=== PATIENT | male | born 1950 | race Caucasian/White ===

== ENCOUNTER 2016-05-12 18:29 | Inpatient (IN) | payer MEDICARE ==
[2016-05-12] MEDS ORDERED: IPRATROPIUM-ALBUTEROL 3 ML NEB INHALATION STA ×2 (18:48→18:52)
[2016-05-12] MEDS ORDERED: HYDROmorphone 1 MG/ML 1 ML SYRINGE IVP STA ×3 (18:48→21:12)
[2016-05-12] MEDS ORDERED: RX INFO: IV CONTRAST WAS GIVEN 1 EACH MISC MISCELLANE PRN (18:49)
--- NOTE | 2016-05-12 18:52 | ED ---
General Adult HPI - General Chief complaint: Shortness of Breath Stated complaint: preethi Time Seen by Provider: 05/12/16 18:42 Source: patient, family, RN notes reviewed Mode of arrival: wheelchair Limitations: no limitations - History of Present Illness Initial comments: Patient is a pleasant 66-year-old male presenting to the emergency Department with difficulty in breathing. Patient has had right-sided back pain for the past month or so. Patient has known lung cancer and is on chemotherapy. Patient has become more short of breath the past hour or so. Patient states discomfort is severe at this time. Patient is on oral morphine at home without improvement of symptoms. No leg pain or leg swelling. No cough or fever. - Related Data Home Medications Medication Instructions Recorded Confirmed Albuterol Inhaler [Ventolin Hfa 2 puff INHALATION RT-Q6H PRN 12/17/15 05/12/16 Inhaler] Escitalopram [Lexapro] 20 mg PO DAILY 12/17/15 05/12/16 Losartan [Cozaar] 25 mg PO DAILY 12/17/15 05/12/16 Cholecalciferol [Vitamin D3] 5,000 unit PO DAILY 03/13/16 05/12/16 Ascorbic Acid [Vitamin C] 500 mg PO DAILY 05/12/16 05/12/16 Cyclobenzaprine [Flexeril] 10 mg PO TID 05/12/16 05/12/16 Diazepam [Valium] 5 mg PO DAILY PRN 05/12/16 05/12/16 Flax Larios Lignans 1 tab PO DAILY 05/12/16 05/12/16 Morphine Sulfate [Ms Contin] 30 mg PO Q12H 05/12/16 05/12/16 Multivitamins, Thera [Multivitamin] 1 tab PO DAILY 05/12/16 05/12/16 [place] 3,6,9 1 cap PO DAILY 05/12/16 05/12/16 Opdivo(Unknown) 1 dose IV Q14D 05/12/16 05/12/16 Vitamin B Complex 1 cap PO DAILY 05/12/16 05/12/16 methylPREDNISolone [Medrol Dose 4 mg PO DIRECTED 05/12/16 05/12/16 Pack] Previous Rx's Medication Instructions Recorded Folic Acid 1 mg PO DAILY #90 tablet 01/01/16 HYDROcodone/APAP 10-325MG [[place] 1 - 2 tab PO Q4H PRN #84 tab 01/16/16 10325] Allergies Allergy/AdvReac Type Severity Reaction Status Date / Time adhesive Allergy Rash/Hives Verified 05/12/16 19:13 clonazepam [From Klonopin] Allergy Unknown Verified 05/12/16 19:13 latex Allergy Rash/Hives Verified 05/12/16 19:13 naproxen [From Naprosyn] Allergy Rash/Hives Verified 05/12/16 19:13 ondansetron Allergy Unknown Verified 05/12/16 19:13 prochlorperazine Allergy Unknown Verified 05/12/16 19:13 topiramate Allergy Blisters Verified 05/12/16 19:13 buprenorphine AdvReac Nausea Verified 05/12/16 19:13 myceline Allergy Unknown Uncoded 05/12/16 19:13 Review of Systems ROS Statement: Those systems with pertinent positive or pertinent negative responses have been documented in the HPI. ROS Other: All systems not noted in ROS Statement are negative. Constitutional: Denies: fever, chills Eyes: Denies: eye pain ENT: Denies: ear pain Respiratory: Reports: dyspnea. 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 , Lung Mass History of Any Multi-Drug Resistant Organisms: None Reported Past Surgical History: Orthopedic Surgery Additional Past Surgical History / Comment(s): cervical fusion 4,5,6. removed spur from neck. right ORCHECTOMY with right LYMPH NODES REMOVED and adrenal glands removed. metal clips and david in abdominal area secondary to surgery from cancer, RT KNEE X2 cyst removed ,SKIN CA REMOVED RT SIDE OF FACE 2001. right thumb fracture with surgery. 2004 left tib/fib and ankle fractures with surgery, colonoscopies/benign polypectomy. Past Anesthesia/Blood Transfusion Reactions: No Reported Reaction Additional Past Anesthesia/Blood Transfusion Reaction / Comment(s): Pt states he has received blood in past without reaction. Past Psychological History: Anxiety, Depression Additional Psychological History / Comment(s): Pt resides with his spouse. He uses a cane on occasion. He drives. Stopped smoking for a while but is smoking again at this time. Denies alcohol use. 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 No experience. No international travel. No current exposures. No recreational drug use or alcohol use Smoking Status: Current every day smoker Past Alcohol Use History: None Reported Additional Past Alcohol Use History / Comment(s): Pt states he started smoking in 1959. He is less than a ppd smoker at this time. Estimates was approximately 1 pack per day throughout most of life. Past Drug Use History: Marijuana - Past Family History Father Family Medical History: Cancer, Thyroid Disorder Additional Family Medical History / Comment(s): Father had skin cancer. He also had heart disease. He at the age of 95 yrs. Mother Family Medical History: Cancer, COPD, Hypertension Additional Family Medical History / Comment(s): Mother had breast cancer. She at the age of 84 yrs. General Exam Limitations: no limitations General appearance: alert, other (Patient does appear uncomfortable) Head exam: Present: atraumatic Eye exam: Present: normal appearance ENT exam: Present: normal oropharynx Neck exam: Present: normal inspection Respiratory exam: Present: decreased breath sounds Cardiovascular Exam: Present: tachycardia Expanded Peripheral pulses: 2+: Radial (R), Radial (L), Posterior Tibialis (R), Posterior Tibialis (L) GI/Abdominal exam: Present: soft. Absent: tenderness Extremities exam: Present: normal inspection. Absent: pedal edema, calf tenderness Back exam: Present: tenderness (Tenderness right parathoracic region) Neurological exam: Present: alert. Absent: motor sensory deficit Psychiatric exam: Present: normal affect, normal mood Skin exam: Absent: rash Course Vital Signs 05/12/16 05/12/16 05/12/16 18:35 18:53 19:04 Temperature 98.8 F Pulse Rate 134 H 130 H 136 H Respiratory 20 Rate Blood Pressure 120/84 O2 Sat by Pulse 96 Oximetry 05/12/16 05/12/16 05/12/16 19:05 19:17 19:52 Temperature Pulse Rate 136 H 136 H 118 H Respiratory 22 Rate Blood Pressure 126/77 O2 Sat by Pulse 96 Oximetry 05/12/16 05/12/16 20:59 21:28 Temperature Pulse Rate 119 H 118 H Respiratory 22 20 Rate Blood Pressure 144/68 139/72 O2 Sat by Pulse 97 97 Oximetry EKG Findings - EKG Comments: EKG Findings:: Sinus tachycardia 129. TN 142. QRS 74. QT 286. QTc 418. Normal axis. Normal QRS. Normal ST-T. Medical Decision Making - Medical Decision Making Patient reexamined and still appears in discomfort. Patient requests further medication. Case was discussed in detail with practitioner Nicky, covering for Dr. Alonzo, who will admit for Dr. Koehler. Case also discussed in detail with Dr. Salazar, who will consult for Dr. Polk. He recommends no antibiotics at this time. - Lab Data Result diagrams: 05/12/16 18:52 05/12/16 18:52 Lab Results 05/12/16 05/12/16 05/12/16 Range/Units 18:52 18:52 18:52 WBC 65.4 H* (3.8-10.6) k/uL RBC 3.81 L (4.30-5.90) m/uL Hgb 11.0 L (13.0-17.5) gm/dL Hct 36.1 L (39.0-53.0) % MCV 94.6 (80.0-100.0) fL MCH 29.0 (25.0-35.0) pg MCHC 30.6 L (31.0-37.0) g/dL RDW 20.0 H (11.5-15.5) % Plt Count 751 H D (150-450) k/uL Neutrophils % (Manual) 84.0 % Band Neutrophils % 8.0 % Lymphocytes % (Manual) 2.0 % Monocytes % (Manual) 4.5 % Metamyelocytes % 0.5 % Myelocytes % 1.0 % Neutrophils # (Manual) 60.2 H (1.3-7.7) k/uL Lymphocytes # (Manual) 1.3 (1.0-4.8) k/uL Monocytes # (Manual) 2.9 H (0-1.0) k/uL Nucleated RBCs 0 (0-0) /100 WBC Manual Slide Review Performed Toxic Granulation Present Hypochromasia Slight Anisocytosis Moderate Anisocytosis (manual) Present Macrocytosis Slight PT (9.0-12.0) sec INR (<1.1) APTT (22.0-30.0) sec Sodium 139 (137-145) mmol/L Potassium 4.9 (3.5-5.1) mmol/L Chloride 96 L (98-107) mmol/L Carbon Dioxide 27 (22-30) mmol/L Anion Gap 16 mmol/L BUN 17 (9-20) mg/dL Creatinine 0.69 (0.66-1.25) mg/dL Est GFR (MDRD) Af Amer >60 (>60 ml/min/1.73 sqM) Est GFR (MDRD) Non-Af >60 (>60 ml/min/1.73 sqM) Glucose 126 H (74-99) mg/dL Calcium 10.1 (8.4-10.2) mg/dL Total Bilirubin 0.3 (0.2-1.3) mg/dL AST 33 (17-59) U/L ALT 51 (21-72) U/L Alkaline Phosphatase 225 H (38-126) U/L Total Creatine Kinase <20 L (55-170) U/L CK-MB (CK-2) 1.0 (0.0-2.4) ng/mL CK-MB (CK-2) Rel Index 0.0 Troponin I <0.012 (0.000-0.034) ng/mL Total Protein 7.1 (6.3-8.2) g/dL Albumin 3.6 (3.5-5.0) g/dL 05/12/16 Range/Units 18:52 WBC (3.8-10.6) k/uL RBC (4.30-5.90) m/uL Hgb (13.0-17.5) gm/dL Hct (39.0-53.0) % MCV (80.0-100.0) fL MCH (25.0-35.0) pg MCHC (31.0-37.0) g/dL RDW (11.5-15.5) % Plt Count (150-450) k/uL Neutrophils % (Manual) % Band Neutrophils % % Lymphocytes % (Manual) % Monocytes % (Manual) % Metamyelocytes % % Myelocytes % % Neutrophils # (Manual) (1.3-7.7) k/uL Lymphocytes # (Manual) (1.0-4.8) k/uL Monocytes # (Manual) (0-1.0) k/uL Nucleated RBCs (0-0) /100 WBC Manual Slide Review Toxic Granulation Hypochromasia Anisocytosis Anisocytosis (manual) Macrocytosis PT 11.2 (9.0-12.0) sec INR 1.1 (<1.1) APTT 26.5 (22.0-30.0) sec Sodium (137-145) mmol/L Potassium (3.5-5.1) mmol/L Chloride (98-107) mmol/L Carbon Dioxide (22-30) mmol/L Anion Gap mmol/L BUN (9-20) mg/dL Creatinine (0.66-1.25) mg/dL Est GFR (MDRD) Af Amer (>60 ml/min/1.73 sqM) Est GFR (MDRD) Non-Af (>60 ml/min/1.73 sqM) Glucose (74-99) mg/dL Calcium (8.4-10.2) mg/dL Total Bilirubin (0.2-1.3) mg/dL AST (17-59) U/L ALT (21-72) U/L Alkaline Phosphatase (38-126) U/L Total Creatine Kinase (55-170) U/L CK-MB (CK-2) (0.0-2.4) ng/mL CK-MB (CK-2) Rel Index Troponin I (0.000-0.034) ng/mL Total Protein (6.3-8.2) g/dL Albumin (3.5-5.0) g/dL - Radiology Data Radiology results: image reviewed (Computed tomography scan of the chest shows no pulmonary embolism. Redemonstrated lesions.) Disposition Clinical Impression: Thoracic back pain, Dyspnea Disposition: ADMITTED IP TO THIS HOSP
[2016-05-12 19:15] LABS: Anisocytosis Moderate; CH 29.9; CHCM 31.7; HCT 36.1 % (39.0-53.0); HDW 2.84; Hypochromasia Slight; MCHC 30.6 g/dL (31.0-37.0); MCV 94.6 fL (80.0-100.0); Macrocytosis Slight; Mean Platelet Volume 7.6; RBC 3.81 m/uL (4.30-5.90); WBC (Perox) 64.86
[2016-05-12 19:17] LABS: WBC 65.4 k/uL (3.8-10.6)
[2016-05-12 19:18] LABS: INR 1.1 (<1.1); Partial Thromboplastin Time 26.5 sec (22.0-30.0); Prothrombin Time 11.2 sec (9.0-12.0)
[2016-05-12 19:25] LABS: Add Differential Manual Differential
[2016-05-12 19:26] LABS: ALT 51 U/L (21-72); AST 33 U/L (17-59); Alkaline Phosphatase 225 U/L (38-126); Anion Gap 16 mmol/L; Blood Urea Nitrogen 17 mg/dL (9-20); Calcium 10.1 mg/dL (8.4-10.2); Carbon Dioxide 27 mmol/L (22-30); Chloride 96 mmol/L (98-107); Glucose 126 mg/dL (74-99); Non-African American GFR(MDRD) >60 (>60 ml/min/1.73 sqM); Potassium 4.9 mmol/L (3.5-5.1); Sodium 139 mmol/L (137-145); Total Bilirubin 0.3 mg/dL (0.2-1.3); Total Protein 7.1 g/dL (6.3-8.2)
[2016-05-12 19:28] LABS: Metamyelocytes % 0.5 %; Nucleated Red Blood Cells 0 /100 WBC (0-0); Total Cells Counted 200
[2016-05-12 19:29] LABS: Creatine Kinase <20 U/L (55-170); Manual Review Performed; Toxic Granulation Present
[2016-05-12 19:41] LABS: Troponin I <0.012 ng/mL (0.000-0.034)
--- NOTE | 2016-05-12 20:47 | CT ---
EXAMINATION TYPE: CT angio chest DATE OF EXAM: 05/12/2016 7:48 PM COMPARISON: April 15, 2016 HISTORY: Patient complains of shortness of breath. Patient has a known history of lung CA. CT DLP: 170.1 mGycm Automated exposure control for dose reduction was used. CONTRAST: CTA scan of the thorax is performed with IV Contrast, patient injected with 100 mL of Omnipaque 350, pulmonary embolism protocol. MIP images are created and reviewed. 3D reconstructed images are creat ed on an independent workstation and reviewed. FINDINGS: Thoracic findings: The pulmonary arterial tree is widely patent, without evidence of pulmonary emboli . There is no pulmonary edema, and no evidence of pneumonia. The pleural spaces are negative. The mass in the left lower lobe is lobulated and measures approximately 5 x 3.8 x 3.5 cm, similar to the previous exam. There is redemonstration of an expansile lesion within the left anterior costo chondral cartilage junction - this has increased to 2.6 cm AP, previously measuring 2.0 cm AP. Left i nfrahilar adenopathy appears similar to the prior study. No mediastinal adenopathy. Coronary calcific ations are noted. Visualized subdiaphragmatic structures: There several small hypodensities scattered through the liver , which were present previously. There is a hypodensity within the anterior mid right portion of the spleen measuring 1.7 cm - which was seen previously. Left adrenal gland nodules are redemonstrated. IMPRESSIONS: 1. NEGATIVE FOR PULMONARY EMBOLI OR OTHER ACUTE PULMONARY OR PLEURAL PROCESS. 2. NEOPLASTIC FINDINGS REDEMONSTRATED.
[2016-05-12] MEDS ORDERED: ACETAMINOPHEN IV (For NPO) 1,000 MG in SALINE 1 100ML.BAG IVPB STA (21:12)
[2016-05-12] MEDS ORDERED: IPRATROPIUM-ALBUTEROL 3 ML NEB INHALATION PRN (21:31)
[2016-05-12 22:45] VITALS: BMI 23.7
[2016-05-12] MEDS: CYCLOBENZAPRINE 10 MG TAB PO SCH (23:57)
[2016-05-12] MEDS: HYDROmorphone 1 MG/ML 1 ML SYRINGE IVP PRN (23:57)
[2016-05-13] MEDS: MORPHINE SULFATE ER 30 MG TABLET PO SCH ×4 (01:16→22:59)
[2016-05-13] MEDS: HYDROmorphone 1 MG/ML 1 ML SYRINGE IVP PRN ×7 (03:54→22:33)
[2016-05-13 04:51] LABS: Appearance,Urine Clear (Clear); Bilirubin,Urine Negative (Negative); Glucose,Urine (UA) Negative (Negative); Ketones,Urine Negative (Negative); Leukocyte Esterase,Urine Negative (Negative); Nitrite,Urine Negative (Negative); PH, Urine 7.5 (5.0-8.0); Protein,Urine Trace (Negative); UA Billing (MACRO vs. MICRO) CHEM; Urobilinogen,Urine <2.0 mg/dL (<2.0)
[2016-05-13 05:39] LABS: Specific Gravity,Urine >1.050 (1.001-1.035)
[2016-05-13] MEDS: IPRATROPIUM-ALBUTEROL 3 ML NEB INHALATION SCH ×4 (06:49→20:19)
[2016-05-13] MEDS: CYCLOBENZAPRINE 10 MG TAB PO SCH ×3 (07:33→20:27)
[2016-05-13] MEDS: FOLIC ACID 1 MG TAB PO SCH (07:33)
[2016-05-13] MEDS: ASCORBIC ACID 500 MG TAB PO SCH (07:33)
[2016-05-13] MEDS: ESCITALOPRAM 20 MG TAB PO SCH (07:33)
[2016-05-13] MEDS: CHOLECALCIFEROL 1,000 UNIT TAB PO SCH (07:33)
[2016-05-13] MEDS: LOSARTAN 50 MG TAB PO SCH (07:34)
[2016-05-13] MEDS: MULTIVITAMINS, THERA 1 EACH TAB PO SCH (07:34)
[2016-05-13] MEDS ORDERED: OMEGA PO SCH (09:00)
[2016-05-13] MEDS ORDERED: [UNRECOGNIZED DRUG - OTHER] PO SCH (09:00)
[2016-05-13] MEDS: HYDROcodone/APAP 10-325MG 1 EACH TAB PO PRN ×3 (14:56→22:59)
--- NOTE | 2016-05-13 16:13 | P.HPIM ---
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 Patient follows with Dr. Polk for oncology and has undergone chemotherapy. Patient presented to the emergency department with complaints of difficulty breathing started 1 hour prior to arrival. Patient also complained of right- sided back pain, increasing in character over the last month. Patient states that he was recently treated with Flexeril and tapered Medrol pack by [facility] for a suspected pinched nerve in his back. CTA of chest negative for pulmonary emboli or other acute pulmonary or pleural process. Admission temperature 98.8, heart rate 134, blood pressure 120/84, oxygen saturation 96% on room air. Admission WBC 65.4. Patient was admitted to the medical floor for intractable thoracic back pain and dyspnea. Consult requested for oncology service. Upon examination, patient complains of pain to his posterior right upper back radiating to his right posterior shoulder exacerbated with minimal activity. Denies chills, fevers, shortness of breath, chest pain, or abdominal pain. Patient reports fair appetite. Patient is urinating without difficulty. 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 , Lung Mass History of Any Multi-Drug Resistant Organisms: None Reported Past Surgical History: Orthopedic Surgery Additional Past Surgical History / Comment(s): cervical fusion 4,5,6. removed spur from neck. right ORCHECTOMY with right LYMPH NODES REMOVED and adrenal glands removed. metal clips and david in abdominal area secondary to surgery from cancer, RT KNEE X2 cyst removed ,SKIN CA REMOVED RT SIDE OF FACE 2001. right thumb fracture with surgery. 2004 left tib/fib and ankle fractures with surgery, colonoscopies/benign polypectomy. Past Anesthesia/Blood Transfusion Reactions: No Reported Reaction Additional Past Anesthesia/Blood Transfusion Reaction / Comment(s): Pt states he has received blood in past without reaction. Past Psychological History: Anxiety, Depression Additional Psychological History / Comment(s): Pt resides with his spouse. He uses a cane on occasion. He drives. Stopped smoking for a while but is smoking again at this time. Denies alcohol use. 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 No experience. No international travel. No current exposures. No recreational drug use or alcohol use Smoking Status: Current every day smoker Past Alcohol Use History: None Reported Additional Past Alcohol Use History / Comment(s): Pt states he started smoking in 1959. He is less than a ppd smoker at this time. Estimates was approximately 1 pack per day throughout most of life. Past Drug Use History: Marijuana - Past Family History Father Family Medical History: Cancer, Thyroid Disorder Additional Family Medical History / Comment(s): Father had skin cancer. He also had heart disease. He at the age of 95 yrs. Mother Family Medical History: Cancer, COPD, Hypertension Additional Family Medical History / Comment(s): Mother had breast cancer. She at the age of 84 yrs. Medications and Allergies Home Medications Medication Instructions Recorded Confirmed Type Albuterol Inhaler [Ventolin Hfa 2 puff INHALATION RT-Q6H PRN 12/17/15 05/12/16 History Inhaler] Escitalopram [Lexapro] 20 mg PO DAILY 12/17/15 05/12/16 History Losartan [Cozaar] 25 mg PO DAILY 12/17/15 05/12/16 History Cholecalciferol [Vitamin D3] 5,000 unit PO DAILY 03/13/16 05/12/16 History Ascorbic Acid [Vitamin C] 500 mg PO DAILY 05/12/16 05/12/16 History Cyclobenzaprine [Flexeril] 10 mg PO TID 05/12/16 05/12/16 History Diazepam [Valium] 5 mg PO DAILY PRN 05/12/16 05/12/16 History Flax Larios Lignans 1 tab PO DAILY 05/12/16 05/12/16 History Morphine Sulfate [Ms Contin] 30 mg PO Q12H 05/12/16 05/12/16 History Multivitamins, Thera [Multivitamin] 1 tab PO DAILY 05/12/16 05/12/16 History [place] 3,6,9 1 cap PO DAILY 05/12/16 05/12/16 History Opdivo(Unknown) 1 dose IV Q14D 05/12/16 05/12/16 History Vitamin B Complex 1 cap PO DAILY 05/12/16 05/12/16 History methylPREDNISolone [Medrol Dose 4 mg PO DIRECTED 05/12/16 05/12/16 History Pack] Allergies Allergy/AdvReac Type Severity Reaction Status Date / Time adhesive Allergy Rash/Hives Verified 05/12/16 19:13 clonazepam [From Klonopin] Allergy Unknown Verified 05/12/16 19:13 latex Allergy Rash/Hives Verified 05/12/16 19:13 naproxen [From Naprosyn] Allergy Rash/Hives Verified 05/12/16 19:13 ondansetron Allergy Unknown Verified 05/12/16 19:13 prochlorperazine Allergy Unknown Verified 05/12/16 19:13 topiramate Allergy Blisters Verified 05/12/16 19:13 buprenorphine AdvReac Nausea Verified 05/12/16 19:13 myceline Allergy Unknown Uncoded 05/12/16 19:13 Physical Exam Vitals: Vital Signs Temp Pulse Pulse Resp BP BP Pulse Ox 05/13/16 15:34 110 H 05/13/16 15:24 110 H 05/13/16 12:12 112 H 05/13/16 12:03 118 H 05/13/16 07:00 97.1 F L 116 H 106 H 20 123/71 94 L 05/13/16 06:49 114 H 97 05/13/16 00:00 107 H 18 05/12/16 22:01 97.1 F L 107 H 18 108/61 96 05/12/16 21:58 98.7 F 114 H 18 122/79 98 Intake and Output 05/13/16 05/13/16 05/13/16 06:59 14:59 22:59 Other: Voiding Method Toilet Toilet Toilet Urinal Urinal Urinal # Voids 1 Weight 77.1 kg Patient Weight 05/14/16 06:59 Weight 77.1 kg GENERAL: Pt awake and alert, lying in bed, in no acute distress. HEAD: Atraumatic, normocephalic. EYES: Conjunctiva are normal. ENT: Moist mucous membranes. NECK:Supple without lymphadenopathy or JVD. LUNGS: Breath sounds clear to auscultation bilaterally. HEART: Heart S1, S2, no S3 or S4. Regular rate and rhythm. No murmurs, rubs or gallops. ABDOMEN: Soft, nontender, nondistended, normoactive bowel sounds. EXTREMITIES: 2+ peripheral pulses. No edema. No calf tenderness. NEUROLOGICAL: Pt oriented x 3. Cranial nerves II through XII grossly intact. Strength and sensation grossly intact. PSYCH: Calm. SKIN: Warm, dry. MUSCULOSKELETAL: Tenderness to right sided thoracic region. Results CBC & Chem 7: 05/12/16 18:52 05/12/16 18:52 Labs: Abnormal Lab Results - Last 24 Hours (Table) 05/13/16 Range/Units 04:00 Ur Specific [place] >1.050 H (1.001-1.035) Urine Protein Trace H (Negative) Thrombosis Risk Factor Assmnt - DVT/VTE Prophylaxis DVT/VTE Prophylaxis: Pharmacologic Prophylaxis ordered, Mechanical Prophylaxis ordered - Choose All That Apply Each Factor Represents 1 point: Abnormal pulmonary function (COPD) Other Risk Factors: Yes Each Risk Factor Represents 2 Points: Age 61-74 years Thrombosis Risk Factor Assessment Total Risk Factor Score: 3 Thrombosis Risk Factor Assessment Level: Moderate Risk Assessment and Plan Plan: Impression: 1. Dyspnea, present on admission. CT chest negative for pulmonary embolism or acute pulmonary process. 2. Thoracic back pain. 3. Adenocarcinoma of lung with metastasis to right iliac bone. 4. Anemia suspect secondary to chronic disease. Hemoglobin 11. 4. Thrombocytosis, present on admission. Platelet count 751. 5. Elevated alkaline phosphatase, chronic. Alkaline phosphatase 225. 6. History of COPD. 7. GERD. 9. History of asthma. 10. History of testicular cancer. 11. Hypertension. 12. Degenerative joint disease. 13. Sleep apnea. 14. History of hiatal hernia. 15. Anxiety and depression, stable. 16. Chronic back pain. 17. Nicotine dependence. Plan: Continue to monitor patient. Consult Dr. Salazar from oncology service, recommendations pending. Continue home medications. Continue GI and DVT prophylaxis. Encourage smoking cessation. Continue supportive treatment and pain management. Repeat CBC and BMP in a.m. The above impression and plan have been discussed and directed by Dr. Koehler. Anna RAMIREZ acting as scribe for Dr. Koehler.
[2016-05-13] MEDS: FAMOTIDINE 20 MG TAB PO SCH (20:27)
--- NOTE | 2016-05-13 21:28 | P.CONS ---
History of Present Illness - Reason for Consult Consult date: 05/13/16 Intractable pain. Metastatic adenocarcinoma of lung - History of Present Illness Mr. Cutler is a 66-year-old gentleman, initially seen in consult during his visit on 12/21/2015. He had been admitted with severe lower back pain. He was ultimately found to have a destructive sacroiliac metastasis, with biopsy confirming non-small cell cancer (likely adenocarcinoma) of lung origin. A dominant mass was also found in the left lung, on CT scans. Pain control during this previous visit was quite challenging. The patient was seen by radiation oncology and started on palliative radiation which he completed on 01/09/2016. He was then started on chemotherapy with carboplatin and Alimta, and completed 4 cycles in late 03/26. Tolerance of chemotherapy was overall poor, with significant fatigue, decreased appetite, and need for transfusions. The CT scans from early 04/25 however showed progression in the dominant mass in the left lung. The patient was therefore started on second line treatment with Opdivo, and received his first cycle 2 weeks ago. The patient has chronic pain issues related to musculoskeletal problems especially regarding his back, chronically, for several years even prior to his cancer diagnosis. He states that he developed right-sided upper back pain, especially around the right shoulder blade, a few days ago. This has been progressive since, and associated with the some intermittent shortness of breath. He therefore came into the emergency room, and had a CTA of the chest done. The report, as well as the actual images were reviewed. The mass in the lower left lung, appeared to be slightly smaller. There was minor increase in previously noted costochondral expansile mass. No PE was seen. As the patient' s pain was not controlled, he was admitted for further management. Regarding his shortness of breath, he states that this appears to be related to inability to take deep breaths when his pain was more severe. He denies any significant cough. The lower back pain with which he had presented at the time of his initial cancer diagnosis, is quite well controlled per the patient. The consult was therefore placed for further evaluation and recommendations Review of Systems Constitutional: Reports chronic pain, Reports fatigue, Reports weakness Eyes: denies blurred vision, denies pain Ears: deny: decreased hearing, ear discharge, earache, tinnitus Cardiovascular: Reports shortness of breath Respiratory: Reports dyspnea, Reports pain, Reports pain on inspiration Gastrointestinal: Denies abdominal pain, Denies diarrhea, Denies nausea, Denies vomiting Genitourinary: Reports as per HPI (No specific complaints) Musculoskeletal: right: shoulder pain Integumentary: Denies pruritus, Denies rash Neurological: Reports weakness Psychiatric: Reports depression Endocrine: Denies fatigue, Denies weight change Hematologic/Lymphatic: Reports as per HPI Past Medical History Past Medical History: Asthma, Cancer, COPD, GERD/Reflux, Hypertension, Osteoarthritis (OA), Pneumonia, Skin Disorder, Sleep Apnea/CPAP/BIPAP Additional Past Medical History / Comment(s): cervical and back pain, LAVERN but no longer uses his CPAP, 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 , Lung Mass History of Any Multi-Drug Resistant Organisms: None Reported Past Surgical History: Orthopedic Surgery Additional Past Surgical History / Comment(s): cervical fusion 4,5,6. removed spur from neck. right ORCHECTOMY with right LYMPH NODES REMOVED and adrenal glands removed. metal clips and david in abdominal area secondary to surgery from cancer, RT KNEE X2 cyst removed ,SKIN CA REMOVED RT SIDE OF FACE 2001. right thumb fracture with surgery. 2004 left tib/fib and ankle fractures with surgery, colonoscopies/benign polypectomy. Past Anesthesia/Blood Transfusion Reactions: No Reported Reaction Additional Past Anesthesia/Blood Transfusion Reaction / Comm: Pt states he has received blood in past without reaction. Past Psychological History: Anxiety, Depression Additional Psychological History / Comment(s): Pt resides with his spouse. He uses a cane on occasion. He drives. Stopped smoking for a while but is smoking again at this time. Denies alcohol use. 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 No experience. No international travel. No current exposures. No recreational drug use or alcohol use Smoking Status: Current every day smoker Past Alcohol Use History: None Reported Additional Past Alcohol Use History / Comment(s): Pt states he started smoking in 1959. He is less than a ppd smoker at this time. Estimates was approximately 1 pack per day throughout most of life. Past Drug Use History: Marijuana - Past Family History Father Family Medical History: Cancer, Thyroid Disorder Additional Family Medical History / Comment(s): Father had skin cancer. He also had heart disease. He at the age of 95 yrs. Mother Family Medical History: Cancer, COPD, Hypertension Additional Family Medical History / Comment(s): Mother had breast cancer. She at the age of 84 yrs. Medications and Allergies Home Medications Medication Instructions Recorded Confirmed Type Albuterol Inhaler [Ventolin Hfa 2 puff INHALATION RT-Q6H PRN 12/17/15 05/12/16 History Inhaler] Escitalopram [Lexapro] 20 mg PO DAILY 12/17/15 05/12/16 History Losartan [Cozaar] 25 mg PO DAILY 12/17/15 05/12/16 History Cholecalciferol [Vitamin D3] 5,000 unit PO DAILY 03/13/16 05/12/16 History Ascorbic Acid [Vitamin C] 500 mg PO DAILY 05/12/16 05/12/16 History Cyclobenzaprine [Flexeril] 10 mg PO TID 05/12/16 05/12/16 History Diazepam [Valium] 5 mg PO DAILY PRN 05/12/16 05/12/16 History Flax Larios Lignans 1 tab PO DAILY 05/12/16 05/12/16 History Morphine Sulfate [Ms Contin] 30 mg PO Q12H 05/12/16 05/12/16 History Multivitamins, Thera [Multivitamin] 1 tab PO DAILY 05/12/16 05/12/16 History Ross 3,6,9 1 cap PO DAILY 05/12/16 05/12/16 History Opdivo(Unknown) 1 dose IV Q14D 05/12/16 05/12/16 History Vitamin B Complex 1 cap PO DAILY 05/12/16 05/12/16 History methylPREDNISolone [Medrol Dose 4 mg PO DIRECTED 05/12/16 05/12/16 History Pack] Allergies Allergy/AdvReac Type Severity Reaction Status Date / Time adhesive Allergy Rash/Hives Verified 05/12/16 19:13 clonazepam [From Klonopin] Allergy Unknown Verified 05/12/16 19:13 latex Allergy Rash/Hives Verified 05/12/16 19:13 naproxen [From Naprosyn] Allergy Rash/Hives Verified 05/12/16 19:13 ondansetron Allergy Unknown Verified 05/12/16 19:13 prochlorperazine Allergy Unknown Verified 05/12/16 19:13 topiramate Allergy Blisters Verified 05/12/16 19:13 buprenorphine AdvReac Nausea Verified 05/12/16 19:13 myceline Allergy Unknown Uncoded 05/12/16 19:13 Physical Exam Vitals: Vital Signs Temp Pulse Pulse Resp BP BP Pulse Ox 05/13/16 20:33 108 H 05/13/16 20:19 108 H 05/13/16 17:59 98 F 05/13/16 15:34 110 H 05/13/16 15:24 110 H 05/13/16 15:00 100 F H 108 H 20 105/62 96 05/13/16 12:12 112 H 05/13/16 12:03 118 H 05/13/16 07:00 97.1 F L 116 H 106 H 20 123/71 94 L 05/13/16 06:49 114 H 97 05/13/16 00:00 107 H 18 05/12/16 22:01 97.1 F L 107 H 18 108/61 96 05/12/16 21:58 98.7 F 114 H 18 122/79 98 Intake and Output 05/13/16 05/13/16 05/13/16 06:59 14:59 22:59 Other: Voiding Method Toilet Toilet Toilet Urinal Urinal Urinal # Voids 1 2 Weight 77.1 kg Patient Weight 05/14/16 06:59 Weight 77.1 kg - Constitutional General appearance: no acute distress - EENT Eyes: EOMI, PERRLA ENT: hearing grossly normal, normal oropharynx - Neck Neck: no lymphadenopathy Thyroid: bilateral: normal size - Respiratory Respiratory: bilateral: CTA - Cardiovascular Rhythm: regular Heart sounds: normal: S1, S2 - Gastrointestinal General gastrointestinal: normal bowel sounds, soft - Integumentary Integumentary: normal - Neurologic Neurologic: CNII-XII intact - Musculoskeletal Musculoskeletal: generalized weakness, strength equal bilaterally - Psychiatric Psychiatric: A&O x's 3, appropriate affect Results CBC & Chem 7: 05/12/16 18:52 05/12/16 18:52 Labs: Abnormal Lab Results - Last 24 Hours (Table) 05/13/16 Range/Units 04:00 Ur Specific Flora >1.050 H (1.001-1.035) Urine Protein Trace H (Negative) CT scan - chest: report reviewed, image reviewed (Prior CT chest report from early 04/25 reviewed) Assessment and Plan (1) Thoracic back pain Narrative/Plan: This pain is new, and limited to the right upper back, especially around the right shoulder blade. The patient describes this as a "tightness", worsened by deep inspiration. His CT scans, as well as physical exam did not reveal any specific lesions to explain this pain. The patient is fairly comfortable after admission, on his current pain regimen. Continue the same. The patient does have a long-standing history of degenerative disease and chronic muscular skeletal pain especially related to his spine. We will order an MRI of the C- spine and thoracic spine, for further workup. Status: Acute (2) Lung cancer metastatic to bone Narrative/Plan: The patient is status post his first dose of Opdivo. 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 Status: Acute
[2016-05-14] MEDS: HYDROmorphone 1 MG/ML 1 ML SYRINGE IVP PRN ×6 (02:35→21:54)
[2016-05-14] MEDS: HYDROcodone/APAP 10-325MG 1 EACH TAB PO PRN ×4 (03:24→18:30)
[2016-05-14 07:42] LABS: Anisocytosis Slight; Basophils % (A) 0 %; CH 29.5; CHCM 30.3; Eosinophils # (A) 0.1 k/uL (0-0.7); Eosinophils % (A) 0 %; HCT 32.5 % (39.0-53.0); HDW 2.73; Hypochromasia Marked; Luc % (Auto) 1; Lymphocytes # (A) 0.8 k/uL (1.0-4.8); Lymphocytes % (A) 2 %; MCH 29.9 pg (25.0-35.0); MCHC 30.7 g/dL (31.0-37.0); MCV 97.5 fL (80.0-100.0); Macrocytosis Slight; Mean Platelet Volume 6.9; Monocytes # (A) 1.4 k/uL (0-1.0); Monocytes % (A) 3 %; Neutrophils # (A) 45.6 k/uL (1.3-7.7); Neutrophils % (A) 95 %; RBC 3.34 m/uL (4.30-5.90); RDW 19.6 % (11.5-15.5); WBC (Perox) 51.07
[2016-05-14 08:03] LABS: WBC 48.2 k/uL (3.8-10.6)
[2016-05-14 08:13] LABS: Anion Gap 12 mmol/L; Blood Urea Nitrogen 15 mg/dL (9-20); Calcium 8.9 mg/dL (8.4-10.2); Carbon Dioxide 29 mmol/L (22-30); Chloride 96 mmol/L (98-107); Glucose 117 mg/dL (74-99); Non-African American GFR(MDRD) >60 (>60 ml/min/1.73 sqM); Potassium 4.5 mmol/L (3.5-5.1); Sodium 137 mmol/L (137-145)
[2016-05-14] MEDS: IPRATROPIUM-ALBUTEROL 3 ML NEB INHALATION SCH ×4 (08:43→19:16)
[2016-05-14] MEDS: ASCORBIC ACID 500 MG TAB PO SCH (10:10)
[2016-05-14] MEDS: CYCLOBENZAPRINE 10 MG TAB PO SCH ×3 (10:11→21:55)
[2016-05-14] MEDS: FOLIC ACID 1 MG TAB PO SCH (10:11)
[2016-05-14] MEDS: MULTIVITAMINS, THERA 1 EACH TAB PO SCH (10:11)
[2016-05-14] MEDS: LOSARTAN 50 MG TAB PO SCH (10:11)
[2016-05-14] MEDS: ENOXAPARIN 40 MG/0.4 ML SYRINGE SQ SCH (10:11)
[2016-05-14] MEDS: ESCITALOPRAM 20 MG TAB PO SCH (10:11)
[2016-05-14] MEDS: CHOLECALCIFEROL 1,000 UNIT TAB PO SCH (10:11)
[2016-05-14] MEDS: MORPHINE SULFATE ER 30 MG TABLET PO SCH ×2 (11:31→21:53)
--- NOTE | 2016-05-14 12:42 | P.PN ---
Subjective Principal diagnosis: Thoracic back pain Patient is a 66-year-old male with complex medical history noted below significant for stage IV lung cancer with metastasis to right iliac bone. Patient follows with Dr. Polk for oncology and has undergone chemotherapy. Patient presented to the emergency department with complaints of difficulty breathing started 1 hour prior to arrival. Patient also complained of right- sided thoracic back pain, increasing in character over the last month. Patient states that he was recently treated with Flexeril and tapered Medrol pack by [facility] for a suspected pinched nerve in his back. CTA of chest negative for pulmonary emboli or other acute pulmonary or pleural process. Admission temperature 98.8, heart rate 134, blood pressure 120/84, oxygen saturation 96% on room air. Admission WBC 65.4. Patient was admitted to the medical floor for intractable thoracic back pain and dyspnea. Consult requested for oncology service. Patient is currently awaiting MRI of the C- spine and thoracic spine. Upon examination, patient continues to complains of pain to his posterior right upper back radiating to his right posterior shoulder blade exacerbated with activity.. Pain is controlled with current pain regimen per patient. Denies chills, fevers, shortness of breath, chest pain, or abdominal pain. Patient reports fair appetite. Patient is urinating without difficulty. WBC 40.2. Hemoglobin 10. Objective - Vital Signs Vital signs: Vital Signs Temp 97.8 F 05/14/16 07:00 Pulse 112 H 05/14/16 07:00 Resp 16 05/14/16 07:00 BP 98/60 05/14/16 07:00 Pulse Ox 96 05/14/16 07:00 Intake & Output 05/13/16 05/14/16 05/14/16 18:59 06:59 18:59 Weight 77.1 kg Other: Voiding Method Toilet Toilet Toilet Urinal Urinal Urinal # Voids 2 2 - Exam GENERAL: Pt awake and alert, lying in bed, in no acute distress. HEAD: Atraumatic, normocephalic. EYES: Conjunctiva are normal. ENT: Moist mucous membranes. NECK:Supple without lymphadenopathy or JVD. LUNGS: Breath sounds clear to auscultation bilaterally. HEART: Heart S1, S2, no S3 or S4. Regular rate and rhythm. No murmurs, rubs or gallops. ABDOMEN: Soft, nontender, nondistended, normoactive bowel sounds. EXTREMITIES: 2+ peripheral pulses. No edema. No calf tenderness. NEUROLOGICAL: Pt oriented x 3. Cranial nerves II through XII grossly intact. Strength and sensation grossly intact. PSYCH: Calm. SKIN: Warm, dry, pale. MUSCULOSKELETAL: Tenderness to right sided thoracic region. - Labs CBC & Chem 7: 05/14/16 07:23 05/14/16 07:23 Labs: Abnormal Lab Results - Last 24 Hours (Table) 05/14/16 05/14/16 Range/Units 07:23 07:23 WBC 48.2 H* (3.8-10.6) k/uL RBC 3.34 L (4.30-5.90) m/uL Hgb 10.0 L (13.0-17.5) gm/dL Hct 32.5 L (39.0-53.0) % MCHC 30.7 L (31.0-37.0) g/dL RDW 19.6 H (11.5-15.5) % Plt Count 555 H (150-450) k/uL Neutrophils # 45.6 H (1.3-7.7) k/uL Lymphocytes # 0.8 L (1.0-4.8) k/uL Monocytes # 1.4 H (0-1.0) k/uL Chloride 96 L (98-107) mmol/L Creatinine 0.59 L (0.66-1.25) mg/dL Glucose 117 H (74-99) mg/dL Assessment and Plan Plan: Impression: 1. Dyspnea, present on admission. CT chest negative for pulmonary embolism or acute pulmonary process. 2. Thoracic back pain. MRI of cervical spine, right shoulder, and thoracic spine pending. Continue current pain management. 3. Adenocarcinoma of lung with metastasis to right iliac bone. Oncology has seen and evaluated patient, recommendations noted. 4. Anemia suspect secondary to chronic disease. Hemoglobin 10. 4. Thrombocytosis, present on admission. Platelet count 555.. 5. Elevated alkaline phosphatase, chronic. Alkaline phosphatase 225 on admission. 6. History of COPD. 7. GERD. 9. History of asthma. 10. History of testicular cancer. 11. Hypertension. 12. Degenerative joint disease. 13. Sleep apnea. 14. History of hiatal hernia. 15. Anxiety and depression, stable. 16. Chronic back pain. 17. Nicotine dependence. Plan: Continue to monitor patient. Continue home medications. Await results of MRI scans. Continue GI and DVT prophylaxis. Encourage smoking cessation. Continue supportive treatment and pain management. Repeat CBC and BMP in a.m. The above impression and plan have been discussed and directed by Dr. Koehler. Anna RAMIREZ acting as scribe for Dr. Koehler.
--- NOTE | 2016-05-14 14:14 | MR ---
EXAMINATION TYPE: MR shoulder RT wo con DATE OF EXAM: 05/14/2016 9:35 AM COMPARISON: CT scan chest abdomen and pelvis 15 April 2016, bone scan December 2015, no plain film ferguson pplied HISTORY: Rt. shoulder intractable pain. TECHNIQUE: Multiplanar, multisequence imaging of the right shoulder is performed without contrast. FINDINGS: There is extensive motion exam due to patient's pain, this could limit sensitivity. Rotator Cuff: Thought to be intact, some increased signal within the rotator cuff tendon may be due t o tendinopathy, difficult to exclude a partial tear Acromioclavicular Joint: Intact Glenohumeral Joint: No dislocation. Labrum: The labrum appears grossly intact given limitation of non-arthrogram study. Biceps Tendon: The long head of biceps is in normal location within bicipital groove. Bone marrow signal: Diffuse heterogeneous abnormal signal present to include the bony glenoid, clavic le, acromion, proximal humerus and likely ribs within the field of view compatible with marrow placem ent Other: No additional significant abnormality is appreciated. IMPRESSION: Findings suggest bony metastatic disease. Bone scan could be performed for additional evaluation. Add itional findings above.
--- NOTE | 2016-05-14 15:02 | MR ---
EXAMINATION TYPE: MR cervical spine wo/w con DATE OF EXAM: 05/14/2016 10:02 AM COMPARISON: NONE HISTORY: intractable pain, prior surgery on cervical spine TECHNIQUE: Multiplanar, multisequence images of the cervical spine were acquired utilizing 15 mL intravenous Mul tiHance gadolinium contrast. Diffusion weighted imaging was performed. There is extensive motion on the exam. No significant central canal stenosis. Cervical cord signal, c ervical medullary junction thought to be maintained. Soft tissue mass is present deep to the sternocl eidomastoid muscle on the right measuring approximately 2.4 cm which shows some peripheral enhancemen t with central low signal following contrast administration possibly representing adenopathy. Patient shows postoperative change status post anterior cervical fusion and discectomy at C6. Focus of abnor mal signal present within the T1 vertebral body shows increased signal on T2-weighted sequences and l ow signal and T1-weighted images. There is enhancement following contrast menstruation. Abnormal incr eased signal also present within the posterior aspect of the T3 vertebral body to the left of midline , low signal following contrast administration. No sizable disc herniation is evident. Suspect multil evel foraminal encroachment. IMPRESSION: Metastatic disease is suspected. Postop changes. Limitations as described.
[2016-05-14] MEDS: FAMOTIDINE 20 MG TAB PO SCH (21:53)
[2016-05-15] MEDS: HYDROmorphone 1 MG/ML 1 ML SYRINGE IVP PRN ×6 (03:36→19:42)
[2016-05-15] MEDS: ENOXAPARIN 40 MG/0.4 ML SYRINGE SQ SCH (07:48)
[2016-05-15] MEDS: CYCLOBENZAPRINE 10 MG TAB PO SCH ×3 (07:48→21:53)
[2016-05-15] MEDS: CHOLECALCIFEROL 1,000 UNIT TAB PO SCH (07:48)
[2016-05-15] MEDS: ASCORBIC ACID 500 MG TAB PO SCH (07:48)
[2016-05-15] MEDS: ESCITALOPRAM 20 MG TAB PO SCH (07:48)
[2016-05-15] MEDS: LOSARTAN 50 MG TAB PO SCH ×2 (07:49→07:51)
[2016-05-15] MEDS: FOLIC ACID 1 MG TAB PO SCH (07:49)
[2016-05-15] MEDS: MULTIVITAMINS, THERA 1 EACH TAB PO SCH (07:49)
[2016-05-15] MEDS: HYDROcodone/APAP 10-325MG 1 EACH TAB PO PRN ×3 (07:57→23:01)
[2016-05-15] MEDS: IPRATROPIUM-ALBUTEROL 3 ML NEB INHALATION SCH ×4 (08:58→20:23)
[2016-05-15] MEDS: MORPHINE SULFATE ER 30 MG TABLET PO SCH ×2 (11:28→21:52)
--- NOTE | 2016-05-15 12:54 | P.PN ---
Subjective Principal diagnosis: Thoracic back pain Patient is a 66-year-old male with complex medical history noted below significant for stage IV lung cancer with metastasis to right iliac bone. Patient follows with Dr. Polk for oncology and has undergone chemotherapy. Patient presented to the emergency department with complaints of difficulty breathing started 1 hour prior to arrival. Patient also complained of right- sided thoracic back pain, increasing in character over the last month. Patient states that he was recently treated with Flexeril and tapered Medrol pack by [facility] for a suspected pinched nerve in his back. CTA of chest negative for pulmonary emboli or other acute pulmonary or pleural process. Patient was admitted to the medical floor for intractable thoracic back pain and dyspnea with consult to oncology service. MRI of cervical spine with evidence of soft tissue mass deep to the sternocleidomastoid muscle on the right measuring approximately 2.4 cm possibly representing adenopathy. Thoracic spine MRI results pending. Upon examination, patient continues to complains of pain to his posterior right upper back radiating to his right posterior shoulder blade exacerbated with activity. Patient currently rates pain 6 out of 10. Denies chills, fevers, shortness of breath, chest pain, or abdominal pain. Patient reports fair appetite. Patient is urinating without difficulty. Objective - Vital Signs Vital signs: Vital Signs Temp 98.6 F 05/15/16 07:00 Pulse 108 H 05/15/16 09:12 Resp 16 05/15/16 07:00 BP 111/55 05/15/16 07:00 Pulse Ox 96 05/15/16 07:00 Intake & Output 05/14/16 05/15/16 05/15/16 18:59 06:59 18:59 Intake Total 200 Balance 200 Intake: Oral 200 Other: Voiding Method Toilet Toilet Toilet Urinal Urinal Urinal # Voids 2 1 - Exam GENERAL: Pt awake and alert, lying in bed, in no acute distress. HEAD: Atraumatic, normocephalic. EYES: Conjunctiva are normal. ENT: Moist mucous membranes. NECK:Supple without lymphadenopathy or JVD. LUNGS: Breath sounds clear to auscultation bilaterally. HEART: Heart S1, S2, no S3 or S4. Regular rate and rhythm. No murmurs, rubs or gallops. ABDOMEN: Soft, nontender, nondistended, normoactive bowel sounds. EXTREMITIES: 2+ peripheral pulses. No edema. No calf tenderness. NEUROLOGICAL: Pt oriented x 3. Cranial nerves II through XII grossly intact. Strength and sensation grossly intact. PSYCH: Calm. SKIN: Warm, dry, pale. MUSCULOSKELETAL: Tenderness to right sided thoracic region. - Labs CBC & Chem 7: 05/14/16 07:23 05/14/16 07:23 Assessment and Plan Plan: Impression: 1. Dyspnea, present on admission, improved. CT chest negative for pulmonary embolism or acute pulmonary process. 2. Thoracic back pain. MRI of cervical spine with soft tissue mass present deep to the sternocleidomastoid muscle on the right possibly representing adenopathy. MRI of thoracic spine pending. Will obtain a pain management consult to help manage pain. 3. Adenocarcinoma of lung with metastasis to right iliac bone. Oncology has seen and evaluated patient, recommendations noted. 4. Anemia suspect secondary to chronic disease. 4. Thrombocytosis, present on admission. 5. Elevated alkaline phosphatase, chronic. 6. History of COPD. 7. GERD. 9. History of asthma. 10. History of testicular cancer. 11. Hypertension. 12. Degenerative joint disease. 13. Sleep apnea. 14. History of hiatal hernia. 15. Anxiety and depression, stable. 16. Chronic back pain. 17. Nicotine dependence. Plan: Continue to monitor patient. Continue home medications. Await results of MRI thoracic spine. Obtain pain management consult. Continue GI and DVT prophylaxis. Encourage smoking cessation. Continue supportive treatment and pain management. Repeat CBC and BMP in a.m. The above impression and plan have been discussed and directed by Dr. Koehler. Anna RAMIREZ acting as scribe for Dr. Koehler.
--- NOTE | 2016-05-15 14:32 | MR ---
EXAMINATION TYPE: MR thoracic spine wo/w con DATE OF EXAM: 05/15/2016 10:26 AM COMPARISON: NONE, no recent comparisons. HISTORY: Intractable pain, spasms CONTRAST: Performed utilizing 15 mL intravenous MultiHance gadolinium contrast. TECHNIQUE: Multiplanar, multiecho imaging on a 3.0 Kim magnet is performed through the thoracic spi ne. At T6-7 there is disc bulging with moderate anterior thecal sac compression. No cord contact is evide nt although there is some flattening of the spinal cord. No spinal canal stenosis is present. T9-10: The left paracentral to left lateral disc bulge is present with mild anterior thecal sac compr ession. No cord contact or spinal canal stenosis is present. Vertebral body alignment is normal. Vertebral body heights are preserved. Disc heights are preserved. There is diffuse disc desiccation throughout the thoracic spine. Signal abnormality is present the T1 level posteriorly and into the right pedicle. Findings are suspi cious for neoplasm. Postcontrast imaging is limited due to motion artifact. However, there appear to be additional areas of enhancement. Enhancement is present at T1, T3 inferior posterior T8 and anterior and superior T9 levels. IMPRESSIONS: 1. Findings suspicious for multiple metastatic lesions. This would include T1, T3,T8, and T9 levels. 2. No posterior wall displacement is evident. 3. Disc bulging appears to be present in the region of T6-7 and T9-10. Stenosis is not evident.
[2016-05-15] MEDS: FAMOTIDINE 20 MG TAB PO SCH (19:47)
[2016-05-15] MEDS ORDERED: ACETAMINOPHEN TAB 500 MG TAB PO PRN (20:01)
[2016-05-15] MEDS ORDERED: ZOLEDRONIC ACID 4 MG in SODIUM CHLORIDE 0.9% 100 ML IV ONE (23:00)
[2016-05-15] MEDS: DIAZEPAM 5 MG TAB PO PRN (23:01)
[2016-05-16] MEDS: HYDROmorphone 1 MG/ML 1 ML SYRINGE IVP PRN ×7 (05:53→21:24)
[2016-05-16] MEDS: IPRATROPIUM-ALBUTEROL 3 ML NEB INHALATION SCH ×4 (07:26→21:02)
[2016-05-16] MEDS: HYDROcodone/APAP 10-325MG 1 EACH TAB PO PRN (08:02)
[2016-05-16] MEDS: ENOXAPARIN 40 MG/0.4 ML SYRINGE SQ SCH (08:04)
[2016-05-16] MEDS: CYCLOBENZAPRINE 10 MG TAB PO SCH ×3 (08:04→21:23)
[2016-05-16] MEDS: ASCORBIC ACID 500 MG TAB PO SCH (08:04)
[2016-05-16] MEDS: CHOLECALCIFEROL 1,000 UNIT TAB PO SCH (08:04)
[2016-05-16] MEDS: LOSARTAN 50 MG TAB PO SCH (08:05)
[2016-05-16] MEDS: FOLIC ACID 1 MG TAB PO SCH (08:05)
[2016-05-16] MEDS: MULTIVITAMINS, THERA 1 EACH TAB PO SCH (08:05)
[2016-05-16] MEDS: ESCITALOPRAM 20 MG TAB PO SCH (08:05)
[2016-05-16 08:07] LABS: Anisocytosis Slight; CH 29.4; CHCM 29.9; HCT 31.3 % (39.0-53.0); HDW 2.71; HGB 9.3 gm/dL (13.0-17.5); Hypochromasia Marked; MCH 29.4 pg (25.0-35.0); MCHC 29.8 g/dL (31.0-37.0); MCV 98.6 fL (80.0-100.0); Macrocytosis Moderate; RBC 3.18 m/uL (4.30-5.90); RDW 19.5 % (11.5-15.5); WBC (Perox) 42.17
[2016-05-16 08:10] LABS: WBC 40.1 k/uL (3.8-10.6)
[2016-05-16 08:22] LABS: Anion Gap 14 mmol/L; Blood Urea Nitrogen 18 mg/dL (9-20); Calcium 8.9 mg/dL (8.4-10.2); Carbon Dioxide 28 mmol/L (22-30); Chloride 95 mmol/L (98-107); Glucose 85 mg/dL (74-99); Non-African American GFR(MDRD) >60 (>60 ml/min/1.73 sqM); Potassium 4.4 mmol/L (3.5-5.1); Sodium 137 mmol/L (137-145)
[2016-05-16 08:55] LABS: Add Differential Manual Differential
[2016-05-16 08:57] LABS: Nucleated Red Blood Cells 0 /100 WBC (0-0); Polychromasia Present; Total Cells Counted 100; Toxic Granulation Present
[2016-05-16 08:58] LABS: Large Platelets Present
[2016-05-16] MEDS: MORPHINE SULFATE ER 30 MG TABLET PO SCH ×2 (10:55→23:16)
--- NOTE | 2016-05-16 13:41 | P.CONS ---
History of Present Illness - Reason for Consult Consult date: 05/16/16 back pain Requesting physician: Jermaine Salazar - Chief Complaint Pain in right upper back - History of Present Illness Mr. Cutler is a 66 -year-old male with a previous history of testicular cancer in the late treated with surgery. He more recently was diagnosed with a stage IV (cT1b,cN0,M1b) metastatic high-grade non-small cell lung cancer with disease involving multiple bony metastasis. The patient underwent palliative radiotherapy to the right iliac bone to a dose of 30 Gy in 10 fractions finishing on January 09, 2016. The patient presents to the hospital due to progressive upper back pain. Mr. Cutler has a history of chronic back pain which has required narcotic pain medication since his 30s. He notes that over the past month he has had a worsening of his upper back pain. He complains of a sharp pain between the shoulder blades. This pain is up to 9/10 with ambulation or sitting up, but is not bothersome when he is lying flat and not active. He notes the pain is slightly right of the midline. His home pain medication schedule was not adequately controlling this pain and he was therefore admitted. His most recent chemotherpy was Opdivo approximately 2 weeks ago. On admission, a chest CTA was performed revealing no evidence of PE, stable left lower lung mass. He had an MRI of the right shoulder which showed some abnormal bone marrow signal in the clavicle, glenoid, acromion and proximal humerus. MRI of the C/T spine also showed areas concerning for metastatic disease including T1, T3, T8 & T9. Review of Systems Constitutional: Denies chills, Denies fever Eyes: denies blurred vision Cardiovascular: Denies chest pain, Denies irregular heart beat Respiratory: Denies cough, Denies hemoptysis Gastrointestinal: Denies abdominal pain Musculoskeletal: Denies leg numbness/tingling, Denies neck stiffness Musculoskeletal: bilateral: shoulder pain Integumentary: Denies rash Neurological: Denies aphasia, Denies ataxia Psychiatric: Denies confusion Past Medical History Past Medical History: Asthma, Cancer, COPD, GERD/Reflux, Hypertension, Osteoarthritis (OA), Pneumonia, Skin Disorder, Sleep Apnea/CPAP/BIPAP Additional Past Medical History / Comment(s): cervical and back pain, LAVERN but no longer uses his CPAP, 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 , Lung Mass History of Any Multi-Drug Resistant Organisms: None Reported Past Surgical History: Orthopedic Surgery Additional Past Surgical History / Comment(s): cervical fusion 4,5,6. removed spur from neck. right ORCHECTOMY with right LYMPH NODES REMOVED and adrenal glands removed. metal clips and david in abdominal area secondary to surgery from cancer, RT KNEE X2 cyst removed ,SKIN CA REMOVED RT SIDE OF FACE 2001. right thumb fracture with surgery. 2004 left tib/fib and ankle fractures with surgery, colonoscopies/benign polypectomy. Past Anesthesia/Blood Transfusion Reactions: No Reported Reaction Additional Past Anesthesia/Blood Transfusion Reaction / Comm: Pt states he has received blood in past without reaction. Past Psychological History: Anxiety, Depression Additional Psychological History / Comment(s): Pt resides with his spouse. He uses a cane on occasion. He drives. Stopped smoking for a while but is smoking again at this time. Denies alcohol use. 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 No experience. No international travel. No current exposures. No recreational drug use or alcohol use Smoking Status: Current every day smoker Past Alcohol Use History: None Reported Additional Past Alcohol Use History / Comment(s): Pt states he started smoking in 1959. He is less than a ppd smoker at this time. Estimates was approximately 1 pack per day throughout most of life. Past Drug Use History: Marijuana - Past Family History Father Family Medical History: Cancer, Thyroid Disorder Additional Family Medical History / Comment(s): Father had skin cancer. He also had heart disease. He at the age of 95 yrs. Mother Family Medical History: Cancer, COPD, Hypertension Additional Family Medical History / Comment(s): Mother had breast cancer. She at the age of 84 yrs. Medications and Allergies Home Medications Medication Instructions Recorded Confirmed Type Albuterol Inhaler [Ventolin Hfa 2 puff INHALATION RT-Q6H PRN 12/17/15 05/12/16 History Inhaler] Escitalopram [Lexapro] 20 mg PO DAILY 12/17/15 05/12/16 History Losartan [Cozaar] 25 mg PO DAILY 12/17/15 05/12/16 History Cholecalciferol [Vitamin D3] 5,000 unit PO DAILY 03/13/16 05/12/16 History Ascorbic Acid [Vitamin C] 500 mg PO DAILY 05/12/16 05/12/16 History Cyclobenzaprine [Flexeril] 10 mg PO TID 05/12/16 05/12/16 History Diazepam [Valium] 5 mg PO DAILY PRN 05/12/16 05/12/16 History Flax Larios Lignans 1 tab PO DAILY 05/12/16 05/12/16 History Morphine Sulfate [Ms Contin] 30 mg PO Q12H 05/12/16 05/12/16 History Multivitamins, Thera [Multivitamin] 1 tab PO DAILY 05/12/16 05/12/16 History [place] 3,6,9 1 cap PO DAILY 05/12/16 05/12/16 History Opdivo(Unknown) 1 dose IV Q14D 05/12/16 05/12/16 History Vitamin B Complex 1 cap PO DAILY 05/12/16 05/12/16 History methylPREDNISolone [Medrol Dose 4 mg PO DIRECTED 05/12/16 05/12/16 History Pack] Allergies Allergy/AdvReac Type Severity Reaction Status Date / Time adhesive Allergy Rash/Hives Verified 05/12/16 19:13 clonazepam [From Klonopin] Allergy Unknown Verified 05/12/16 19:13 latex Allergy Rash/Hives Verified 05/12/16 19:13 naproxen [From Naprosyn] Allergy Rash/Hives Verified 05/12/16 19:13 ondansetron Allergy Unknown Verified 05/12/16 19:13 prochlorperazine Allergy Unknown Verified 05/12/16 19:13 topiramate Allergy Blisters Verified 05/12/16 19:13 buprenorphine AdvReac Nausea Verified 05/12/16 19:13 myceline Allergy Unknown Uncoded 05/12/16 19:13 Physical Exam Vitals: Vital Signs Temp Pulse Pulse Resp BP BP Pulse Ox 05/16/16 11:26 100 05/16/16 11:18 94 05/16/16 07:38 110 H 05/16/16 07:29 106 H 92 L 05/16/16 07:00 98 F 108 H 20 102/53 94 L 05/16/16 00:00 113 H 18 05/15/16 21:53 99.5 F 120 H 18 113/56 93 L 05/15/16 19:52 102.0 F H 05/15/16 16:24 120 H 05/15/16 16:12 116 H 05/15/16 15:00 98.3 F 112 H 16 107/63 96 Intake and Output 05/15/16 05/16/16 05/16/16 22:59 06:59 14:59 Intake Total 100 Balance 100 Intake: IV 100 Zoledronic Acid 4 mg In 100 Sodium Chloride 0.9% 100 ml @ 315 mls/hr IV ONCE ONE Rx#:[id number] Other: Voiding Method Toilet Toilet Toilet Urinal Urinal Urinal # Voids 1 2 Weight 77.1 kg Patient Weight 05/17/16 06:59 Weight 77.1 kg - Constitutional General appearance: average body habitus, no mild distress - EENT Eyes: EOMI, PERRLA ENT: no hard of hearing - Neck Neck: lymphadenopathy (Right level II 3 cm node palpable, firm) - Respiratory Respiratory: bilateral: diminished - Cardiovascular Rhythm: regular - Gastrointestinal General gastrointestinal: normal bowel sounds - Neurologic Neurologic: CNII-XII intact - Musculoskeletal Musculoskeletal: strength equal bilaterally - Psychiatric Psychiatric: A&O x's 3 Results CBC & Chem 7: 05/16/16 07:08 05/16/16 07:08 Labs: Abnormal Lab Results - Last 24 Hours (Table) 05/16/16 05/16/16 Range/Units 07:08 07:08 WBC 40.1 H* (3.8-10.6) k/uL RBC 3.18 L (4.30-5.90) m/uL Hgb 9.3 L (13.0-17.5) gm/dL Hct 31.3 L (39.0-53.0) % MCHC 29.8 L (31.0-37.0) g/dL RDW 19.5 H (11.5-15.5) % Plt Count 514 H (150-450) k/uL Neutrophils # (Manual) 38.1 H (1.3-7.7) k/uL Lymphocytes # (Manual) 0.8 L (1.0-4.8) k/uL Monocytes # (Manual) 1.2 H (0-1.0) k/uL Chloride 95 L (98-107) mmol/L Creatinine 0.56 L (0.66-1.25) mg/dL CT scan - chest: image reviewed (MRI shoulder, T & C spine reviewed. ) Assessment and Plan (1) Bone metastasis Status: Acute Plan: The patient's MRI of the T-spine reveals several bony metastatic lesions. None of these cause canal compromise and all are relatively small in size. There is also concerning abnormal bone marrow signal in the patient's right shoulder. He has previously had radiotherapy to the right hip with improvement in his pain and functional status. I discussed with the patient that we could do a palliative course of radiotherapy to his spine as well as this may provide pain relief. I explained that pain relief often is not immediate and could take some time. I explained that possible side effects of this treatment include, but are not limited to - fatigue, skin erythema, dysphagia/odynophagia, and low risk of web retailer side effects. The patient has agreed to come downstairs for a planning session and initiate radiotherapy today. Time with Patient: Greater than 30
--- NOTE | 2016-05-16 18:29 | P.PN ---
Subjective Patient is a 66-year-old male with complex medical history noted below significant for stage IV lung cancer with bone metastasis. Patient follows with Dr. Polk for oncology and has undergone chemo and radiation therapy. Most recent chemotherapy was Opdivo approximately 2 weeks ago. Patient presented to the emergency department with complaints of difficulty breathing started 1 hour prior to arrival. Patient also complained of right- sided thoracic back pain, increasing in character over the last month. Patient states that he was recently treated with Flexeril and tapered Medrol pack [facility] for a suspected pinched nerve in his back. CTA of chest negative for pulmonary emboli or other acute pulmonary or pleural process. Patient was admitted to the medical floor for intractable thoracic back pain and dyspnea with consult to oncology service. MRI of the right shoulder which showed some abnormal bone marrow signal in the clavicle, glenoid, acromion and proximal humerus. MRI of the C/T spine also showed areas concerning for metastatic disease including T1, T3, T8 & T9. Patient has been evaluated by radiation oncologist with plans to initiate radiotherapy to the spine for palliative treatment today. Consult has also been requested for pain management to help address pain medications upon discharge. Upon examination, patient continues to complains of pain to his posterior right upper back radiating to his right posterior shoulder blade exacerbated with activity. Patient currently rates pain 6 out of 10. Denies chills, fevers, shortness of breath, chest pain, or abdominal pain. Patient reports fair appetite. Patient is urinating without difficulty. Objective - Vital Signs Vital signs: Vital Signs Temp 96.8 F L 05/16/16 15:00 Pulse 112 H 05/16/16 15:00 Resp 20 05/16/16 15:00 BP 109/61 05/16/16 15:00 Pulse Ox 96 05/16/16 15:00 Intake & Output 05/15/16 05/16/16 05/16/16 18:59 06:59 18:59 Intake Total 100 Balance 100 Weight 77.1 kg Intake: IV 100 Zoledronic Acid 4 mg In 100 Sodium Chloride 0.9% 100 ml @ 315 mls/hr IV ONCE ONE Rx#:[id number] Other: Voiding Method Toilet Toilet Toilet Urinal Urinal Urinal # Voids 2 2 3 - Exam GENERAL: Pt awake and alert, lying in bed, in no acute distress. HEAD: Atraumatic, normocephalic. EYES: Conjunctiva are normal. ENT: Moist mucous membranes. NECK:Supple without lymphadenopathy or JVD. LUNGS: Breath sounds clear to auscultation bilaterally. HEART: Heart S1, S2, no S3 or S4. Regular rate and rhythm. No murmurs, rubs or gallops. ABDOMEN: Soft, nontender, nondistended, normoactive bowel sounds. EXTREMITIES: 2+ peripheral pulses. No edema. No calf tenderness. NEUROLOGICAL: Pt oriented x 3. Cranial nerves II through XII grossly intact. Strength and sensation grossly intact. PSYCH: Calm. SKIN: Warm, dry, pale. MUSCULOSKELETAL: Tenderness to right sided thoracic region. - Labs CBC & Chem 7: 05/16/16 07:08 05/16/16 07:08 Labs: Abnormal Lab Results - Last 24 Hours (Table) 05/16/16 05/16/16 Range/Units 07:08 07:08 WBC 40.1 H* (3.8-10.6) k/uL RBC 3.18 L (4.30-5.90) m/uL Hgb 9.3 L (13.0-17.5) gm/dL Hct 31.3 L (39.0-53.0) % MCHC 29.8 L (31.0-37.0) g/dL RDW 19.5 H (11.5-15.5) % Plt Count 514 H (150-450) k/uL Neutrophils # (Manual) 38.1 H (1.3-7.7) k/uL Lymphocytes # (Manual) 0.8 L (1.0-4.8) k/uL Monocytes # (Manual) 1.2 H (0-1.0) k/uL Chloride 95 L (98-107) mmol/L Creatinine 0.56 L (0.66-1.25) mg/dL Assessment and Plan Plan: Impression and plan: 1. Dyspnea, present on admission, improved. CT chest negative for pulmonary embolism or acute pulmonary process. 2. Thoracic back pain suspect secondary to bony metastasis. Patient is scheduled to undergo radiotherapy for palliative treatment today. 3. Adenocarcinoma of lung with bony metastasis. Oncology has seen and evaluated patient, recommendations noted. 4. Anemia suspect secondary to chronic disease. 4. Thrombocytosis, present on admission. 5. Elevated alkaline phosphatase, chronic. 6. History of COPD. 7. GERD. 9. History of asthma. 10. History of testicular cancer. 11. Hypertension. 12. Degenerative joint disease. 13. Sleep apnea. 14. History of hiatal hernia. 15. Anxiety and depression, stable. 16. Chronic back pain. 17. Nicotine dependence. Continue to monitor patient. Continue home medications. Pain management consult, recommendations pending.. Continue GI and DVT prophylaxis. Encourage smoking cessation. Continue supportive treatment and pain management. Repeat CBC and BMP in a.m. The above impression and plan have been discussed and directed by Dr. Koehler. Anna RAMIREZ acting as scribe for Dr. Koehler.
[2016-05-16] MEDS: FAMOTIDINE 20 MG TAB PO SCH (21:23)
[2016-05-17] MEDS: HYDROcodone/APAP 10-325MG 1 EACH TAB PO PRN ×4 (00:02→20:32)
[2016-05-17 07:24] LABS: Anisocytosis Slight; CH 30.1; CHCM 30.5; HCT 31.8 % (39.0-53.0); HGB 9.4 gm/dL (13.0-17.5); Hypochromasia Moderate; MCH 29.4 pg (25.0-35.0); MCHC 29.7 g/dL (31.0-37.0); MCV 99.2 fL (80.0-100.0); Macrocytosis Moderate; Mean Platelet Volume 7.5; RBC 3.21 m/uL (4.30-5.90); RDW 19.6 % (11.5-15.5); WBC (Perox) 47.72
[2016-05-17 07:34] LABS: WBC 44.5 k/uL (3.8-10.6)
[2016-05-17 07:35] LABS: Anion Gap 7 mmol/L; Blood Urea Nitrogen 17 mg/dL (9-20); Calcium 9.1 mg/dL (8.4-10.2); Carbon Dioxide 30 mmol/L (22-30); Chloride 98 mmol/L (98-107); Glucose 121 mg/dL (74-99); Non-African American GFR(MDRD) >60 (>60 ml/min/1.73 sqM); Potassium 4.3 mmol/L (3.5-5.1); Sodium 135 mmol/L (137-145)
[2016-05-17] MEDS: HYDROmorphone 1 MG/ML 1 ML SYRINGE IVP PRN ×6 (07:41→23:03)
[2016-05-17] MEDS: ESCITALOPRAM 20 MG TAB PO SCH (07:45)
[2016-05-17] MEDS: CHOLECALCIFEROL 1,000 UNIT TAB PO SCH (07:45)
[2016-05-17] MEDS: ENOXAPARIN 40 MG/0.4 ML SYRINGE SQ SCH (07:45)
[2016-05-17] MEDS: FOLIC ACID 1 MG TAB PO SCH (07:46)
[2016-05-17] MEDS: MULTIVITAMINS, THERA 1 EACH TAB PO SCH (07:46)
[2016-05-17] MEDS: CYCLOBENZAPRINE 10 MG TAB PO SCH ×3 (07:46→21:31)
[2016-05-17] MEDS: LOSARTAN 50 MG TAB PO SCH (07:46)
[2016-05-17] MEDS: ASCORBIC ACID 500 MG TAB PO SCH (07:46)
[2016-05-17] MEDS: IPRATROPIUM-ALBUTEROL 3 ML NEB INHALATION SCH ×4 (08:56→19:22)
[2016-05-17 09:34] LABS: Add Differential Manual Differential
[2016-05-17 09:36] LABS: Nucleated Red Blood Cells 0 /100 WBC (0-0); Total Cells Counted 200
[2016-05-17 09:37] LABS: Manual Review Performed
[2016-05-17] MEDS: MORPHINE SULFATE ER 30 MG TABLET PO SCH ×2 (10:44→23:02)
[2016-05-17] MEDS: DIAZEPAM 5 MG TAB PO PRN (11:59)
[2016-05-17] MEDS: FAMOTIDINE 20 MG TAB PO SCH (21:31)
[2016-05-18] MEDS: HYDROmorphone 1 MG/ML 1 ML SYRINGE IVP PRN ×4 (02:05→11:20)
[2016-05-18] MEDS: HYDROcodone/APAP 10-325MG 1 EACH TAB PO PRN ×3 (04:58→13:11)
[2016-05-18] MEDS: IPRATROPIUM-ALBUTEROL 3 ML NEB INHALATION SCH ×4 (08:00→18:44)
[2016-05-18] MEDS: CYCLOBENZAPRINE 10 MG TAB PO SCH ×3 (08:05→22:26)
[2016-05-18] MEDS: CHOLECALCIFEROL 1,000 UNIT TAB PO SCH (08:05)
[2016-05-18] MEDS: ENOXAPARIN 40 MG/0.4 ML SYRINGE SQ SCH (08:05)
[2016-05-18] MEDS: ESCITALOPRAM 20 MG TAB PO SCH (08:05)
[2016-05-18] MEDS: ASCORBIC ACID 500 MG TAB PO SCH (08:05)
[2016-05-18] MEDS: FOLIC ACID 1 MG TAB PO SCH (08:06)
[2016-05-18] MEDS: MULTIVITAMINS, THERA 1 EACH TAB PO SCH (08:06)
[2016-05-18] MEDS: LOSARTAN 50 MG TAB PO SCH (08:06)
[2016-05-18] MEDS: MORPHINE SULFATE ER 30 MG TABLET PO SCH ×2 (11:19→22:26)
[2016-05-18] MEDS: HYDROmorphone 2 MG TAB PO PRN (14:52)
[2016-05-18] MEDS: DIAZEPAM 5 MG TAB PO PRN (16:36)
--- NOTE | 2016-05-18 16:53 | PN ---
DATE OF SERVICE: 05/18/2016 CHIEF COMPLAINT: Bilateral shoulder. Rafi is seen today as a followup. He continues to have shoulder pain, is now about 3 to 4; however, when he sits up and tries to move it was around 8. No fever or chills, but overall he feels a little better than before. No headaches. No fever, no chills. No dysphagia. No melena, hematochezia, hematuria, hemoptysis, or hematemesis. His medications were reviewed and in his electronic medical record. On physical examination, he is alert, oriented x3. He does not appear to be in distress at this time. His vital signs are his pulse is 96, temperature 98.0 afebrile, blood pressure 105/59, pulse ox is 92% on room air. HEENT: Normocephalic, atraumatic. Neck is supple. He has a palpable right cervical node, suspicious for metastatic disease. The chest equal expansion bilaterally. The lungs are clear to auscultation. Heart is regular rate and rhythm. Abdomen is soft. No apparent organomegaly. Extremities reveal no edema. LABORATORY DATA: Sodium 135, potassium 4.3, chloride 98, CO2 is 30. BUN is 17, creatinine is 0.5. His calcium is 9.1. IMPRESSION: 1. Intractable thoracic spine pain, in part related to metastatic disease but is also known to have significant degenerative disc disease and previous injury to his spine in the past. 2. Metastatic non-small cell lung carcinoma with recent progression of first line chemotherapy. He started second line with immunotherapy was Opdivo. He already had one dose only. RECOMMENDATION: 1. The patient already started palliative radiation therapy to his thoracic spine. 2. We will hold Opdivo until radiation therapy is completed. 3. In regard to his pain management, continue current dose of MS Contin and we will switch to oral Dilaudid to be taken as needed for breakthrough pain. 4. The patient will benefit from nonsteroidal anti-inflammatory medication, but he has reported allergy to them in the past. 5. The above was discussed with the patient and his .
[2016-05-18] MEDS: FAMOTIDINE 20 MG TAB PO SCH (22:26)
[2016-05-19] MEDS: HYDROmorphone 2 MG TAB PO PRN ×6 (01:32→17:08)
[2016-05-19] MEDS: CYCLOBENZAPRINE 10 MG TAB PO SCH ×3 (07:51→22:08)
[2016-05-19] MEDS: ASCORBIC ACID 500 MG TAB PO SCH (07:51)
[2016-05-19] MEDS: CHOLECALCIFEROL 1,000 UNIT TAB PO SCH (07:51)
[2016-05-19] MEDS: LOSARTAN 50 MG TAB PO SCH (07:51)
[2016-05-19] MEDS: FOLIC ACID 1 MG TAB PO SCH (07:52)
[2016-05-19] MEDS: ENOXAPARIN 40 MG/0.4 ML SYRINGE SQ SCH (07:52)
[2016-05-19] MEDS: ESCITALOPRAM 20 MG TAB PO SCH (07:53)
[2016-05-19] MEDS: IPRATROPIUM-ALBUTEROL 3 ML NEB INHALATION SCH ×4 (08:13→19:24)
[2016-05-19] MEDS ORDERED: ZOLEDRONIC ACID 4 MG in SODIUM CHLORIDE 0.9% 100 ML IV NR (09:00)
[2016-05-19] MEDS: DIAZEPAM 5 MG TAB PO SCH ×2 (09:42→22:08)
[2016-05-19] MEDS ORDERED: MELOXICAM 7.5 MG TAB PO SCH (11:00)
--- NOTE | 2016-05-19 11:08 | P.CONS ---
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 , currently under paliation radiation therapy, and he continued to complain of severe upper back/shoulder blade pain, neck pain and low back pain, he denies any motor or sensory deficit, denies any urine or bowel incontinence, and his currently on MS Contin 60 mg every 8 hours and Dilaudid 4 mg every 3 hours when necessary for breakthrough pain, also he is on Flexeril 10 mg 3 times a day and Valium 5 mg twice a day, he continued to have pain in the shoulder blade area mainly on the right side, which is increased with any movement, his pain manageable when he is not moving, denies any side effect of the medication, Past Medical History Past Medical History: Asthma, Cancer, COPD, GERD/Reflux, Hypertension, Osteoarthritis (OA), Pneumonia, Skin Disorder, Sleep Apnea/CPAP/BIPAP Additional Past Medical History / Comment(s): cervical and back pain, LAVERN but no longer uses his CPAP, 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 , Lung Mass History of Any Multi-Drug Resistant Organisms: None Reported Past Surgical History: Orthopedic Surgery Additional Past Surgical History / Comment(s): cervical fusion 4,5,6. removed spur from neck. right ORCHECTOMY with right LYMPH NODES REMOVED and adrenal glands removed. metal clips and david in abdominal area secondary to surgery from cancer, RT KNEE X2 cyst removed ,SKIN CA REMOVED RT SIDE OF FACE 2001. right thumb fracture with surgery. 2004 left tib/fib and ankle fractures with surgery, colonoscopies/benign polypectomy. Past Anesthesia/Blood Transfusion Reactions: No Reported Reaction Additional Past Anesthesia/Blood Transfusion Reaction / Comm: Pt states he has received blood in past without reaction. Past Psychological History: Anxiety, Depression Additional Psychological History / Comment(s): Pt resides with his spouse. He uses a cane on occasion. He drives. Stopped smoking for a while but is smoking again at this time. Denies alcohol use. 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 No experience. No international travel. No current exposures. No recreational drug use or alcohol use Smoking Status: Current every day smoker Past Alcohol Use History: None Reported Additional Past Alcohol Use History / Comment(s): Pt states he started smoking in 1960. He is less than a ppd smoker at this time. Estimates was approximately 1 pack per day throughout most of life. Past Drug Use History: Marijuana - Past Family History Father Family Medical History: Cancer, Thyroid Disorder Additional Family Medical History / Comment(s): Father had skin cancer. He also had heart disease. He at the age of 95 yrs. Mother Family Medical History: Cancer, COPD, Hypertension Additional Family Medical History / Comment(s): Mother had breast cancer. She at the age of 84 yrs. Medications and Allergies Home Medications Medication Instructions Recorded Confirmed Type Albuterol Inhaler [Ventolin Hfa 2 puff INHALATION RT-Q6H PRN 12/17/15 05/12/16 History Inhaler] Escitalopram [Lexapro] 20 mg PO DAILY 12/17/15 05/12/16 History Losartan [Cozaar] 25 mg PO DAILY 12/17/15 05/12/16 History Cholecalciferol [Vitamin D3] 5,000 unit PO DAILY 03/13/16 05/12/16 History Ascorbic Acid [Vitamin C] 500 mg PO DAILY 05/12/16 05/12/16 History Cyclobenzaprine [Flexeril] 10 mg PO TID 05/12/16 05/12/16 History Diazepam [Valium] 5 mg PO DAILY PRN 05/12/16 05/12/16 History Flax Larios Lignans 1 tab PO DAILY 05/12/16 05/12/16 History Morphine Sulfate [Ms Contin] 30 mg PO Q12H 05/12/16 05/12/16 History Multivitamins, Thera [Multivitamin] 1 tab PO DAILY 05/12/16 05/12/16 History [place] 3,6,9 1 cap PO DAILY 05/12/16 05/12/16 History Opdivo(Unknown) 1 dose IV Q14D 05/12/16 05/12/16 History Vitamin B Complex 1 cap PO DAILY 05/12/16 05/12/16 History methylPREDNISolone [Medrol Dose 4 mg PO DIRECTED 05/12/16 05/12/16 History Pack] Allergies Allergy/AdvReac Type Severity Reaction Status Date / Time adhesive Allergy Rash/Hives Verified 05/12/16 19:13 clonazepam [From Klonopin] Allergy Unknown Verified 05/12/16 19:13 latex Allergy Rash/Hives Verified 05/12/16 19:13 naproxen [From Naprosyn] Allergy Rash/Hives Verified 05/12/16 19:13 ondansetron Allergy Unknown Verified 05/12/16 19:13 prochlorperazine Allergy Unknown Verified 05/12/16 19:13 topiramate Allergy Blisters Verified 05/12/16 19:13 buprenorphine AdvReac Nausea Verified 05/12/16 19:13 myceline Allergy Unknown Uncoded 05/12/16 19:13 Physical Exam Vitals: Vital Signs Temp Pulse Pulse Resp BP Pulse Ox 05/19/16 08:23 104 H 05/19/16 08:14 100 05/19/16 07:00 97.8 F 114 H 18 109/61 95 05/18/16 21:53 97.6 F 98 16 87/51 92 L 05/18/16 19:01 109 H 05/18/16 18:44 111 H 05/18/16 15:41 113 H 05/18/16 15:26 98 05/18/16 15:00 97.7 F 113 H 18 105/55 92 L 05/18/16 11:35 96 05/18/16 11:25 96 Intake and Output 05/18/16 05/19/16 05/19/16 22:59 06:59 14:59 Intake Total 590 100 Balance 590 100 Intake: Oral 590 100 Other: Voiding Method Toilet Toilet # Voids 1 Social history= use marijuana. Family history thyroid disease and cancer Review of Systems : 1- Constitutional : no chills , no fever , no night sweats , 2- Ears : no ear discharge , no change in hearing 3-Nose, Mouth ,Throat ; no bleeding gums, no sore throat , no epistaxis , 4-Cardiovascular : Denies chest pain, , no orthopnea , no palpitation 5-Respiratory : Denies cough , no dyspnea , no hemoptysis 6-Gastrointestinal :, no change in bowel habits , no coffee- ground emesis . 7-Genitourinary : No hematuria , no discharge , no incontinence, 8-Musculoskeletal : No gait dysfunction , report low back pain , 9- Neurological : no ataxia , no tremor , no sezure , 10-Psychatric , no suicidal ideation no hallucination 11- Endocrine : no cold intolerence , no polyuria , no polydypsia , 12-Hematologic : no easy bleeding , no easy brusing , 13-Allergic / immunology : no angioedema , no wheezing ,no allergic rhinitis 14-Integumentary : no brttle nails , no change hair / nails , no foot/leg ulcers . Physical Examinations : 1-Constitutional : Cooperative , not in acute distress . 2-HEENT : nech ; supple , no Lymphadenopathy , no Thyromegaly , eyes , no icterus, no photophobia . ENT : , normal oropharynx , no Thrush 3- Respiratory : Chest clear to auscultations Bilaterally , no wheezing . 4- Cardiovascular : regular rate and rhythem , S1 , S2 , no S3 , no S4. 5- Gastrointestinal: abdomen soft no tenderness , no organomegally . 6- Genitourinary : Defferred . 7-Integumentary : No cellulitis , no ulcers , normal skin turgor , no cyanotic . 8- neurologic : Cranial nerve II to XII intact , no focal neurological deffecit 9-psychatric : alert , oriented X 3 , appropriate affect , intact judgment and insight . 10-Lymphatic : no Lymphadenopathy. 11- musculoskeltal: normal gait , exams of the cervical spine = motor stregnth in the deltoid and biceps, normal right side , normal Left side , motor stregnth biceps and the wrist extensors normal right side ,normal left side . motor stregnth in the triceps muscle . normal Right side , normal Left side deep tendon reflexes normal at the biceps , normal at Brachioradialis , normal at triceps. positive cervical facet loading test . Exams of the thoracic spine= positive facet loading test thoracic area, tenderness over the medial aspect of the right shoulder blade. exams of the Lumber spine = moter stegnth lower extremities , thigh and legs 5/5 Right side , 5/5 Left side deep tendon reflexes : normal Knee Jerk , normal ankle Jerk positive lumber facet Loading Test Range of motion of the lumbar spine Flexion 30 degrees, extension 10 degrees strait leg raising test , positive at degree Fabere test positive RT and positive LT . Results CBC & Chem 7: 05/17/16 06:53 05/17/16 06:53 Comments: MRI of the cervical spine= possible metastasis to the cervical spine area. MRI of the thoracic spine= possible metastases to the thoracic spine Assessment and Plan Plan: Assessment and plan= generalized neck thoracic and low back pain, secondary to bony metastases, she had no signs of focal neurological deficit, patient already getting radiation therapy which will help his pain , recommend continue the current pain medication, patient had no side effects from it and recommend start patient on Win 2 inhibitors Celebrex , and because Celebrex is nonformulary in the hospital we will start patient on Mobic 15 mg daily, after a few days we can change it to 7.5 twice a day Continue MS Contin 30 mg 3 times a day, continue Dilaudid 4 mg every 3 hours when necessary for breakthrough pain, continue Flexeril 10 mg 3 times a day Time with Patient: Less than 30
[2016-05-19] MEDS: DEXAMETHASONE 4 MG TAB PO SCH ×3 (11:14→22:08)
[2016-05-19] MEDS: MULTIVITAMINS, THERA 1 EACH TAB PO SCH (11:40)
[2016-05-19] MEDS ORDERED: IPRATROPIUM-ALBUTEROL 3 ML NEB INHALATION STA (14:14)
--- NOTE | 2016-05-19 14:44 | XR ---
EXAMINATION TYPE: XR chest 2V DATE OF EXAM: 05/19/2016 2:35 PM COMPARISON: Chest x-ray April 22, 2016. CT chest May 12, 2016. HISTORY: History of lung cancer with shortness of breath. TECHNIQUE: Frontal and lateral views of the chest are obtained. FINDINGS: There is underlying emphysematous change redemonstrated. Retrocardiac masslike opacificat ion corresponds to suspicious mass in the left lower lobe worrisome for neoplasm. No suspicious new f ocal airspace opacity, pleural effusion, or pneumothorax is seen bilaterally. The cardiac silhouette size is within normal limits with atherosclerotic aorta. The osseous structures are intact. Suspici ous expansile lesion left anterior lower rib on CT is less well-seen on plain film. IMPRESSION: Chronic emphysematous change without acute pulmonary process. Lung mass or neoplasm with ossific metastatic disease is noted on recent CT.
--- NOTE | 2016-05-19 14:58 | P.PN ---
Subjective Principal diagnosis: Lung cancer with bone metastases Patient is a 66-year-old male with complex medical history noted below significant for stage IV lung cancer with bone metastasis. Patient follows with Dr. Polk for oncology and has undergone chemo and radiation therapy. Most recent chemotherapy was Opdivo approximately 2 weeks ago. Patient presented to the emergency department with complaints of difficulty breathing started 1 hour prior to arrival. Patient also complained of right- sided thoracic back pain, increasing in character over the last month. Patient states that he was recently treated with Flexeril and tapered Medrol pack by [facility] for a suspected pinched nerve in his back. CTA of chest negative for pulmonary emboli or other acute pulmonary or pleural process. Patient was admitted to the medical floor for intractable thoracic back pain and dyspnea with consult to oncology service. MRI of the right shoulder with evidence of some abnormal bone marrow signal in the clavicle, glenoid, acromion and proximal humerus. MRI of the C/T spine also showed areas concerning for metastatic disease including T1, T3, T8 & T9. Patient has been evaluated by radiation oncologist and has started palliative radiation therapy to his thoracic spine. Patient has been evaluated by pain specialist was recommending that patient continue on current medications with addition of Win 2 inhibitor Celebrex. Today patient was scheduled for palliative radiation treatment but was unable to complete course secondary to increased thoracic pain with reported elevated temperature of 101 per patient and hypoxia of 88% on room air. Upon examination , patient is complaining of headache and posterior thoracic back pain currently rated 6 out of 10. Patient denies nausea, vomiting, worsening shortness of breath, chest pain, or abdominal pain. Patient reports good urine output, denies urgency, hematuria, or dysuria. Patient denies constipation or diarrhea. Patient is noted to be tachycardia with a heart rate of 128, oxygen saturation 95% on 2 L nasal cannula, repeat temperature 98.2, respiratory rate 28. Objective - Vital Signs Vital signs: Vital Signs Temp 98.2 F 05/19/16 13:54 Pulse 121 H 05/19/16 13:54 Resp 28 H 05/19/16 13:54 BP 111/60 05/19/16 13:54 Pulse Ox 95 05/19/16 13:54 Intake & Output 05/18/16 05/19/16 05/19/16 18:59 06:59 18:59 Intake Total 690 234 Balance 690 234 Intake: Oral 690 234 Other: Voiding Method Toilet Toilet # Voids 2 1 - Exam GENERAL: Pt awake and alert, lying in bed, appears uncomfortable. HEAD: Atraumatic, normocephalic. EYES: Conjunctiva are normal. ENT: Moist mucous membranes. NECK:Supple without lymphadenopathy or JVD. LUNGS: Breath sounds diminished to auscultation bilaterally. Cough harsh. HEART: Heart S1, S2, no S3 or S4. Regular rate and rhythm. No murmurs, rubs or gallops. Sinus tachycardia. ABDOMEN: Soft, nontender, nondistended, normoactive bowel sounds. EXTREMITIES: 2+ peripheral pulses. No edema. No calf tenderness. NEUROLOGICAL: Pt oriented x 3. Cranial nerves II through XII grossly intact. Strength and sensation grossly intact. PSYCH: Calm. SKIN: Warm, dry, pale. - Labs CBC & Chem 7: 05/17/16 06:53 05/17/16 06:53 Assessment and Plan Plan: Impression and plan: 1. Dyspnea, present on admission, recurrent. CT chest on admission negative for pulmonary embolism or acute pulmonary process. Will obtain chest x-ray, continue supplemental oxygen, continue nebulized updraft treatments. 2. Tachycardia suspect secondary to pain. Will obtain EKG. 2. Thoracic back pain suspect secondary to bony metastasis. Patient is currently undergoing radiation therapy palliative treatment during hospital visit. 3. Adenocarcinoma of lung with bony metastasis. Oncology has seen and evaluated patient, recommendations noted. 4. Anemia suspect secondary to chronic disease. 4. Thrombocytosis, present on admission. 5. Elevated alkaline phosphatase, chronic. 6. History of COPD. 7. GERD. 9. History of asthma. 10. History of testicular cancer. 11. Hypertension. 12. Degenerative joint disease. 13. Sleep apnea. 14. History of hiatal hernia. 15. Anxiety and depression, stable. 16. Chronic back pain. 17. Nicotine dependence. Continue to monitor patient. Continue home medications. Pain management consult obtained, recommendations noted. Continue GI and DVT prophylaxis. Encourage smoking cessation. Continue supportive treatment and pain management. Repeat CBC and BMP in a.m. The above impression and plan have been discussed and directed by Dr. Koehler. Anna RAMIREZ acting as scribe for Dr. Koehler.
[2016-05-19] MEDS: MORPHINE SULFATE ER 30 MG TABLET PO SCH ×2 (15:43→23:45)
[2016-05-19 16:19] LABS: Anion Gap 10 mmol/L; Blood Urea Nitrogen 16 mg/dL (9-20); Carbon Dioxide 28 mmol/L (22-30); Chloride 93 mmol/L (98-107); Glucose 155 mg/dL (74-99); Non-African American GFR(MDRD) >60 (>60 ml/min/1.73 sqM); Potassium 4.3 mmol/L (3.5-5.1); Sodium 131 mmol/L (137-145)
--- NOTE | 2016-05-19 17:43 | PN ---
DATE OF SERVICE: 05/17/2016 Patient is a pleasant 66-year-old debilitated white male who continues to have thoracic and shoulder pain. When he is lying down the pain is almost completely resolved. When he sits up or moves pain becomes an 8 out of 10. He has had one dose of radiation to this area with some relief. PHYSICAL EXAM: He is alert and oriented x3, in no acute distress while lying on his back. NECK: Supple. No JVD. HEART: Regular rate and rhythm. Skin is very pallor. LUNGS: Clear to auscultation. ABDOMEN: Soft, nontender. EXTREMITIES: No cyanosis, clubbing or jaundice. IMPRESSION: 1. Intractable thoracic spine pain. 2. Metastatic non-small cell lung carcinoma with metastasis to the iliac crest on the right and thoracic spine area. Continue radiation therapy with dose to be given Thursday.
--- NOTE | 2016-05-19 17:49 | PN ---
DATE OF SERVICE: 05/18/2016 Mr. Rafi Cutler is a pleasant 66-year-old white male who was admitted for intractable pain in the shoulder and thoracic area. He has known metastatic lung cancer with metastasis. He has already undergone radiation to the right hip and also chemotherapy with shown signs of progression. He underwent one radiation treatment to his upper back with some relief. He has a lot of relief when he lies flat. On ambulation he develops pain. PHYSICAL EXAM: He is alert, oriented x3. Neck is supple. No JVD. HEART: Regular rate and rhythm. LUNGS: Clear to auscultation. ABDOMEN: Soft, nontender. No rebound, rigidity or guarding. EXTREMITIES: No cyanosis, clubbing or jaundice. Positive pain in the mid back to right shoulder. IMPRESSION: 1. Stage IV metastatic lung carcinoma. MRI revealed bony metastasis to thoracic spine. 2. Anemia of chronic disease. 3. Chronic obstructive pulmonary disease. 4. GERD. PLAN: Continue pain control. Continue plan as outlined by oncology.
--- NOTE | 2016-05-19 18:16 | P.PN ---
Subjective Principal diagnosis: Intractable cancer related pain. Met adenoca of lung The pt has started RT. He still claims severe pain on sitting up or standing, and states he is not improved compared to his admission. O/E he was quite comfortable at rest Objective - Vital Signs Vital signs: Vital Signs Temp 97.7 F 05/19/16 15:00 Pulse 108 H 05/19/16 15:54 Resp 18 05/19/16 15:00 BP 112/60 05/19/16 15:00 Pulse Ox 93 L 05/19/16 15:00 Intake & Output 05/18/16 05/19/16 05/19/16 18:59 06:59 18:59 Intake Total 690 468 Balance 690 468 Intake: Oral 690 468 Other: Voiding Method Toilet Toilet # Voids 2 1 - Constitutional General appearance: Present: no acute distress - EENT Eyes: Present: EOMI, PERRLA ENT: Present: hearing grossly normal, normal oropharynx - Respiratory Respiratory: bilateral: CTA - Cardiovascular Rhythm: regular Heart sounds: normal: S1, S2 - Gastrointestinal General gastrointestinal: Present: normal bowel sounds, soft - Integumentary Integumentary: Present: normal - Neurologic Neurologic: Present: CNII-XII intact - Musculoskeletal Musculoskeletal: Present: strength equal bilaterally - Psychiatric Psychiatric: Present: A&O x's 3 - Labs CBC & Chem 7: 05/17/16 06:53 05/19/16 15:43 Labs: Abnormal Lab Results - Last 24 Hours (Table) 05/19/16 Range/Units 15:43 Sodium 131 L (137-145) mmol/L Chloride 93 L (98-107) mmol/L Creatinine 0.55 L (0.66-1.25) mg/dL Glucose 155 H (74-99) mg/dL Assessment and Plan (1) Thoracic back pain Narrative/Plan: The pt continues to c/o significant pain on weight bearing. He claims no improvement compared to initial admission! His meds were reviewed - Increase MS Contin to 30 mg Q 8HR - Continue IV Dilaudid for breakthrough - Zometa has been repeated - Start steroids, with a plan of a short tapering course - Continue RT - NSAID use was discussed, specifically Celebrex. He claims hypersensitivity to multiple NSAIDs, but is quite vague about the details - Awaiting consult from the Pain Service - Consult PT. He was reluctant for the same. He was advised that unless he is at risk for progressive weakness, and systemic therapy would be delayed if this prolongs his admission or necessitates ECF stay Status: Acute (2) Lung cancer metastatic to bone Narrative/Plan: He was advised that he can receive Opdivo, his 2nd line therapy,only as an out pt. This will start after RT Status: Acute
[2016-05-19] MEDS: FAMOTIDINE 20 MG TAB PO SCH (22:08)
[2016-05-20] MEDS: IPRATROPIUM-ALBUTEROL 3 ML NEB INHALATION SCH ×5 (07:52→19:39)
[2016-05-20] MEDS: MORPHINE SULFATE ER 30 MG TABLET PO SCH ×3 (08:19→23:52)
[2016-05-20] MEDS: ASCORBIC ACID 500 MG TAB PO SCH (08:20)
[2016-05-20] MEDS: DIAZEPAM 5 MG TAB PO SCH ×2 (08:20→21:02)
[2016-05-20] MEDS: CHOLECALCIFEROL 1,000 UNIT TAB PO SCH (08:20)
[2016-05-20] MEDS: FOLIC ACID 1 MG TAB PO SCH (08:21)
[2016-05-20] MEDS: LOSARTAN 50 MG TAB PO SCH ×2 (08:21→08:23)
[2016-05-20] MEDS: DEXAMETHASONE 4 MG TAB PO SCH ×3 (08:21→21:02)
[2016-05-20] MEDS: CYCLOBENZAPRINE 10 MG TAB PO SCH ×3 (08:21→21:02)
[2016-05-20] MEDS: ENOXAPARIN 40 MG/0.4 ML SYRINGE SQ SCH (08:21)
[2016-05-20] MEDS: ESCITALOPRAM 20 MG TAB PO SCH (08:21)
[2016-05-20] MEDS: MULTIVITAMINS, THERA 1 EACH TAB PO SCH (08:22)
[2016-05-20] MEDS: HYDROmorphone 2 MG TAB PO PRN ×4 (10:17→20:17)
[2016-05-20 11:07] LABS: Anisocytosis Slight; Basophils # (A) 0.1 k/uL (0-0.2); Basophils % (A) 0 %; CH 29.7; CHCM 29.1; Eosinophils % (A) 0 %; HCT 34.1 % (39.0-53.0); HDW 2.66; HGB 9.9 gm/dL (13.0-17.5); Hypochromasia Marked; Immature Gran Flag Slight; Luc # (Auto) 0.07; Luc % (Auto) 0; Lymphocytes # (A) 0.4 k/uL (1.0-4.8); Lymphocytes % (A) 0 %; MCH 29.7 pg (25.0-35.0); MCV 102.3 fL (80.0-100.0); Macrocytosis Moderate; Mean Platelet Volume 8.3; Monocytes # (A) 1.2 k/uL (0-1.0); Monocytes % (A) 1 %; Neutrophils # (A) 92.3 k/uL (1.3-7.7); Neutrophils % (A) 98 %; RBC 3.34 m/uL (4.30-5.90); RDW 18.9 % (11.5-15.5)
[2016-05-20 12:04] LABS: Manual Review Performed
--- NOTE | 2016-05-20 12:05 | P.PN ---
Subjective Principal diagnosis: Lung cancer with bone metastases Patient is a 66-year-old male with complex medical history noted below significant for stage IV lung cancer with bone metastasis. Patient follows with Dr. Polk for oncology and has undergone chemo and radiation therapy. Most recent chemotherapy was Opdivo approximately 2 weeks ago. Patient presented to the emergency department with complaints of difficulty breathing started 1 hour prior to arrival. Patient also complained of right- sided thoracic back pain, increasing in character over the last month. Patient states that he was recently treated with Flexeril and tapered Medrol pack by [facility] for a suspected pinched nerve in his back. CTA of chest negative for pulmonary emboli or other acute pulmonary or pleural process. Patient was admitted to the medical floor for intractable thoracic back pain and dyspnea with consult to oncology service. MRI of the right shoulder with evidence of some abnormal bone marrow signal in the clavicle, glenoid, acromion and proximal humerus. MRI of the C/T spine also showed areas concerning for metastatic disease including T1, T3, T8 & T9. Patient has been evaluated by radiation oncologist and has started palliative radiation therapy to his thoracic spine. Patient has been evaluated by pain specialist was recommending that patient continue on current medications with addition of Win 2 inhibitor Celebrex. Patient states that he broke out in hives from naproxen and is hesitant to start Celebrex. Upon evaluation, patient reports improvement in shoulder pain currently rated 5 out of 10. Patient denies nausea, vomiting, worsening shortness of breath, chest pain, or abdominal pain. Patient reports good urine output, denies urgency, hematuria, or dysuria. Patient denies constipation or diarrhea. Chest x-ray from yesterday without acute pulmonary process. Afebrile. A.m. vitals heart rate 88, respiratory rate 18, blood pressure 93/64, oxygen saturation 98% on 3 L nasal cannula. Patient is scheduled to undergo radiation therapy this morning. Objective - Vital Signs Vital signs: Vital Signs Temp 97 F L 05/20/16 07:00 Pulse 88 05/20/16 07:00 Resp 18 05/20/16 07:00 BP 93/64 05/20/16 07:00 Pulse Ox 98 05/20/16 07:00 Intake & Output 05/19/16 05/20/16 05/20/16 18:59 06:59 18:59 Intake Total 468 590 Balance 468 590 Intake: Oral 468 590 Other: Voiding Method Toilet Toilet # Voids 2 - Exam GENERAL: Pt awake and alert, lying in bed, appears uncomfortable. HEAD: Atraumatic, normocephalic. EYES: Conjunctiva are normal. ENT: Moist mucous membranes. NECK:Supple without lymphadenopathy or JVD. LUNGS: Breath sounds diminished to auscultation bilaterally. Cough harsh. HEART: Heart S1, S2, no S3 or S4. Regular rate and rhythm. No murmurs, rubs or gallops. Sinus tachycardia. ABDOMEN: Soft, nontender, nondistended, normoactive bowel sounds. EXTREMITIES: 2+ peripheral pulses. No edema. No calf tenderness. NEUROLOGICAL: Pt oriented x 3. Cranial nerves II through XII grossly intact. Strength and sensation grossly intact. PSYCH: Calm. SKIN: Warm, dry, pale. - Labs CBC & Chem 7: 05/20/16 09:01 05/19/16 15:43 Labs: Abnormal Lab Results - Last 24 Hours (Table) 05/19/16 05/20/16 Range/Units 15:43 09:01 WBC 94.0 H* (3.8-10.6) k/uL RBC 3.34 L (4.30-5.90) m/uL Hgb 9.9 L (13.0-17.5) gm/dL Hct 34.1 L (39.0-53.0) % MCV 102.3 H (80.0-100.0) fL MCHC 29.0 L (31.0-37.0) g/dL RDW 18.9 H (11.5-15.5) % Plt Count 536 H (150-450) k/uL Sodium 131 L (137-145) mmol/L Chloride 93 L (98-107) mmol/L Creatinine 0.55 L (0.66-1.25) mg/dL Glucose 155 H (74-99) mg/dL Assessment and Plan Plan: Impression and plan: 1. Dyspnea, present on admission, improved. CT chest on admission negative for pulmonary embolism or acute pulmonary process. Chest x-ray from 05/19/2016 without evidence of acute pulmonary process. Continue supplemental oxygen, continue nebulized updraft treatments. 2. Tachycardia suspect secondary to pain, improved. 2. Thoracic back pain suspect secondary to bony metastasis. Patient is currently undergoing radiation therapy palliative treatment. Continue scheduled medications. 3. Adenocarcinoma of lung with bony metastasis. Oncology has seen and evaluated patient, recommendations noted. 4. Anemia suspect secondary to chronic disease. 4. Thrombocytosis, present on admission. 5. Elevated alkaline phosphatase, chronic. 6. History of COPD. 7. GERD. 9. History of asthma. 10. History of testicular cancer. 11. Hypertension. 12. Degenerative joint disease. 13. Sleep apnea. 14. History of hiatal hernia. 15. Anxiety and depression, stable. 16. Chronic back pain. 17. Nicotine dependence. Continue to monitor patient. Continue current medications. Continue physical therapy. Continue GI and DVT prophylaxis. Encourage smoking cessation. Continue supportive treatment and pain management. Repeat CBC and BMP in a.m. The above impression and plan have been discussed and directed by Dr. Koehler. Anna RAMIREZ acting as scribe for Dr. Koehler.
--- NOTE | 2016-05-20 16:15 | P.CNPUL ---
History of Present Illness Consult date: 05/20/16 Reason for consult: other (back pain) Chief complaint: back pain History of present illness: 66 year old male presented to the ED on 05/12/16 for back pain and shortness of breath. Upon examination today the patient states he does not have shortness of breath now. He states he only had a hard time breathing because his pain made it hard to take a deep breath. He does have known COPD and lung cancer. He does note that he has had a cough 1-2 times since his admission. He states he takes Ventolin at home only. He has known lung cancer and is being treated with chemotherapy. He does not use home oxygen. 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 , Lung Mass History of Any Multi-Drug Resistant Organisms: None Reported Past Surgical History: Orthopedic Surgery Additional Past Surgical History / Comment(s): cervical fusion 4,5,6. removed spur from neck. right ORCHECTOMY with right LYMPH NODES REMOVED and adrenal glands removed. metal clips and david in abdominal area secondary to surgery from cancer, RT KNEE X2 cyst removed ,SKIN CA REMOVED RT SIDE OF FACE 2001. right thumb fracture with surgery. 2004 left tib/fib and ankle fractures with surgery, colonoscopies/benign polypectomy. Past Anesthesia/Blood Transfusion Reactions: No Reported Reaction Additional Past Anesthesia/Blood Transfusion Reaction / Comment(s): Pt states he has received blood in past without reaction. Past Psychological History: Anxiety, Depression Additional Psychological History / Comment(s): Pt resides with his spouse. He uses a cane on occasion. He drives. Stopped smoking for a while but is smoking again at this time. Denies alcohol use. 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 No experience. No international travel. No current exposures. No recreational drug use or alcohol use Smoking Status: Current every day smoker Past Alcohol Use History: None Reported Additional Past Alcohol Use History / Comment(s): Pt states he started smoking in 1959. He is less than a ppd smoker at this time. Estimates was approximately 1 pack per day throughout most of life. Past Drug Use History: Marijuana - Past Family History Father Family Medical History: Cancer, Thyroid Disorder Additional Family Medical History / Comment(s): Father had skin cancer. He also had heart disease. He at the age of 95 yrs. Mother Family Medical History: Cancer, COPD, Hypertension Additional Family Medical History / Comment(s): Mother had breast cancer. She at the age of 84 yrs. Medications and Allergies Home Medications Medication Instructions Recorded Confirmed Type Albuterol Inhaler [Ventolin Hfa 2 puff INHALATION RT-Q6H PRN 12/17/15 05/12/16 History Inhaler] Escitalopram [Lexapro] 20 mg PO DAILY 12/17/15 05/12/16 History Losartan [Cozaar] 25 mg PO DAILY 12/17/15 05/12/16 History Cholecalciferol [Vitamin D3] 5,000 unit PO DAILY 03/13/16 05/12/16 History Ascorbic Acid [Vitamin C] 500 mg PO DAILY 05/12/16 05/12/16 History Cyclobenzaprine [Flexeril] 10 mg PO TID 05/12/16 05/12/16 History Diazepam [Valium] 5 mg PO DAILY PRN 05/12/16 05/12/16 History Flax Larios Lignans 1 tab PO DAILY 05/12/16 05/12/16 History Morphine Sulfate [Ms Contin] 30 mg PO Q12H 05/12/16 05/12/16 History Multivitamins, Thera [Multivitamin] 1 tab PO DAILY 05/12/16 05/12/16 History [place] 3,6,9 1 cap PO DAILY 05/12/16 05/12/16 History Opdivo(Unknown) 1 dose IV Q14D 05/12/16 05/12/16 History Vitamin B Complex 1 cap PO DAILY 05/12/16 05/12/16 History methylPREDNISolone [Medrol Dose 4 mg PO DIRECTED 05/12/16 05/12/16 History Pack] Allergies Allergy/AdvReac Type Severity Reaction Status Date / Time adhesive Allergy Rash/Hives Verified 05/12/16 19:13 clonazepam [From Klonopin] Allergy Unknown Verified 05/12/16 19:13 latex Allergy Rash/Hives Verified 05/12/16 19:13 naproxen [From Naprosyn] Allergy Rash/Hives Verified 05/12/16 19:13 ondansetron Allergy Unknown Verified 05/12/16 19:13 prochlorperazine Allergy Unknown Verified 05/12/16 19:13 topiramate Allergy Blisters Verified 05/12/16 19:13 buprenorphine AdvReac Nausea Verified 05/12/16 19:13 myceline Allergy Unknown Uncoded 05/12/16 19:13 Physical Exam Osteopathic Statement: *. No significant issues noted on an osteopathic structural exam other than those noted in the History and Physical/Consult. Vitals: Vital Signs Temp Pulse Pulse Resp BP Pulse Ox 05/20/16 14:34 97.3 F L 102 H 16 99/60 94 L 05/20/16 13:19 95 05/20/16 13:09 95 05/20/16 07:00 97 F L 88 18 93/64 98 05/19/16 21:27 97.8 F 104 H 16 108/62 95 05/19/16 19:34 104 H 05/19/16 19:24 100 Intake and Output 05/20/16 05/20/16 05/20/16 06:59 14:59 22:59 Other: Voiding Method Toilet Toilet Toilet # Voids 2 3 Gen: A+OX3, NAD CV: RRR. s1/s2 Lungs: Diminished, otherwise clear Abd: soft, NT/ND, +BS Ext: no edema Results - Laboratory Findings CBC and BMP: 05/20/16 09:01 05/19/16 15:43 PT/INR, D-dimer PT 11.2 sec (9.0-12.0) 05/12/16 18:52 INR 1.1 (<1.1) 05/12/16 18:52 Abnormal lab findings: Abnormal Labs 05/13/16 05/14/16 05/14/16 04:00 07:23 07:23 WBC 48.2 H* RBC 3.34 L Hgb 10.0 L Hct 32.5 L MCV MCHC 30.7 L RDW 19.6 H Plt Count 555 H Neutrophils # 45.6 H Neutrophils # (Manual) Lymphocytes # 0.8 L Lymphocytes # (Manual) Monocytes # 1.4 H Monocytes # (Manual) Sodium Chloride 96 L Creatinine 0.59 L Glucose 117 H Ur Specific [place] >1.050 H Urine Protein Trace H 05/16/16 05/16/16 05/17/16 07:08 07:08 06:53 WBC 40.1 H* 44.5 H* RBC 3.18 L 3.21 L Hgb 9.3 L 9.4 L Hct 31.3 L 31.8 L MCV MCHC 29.8 L 29.7 L RDW 19.5 H 19.6 H Plt Count 514 H 476 H Neutrophils # Neutrophils # (Manual) 38.1 H 40.9 H Lymphocytes # Lymphocytes # (Manual) 0.8 L Monocytes # Monocytes # (Manual) 1.2 H 2.4 H Sodium Chloride 95 L Creatinine 0.56 L Glucose Ur Specific [place] Urine Protein 05/17/16 05/19/16 05/20/16 06:53 15:43 09:01 WBC 94.0 H* RBC 3.34 L Hgb 9.9 L Hct 34.1 L MCV 102.3 H MCHC 29.0 L RDW 18.9 H Plt Count 536 H Neutrophils # 92.3 H Neutrophils # (Manual) Lymphocytes # 0.4 L Lymphocytes # (Manual) Monocytes # 1.2 H Monocytes # (Manual) Sodium 135 L 131 L Chloride 93 L Creatinine 0.50 L 0.55 L Glucose 121 H 155 H Ur Specific [place] Urine Protein - Diagnostic Findings Chest x-ray: report reviewed, image reviewed CT scan - chest: report reviewed, image reviewed Assessment and Plan Plan: AECOPD Dyspnea on exertion Stage IV non-small cell lung cancer Active tobacco abuse Back pain with bone mets Anemia Thrombocytosis Hx LAVERN O2 to maintain sat > or = to 88% Bronchodilators and Pulmicort Prednisone taper Smoking cessation recommended Radiation per oncology team Pain control Incentive spirometry and pulmonary hygiene PT and OT GI adn DVT prophylaxis
[2016-05-20] MEDS: BUDESONIDE 0.5 MG/2 ML NEBU INHALATION SCH (19:39)
[2016-05-20] MEDS: FAMOTIDINE 20 MG TAB PO SCH (21:02)
[2016-05-21] MEDS: HYDROmorphone 2 MG TAB PO PRN ×3 (03:51→13:28)
[2016-05-21 07:30] LABS: Anisocytosis Slight; CH 29.7; CHCM 29.9; HCT 30.7 % (39.0-53.0); HGB 9.1 gm/dL (13.0-17.5); Hypochromasia Marked; MCH 29.6 pg (25.0-35.0); MCHC 29.8 g/dL (31.0-37.0); MCV 99.5 fL (80.0-100.0); Macrocytosis Moderate; Mean Platelet Volume 8.1; RBC 3.08 m/uL (4.30-5.90); RDW 19.4 % (11.5-15.5); WBC (Perox) 74.19
[2016-05-21 07:41] LABS: WBC 71.3 k/uL (3.8-10.6)
[2016-05-21 07:52] LABS: Anion Gap 11 mmol/L; Blood Urea Nitrogen 26 mg/dL (9-20); Calcium 9.7 mg/dL (8.4-10.2); Carbon Dioxide 30 mmol/L (22-30); Chloride 99 mmol/L (98-107); Glucose 127 mg/dL (74-99); Non-African American GFR(MDRD) >60 (>60 ml/min/1.73 sqM); Potassium 5.6 mmol/L (3.5-5.1); Sodium 140 mmol/L (137-145)
[2016-05-21] MEDS: MORPHINE SULFATE ER 30 MG TABLET PO SCH (08:22)
[2016-05-21] MEDS: CHOLECALCIFEROL 1,000 UNIT TAB PO SCH (08:23)
[2016-05-21] MEDS: DIAZEPAM 5 MG TAB PO SCH (08:23)
[2016-05-21] MEDS: ASCORBIC ACID 500 MG TAB PO SCH (08:23)
[2016-05-21] MEDS: ESCITALOPRAM 20 MG TAB PO SCH (08:23)
[2016-05-21] MEDS: DEXAMETHASONE 4 MG TAB PO SCH (08:24)
[2016-05-21] MEDS: FOLIC ACID 1 MG TAB PO SCH (08:24)
[2016-05-21] MEDS: CYCLOBENZAPRINE 10 MG TAB PO SCH (08:24)
[2016-05-21] MEDS: MULTIVITAMINS, THERA 1 EACH TAB PO SCH (08:24)
[2016-05-21] MEDS: ENOXAPARIN 40 MG/0.4 ML SYRINGE SQ SCH (08:24)
[2016-05-21] MEDS: LOSARTAN 50 MG TAB PO SCH (08:25)
[2016-05-21 08:26] LABS: Add Differential Manual Differential
[2016-05-21 08:28] LABS: Nucleated Red Blood Cells 0 /100 WBC (0-0); Total Cells Counted 100
[2016-05-21 08:29] LABS: Manual Review Performed; Target Cells Present; Toxic Granulation Present
[2016-05-21] MEDS: BUDESONIDE 0.5 MG/2 ML NEBU INHALATION SCH (08:35)
[2016-05-21] MEDS: IPRATROPIUM-ALBUTEROL 3 ML NEB INHALATION SCH ×2 (08:35→11:51)
[2016-05-21] MEDS ORDERED: predniSONE 20 MG TAB PO SCH ×2 (09:00)
--- NOTE | 2016-05-21 13:27 | PN ---
DATE OF SERVICE: 05/21/2016 HISTORY OF PRESENT ILLNESS: The patient is a 66-year-old male who came in with problems with back pain and shortness of breath with a significant history for lung cancer and COPD. He is to have radiation therapy today. He still has occasional cough mostly nonproductive. Most likely the patient will be discharged home today. His pain is controlled with medication. Family is at bedside. He denies any chest pain. He denies any nausea or vomiting. He denies any diarrhea or constipation at this time. On physical examination, vital signs show temperature of 97.4, heart rate 92, respiratory rate 18, blood pressure is 100/62, oxygen saturation 97% with 2 L. LABS: WBC 71.3, hemoglobin 9.1, hematocrit 30.7, platelets are 528. Sodium 140, potassium 5.6, chloride 99, carbon dioxide 30, BUN 26, creatinine 0.54. Glucose 127. Calcium is 9.7. GENERAL: He is a 66-year-old male appears comfortable at this moment. HEENT: Head is atraumatic, normocephalic. Pupils are reactive. Mucous membranes slightly dry. Neck is supple. LUNGS: Sounds with prolonged expiratory wheezes. CARDIOVASCULAR: S1 and S2 is heard; regular. ABDOMEN: Soft, nontender. Bowel sounds are present. EXTREMITIES: No edema. Dorsalis pedis pulses palpable. NEUROLOGIC: He is awake, alert. IMPRESSION: 1. Acute exacerbation of chronic obstructive pulmonary disease. 2. Dyspnea with exertion. 3. Stage IV non-small cell lung cancer. 4. Nicotine abuse. 5. Chronic back pain with bone metastasis. 6. Anemia. 7. Leukocytosis. 8. Thrombocytosis. 9. History of obstructive sleep apnea. 10. Electrolyte imbalance with plans for repeat this afternoon. PLAN: 1. Continue patient with his present medications. 2. Continue to keep oxygen saturation 88% or better. 3. Continue with tapering steroids. 4. Continue with smoking cessation. 5. Continue with radiation as ordered. 6. Continue with pain control. 7. Incentive spirometer with pulmonary hygiene. 8. Continued GI and DVT prophylaxis. 9. Repeat potassium later today to see if it is corrected. 10. He should continue with both DuoNeb and Pulmicort on outpatient basis and tapering steroids and follow with Pulmonary on outpatient basis in about one week's time.
[2016-05-21 15:01] VITALS: BP 112/74; PULSE 91; RESP 20; TEMP 96.9
--- NOTE | 2016-05-22 15:41 | P.DS ---
Providers Date of admission: 05/12/16 21:31 Expected date of discharge: 05/21/16 Attending physician: Ty Koehler Consults: 05/15/16 11:06 Consult Physician Routine Consulting Provider: Lion Staton Consult Reason/Comments: pain management for discharge Do you want consulting provider notified?: Yes 05/15/16 22:16 Consult Physician Routine Consulting Provider: Angel Huerta Consult Reason/Comments: Intractable pain. Evaluate fro RT to shoulder, spine Do you want consulting provider notified?: Yes 05/19/16 15:37 Consult Physician Urgent Consulting Provider: Jo Saul Consult Reason/Comments: DYSPNEA Do you want consulting provider notified?: Yes Primary care physician: Ty Koehler [facility] Hospital Course: Patient is a 66-year-old male with complex medical history significant for stage IV lung cancer with bone metastasis. Patient follows with Dr. Polk for oncology and has undergone chemo and radiation therapy. Most recent chemotherapy was Opdivo approximately 2 weeks ago prior to admission. Patient presented to the emergency department with complaints dyspnea and inretractable right-sided thoracic back pain. CTA of chest negative for pulmonary emboli or other acute pulmonary or pleural process. Patient was admitted to the medical floor for pain management. Patient underwent MRI of the right shoulder with evidence of some abnormal bone marrow signal in the clavicle, glenoid, acromion and proximal humerus. MRI of the C/T spine also showed areas concerning for metastatic disease including T1, T3, T8 & T9. Patient was evaluated by radiation oncologist and received 3 rounds of palliative radiation therapy to his thoracic spine prior to discharge. Patient was also evaluated by pain management service with adjustments to pain medicines. Patient was also evaluated by pure pak machine operator during his hospital stay with no evidence of acute pulmonary process. Patient improved significantly during his hospital stay and was deemed stable for discharge with continuing radiation therapy in the outpatient setting. Patient to follow-up with Dr. Koehler and consultants in the outpatient setting. Discharge diagnoses: 1. Dyspnea, present on admission, suspect secondary to pain, improved. 2. Tachycardia suspect secondary to pain, improved. 2. Thoracic back pain suspect secondary to bony metastasis. 3. Adenocarcinoma of lung with bony metastasis. 4. Anemia suspect secondary to chronic disease. 4. Thrombocytosis, present on admission. 5. Elevated alkaline phosphatase, chronic. 6. History of COPD. 7. GERD. 9. History of asthma. 10. History of testicular cancer. 11. Hypertension. 12. Degenerative joint disease. 13. Sleep apnea. 14. History of hiatal hernia. 15. Anxiety and depression, stable. 16. Chronic back pain. 17. Nicotine dependence. The above impression and plan have been discussed and directed by Dr. Koehler. Anna RAMIREZ acting as scribe for Dr. Koehler. Pertinent Studies: EKG; chest CTA; EKG; shoulder MRI; cervical spine MRI; thoracic spine MRI Procedures: Radiation therapy Patient Condition at Discharge: Stable Plan - Discharge Summary New Discharge Prescriptions: Budesonide [Pulmicort] 0.5 mg INHALATION RT-BID #60 nebu Diazepam [Valium] 5 mg PO BID #14 tab Famotidine [Pepcid] 20 mg PO HS #30 tab HYDROmorphone [Dilaudid] 4 mg PO Q3HR PRN #112 tab PRN Reason: Pain Ipratropium-Albuterol Nebulize [Duoneb 0.5 mg-3 mg/3 ml Soln] 3 ml INHALATION RT -QID #30 ampul.neb Morphine Sulfate ER [Ms Contin] 30 mg PO Q8HR #21 tablet predniSONE 0 mg PO DIRECTED #30 tab Discharge Medication List Escitalopram [Lexapro] 20 mg PO DAILY 12/17/15 [History] Losartan [Cozaar] 25 mg PO DAILY 12/17/15 [History] Folic Acid 1 mg PO DAILY #90 tablet 01/01/16 [Rx] Cholecalciferol [Vitamin D3] 5,000 unit PO DAILY 03/13/16 [History] Ascorbic Acid [Vitamin C] 500 mg PO DAILY 05/12/16 [History] Cyclobenzaprine [Flexeril] 10 mg PO TID 05/12/16 [History] Flax Larios Lignans 1 tab PO DAILY 05/12/16 [History] Multivitamins, Thera [Multivitamin] 1 tab PO DAILY 05/12/16 [History] [place] 3,6,9 1 cap PO DAILY 05/12/16 [History] Opdivo(Unknown) 1 dose IV Q14D 05/12/16 [History] Vitamin B Complex 1 cap PO DAILY 05/12/16 [History] Budesonide [Pulmicort] 0.5 mg INHALATION RT-BID #60 nebu 05/21/16 [Rx] Diazepam [Valium] 5 mg PO BID #14 tab 05/21/16 [Rx] Famotidine [Pepcid] 20 mg PO HS #30 tab 05/21/16 [Rx] HYDROmorphone [Dilaudid] 4 mg PO Q3HR PRN #112 tab 05/21/16 [Rx] Ipratropium-Albuterol Nebulize [Duoneb 0.5 mg-3 mg/3 ml Soln] 3 ml INHALATION RT -QID #30 ampul.neb 05/21/16 [Rx] Morphine Sulfate ER [Ms Contin] 30 mg PO Q8HR #21 tablet 05/21/16 [Rx] predniSONE 0 mg PO DIRECTED #30 tab 05/21/16 [Rx] Follow up Appointment(s)/Referral(s): Jermaine Salazar MD [STAFF PHYSICIAN] - 05/23/16 11:45 am Ty Koehler DO [Primary Care Provider] - 1-2 days ( office closes at noon on wednesdays.patient will have to call office and make own appt.) Jo Saul DO [Doctor of Osteopathic Medicine] - 05/29/16 11:30 am Patient Instructions/Handouts: Diazepam (By mouth), Prednisone (By mouth), Hydromorphone (By mouth), Budesonide (By breathing), Ipratropium/Albuterol (By breathing), Morphine, Slow Release (By mouth), Acute Low Back Pain (DC), Brain Metastasis (DC) Activity/Diet/Wound Care/Special Instructions: Follow up for radiation therapy as previously scheduled tomorrow. Discharge Disposition: HOME SELF-CARE
== END 2016-05-21 15:15 | disposition home or self-care (01) | DRG 948 ==
LOC: EC 18:29 → 5MS5E 21:31 → 5ONC 05-13 20:48
PROVIDERS: ADMIT Family Medicine; ATTEND Family Medicine
PROC: DP0C1ZZ Beam Radiation of Other Bone using Photons 1 - 10 MeV (ICD-10-PCS; principal; 2016-05-16)
PROC: DP0C1ZZ Beam Radiation of Other Bone using Photons 1 - 10 MeV (ICD-10-PCS; 2016-05-19)
PROC: DP0C1ZZ Beam Radiation of Other Bone using Photons 1 - 10 MeV (ICD-10-PCS; 2016-05-20)
PROC: DP0C1ZZ Beam Radiation of Other Bone using Photons 1 - 10 MeV (ICD-10-PCS; 2016-05-21)
DX: G89.3 Neoplasm related pain (acute) (chronic) (principal); C79.51 Secondary malignant neoplasm of bone; C34.92 Malignant neoplasm of unspecified part of left bronchus or lung; E89.6 Postprocedural adrenocortical (-medullary) hypofunction; E87.8 Other disorders of electrolyte and fluid balance, not elsewhere classified; D47.3 Essential (hemorrhagic) thrombocythemia; I10 Essential (primary) hypertension; J44.9 Chronic obstructive pulmonary disease, unspecified; D63.8 Anemia in other chronic diseases classified elsewhere; R00.0 Tachycardia, unspecified; R53.1 Weakness; D72.829 Elevated white blood cell count, unspecified; R50.9 Fever, unspecified; R09.02 Hypoxemia; R74.8 Abnormal levels of other serum enzymes; R59.0 Localized enlarged lymph nodes; L40.9 Psoriasis, unspecified; H93.13 Tinnitus, bilateral; K44.9 Diaphragmatic hernia without obstruction or gangrene; F32.9 Major depressive disorder, single episode, unspecified; J45.909 Unspecified asthma, uncomplicated; G47.33 Obstructive sleep apnea (adult) (pediatric); G43.909 Migraine, unspecified, not intractable, without status migrainosus; F17.200 Nicotine dependence, unspecified, uncomplicated; K21.9 Gastro-esophageal reflux disease without esophagitis; F41.9 Anxiety disorder, unspecified; M19.90 Unspecified osteoarthritis, unspecified site; Z98.1 Arthrodesis status; Z87.01 Personal history of pneumonia (recurrent); Z80.3 Family history of malignant neoplasm of breast; Z82.49 Family history of ischemic heart disease and other diseases of the circulatory system; Z92.21 Personal history of antineoplastic chemotherapy; Z82.5 Family history of asthma and other chronic lower respiratory diseases; Z80.8 Family history of malignant neoplasm of other organs or systems; Z85.47 Personal history of malignant neoplasm of testis; Z92.3 Personal history of irradiation; Z87.81 Personal history of (healed) traumatic fracture; Z86.010 Personal history of colon polyps; Z85.828 Personal history of other malignant neoplasm of skin; Z90.79 Acquired absence of other genital organ(s); Z79.891 Long term (current) use of opiate analgesic; Z79.52 Long term (current) use of systemic steroids; Z79.899 Other long term (current) drug therapy; Z88.6 Allergy status to analgesic agent; Z91.040 Latex allergy status; Z88.5 Allergy status to narcotic agent; Z88.8 Allergy status to other drugs, medicaments and biological substances; Z91.048 Other nonmedicinal substance allergy status; Z71.6 Tobacco abuse counseling
CPT/HCPCS: 36415; 71020; 71275; 72156; 72157; 77280; 77295; 77300; 77331; 77334; 77336; 77387; 77412; 77417; 77470; 80048; 80053; 81003; 82550; 82553; 84132; 84484; 85025; 85610; 85730; 93005; 94640; 94760; 96374; 96375; 96376; 99285

== ENCOUNTER 2016-05-23 21:31 | Inpatient (IN) | payer MEDICARE ==
[2016-05-23] MEDS ORDERED: SODIUM CHLORIDE 0.9% 1,000 ML IV STA ×2 (21:50)
[2016-05-23] MEDS ORDERED: IPRATROPIUM 0.5 MG/2.5 ML NEBU INHALATION STA (21:50)
[2016-05-23] MEDS ORDERED: methylPREDNISolone SOD SUCCI 125 MG/2 ML VIAL IV STA (21:50)
[2016-05-23] MEDS ORDERED: LEVALBUTEROL NEB 1.25 MG/3 ML AMP INHALATION STA (21:50)
[2016-05-23] MEDS ORDERED: PIPERACILLIN-TAZOBACTAM 4.5 GM in DEXTROSE/WATER 1 50ML.BAG IVPB STA (21:50)
[2016-05-23] MEDS ORDERED: VANCOMYCIN 1,000 MG in SODIUM CHLORIDE 0.9% 250 ML IVPB STA (21:50)
[2016-05-23] MEDS ORDERED: HYDROmorphone 1 MG/ML 1 ML SYRINGE IVP STA ×2 (21:52→22:59)
[2016-05-23] MEDS ORDERED: ACETAMINOPHEN TAB 500 MG TAB PO STA (22:01)
[2016-05-23 22:17] LABS: Anisocytosis Slight; CH 30.1; CHCM 31.4; HCT 32.5 % (39.0-53.0); HDW 2.67; Hypochromasia Slight; MCH 29.5 pg (25.0-35.0); MCHC 30.6 g/dL (31.0-37.0); MCV 96.3 fL (80.0-100.0); Macrocytosis Slight; Mean Platelet Volume 7.6; RBC 3.38 m/uL (4.30-5.90); RDW 19.4 % (11.5-15.5); WBC (Perox) 44.31
[2016-05-23 22:24] LABS: WBC 44.1 k/uL (3.8-10.6)
[2016-05-23 22:26] LABS: ALT 89 U/L (21-72); AST 36 U/L (17-59); Alkaline Phosphatase 274 U/L (38-126); Anion Gap 12 mmol/L; Blood Urea Nitrogen 25 mg/dL (9-20); Calcium 9.1 mg/dL (8.4-10.2); Carbon Dioxide 29 mmol/L (22-30); Chloride 92 mmol/L (98-107); Glucose 109 mg/dL (74-99); Non-African American GFR(MDRD) >60 (>60 ml/min/1.73 sqM); Sodium 133 mmol/L (137-145); Total Bilirubin 0.5 mg/dL (0.2-1.3); Total Protein 6.4 g/dL (6.3-8.2)
[2016-05-23 22:28] LABS: INR 1.2 (<1.1); Partial Thromboplastin Time 22.7 sec (22.0-30.0); Prothrombin Time 11.9 sec (9.0-12.0)
--- NOTE | 2016-05-23 22:30 | ED ---
SOB HPI - General Chief Complaint: Shortness of Breath Stated Complaint: TERRY Time Seen by Provider: 05/23/16 21:41 Source: patient Mode of arrival: wheelchair Limitations: no limitations - History of Present Illness Initial Comments: This 66-year-old white male presents with the complaint of some shortness of breath. This just started this evening. He is had a cough with yellowish greenish production. He also had a fever of 101. He tried a breathing treatment approximately one hour ago with limited relief. He does have a history of asthma and COPD and has been wheezing. He complains of pain to his shoulder and back rated at approximately 8 out of 10. This is a chronic pain associated with this stage IV lung cancer with metastases to his back and shoulder. He was just discharged from the hospital 2 days ago after eating being admitted for the pain. He had a full workup including a computed tomography scan of the thorax to rule out pulmonary embolism. He also saw his oncologist earlier today. No other complaints or modifying factors. - Related Data Home Medications Medication Instructions Recorded Confirmed Escitalopram [Lexapro] 20 mg PO DAILY 12/17/15 05/23/16 Losartan [Cozaar] 25 mg PO DAILY 12/17/15 05/23/16 Cholecalciferol [Vitamin D3] 5,000 unit PO DAILY 03/13/16 05/23/16 Ascorbic Acid [Vitamin C] 500 mg PO DAILY 05/12/16 05/23/16 Cyclobenzaprine [Flexeril] 10 mg PO TID 05/12/16 05/23/16 Flax Larios Lignans 1 tab PO DAILY 05/12/16 05/23/16 Multivitamins, Thera [Multivitamin] 1 tab PO DAILY 05/12/16 05/23/16 [place] 3,6,9 1 cap PO DAILY 05/12/16 05/23/16 Opdivo(Unknown) 1 dose IV Q14D 05/12/16 05/23/16 Vitamin B Complex 1 cap PO DAILY 05/12/16 05/23/16 Previous Rx's Medication Instructions Recorded Folic Acid 1 mg PO DAILY #90 tablet 01/01/16 Budesonide [Pulmicort] 0.5 mg INHALATION RT-BID #60 nebu 05/21/16 Diazepam [Valium] 5 mg PO BID #14 tab 05/21/16 Famotidine [Pepcid] 20 mg PO HS #30 tab 05/21/16 HYDROmorphone [Dilaudid] 4 mg PO Q3HR PRN #112 tab 05/21/16 Ipratropium-Albuterol Nebulize 3 ml INHALATION RT-QID #30 05/21/16 [Duoneb 0.5 mg-3 mg/3 ml Soln] ampul.neb Morphine Sulfate ER [Ms Contin] 30 mg PO Q8HR #21 tablet 05/21/16 predniSONE 0 mg PO DIRECTED #30 tab 05/21/16 Allergies Allergy/AdvReac Type Severity Reaction Status Date / Time adhesive Allergy Rash/Hives Verified 05/12/16 19:13 clonazepam [From Klonopin] Allergy Unknown Verified 05/12/16 19:13 latex Allergy Rash/Hives Verified 05/12/16 19:13 naproxen [From Naprosyn] Allergy Rash/Hives Verified 05/12/16 19:13 ondansetron Allergy Unknown Verified 05/12/16 19:13 prochlorperazine Allergy Unknown Verified 05/12/16 19:13 topiramate Allergy Blisters Verified 05/12/16 19:13 buprenorphine AdvReac Nausea Verified 05/12/16 19:13 myceline Allergy Unknown Uncoded 05/12/16 19:13 Review of Systems ROS Statement: Those systems with pertinent positive or pertinent negative responses have been documented in the HPI. ROS Other: All systems not noted in ROS Statement are negative. 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 , Lung Mass History of Any Multi-Drug Resistant Organisms: None Reported Past Surgical History: Orthopedic Surgery Additional Past Surgical History / Comment(s): cervical fusion 4,5,6. removed spur from neck. right ORCHECTOMY with right LYMPH NODES REMOVED and adrenal glands removed. metal clips and david in abdominal area secondary to surgery from cancer, RT KNEE X2 cyst removed ,SKIN CA REMOVED RT SIDE OF FACE 2001. right thumb fracture with surgery. 2004 left tib/fib and ankle fractures with surgery, colonoscopies/benign polypectomy. Past Anesthesia/Blood Transfusion Reactions: No Reported Reaction Additional Past Anesthesia/Blood Transfusion Reaction / Comment(s): Pt states he has received blood in past without reaction. Past Psychological History: Anxiety, Depression Additional Psychological History / Comment(s): Pt resides with his spouse. He uses a cane on occasion. He drives. Stopped smoking for a while but is smoking again at this time. Denies alcohol use. 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 No experience. No international travel. No current exposures. No recreational drug use or alcohol use Smoking Status: Current every day smoker Past Alcohol Use History: None Reported Additional Past Alcohol Use History / Comment(s): Pt states he started smoking in 1959. He is less than a ppd smoker at this time. Estimates was approximately 1 pack per day throughout most of life. Past Drug Use History: Marijuana - Past Family History Father Family Medical History: Cancer, Thyroid Disorder Additional Family Medical History / Comment(s): Father had skin cancer. He also had heart disease. He at the age of 95 yrs. Mother Family Medical History: Cancer, COPD, Hypertension Additional Family Medical History / Comment(s): Mother had breast cancer. She at the age of 84 yrs. General Exam - General Exam Comments Initial Comments: GENERAL: The patient is well nourished and well hydrated. VITAL SIGNS: Heart rate, blood pressure, respiratory rate reviewed as recorded in nurse's notes. EYES: Pupils are round and reactive. Extraocular movements are intact. No conjunctival / lid redness or swelling. ENT: No external evidence of injury, swelling, or ecchymosis. Airway is patent. Throat is clear. There is some right posterior lymphadenopathy noted. NECK: Nontender. No swelling or evidence of injury. No subcutaneous emphysema. Trachea is midline. No thyroid mass. HEART: Regular rate and rhythm. Good peripheral pulses. LUNGS/CHEST: There is some mild wheezing noted bilaterally. No respiratory distress identified. No ecchymosis, subcutaneous emphysema, or tenderness. ABDOMEN: Abdomen soft without tenderness. No palpable masses or organomegaly. No peritoneal signs. No abdominal wall swelling or ecchymosis. EXTREMITIES: No extremity tenderness. Normal muscle tone and function. No thoracolumbar tenderness. NEUROLOGIC: Sensation is grossly intact. Cranial nerve exam reveals face is symmetrical, tongue is midline, speech is clear. SKIN: No abrasions or ecchymosis is noted. No induration or masses noted. PSYCHIATRIC: Alert and oriented. Appropriate behavior and judgment. Limitations: no limitations Course Vital Signs 05/23/16 05/23/16 05/23/16 21:38 22:18 22:26 Temperature 102.2 F H Pulse Rate 133 H 117 H 118 H Respiratory 24 Rate Blood Pressure 135/83 O2 Sat by Pulse 98 Oximetry 05/23/16 22:50 Temperature Pulse Rate 115 H Respiratory 26 H Rate Blood Pressure 121/62 O2 Sat by Pulse 97 Oximetry Medical Decision Making - Medical Decision Making The patient was seen and examined. All diagnostics were reviewed. Old records from recent admission were reviewed. The patient's EKG shows a sinus tachycardia at a rate of [address]-T wave changes noted. Old records relate that he does have a sinus tachycardia normally. The [place] interval is 1:30, QRS duration is 72, and QTC intervals 438. His white blood cell count is 44,000 but this is down as compared to previous values. He is given vancomycin and Zosyn intravenously. He received some Tylenol as well as IV fluids, Xopenex, and Atrovent breathing treatments. He also receives Dilaudid 1 mg IV for his cancer pain. The patient does have some anemia, hyponatremia, and hypochloremia. The chest x-ray shows evidence of a left lower lobe infiltrate. He is being treated for hospital acquired pneumonia. His breathing is improved on recheck but he is still complaining of pain. He receives more Dilaudid intravenously. It is felt as though he would require admission to the hospital for further treatment. The case is discussed with internal medicine and they are agreeable. - Lab Data Result diagrams: 05/23/16 22:01 05/23/16 22:01 Lab Results 05/23/16 05/23/16 05/23/16 Range/Units 21:56 22:01 22:01 WBC 44.1 H* (3.8-10.6) k/uL RBC 3.38 L (4.30-5.90) m/uL Hgb 10.0 L (13.0-17.5) gm/dL Hct 32.5 L (39.0-53.0) % MCV 96.3 (80.0-100.0) fL MCH 29.5 (25.0-35.0) pg MCHC 30.6 L (31.0-37.0) g/dL RDW 19.4 H (11.5-15.5) % Plt Count 517 H (150-450) k/uL Neutrophils % (Manual) 89.0 % Band Neutrophils % 4.0 % Lymphocytes % (Manual) 1.0 % Monocytes % (Manual) 6.0 % Neutrophils # (Manual) 41.0 H (1.3-7.7) k/uL Lymphocytes # (Manual) 0.4 L (1.0-4.8) k/uL Monocytes # (Manual) 2.6 H (0-1.0) k/uL Nucleated RBCs 0 (0-0) /100 WBC Manual Slide Review Performed Hypochromasia Slight Anisocytosis Slight Macrocytosis Slight PT (9.0-12.0) sec INR (<1.1) APTT (22.0-30.0) sec Sodium (137-145) mmol/L Potassium (3.5-5.1) mmol/L Chloride (98-107) mmol/L Carbon Dioxide (22-30) mmol/L Anion Gap mmol/L BUN (9-20) mg/dL Creatinine (0.66-1.25) mg/dL Est GFR (MDRD) Af Amer (>60 ml/min/1.73 sqM) Est GFR (MDRD) Non-Af (>60 ml/min/1.73 sqM) Glucose (74-99) mg/dL Calcium (8.4-10.2) mg/dL Total Bilirubin (0.2-1.3) mg/dL AST (17-59) U/L ALT (21-72) U/L Alkaline Phosphatase (38-126) U/L Total Creatine Kinase <20 L (55-170) U/L CK-MB (CK-2) 0.6 (0.0-2.4) ng/mL CK-MB (CK-2) Rel Index 0.0 Troponin I <0.012 (0.000-0.034) ng/mL NT-Pro-B Natriuret Pep 746 pg/mL Total Protein (6.3-8.2) g/dL Albumin (3.5-5.0) g/dL Influenza Type A RNA (Not Detectd) Influenza Type B (PCR) (Not Detectd) 05/23/16 05/23/16 05/23/16 Range/Units 22:01 22:01 22:01 WBC (3.8-10.6) k/uL RBC (4.30-5.90) m/uL Hgb (13.0-17.5) gm/dL Hct (39.0-53.0) % MCV (80.0-100.0) fL MCH (25.0-35.0) pg MCHC (31.0-37.0) g/dL RDW (11.5-15.5) % Plt Count (150-450) k/uL Neutrophils % (Manual) % Band Neutrophils % % Lymphocytes % (Manual) % Monocytes % (Manual) % Neutrophils # (Manual) (1.3-7.7) k/uL Lymphocytes # (Manual) (1.0-4.8) k/uL Monocytes # (Manual) (0-1.0) k/uL Nucleated RBCs (0-0) /100 WBC Manual Slide Review Hypochromasia Anisocytosis Macrocytosis PT 11.9 (9.0-12.0) sec INR 1.2 (<1.1) APTT 22.7 (22.0-30.0) sec Sodium 133 L (137-145) mmol/L Potassium 5.0 (3.5-5.1) mmol/L Chloride 92 L (98-107) mmol/L Carbon Dioxide 29 (22-30) mmol/L Anion Gap 12 mmol/L BUN 25 H (9-20) mg/dL Creatinine 0.67 (0.66-1.25) mg/dL Est GFR (MDRD) Af Amer >60 (>60 ml/min/1.73 sqM) Est GFR (MDRD) Non-Af >60 (>60 ml/min/1.73 sqM) Glucose 109 H (74-99) mg/dL Calcium 9.1 (8.4-10.2) mg/dL Total Bilirubin 0.5 (0.2-1.3) mg/dL AST 36 (17-59) U/L ALT 89 H (21-72) U/L Alkaline Phosphatase 274 H (38-126) U/L Total Creatine Kinase (55-170) U/L CK-MB (CK-2) (0.0-2.4) ng/mL CK-MB (CK-2) Rel Index Troponin I (0.000-0.034) ng/mL NT-Pro-B Natriuret Pep pg/mL Total Protein 6.4 (6.3-8.2) g/dL Albumin 3.3 L (3.5-5.0) g/dL Influenza Type A RNA Not Detected (Not Detectd) Influenza Type B (PCR) Not Detected (Not Detectd) Disposition Clinical Impression: Leukocytosis, Lung mass, Bone metastasis, Neoplasm related pain, Fever, Thoracic back pain, COPD (chronic obstructive pulmonary disease), Dyspnea, Hyponatremia, Hypochloremia, Anemia, Hospital-acquired bacterial pneumonia Disposition: ADMITTED IP TO THIS HOSP Condition: Fair Time of Disposition: 23:07 Decision Date: 05/23/16 Decision Time: 23:07
[2016-05-23 22:33] LABS: Add Differential Manual Differential
[2016-05-23 22:34] LABS: Creatine Kinase <20 U/L (55-170)
[2016-05-23 22:35] LABS: Manual Review Performed; Nucleated Red Blood Cells 0 /100 WBC (0-0); Total Cells Counted 100
--- NOTE | 2016-05-23 22:45 | XR ---
EXAMINATION TYPE: XR chest 2V DATE OF EXAM: 05/23/2016 10:37 PM COMPARISON: 05/19/2016 HISTORY: Cough and short of breath TECHNIQUE: Frontal and lateral views of the chest are obtained. FINDINGS: The heart is normal. There is some infiltrate in the left lower lobe below the left pulmon linda hilum. The other lung ovalle are fairly clear. There are no hilar masses. There is no pleural eff usion. There are chest leads. Bony thorax is intact. IMPRESSION: There is mild infiltrate in the left lower lobe is slightly worse than 05/29/2016. Normal heart.
[2016-05-23 22:47] LABS: Creatine Kinase MB 0.6 ng/mL (0.0-2.4); Troponin I <0.012 ng/mL (0.000-0.034)
[2016-05-23] MEDS ORDERED: IV VANCOMYCIN PER PHARMACY 1 EACH MISC MISCELLANE PRN (23:04)
[2016-05-23] MEDS ORDERED: LEVOFLOXACIN 750MG-D5W PMX 750 MG in DEXTROSE/WATER 1 150ML.BAG IVPB STA (23:17)
[2016-05-23] MEDS ORDERED: PNEUMONIA PROTOCOL UTILIZED 1 EACH MISC PO PRN (23:17)
[2016-05-23] MEDS ORDERED: ACETAMINOPHEN TAB 325 MG TAB PO PRN (23:22)
[2016-05-23] MEDS ORDERED: HYDROmorphone 1 MG/ML 1 ML SYRINGE IVP PRN (23:25)
[2016-05-23] MEDS ORDERED: [UNRECOGNIZED DRUG - OTHER] IV SCH (23:30)
[2016-05-24 00:47] VITALS: BMI 22.7
[2016-05-24] MEDS: PIPERACILLIN-TAZOBACTAM 3.375 GM in DEXTROSE/WATER 1 50ML.BAG IVPB STA ×2 (00:47→01:36)
[2016-05-24] MEDS: MORPHINE SULFATE ER 30 MG TABLET PO SCH ×3 (01:34→16:14)
[2016-05-24] MEDS: IPRATROPIUM 0.5 MG/2.5 ML NEBU INHALATION SCH ×3 (03:35→12:53)
[2016-05-24] MEDS ORDERED: VANCOMYCIN 1,250 MG in SODIUM CHLORIDE 0.9% 250 ML IVPB SCH (06:00)
[2016-05-24] MEDS: ALBUTEROL NEBULIZED 2.5 MG/3 ML INHALATION PRN ×2 (08:04→12:53)
[2016-05-24] MEDS: BUDESONIDE 0.5 MG/2 ML NEBU INHALATION SCH ×2 (08:04→19:49)
[2016-05-24] MEDS ORDERED: PIPERACILLIN-TAZOBACTAM 3.375 GM in DEXTROSE/WATER 1 50ML.BAG IVPB SCH (09:00)
[2016-05-24] MEDS ORDERED: OMEGA PO SCH (09:00)
[2016-05-24] MEDS ORDERED: methylPREDNISolone SOD SUCCI 125 MG/2 ML VIAL IV SCH (09:00)
[2016-05-24] MEDS ORDERED: [UNRECOGNIZED DRUG - OTHER] PO SCH (09:00)
[2016-05-24] MEDS: MULTIVITAMINS, THERA 1 EACH TAB PO SCH (09:17)
[2016-05-24] MEDS: ASCORBIC ACID 500 MG TAB PO SCH (09:17)
[2016-05-24] MEDS: ESCITALOPRAM 20 MG TAB PO SCH (09:17)
[2016-05-24] MEDS: FOLIC ACID 1 MG TAB PO SCH (09:17)
[2016-05-24] MEDS: ENOXAPARIN 40 MG/0.4 ML SYRINGE SQ SCH (09:17)
[2016-05-24] MEDS: LOSARTAN 25 MG TAB PO SCH ×2 (09:17→09:22)
[2016-05-24] MEDS: CYCLOBENZAPRINE 10 MG TAB PO SCH ×3 (09:17→21:06)
[2016-05-24] MEDS: CHOLECALCIFEROL 1,000 UNIT TAB PO SCH (09:18)
--- NOTE | 2016-05-24 10:18 | P.CONS ---
History of Present Illness - Reason for Consult Consult date: 05/24/16 Metastatic lung cancer. Fever and leukocytosis - History of Present Illness Mr. Cutler is a 66-year-old gentleman, initially seen in consult during his visit on 12/21/2015. He had been admitted with severe lower back pain. He was ultimately found to have a destructive sacroiliac metastasis, with biopsy confirming non-small cell cancer (likely adenocarcinoma) of lung origin. A dominant mass was also found in the left lung, on CT scans. Pain control during this previous visit was quite challenging. The patient was seen by radiation oncology and started on palliative radiation which he completed on 01/09/2016. He was then started on chemotherapy with carboplatin and Alimta, and completed 4 cycles in late 03/26. Tolerance of chemotherapy was overall poor, with significant fatigue, decreased appetite, and need for transfusions. The CT scans from early 04/25 however showed progression in the dominant mass in the left lung. The patient was therefore started on second line treatment with Opdivo, and received his first cycle 3 weeks ago. The patient has chronic pain issues related to musculoskeletal problems especially regarding his back, chronically, for several years even prior to his cancer diagnosis. He had developed right-sided upper back pain, especially around the right shoulder blade, progressive , and associated with the some intermittent shortness of breath, leading to an admission, on 05/12/16. CTA of the chest was negative for any pulmonary embolus at that time. He had MRI of the C-spine and T-spine, showing progression of disease. He was started on radiation. Pain control continue to remain challenging, but improved with increase in MS Contin, addition of NSAID by the pain service, IV Zometa, and steroids. He was discharged on 05/21/16. The patient was seen in the office yesterday. He states that he continued to feel somewhat congested in the chest after discharge. Yesterday the congestion and cough got worse, with production of yellowish sputum. In the evening, he developed fever with some chills. Per the patient, the fever was up to 102. He therefore came into the emergency room. A repeat chest x-ray showed an infiltrate in the left lower lobe in the retrocardiac area. The images were personally reviewed, and compared to his most recent chest x-ray on 05/19/2016. It was felt that there were some progression in this area and the patient was admitted for further management. On admission the patient was noted to have significant leukocytosis with white blood cell count in the 40,000 range. He actually has had chronic leukocytosis with white count waiting between the 20,000-40,000 range since his diagnosis. Review of Systems Constitutional: Reports chills, Reports fever, Reports poor appetite, Reports weakness Eyes: denies blurred vision, denies pain Ears: deny: decreased hearing, ear discharge, earache, tinnitus Ears, nose, mouth and throat: Denies headache, Denies sore throat Cardiovascular: Reports shortness of breath Respiratory: Reports congestion, Reports cough with sputum, Reports dyspnea Gastrointestinal: Reports constipation Genitourinary: Reports as per HPI (No specific complete) Musculoskeletal: Reports as per HPI Musculoskeletal: right: shoulder pain Integumentary: Denies pruritus, Denies rash Neurological: Reports weakness Psychiatric: Denies anxiety, Denies depression Endocrine: Denies fatigue, Denies weight change Hematologic/Lymphatic: Reports as per HPI Past Medical History Past Medical History: Asthma, Cancer, COPD, GERD/Reflux, Hypertension, Osteoarthritis (OA), Pneumonia, Skin Disorder, Sleep Apnea/CPAP/BIPAP Additional Past Medical History / Comment(s): cervical and back pain, LAVERN but no longer uses his CPAP, 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 , Lung Mass History of Any Multi-Drug Resistant Organisms: None Reported Past Surgical History: Orthopedic Surgery Additional Past Surgical History / Comment(s): cervical fusion 4,5,6. removed spur from neck. right ORCHECTOMY with right LYMPH NODES REMOVED and adrenal glands removed. metal clips and david in abdominal area secondary to surgery from cancer, RT KNEE X2 cyst removed ,SKIN CA REMOVED RT SIDE OF FACE 2001. right thumb fracture with surgery. 2004 left tib/fib and ankle fractures with surgery, colonoscopies/benign polypectomy. Past Anesthesia/Blood Transfusion Reactions: No Reported Reaction Additional Past Anesthesia/Blood Transfusion Reaction / Comm: Pt states he has received blood in past without reaction. Past Psychological History: Anxiety, Depression Additional Psychological History / Comment(s): Pt resides with his spouse. He uses a cane on occasion. He drives. Denies alcohol use. 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 No experience. No international travel. No current exposures. No recreational drug use or alcohol use Smoking Status: Former smoker Past Alcohol Use History: None Reported Additional Past Alcohol Use History / Comment(s): Pt states he started smoking in 1959. He is less than a ppd smoker at this time. Estimates was approximately 1 pack per day throughout most of life. pt states he quit smoking 12 days ago from 05/23/15 Past Drug Use History: Marijuana - Past Family History Father Family Medical History: Cancer, Thyroid Disorder Additional Family Medical History / Comment(s): Father had skin cancer. He also had heart disease. He at the age of 95 yrs. Mother Family Medical History: Cancer, COPD, Hypertension Additional Family Medical History / Comment(s): Mother had breast cancer. She at the age of 84 yrs. Medications and Allergies Home Medications Medication Instructions Recorded Confirmed Type Escitalopram [Lexapro] 20 mg PO DAILY 12/17/15 05/23/16 History Losartan [Cozaar] 25 mg PO DAILY 12/17/15 05/23/16 History Cholecalciferol [Vitamin D3] 5,000 unit PO DAILY 03/13/16 05/23/16 History Ascorbic Acid [Vitamin C] 500 mg PO DAILY 05/12/16 05/23/16 History Cyclobenzaprine [Flexeril] 10 mg PO TID 05/12/16 05/23/16 History Flax Larios Lignans 1 tab PO DAILY 05/12/16 05/23/16 History Multivitamins, Thera [Multivitamin] 1 tab PO DAILY 05/12/16 05/23/16 History [place] 3,6,9 1 cap PO DAILY 05/12/16 05/23/16 History Opdivo(Unknown) 1 dose IV Q14D 05/12/16 05/23/16 History Vitamin B Complex 1 cap PO DAILY 05/12/16 05/23/16 History Allergies Allergy/AdvReac Type Severity Reaction Status Date / Time adhesive Allergy Rash/Hives Verified 05/12/16 19:13 clonazepam [From Klonopin] Allergy Unknown Verified 05/12/16 19:13 latex Allergy Rash/Hives Verified 05/12/16 19:13 naproxen [From Naprosyn] Allergy Rash/Hives Verified 05/12/16 19:13 ondansetron Allergy Unknown Verified 05/12/16 19:13 prochlorperazine Allergy Unknown Verified 05/12/16 19:13 topiramate Allergy Blisters Verified 05/12/16 19:13 buprenorphine AdvReac Nausea Verified 05/12/16 19:13 myceline Allergy Unknown Uncoded 05/12/16 19:13 Physical Exam Vitals: Vital Signs Temp Pulse Pulse Pulse Resp BP BP 05/24/16 08:00 16 05/24/16 07:00 97 F L 73 16 92/55 05/24/16 01:35 97.6 F 109 H 18 112/63 05/23/16 23:42 100.4 F H 107 H 22 112/65 05/23/16 23:17 Pulse Ox 05/24/16 08:00 05/24/16 07:00 93 L 05/24/16 01:35 93 L 05/23/16 23:42 97 05/23/16 23:17 94 L Intake and Output 05/23/16 05/24/16 05/24/16 22:59 06:59 14:59 Intake Total 240 Balance 240 Intake: Oral 240 Other: Voiding Method Toilet Toilet Urinal Urinal # Voids 1 Weight 73.936 kg - Constitutional General appearance: no acute distress - EENT Eyes: EOMI, PERRLA ENT: hearing grossly normal, normal oropharynx - Neck Neck: no lymphadenopathy Thyroid: bilateral: normal size - Respiratory Respiratory: bilateral: CTA - Cardiovascular Rhythm: regular Heart sounds: normal: S1, S2 - Gastrointestinal General gastrointestinal: normal bowel sounds, soft - Integumentary Integumentary: normal - Neurologic Neurologic: CNII-XII intact - Musculoskeletal Musculoskeletal: generalized weakness - Psychiatric Psychiatric: A&O x's 3, appropriate affect Results CBC & Chem 7: 05/23/16 22:01 05/23/16 22:01 Chest x-ray: report reviewed, image reviewed CT scan - chest: report reviewed Assessment and Plan (1) SIRS (systemic inflammatory response syndrome) Narrative/Plan: The patient is presenting with the high fever, with chills and elevated white count. This appears to be consistent with SIRS. At this time the source is felt to be a possible pneumonia or tracheobronchitis, based on his symptoms and x-ray findings. The patient feels improved this morning. He has not had recurrence of fever since his initial presentation to the ER. Cultures are pending. He was started on vancomycin, Zosyn, as well as IV levofloxacin on admission. He is hemodynamically quite stable and not neutropenic. I will therefore discontinue vancomycin and Zosyn. The case was discussed with the admitting service. It be reasonable to continue the patient on antibiotics and await cultures over the next 24 hours or so. By that time, a fever does not recurrent cultures remain negative it would be be reasonable to discharge the patient from our standpoint. Status: Acute (2) Neoplasm related pain Narrative/Plan: This is continue to be a challenge, since the patient had a history of chronic muscle skeletal pain even prior to development of the cancer related pain. His recent admission was mainly due to intractable pain. At the time of discharge, his symptoms were controlled on MS Contin, Dilaudid when necessary. He was also getting radiation to the lower C-spine/upper T-spine and shoulder. He is also on Zometa, with the last dose given on 05/16/16. At the time of discharge, he had also been placed on an NSAID by the pain service, and was on Decadron with the plan for a short taper. Continue MS Contin, would Dilaudid when necessary for breakthrough. I will resume his NSAID. Currently the patient is on IV Solu-Medrol. At the time of discharge, if he is felt to need a prednisone taper for internal medicine, he can proceed on that. Otherwise he can be switched back to his Decadron taper. He will resume radiation on 05/26/16 Status: Acute (3) Lung cancer metastatic to bone Narrative/Plan: The patient was noted to have progression during his previous admission. However he has just had 1 dose of Opdivo, and therefore this was not felt to represent any failure. He will resume his regimen, after completion of radiation Status: Acute
[2016-05-24] MEDS: DIAZEPAM 5 MG TAB PO SCH ×3 (11:37→21:06)
[2016-05-24] MEDS: cefTRIAXone 2,000 MG in SODIUM CHLORIDE 0.9% 100 ML IVPB SCH (11:53)
[2016-05-24] MEDS: MELOXICAM 7.5 MG TAB PO SCH (11:58)
[2016-05-24] MEDS: B COMPLEX-VIT C-VIT E-ZINC 1 EACH TAB PO SCH (12:00)
--- NOTE | 2016-05-24 12:09 | HP ---
DATE OF ADMISSION: The patient is a 66-year-old who was discharged recently from the hospital after he was treated for pain and metastatic lesions to the cervical spine. Patient started having fever yesterday, cough with yellowish sputum production, along with shortness of breath. The patient is wheezing on exam. The patient does have history of smoking, recently quit smoking and patient was started on systemic steroids, broad-spectrum antibiotics in the form of vancomycin, Zosyn and levofloxacin treating for hospital acquired healthcare associated pneumonia. Although he qualifies for healthcare associated pneumonia because f duration of hospitalization during his last admission, my suspicion is pretty low for extensive pneumonia. Patient does have infiltrate, which mostly looks like atelectasis on the left lower lobe, which is minimally worse compared to the previous admission, which is not that impressive for pneumonia because of which I am not going to use broad-spectrum antibiotics. Patient will be started on Rocephin and azithromycin. Patient does have fevers and leukocytosis. Leukocytosis appears to be chronic from his lung cancer. Patient had a high-grade fever of 102.2 and patient is minimally hyponatremic as well. The patient denied any orthopnea, PND. Patient denied any dysuria, photophobia, headache or sinusitis symptoms. Patient has lung cancer. Patient is on chemotherapy with Opdivo and also on systemic steroids. REVIEW OF SYSTEMS: CONSTITUTIONAL: As described in HPI. HEENT: No recent visual problems or hearing problems. Denied any sore throat. CARDIOVASCULAR: No chest pain, orthopnea, PND, no palpitations, no syncope. RESPIRATORY: As described in HPI. GASTROINTESTINAL: No diarrhea, no nausea, no vomiting, no abdominal pain. Normoactive bowel sounds. NEUROLOGICAL: No headaches, no weakness, no numbness. HEMATOLOGICAL: Denies any bleeding or petechiae. GENITOURINARY: Denies any burning micturition, frequency, or urgency. MUSCULOSKELETAL/RHEUMATOLOGICAL: Denies any joint pain, swelling, or any muscle pain. ENDOCRINE: Denies any polyuria or polydipsia. The rest of the 14 point review of systems is negative. PAST MEDICAL HISTORY: Significant for COPD, lung cancer active treatment for ( ), refer to extensive dictation from Dr. Salazar, hypertension, osteoarthritis, sleep apnea uses CPAP machine. SURGICAL HISTORY: Significant for orthopedic surgery, cervical fusion surgery, polypectomy in the past. Anxiety, depression. SOCIAL HISTORY: Former smoker. Quit smoking recently. Denied any alcohol abuse or any drug abuse. PHYSICAL EXAMINATION: Temperature 97.0. Patient's 24-hour T-max is 102.2, pulse 109, respiratory rate of 16, blood pressure is presently 92/55. GENERAL: The patient is alert and oriented x3, not in any acute distress. Well developed, well nourished. HEENT: Pupils are round and equally reacting to light. EOMI. No scleral icterus. No conjunctival pallor. Normocephalic, atraumatic. No pharyngeal erythema. No thyromegaly. CARDIOVASCULAR: S1 and S2 present. No murmurs, rubs, or gallops. Fair air entry into bilateral lung ovalle. LUNG EXAMINATION: Diffuse wheezing bilaterally. No crackles were appreciated. ABDOMEN: Soft, nontender, nondistended, normoactive bowel sounds. No palpable organomegaly. MUSCULOSKELETAL: No joint swelling or deformity. EXTREMITIES: No cyanosis, clubbing, or pedal edema. NEUROLOGICAL: Gross neurological examination did not reveal any focal deficits. SKIN: No rashes. LABORATORY DATA: CBC, CMP are abnormal for elevated WBC count of 44,000. Patient does have baseline leukocytosis and which is neutrophilic predominance and sodium is 133. Plasma lactic acid was 2.6 when he came in. ASSESSMENT AND PLAN: 1. Severe sepsis secondary to possible pneumonia. Patient will be started on Rocephin and azithromycin. Patient will be started on IV fluids. 2. Lactic acidosis due to assessment #1. 3. Leukocytosis, secondary to cancer per se along with this sepsis. 4. Tachycardia due to sepsis. 5. Chronic obstructive pulmonary disease with acute exacerbation. Patient will be started on systemic steroids and inhalational treatments. 6. Hypertension. I will discontinue losartan because of his low blood pressure and high normal potassium. 7. Lung cancer. Patient is on active chemotherapy, ( ) as per Dr. Salazar. 8. Chronic low back pain with metastatic lesions to the bone. Patient is on a lot of narcotic medications, those will be continued. Will let Dr. Koehler manage those as an outpatient. Will make sure patient is not having constipation.
[2016-05-24] MEDS ORDERED: IPRATROPIUM-ALBUTEROL 3 ML NEB INHALATION PRN (12:58)
[2016-05-24] MEDS: IPRATROPIUM-ALBUTEROL 3 ML NEB INHALATION SCH ×2 (16:07→19:51)
[2016-05-24] MEDS: SODIUM CHLORIDE 0.9% 1,000 ML IV SCH ×2 (17:17→18:42)
[2016-05-24] MEDS: HYDROmorphone 2 MG TAB PO PRN ×2 (17:30→21:14)
[2016-05-24] MEDS ORDERED: LEVOFLOXACIN 750MG-D5W PMX 750 MG in DEXTROSE/WATER 1 150ML.BAG IVPB SCH (21:00)
[2016-05-24] MEDS: FAMOTIDINE 20 MG TAB PO SCH (21:06)
[2016-05-25] MEDS: MORPHINE SULFATE ER 30 MG TABLET PO SCH ×4 (00:17→23:29)
[2016-05-25] MEDS: HYDROmorphone 2 MG TAB PO PRN ×6 (02:26→22:36)
[2016-05-25] MEDS: SODIUM CHLORIDE 0.9% 1,000 ML IV SCH ×2 (07:08→18:02)
[2016-05-25] MEDS: BUDESONIDE 0.5 MG/2 ML NEBU INHALATION SCH ×2 (07:20→20:04)
[2016-05-25] MEDS: IPRATROPIUM-ALBUTEROL 3 ML NEB INHALATION SCH ×4 (07:20→20:05)
[2016-05-25] MEDS ORDERED: TIOTROPIUM 18 MCG/PUFF INHALER INHALATION SCH (08:00)
[2016-05-25] MEDS: MELOXICAM 7.5 MG TAB PO SCH (08:52)
[2016-05-25] MEDS: cefTRIAXone 2,000 MG in SODIUM CHLORIDE 0.9% 100 ML IVPB SCH (08:53)
[2016-05-25] MEDS: AZITHROMYCIN 500 MG TAB PO SCH (08:54)
[2016-05-25] MEDS: ASCORBIC ACID 500 MG TAB PO SCH (08:54)
[2016-05-25] MEDS: CHOLECALCIFEROL 1,000 UNIT TAB PO SCH (08:55)
[2016-05-25] MEDS: ENOXAPARIN 40 MG/0.4 ML SYRINGE SQ SCH (08:55)
[2016-05-25] MEDS: CYCLOBENZAPRINE 10 MG TAB PO SCH ×3 (08:55→20:41)
[2016-05-25] MEDS: predniSONE 20 MG TAB PO SCH (08:57)
[2016-05-25] MEDS: MULTIVITAMINS, THERA 1 EACH TAB PO SCH (08:57)
[2016-05-25] MEDS: FOLIC ACID 1 MG TAB PO SCH (08:57)
[2016-05-25] MEDS: ESCITALOPRAM 20 MG TAB PO SCH (08:58)
[2016-05-25] MEDS: DIAZEPAM 5 MG TAB PO SCH ×2 (10:21→20:39)
[2016-05-25] MEDS: B COMPLEX-VIT C-VIT E-ZINC 1 EACH TAB PO SCH (12:35)
--- NOTE | 2016-05-25 15:47 | PN ---
Patient is a 66-year-old gentleman who is being treated for severe sepsis, secondary to left lower lobe pneumonia and patient has significant clinical improvement. REVIEW OF SYSTEMS: CARDIOVASCULAR: No chest pain, no orthopnea, no PND, no palpitations. PULMONARY: Denied any shortness of breath. No cough or hemoptysis. GASTROINTESTINAL: No diarrhea, nausea or vomiting. No abdominal pain. Normoactive bowel sounds. NEUROLOGIC: No headaches, no weakness, no numbness. Medications were reviewed. Patient is afebrile for more than 24 hours. PHYSICAL EXAMINATION: Temperature 96.7, pulse of 98, respiratory rate of 18, blood pressure is 116/72, saturating at 98% on 3 L of O2 by nasal cannula. We can cut down the oxygen and we do not need 98% saturations. LUNG EXAMINATION: Significant wheezing bilaterally, limited air entry into bilateral lung ovalle. No crackles are appreciated. GENERAL: The patient is alert and oriented x3, not in any acute distress. Well developed, well nourished. HEENT: Pupils are round and equally reacting to light. EOMI. No scleral icterus. No conjunctival pallor. Normocephalic, atraumatic. No pharyngeal erythema. No thyromegaly. CARDIOVASCULAR: S1 and S2 present. No murmurs, rubs, or gallops. ABDOMEN: Soft, nontender, nondistended, normoactive bowel sounds. No palpable organomegaly. MUSCULOSKELETAL: No joint swelling or deformity. EXTREMITIES: No cyanosis, clubbing, or pedal edema. NEUROLOGICAL: Gross neurological examination did not reveal any focal deficits. SKIN: No rashes. ASSESSMENT AND PLAN: 1. Severe sepsis secondary to possible left lower lobe pneumonia. Continue with Rocephin and azithromycin. Patient most probably has pneumococcal pneumonia. 2. Acute hypercapnic respiratory failure secondary to chronic obstructive pulmonary disease exacerbation. Continue with inhalational treatments, systemic steroids and inhalational steroids. 3. Tachycardia due to sepsis. 4. Hypertension. 5. Lung cancer, metastatic, receiving chemotherapy actively, low back pain with metastatic lesions to the bone from lung cancer. PLAN: Continue with antibiotics. Monitor clinically. Repeat electrolytes and CBC tomorrow. Patient will be followed by Dr. Koehler from tomorrow.
[2016-05-25] MEDS: FAMOTIDINE 20 MG TAB PO SCH (20:44)
[2016-05-26] MEDS: HYDROmorphone 2 MG TAB PO PRN ×5 (02:35→20:39)
[2016-05-26] MEDS: SODIUM CHLORIDE 0.9% 1,000 ML IV SCH ×4 (05:47→23:11)
[2016-05-26] MEDS: IPRATROPIUM-ALBUTEROL 3 ML NEB INHALATION SCH ×4 (07:19→20:07)
[2016-05-26] MEDS: BUDESONIDE 0.5 MG/2 ML NEBU INHALATION SCH ×2 (07:19→20:07)
[2016-05-26] MEDS: MULTIVITAMINS, THERA 1 EACH TAB PO SCH (07:47)
[2016-05-26] MEDS: ASCORBIC ACID 500 MG TAB PO SCH (07:48)
[2016-05-26] MEDS: CHOLECALCIFEROL 1,000 UNIT TAB PO SCH (07:48)
[2016-05-26] MEDS: MORPHINE SULFATE ER 30 MG TABLET PO SCH ×2 (07:48→16:52)
[2016-05-26] MEDS: FOLIC ACID 1 MG TAB PO SCH (07:48)
[2016-05-26] MEDS: MELOXICAM 7.5 MG TAB PO SCH (07:49)
[2016-05-26] MEDS: predniSONE 20 MG TAB PO SCH (07:49)
[2016-05-26] MEDS: CYCLOBENZAPRINE 10 MG TAB PO SCH ×3 (07:49→20:42)
[2016-05-26] MEDS: ENOXAPARIN 40 MG/0.4 ML SYRINGE SQ SCH (07:49)
[2016-05-26] MEDS: ESCITALOPRAM 20 MG TAB PO SCH (07:50)
[2016-05-26] MEDS: AZITHROMYCIN 500 MG TAB PO SCH (07:50)
[2016-05-26] MEDS: DIAZEPAM 5 MG TAB PO SCH ×3 (07:52→23:11)
[2016-05-26] MEDS: cefTRIAXone 2,000 MG in SODIUM CHLORIDE 0.9% 100 ML IVPB SCH (07:54)
[2016-05-26 08:34] LABS: Anisocytosis Slight; CH 29.7; CHCM 29.7; HCT 32.2 % (39.0-53.0); HDW 2.67; HGB 9.8 gm/dL (13.0-17.5); Hypochromasia Marked; MCH 30.5 pg (25.0-35.0); MCHC 30.5 g/dL (31.0-37.0); MCV 100.1 fL (80.0-100.0); Macrocytosis Moderate; RBC 3.21 m/uL (4.30-5.90)
[2016-05-26 08:40] LABS: WBC 40.7 k/uL (3.8-10.6)
[2016-05-26 08:59] LABS: Anion Gap 11 mmol/L; Blood Urea Nitrogen 14 mg/dL (9-20); Calcium 8.9 mg/dL (8.4-10.2); Carbon Dioxide 27 mmol/L (22-30); Chloride 98 mmol/L (98-107); Glucose 84 mg/dL (74-99); Non-African American GFR(MDRD) >60 (>60 ml/min/1.73 sqM); Potassium 4.9 mmol/L (3.5-5.1); Sodium 136 mmol/L (137-145)
[2016-05-26] MEDS: B COMPLEX-VIT C-VIT E-ZINC 1 EACH TAB PO SCH (11:41)
--- NOTE | 2016-05-26 12:06 | P.PN ---
Subjective Principal diagnosis: Patient is a 66-year-old male with a medical history for stage IV lung cancer with bone metastasis. Patient recently discharged from the hospital he was treated for intractable pain secondary to metastatic lesions to cervical spine. Patient presented to hospital with complaints of fever, productive cough with yellow sputum, and shortness of breath. Patient with evidence of left lower lobe infiltrate, minimally worse compared to previous admission. Patient was started on IV antibiotics in the form of Rocephin and azithromycin. Patient was admitted to the oncology floor for consult to hematology and pulmonary service. Upon examination, patient is complaining of left posterior shoulder pain currently rated 9 out of 10. Patient states he received some morphine earlier this morning with minimal relief. Patient states it's difficult to take a deep breath secondary to pain. Denies chills, fevers, nausea, vomiting, chest pain, abdominal pain. Low-grade fever of 99.8 this morning. Patient tachycardic with heart rate in the low 100s. WBC decreased to 40.7. Patient is a 66-year-old male with a medical history for stage IV lung cancer with bone metastasis. Patient recently discharged from the hospital he was treated for intractable pain secondary to metastatic lesions to cervical spine. Patient presented to hospital with complaints of fever, productive cough with yellow sputum, and shortness of breath. Patient with evidence of left lower lobe infiltrate, minimally worse compared to previous admission. Patient was started on IV antibiotics in the form of Rocephin and azithromycin. Patient was admitted to the oncology floor for consult to hematology and pulmonary service. Upon examination, patient is complaining of left posterior shoulder pain currently rated 9 out of 10. Patient states he received some morphine earlier this morning with minimal relief. Patient states it's difficult to take a deep breath secondary to pain. Denies chills, fevers, nausea, vomiting, chest pain, abdominal pain, diarrhea or constipation. Low-grade fever of 99.8 this morning. Patient tachycardic with heart rate in the low 100s. WBC decreased to 40.7. Objective - Vital Signs Vital signs: Vital Signs Temp 99.8 F H 05/26/16 07:00 Pulse 112 H 05/26/16 10:56 Resp 18 05/26/16 07:00 BP 158/97 05/26/16 07:00 Pulse Ox 96 05/26/16 07:00 Intake & Output 0105/26/16 05/26/16 18:59 06:59 18:59 Intake Total 780 Balance 780 Intake: Oral 780 Other: Voiding Method Toilet Toilet Urinal Urinal # Voids 2 2 - Exam GENERAL: Pt awake and alert, lying in bed, appears uncomfortable. HEAD: Atraumatic, normocephalic. EYES: Conjunctiva are normal. ENT: Moist mucous membranes. NECK:Supple without lymphadenopathy or JVD. LUNGS: Breath sounds diminished with expiratory wheeze to auscultation bilaterally. No rales or rhonchi. HEART: Heart S1, S2, no S3 or S4. Regular rate and rhythm. No murmurs, rubs or gallops. Sinus tachycardia. ABDOMEN: Soft, nontender, nondistended, normoactive bowel sounds. EXTREMITIES: 2+ peripheral pulses. No edema. No calf tenderness. NEUROLOGICAL: Pt oriented x 3. Cranial nerves II through XII grossly intact. Strength and sensation grossly intact. PSYCH: Calm. SKIN: Warm, dry, pale. - Labs CBC & Chem 7: 05/26/16 08:06 05/26/16 08:06 Labs: Abnormal Lab Results - Last 24 Hours (Table) 05/26/16 05/26/16 Range/Units 08:06 08:06 WBC 40.7 H* (3.8-10.6) k/uL RBC 3.21 L (4.30-5.90) m/uL Hgb 9.8 L (13.0-17.5) gm/dL Hct 32.2 L (39.0-53.0) % MCV 100.1 H (80.0-100.0) fL MCHC 30.5 L (31.0-37.0) g/dL RDW 19.0 H (11.5-15.5) % Plt Count 455 H (150-450) k/uL Sodium 136 L (137-145) mmol/L Creatinine 0.53 L (0.66-1.25) mg/dL Microbiology - Last 24 Hours (Table) 05/24/16 13:10 Gram Stain - Final Sputum Sputum Culture - Final Assessment and Plan Plan: Impression and plan: 1. Severe sepsis secondary to possible left lower lobe pneumonia. Pulmonology consult requested, recommendations pending. Continue antibiotics in the form of Rocephin and Zithromax. Continue supplemental oxygen as needed. 2. Acute hypercapnic respiratory failure secondary to chronic obstructive pulmonary disease exacerbation. Continue with nebulized treatments, systemic steroids, and inhaled steroids. 3. Tachycardia suspect secondary to sepsis and uncontrolled pain. 4. Hypertension. 5. Lung cancer metastatic to bone. 6. Intractable pain secondary to neoplasm. Continue MS Contin, Dilaudid, NSAIDs, IV Solu-Medrol. Patient is scheduled to resume palliative radiation today. Continue to monitor the patient. Continue antibiotics. Continue to follow with pulmonary service and oncology service. Continue supportive treatment and pain management. Continue GI and DVT prophylaxis. Repeat CBC and BMP in a.m. The above impression and plan have been discussed and directed by Dr. Koehler. Anna ROBLES-Bebeto acting as scribe for Dr. Koehler.
[2016-05-26] MEDS ORDERED: IV VANCOMYCIN PER PHARMACY 1 EACH MISC MISCELLANE PRN (12:27)
--- NOTE | 2016-05-26 12:30 | P.CNPUL ---
History of Present Illness Consult date: 05/26/16 Reason for consult: dyspnea, cough Chief complaint: Congestion History of present illness: This is a 66-year-old male who presented to the emergency department complaining of cough, congestion, shortness of breath. The patient was recently admitted and discharged on 05/22/2016. The patient states he quit smoking 2 weeks ago. He has a history of lung cancer with bone metastases. He is also complaining of right shoulder pain. He states that he used his updrafts at home but didn't help him. He does not wear oxygen at home. He did have fevers and chills at home. On chest x-ray was found to have worsening left basilar infiltrate. 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 , Lung Mass History of Any Multi-Drug Resistant Organisms: None Reported Past Surgical History: Orthopedic Surgery Additional Past Surgical History / Comment(s): cervical fusion 4,5,6. removed spur from neck. right ORCHECTOMY with right LYMPH NODES REMOVED and adrenal glands removed. metal clips and david in abdominal area secondary to surgery from cancer, RT KNEE X2 cyst removed ,SKIN CA REMOVED RT SIDE OF FACE 2001. right thumb fracture with surgery. 2004 left tib/fib and ankle fractures with surgery, colonoscopies/benign polypectomy. Past Anesthesia/Blood Transfusion Reactions: No Reported Reaction Additional Past Anesthesia/Blood Transfusion Reaction / Comment(s): Pt states he has received blood in past without reaction. Past Psychological History: Anxiety, Depression Additional Psychological History / Comment(s): Pt resides with his spouse. He uses a cane on occasion. He drives. Denies alcohol use. 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 No experience. No international travel. No current exposures. No recreational drug use or alcohol use Smoking Status: Former smoker Past Alcohol Use History: None Reported Additional Past Alcohol Use History / Comment(s): Pt states he started smoking in 1959. He is less than a ppd smoker at this time. Estimates was approximately 1 pack per day throughout most of life. pt states he quit smoking 12 days ago from 05/23/15 Past Drug Use History: Marijuana - Past Family History Father Family Medical History: Cancer, Thyroid Disorder Additional Family Medical History / Comment(s): Father had skin cancer. He also had heart disease. He at the age of 95 yrs. Mother Family Medical History: Cancer, COPD, Hypertension Additional Family Medical History / Comment(s): Mother had breast cancer. She at the age of 84 yrs. Medications and Allergies Home Medications Medication Instructions Recorded Confirmed Type Escitalopram [Lexapro] 20 mg PO DAILY 12/17/15 05/24/16 History Losartan [Cozaar] 25 mg PO DAILY 12/17/15 05/24/16 History Cholecalciferol [Vitamin D3] 5,000 unit PO DAILY 03/13/16 05/24/16 History Ascorbic Acid [Vitamin C] 500 mg PO DAILY 05/12/16 05/24/16 History Cyclobenzaprine [Flexeril] 10 mg PO TID 05/12/16 05/24/16 History Flax Larios Lignans 1 tab PO DAILY 05/12/16 05/24/16 History Multivitamins, Thera [Multivitamin] 1 tab PO DAILY 05/12/16 05/24/16 History [place] 3,6,9 1 cap PO DAILY 05/12/16 05/24/16 History Opdivo(Unknown) 1 dose IV Q14D 05/12/16 05/24/16 History Vitamin B Complex 1 cap PO DAILY 05/12/16 05/24/16 History Morphine Sulfate [Ms Contin] 15 mg PO Q8H 05/24/16 05/24/16 History predniSONE See Taper PO DAILY 05/24/16 05/24/16 History Allergies Allergy/AdvReac Type Severity Reaction Status Date / Time adhesive Allergy Rash/Hives Verified 05/24/16 11:47 clonazepam [From Klonopin] Allergy Unknown Verified 05/24/16 11:47 latex Allergy Rash/Hives Verified 05/24/16 11:47 naproxen [From Naprosyn] Allergy Rash/Hives Verified 05/24/16 11:47 ondansetron Allergy Unknown Verified 05/24/16 11:47 prochlorperazine Allergy Unknown Verified 05/24/16 11:47 topiramate Allergy Blisters Verified 05/24/16 11:47 buprenorphine AdvReac Nausea Verified 05/24/16 11:47 myceline Allergy Unknown Uncoded 05/12/16 19:13 Physical Exam Osteopathic Statement: *. No significant issues noted on an osteopathic structural exam other than those noted in the History and Physical/Consult. Vitals: Vital Signs Temp Pulse Pulse Resp BP Pulse Ox 05/26/16 10:56 112 H 05/26/16 10:49 108 H 05/26/16 07:29 104 H 05/26/16 07:21 96 05/26/16 07:00 99.8 F H 120 H 18 158/97 96 05/25/16 23:00 95 05/25/16 22:35 97.5 F L 91 16 109/68 95 05/25/16 20:17 100 05/25/16 20:05 100 05/25/16 16:00 16 05/25/16 15:47 96 05/25/16 15:31 90 05/25/16 15:00 97.4 F L 90 20 111/68 93 L Intake and Output 05/25/16 05/26/16 05/26/16 22:59 06:59 14:59 Intake Total 240 540 Balance 240 540 Intake: Oral 240 540 Other: Voiding Method Toilet Toilet Urinal Urinal # Voids 2 Gen.: Patient is alert and oriented 3, no acute distress Cardiovascular: Regular rate and rhythm, S1/S2 lungs: Coarse breath sounds bilaterally with diffuse expiratory wheezing Abdomen: Soft nontender nondistended positive bowel sounds Extremities: No edema Results - Laboratory Findings CBC and BMP: 05/26/16 08:06 05/26/16 08:06 PT/INR, D-dimer PT 11.9 sec (9.0-12.0) 05/23/16 22:01 INR 1.2 (<1.1) 05/23/16 22:01 Abnormal lab findings: Abnormal Labs 05/26/16 05/26/16 08:06 08:06 WBC 40.7 H* RBC 3.21 L Hgb 9.8 L Hct 32.2 L MCV 100.1 H MCHC 30.5 L RDW 19.0 H Plt Count 455 H Sodium 136 L Creatinine 0.53 L - Diagnostic Findings Chest x-ray: report reviewed, image reviewed Assessment and Plan Plan: Acute exacerbation of COPD Bronchospasm Sepsis Left lower lobe health care acquired pneumonia Dyspnea on exertion Stage IV non-small cell lung cancer Active tobacco abuse Back and shoulder pain with bone metastases Anemia Thrombocytosis History of obstructive sleep apnea not on CPAP O2 to maintain saturation greater than equal to 88% Bronchodilators and Pulmicort IV Solu-Medrol Pain control Antibiotics: Would escalate to cover healthcare associated pneumonia, will change to vanco/zosyn Sputum culture Smoking cessation recommended Chemo/radiation per oncology team GI and DVT prophylaxis: Lovenox, Pepcid
[2016-05-26] MEDS ORDERED: VANCOMYCIN 1,250 MG in SODIUM CHLORIDE 0.9% 250 ML IVPB ONE (13:00)
[2016-05-26] MEDS: PIPERACILLIN-TAZOBACTAM 3.375 GM in DEXTROSE/WATER 1 50ML.BAG IVPB SCH (16:52)
[2016-05-26] MEDS: methylPREDNISolone SOD SUCCI 40 MG/ML 1 ML VIAL IV SCH (16:53)
[2016-05-26] MEDS: FAMOTIDINE 20 MG TAB PO SCH (20:42)
[2016-05-26] MEDS: VANCOMYCIN 1,250 MG in SODIUM CHLORIDE 0.9% 250 ML IVPB SCH (23:08)
[2016-05-27] MEDS: PIPERACILLIN-TAZOBACTAM 3.375 GM in DEXTROSE/WATER 1 50ML.BAG IVPB SCH ×4 (00:19→23:29)
[2016-05-27] MEDS: MORPHINE SULFATE ER 30 MG TABLET PO SCH ×4 (00:19→23:30)
[2016-05-27] MEDS: methylPREDNISolone SOD SUCCI 40 MG/ML 1 ML VIAL IV SCH ×4 (00:19→20:58)
[2016-05-27] MEDS: IPRATROPIUM-ALBUTEROL 3 ML NEB INHALATION SCH ×4 (07:04→19:25)
[2016-05-27] MEDS: BUDESONIDE 0.5 MG/2 ML NEBU INHALATION SCH ×2 (07:04→19:26)
[2016-05-27] MEDS: ASCORBIC ACID 500 MG TAB PO SCH (07:44)
[2016-05-27] MEDS: DIAZEPAM 5 MG TAB PO SCH ×3 (07:44→21:00)
[2016-05-27] MEDS: CYCLOBENZAPRINE 10 MG TAB PO SCH ×3 (07:44→21:00)
[2016-05-27] MEDS: MULTIVITAMINS, THERA 1 EACH TAB PO SCH (07:44)
[2016-05-27] MEDS: ENOXAPARIN 40 MG/0.4 ML SYRINGE SQ SCH (07:44)
[2016-05-27] MEDS: CHOLECALCIFEROL 1,000 UNIT TAB PO SCH (07:44)
[2016-05-27] MEDS: ESCITALOPRAM 20 MG TAB PO SCH (07:45)
[2016-05-27] MEDS: FOLIC ACID 1 MG TAB PO SCH (07:45)
[2016-05-27] MEDS: MELOXICAM 7.5 MG TAB PO SCH (07:45)
[2016-05-27] MEDS: SODIUM CHLORIDE 0.9% 1,000 ML IV SCH ×2 (07:46→17:33)
[2016-05-27 08:04] LABS: Anisocytosis Slight; CH 29.8; CHCM 29.6; HCT 33.3 % (39.0-53.0); HDW 2.68; HGB 11.9 gm/dL (13.0-17.5); Hypochromasia Marked; MCH 36.3 pg (25.0-35.0); MCHC 35.9 g/dL (31.0-37.0); Macrocytosis Moderate; Mean Platelet Volume 7.8; RBC 3.29 m/uL (4.30-5.90); RDW 19.1 % (11.5-15.5); WBC (Perox) 66.55
[2016-05-27 08:26] LABS: Anion Gap 9 mmol/L; Blood Urea Nitrogen 12 mg/dL (9-20); Calcium 8.6 mg/dL (8.4-10.2); Carbon Dioxide 29 mmol/L (22-30); Chloride 101 mmol/L (98-107); Glucose 140 mg/dL (74-99); Non-African American GFR(MDRD) >60 (>60 ml/min/1.73 sqM); Potassium 4.7 mmol/L (3.5-5.1); Sodium 139 mmol/L (137-145)
[2016-05-27 08:40] LABS: WBC 63.5 k/uL (3.8-10.6)
[2016-05-27 08:53] LABS: Add Differential Manual Differential
[2016-05-27 08:58] LABS: Nucleated Red Blood Cells 0 /100 WBC (0-0); Total Cells Counted 100
[2016-05-27 09:02] LABS: Manual Review Performed
[2016-05-27 09:04] LABS: Toxic Granulation Present
[2016-05-27] MEDS: HYDROmorphone 2 MG TAB PO PRN ×4 (10:14→22:07)
[2016-05-27] MEDS: VANCOMYCIN 1,250 MG in SODIUM CHLORIDE 0.9% 250 ML IVPB SCH ×2 (11:59→20:57)
[2016-05-27] MEDS: B COMPLEX-VIT C-VIT E-ZINC 1 EACH TAB PO SCH (12:00)
--- NOTE | 2016-05-27 14:22 | P.PN ---
Subjective Principal diagnosis: Left lower lobe pneumonia Patient is a 66-year-old male with medical history for stage IV lung cancer with bone metastasis. Patient recently discharged from the hospital where he was treated for intractable pain secondary to metastatic lesions to cervical spine. Patient presented to hospital with complaints of fever, productive cough with yellow sputum, and shortness of breath. Patient with evidence of left lower lobe infiltrate, minimally worse compared to previous admission. Patient was started on IV antibiotics in the form of Rocephin and azithromycin. Patient was admitted to the oncology floor with consult to hematology and pulmonary service. Upon examination, patient is feeling better. Denies chills, fevers, nausea, vomiting, chest pain, or abdominal pain. Patient is urinating without difficulty. Patient states he had a bowel movement yesterday. Right posterior shoulder pain improved from yesterday. Afebrile. Patient tachycardic with heart rate in the low 100s. WBC increased to 63.5. Objective - Vital Signs Vital signs: Vital Signs Temp 97 F L 05/27/16 06:14 Pulse 108 H 05/27/16 10:49 Resp 17 05/27/16 06:14 BP 120/56 05/27/16 06:14 Pulse Ox 98 05/27/16 06:14 Intake & Output 05/26/16 05/27/16 05/27/16 18:59 06:59 18:59 Intake Total 450 440 240 Output Total 475 Balance -25 440 240 Intake: IV 350 Vancomycin 1,250 mg In 250 Sodium Chloride 0.9% 250 ml @ 125 mls/hr IVPB Q12HR [facility] Rx#:[id number] cefTRIAXone 2,000 mg In 100 Sodium Chloride 0.9% 100 ml @ 100 mls/hr IVPB Q24HR [facility] Rx#:[id number] Intake, IV Titration 100 Amount Piperacillin-Tazobactam 3 100 .375 gm In Dextrose/Water 1 50ml.bag @ 12.5 mls/hr IVPB Q8HR [facility] Rx#: [id number] Oral 440 240 Output: Urine 475 Other: Voiding Method Toilet Urinal # Voids 1 - Exam GENERAL: Pt awake and alert, lying in bed, in no acute distress. HEAD: Atraumatic, normocephalic. EYES: Conjunctiva are normal. ENT: Moist mucous membranes. NECK:Supple without lymphadenopathy or JVD. LUNGS: Breath sounds diminished with minimal expiratory wheeze to auscultation bilaterally. No rales or rhonchi. HEART: Heart S1, S2, no S3 or S4. Regular rate and rhythm. No murmurs, rubs or gallops. Sinus tachycardia. ABDOMEN: Soft, nontender, nondistended, normoactive bowel sounds. EXTREMITIES: 2+ peripheral pulses. No edema. No calf tenderness. NEUROLOGICAL: Pt oriented x 3. Cranial nerves II through XII grossly intact. Strength and sensation grossly intact. PSYCH: Calm. SKIN: Warm, dry, pale. - Labs CBC & Chem 7: 05/27/16 07:35 05/27/16 07:35 Labs: Abnormal Lab Results - Last 24 Hours (Table) 05/27/16 05/27/16 Range/Units 07:35 07:35 WBC 63.5 H* (3.8-10.6) k/uL RBC 3.29 L (4.30-5.90) m/uL Hgb 11.9 L (13.0-17.5) gm/dL Hct 33.3 L (39.0-53.0) % MCV 101.0 H (80.0-100.0) fL MCH 36.3 H (25.0-35.0) pg RDW 19.1 H (11.5-15.5) % Neutrophils # (Manual) 62.9 H (1.3-7.7) k/uL Creatinine 0.47 L (0.66-1.25) mg/dL Glucose 140 H (74-99) mg/dL Microbiology - Last 24 Hours (Table) 05/24/16 13:10 Gram Stain - Final Sputum Sputum Culture - Final Assessment and Plan Plan: Impression and plan: 1. Severe sepsis secondary to possible left lower lobe pneumonia, healthcare acquired. Pulmonology consult requested, recommendations noted. Antibiotics has been changed to IV Zosyn and IV vancomycin. 2. Acute exacerbation of chronic obstructive pulmonary disease. Continue with nebulized treatments, systemic steroids, and inhaled steroids. Continue supplemental oxygen as needed. 3. Tachycardia suspect secondary to sepsis and uncontrolled pain. 4. Hypertension. 5. Stage IV non-small cell lung cancer metastatic to bone. 6. Intractable pain secondary to neoplasm. Continue MS Contin, Dilaudid, NSAIDs, IV Solu-Medrol. Patient is scheduled to have palliative radiation today. 7. Nicotine abuse. Continue to monitor the patient. Continue antibiotics. Continue to follow with pulmonary service and oncology service. Continue supportive treatment and pain management. Continue GI and DVT prophylaxis. Repeat CBC and BMP in a.m. The above impression and plan have been discussed and directed by Dr. Koehler. Anna ROBLES-Bebeto acting as scribe for Dr. Koehler.
--- NOTE | 2016-05-27 16:57 | P.PN ---
Subjective Principal diagnosis: Acute exacerbation of COPD Patient seen and examined. Patient is sitting up in bed eating lunch. The patient states his breathing is much better today. He is much less wheezy today. His shortness of breath is markedly improved. Objective - Vital Signs Vital signs: Vital Signs Temp 97 F L 05/27/16 06:14 Pulse 99 05/27/16 16:33 Resp 17 05/27/16 06:14 BP 120/56 05/27/16 06:14 Pulse Ox 98 05/27/16 06:14 Intake & Output 05/26/16 05/27/16 05/27/16 18:59 06:59 18:59 Intake Total 450 440 240 Output Total 475 Balance -25 440 240 Intake: IV 350 Vancomycin 1,250 mg In 250 Sodium Chloride 0.9% 250 ml @ 125 mls/hr IVPB Q12HR [facility] Rx#:[id number] cefTRIAXone 2,000 mg In 100 Sodium Chloride 0.9% 100 ml @ 100 mls/hr IVPB Q24HR [facility] Rx#:[id number] Intake, IV Titration 100 Amount Piperacillin-Tazobactam 3 100 .375 gm In Dextrose/Water 1 50ml.bag @ 12.5 mls/hr IVPB Q8HR [facility] Rx#: [id number] Oral 440 240 Output: Urine 475 Other: Voiding Method Toilet Urinal # Voids 1 - Exam Gen.: Patient is alert and oriented 3, no acute distress Cardiovascular: Regular rate and rhythm, S1/S2 lungs: Scattered expiratory wheezing, markedly improved from yesterday Abdomen: Soft nontender nondistended positive bowel sounds Extremities: No edema - Labs CBC & Chem 7: 05/27/16 07:35 05/27/16 07:35 Labs: Abnormal Lab Results - Last 24 Hours (Table) 05/27/16 05/27/16 Range/Units 07:35 07:35 WBC 63.5 H* (3.8-10.6) k/uL RBC 3.29 L (4.30-5.90) m/uL Hgb 11.9 L (13.0-17.5) gm/dL Hct 33.3 L (39.0-53.0) % MCV 101.0 H (80.0-100.0) fL MCH 36.3 H (25.0-35.0) pg RDW 19.1 H (11.5-15.5) % Neutrophils # (Manual) 62.9 H (1.3-7.7) k/uL Creatinine 0.47 L (0.66-1.25) mg/dL Glucose 140 H (74-99) mg/dL Assessment and Plan Plan: Acute exacerbation of COPD Bronchospasm Sepsis Left lower lobe health care acquired pneumonia Dyspnea on exertion Stage IV non-small cell lung cancer Active tobacco abuse Back and shoulder pain with bone metastases Anemia Thrombocytosis History of obstructive sleep apnea not on CPAP O2 to maintain saturation greater than equal to 88% Bronchodilators and Pulmicort IV Solu-Medrol taper Pain control Antibiotics: Would escalate to cover healthcare associated pneumonia, will change to vanco/zosyn Sputum culture Smoking cessation recommended Chemo/radiation per oncology team GI and DVT prophylaxis: Lovenox, Pepcid
[2016-05-27] MEDS: FAMOTIDINE 20 MG TAB PO SCH (20:58)
[2016-05-28] MEDS: SODIUM CHLORIDE 0.9% 1,000 ML IV SCH ×2 (07:23→16:01)
[2016-05-28] MEDS: ENOXAPARIN 40 MG/0.4 ML SYRINGE SQ SCH (07:43)
[2016-05-28] MEDS: MELOXICAM 7.5 MG TAB PO SCH (07:43)
[2016-05-28] MEDS: MORPHINE SULFATE ER 30 MG TABLET PO SCH ×3 (07:43→23:27)
[2016-05-28] MEDS: CYCLOBENZAPRINE 10 MG TAB PO SCH ×3 (07:44→23:28)
[2016-05-28] MEDS: ASCORBIC ACID 500 MG TAB PO SCH (07:44)
[2016-05-28] MEDS: CHOLECALCIFEROL 1,000 UNIT TAB PO SCH (07:44)
[2016-05-28] MEDS: FOLIC ACID 1 MG TAB PO SCH (07:44)
[2016-05-28] MEDS: MULTIVITAMINS, THERA 1 EACH TAB PO SCH (07:44)
[2016-05-28] MEDS: DIAZEPAM 5 MG TAB PO SCH ×3 (07:44→23:28)
[2016-05-28] MEDS: ESCITALOPRAM 20 MG TAB PO SCH (07:44)
[2016-05-28] MEDS: PIPERACILLIN-TAZOBACTAM 3.375 GM in DEXTROSE/WATER 1 50ML.BAG IVPB SCH ×3 (07:45→23:27)
[2016-05-28] MEDS: methylPREDNISolone SOD SUCCI 40 MG/ML 1 ML VIAL IV SCH ×2 (07:46→20:13)
[2016-05-28] MEDS ORDERED: VANCOMYCIN TROUGH DUE 1 EACH MISC MISCELLANE ONE (08:00)
[2016-05-28 08:17] LABS: Anisocytosis Slight; CH 29.5; CHCM 29.3; HDW 2.67; Hypochromasia Marked; MCH 30.2 pg (25.0-35.0); MCV 100.8 fL (80.0-100.0); Macrocytosis Moderate; RBC 3.18 m/uL (4.30-5.90); RDW 18.8 % (11.5-15.5); WBC (Perox) 60.23
[2016-05-28 08:21] LABS: Anion Gap 8 mmol/L; Blood Urea Nitrogen 17 mg/dL (9-20); Calcium 8.8 mg/dL (8.4-10.2); Carbon Dioxide 30 mmol/L (22-30); Chloride 102 mmol/L (98-107); Glucose 108 mg/dL (74-99); Non-African American GFR(MDRD) >60 (>60 ml/min/1.73 sqM); Potassium 4.7 mmol/L (3.5-5.1); Sodium 140 mmol/L (137-145)
[2016-05-28] MEDS: BUDESONIDE 0.5 MG/2 ML NEBU INHALATION SCH ×2 (08:25→20:13)
[2016-05-28] MEDS: IPRATROPIUM-ALBUTEROL 3 ML NEB INHALATION SCH ×4 (08:25→20:13)
[2016-05-28 08:34] LABS: WBC 56.2 k/uL (3.8-10.6)
[2016-05-28 08:41] LABS: HGB 9.6 gm/dL (13.0-17.5)
[2016-05-28 08:53] LABS: Add Differential Manual Differential
[2016-05-28 08:55] LABS: Manual Review Performed; Nucleated Red Blood Cells 0 /100 WBC (0-0); Total Cells Counted 200
--- NOTE | 2016-05-28 11:49 | P.PN ---
Subjective Principal diagnosis: Acute exacerbation of COPD Patient seen and examined. Patient is resting comfortably. He states that his breathing is little bit better. He is complaining of continued back and shoulder pain. Objective - Vital Signs Vital signs: Vital Signs Temp 98.7 F 05/28/16 07:00 Pulse 93 05/28/16 07:00 Resp 16 05/28/16 07:00 BP 130/80 05/28/16 07:00 Pulse Ox 91 L 05/28/16 07:00 Intake & Output 05/27/16 05/28/16 05/28/16 18:59 06:59 18:59 Intake Total 580 890 Balance 580 890 Intake: IV 250 250 Vancomycin 1,250 mg In 250 250 Sodium Chloride 0.9% 250 ml @ 125 mls/hr IVPB Q12HR [facility] Rx#:[id number] Intake, IV Titration 90 50 Amount Piperacillin-Tazobactam 3 50 50 .375 gm In Dextrose/Water 1 50ml.bag @ 12.5 mls/hr IVPB Q8HR [facility] Rx#: [id number] Sodium Chloride 0.9% 1, 40 000 ml @ 100 mls/hr IV . Q10H [facility] Rx#:[id number] Oral 240 590 Other: Voiding Method Toilet # Voids 2 - Exam Gen.: Patient is alert and oriented 3, no acute distress Cardiovascular: Regular rate and rhythm, S1/S2 lungs: Scattered expiratory wheezing Abdomen: Soft nontender nondistended positive bowel sounds Extremities: No edema - Labs CBC & Chem 7: 05/28/16 07:27 05/28/16 07:27 Labs: Abnormal Lab Results - Last 24 Hours (Table) 05/28/16 05/28/16 Range/Units 07:27 07:27 WBC 56.2 H* (3.8-10.6) k/uL RBC 3.18 L (4.30-5.90) m/uL Hgb 9.6 L D (13.0-17.5) gm/dL Hct 32.0 L (39.0-53.0) % MCV 100.8 H (80.0-100.0) fL MCHC 30.0 L (31.0-37.0) g/dL RDW 18.8 H (11.5-15.5) % Neutrophils # (Manual) 54.5 H (1.3-7.7) k/uL Lymphocytes # (Manual) 0.8 L (1.0-4.8) k/uL Creatinine 0.52 L (0.66-1.25) mg/dL Glucose 108 H (74-99) mg/dL Assessment and Plan Plan: Acute exacerbation of COPD Bronchospasm Sepsis Left lower lobe health care acquired pneumonia Dyspnea on exertion Stage IV non-small cell lung cancer Active tobacco abuse Back and shoulder pain with bone metastases Anemia Thrombocytosis History of obstructive sleep apnea not on CPAP O2 to maintain saturation greater than equal to 88% Bronchodilators and Pulmicort IV Solu-Medrol taper Pain control Antibiotics: vanco/zosyn Sputum culture: Normal ethan Repeat chest x-ray in a.m. Smoking cessation recommended Chemo/radiation per oncology team GI and DVT prophylaxis: Lovenox, Pepcid
[2016-05-28] MEDS: VANCOMYCIN 1,250 MG in SODIUM CHLORIDE 0.9% 250 ML IVPB SCH ×2 (12:09→20:12)
[2016-05-28] MEDS: B COMPLEX-VIT C-VIT E-ZINC 1 EACH TAB PO SCH (12:09)
--- NOTE | 2016-05-28 13:03 | P.PN ---
Subjective Principal diagnosis: Left lower lobe pneumonia Patient is a 66-year-old male with medical history for stage IV lung cancer with bone metastasis. Patient recently discharged from the hospital where he was treated for intractable pain secondary to metastatic lesions to cervical spine. Patient presented to hospital with complaints of fever, productive cough with yellow sputum, and shortness of breath. Patient with evidence of left lower lobe infiltrate, minimally worse compared to previous admission. Patient was admitted to the oncology floor for IV antibiotics and pain management with consult to hematology and pulmonary service. Upon examination, patient is feeling better. Patient states that as long as he is laying flat his right posterior shoulder pain is tolerable, but the pain is significantly exacerbated when he tries to sit up. Patient reports improvement in breathing. Denies chills, fevers, nausea, vomiting, chest pain, or abdominal pain. Patient is urinating without difficulty. Afebrile. Patient reports good appetite. Objective - Vital Signs Vital signs: Vital Signs Temp 98.7 F 05/28/16 07:00 Pulse 84 05/28/16 12:04 Resp 16 05/28/16 07:00 BP 130/80 05/28/16 07:00 Pulse Ox 91 L 05/28/16 07:00 Intake & Output 05/27/16 05/28/16 05/28/16 18:59 06:59 18:59 Intake Total 580 890 Balance 580 890 Intake: IV 250 250 Vancomycin 1,250 mg In 250 250 Sodium Chloride 0.9% 250 ml @ 125 mls/hr IVPB Q12HR [facility] Rx#:[id number] Intake, IV Titration 90 50 Amount Piperacillin-Tazobactam 3 50 50 .375 gm In Dextrose/Water 1 50ml.bag @ 12.5 mls/hr IVPB Q8HR [facility] Rx#: [id number] Sodium Chloride 0.9% 1, 40 000 ml @ 100 mls/hr IV . Q10H [facility] Rx#:[id number] Oral 240 590 Other: Voiding Method Toilet # Voids 2 - Exam GENERAL: Pt awake and alert, lying in bed, in no acute distress. HEAD: Atraumatic, normocephalic. EYES: Conjunctiva are normal. ENT: Moist mucous membranes. NECK:Supple without lymphadenopathy or JVD. LUNGS: Breath sounds diminished with minimal expiratory wheeze and coarse rhonchi to auscultation bilaterally. HEART: Heart S1, S2, no S3 or S4. Regular rate and rhythm. No murmurs, rubs or gallops. Sinus tachycardia. ABDOMEN: Soft, nontender, nondistended, normoactive bowel sounds. EXTREMITIES: 2+ peripheral pulses. No edema. No calf tenderness. NEUROLOGICAL: Pt oriented x 3. Cranial nerves II through XII grossly intact. Strength and sensation grossly intact. PSYCH: Calm. SKIN: Warm, dry, pale. - Labs CBC & Chem 7: 05/28/16 07:27 05/28/16 07:27 Labs: Abnormal Lab Results - Last 24 Hours (Table) 05/28/16 05/28/16 Range/Units 07:27 07:27 WBC 56.2 H* (3.8-10.6) k/uL RBC 3.18 L (4.30-5.90) m/uL Hgb 9.6 L D (13.0-17.5) gm/dL Hct 32.0 L (39.0-53.0) % MCV 100.8 H (80.0-100.0) fL MCHC 30.0 L (31.0-37.0) g/dL RDW 18.8 H (11.5-15.5) % Neutrophils # (Manual) 54.5 H (1.3-7.7) k/uL Lymphocytes # (Manual) 0.8 L (1.0-4.8) k/uL Creatinine 0.52 L (0.66-1.25) mg/dL Glucose 108 H (74-99) mg/dL Assessment and Plan Plan: Impression and plan: 1. Severe sepsis secondary to possible left lower lobe pneumonia, healthcare acquired. Pulmonology consult requested, recommendations noted. Antibiotics has been changed to IV Zosyn and IV vancomycin. 2. Acute exacerbation of chronic obstructive pulmonary disease. Continue with nebulized treatments, systemic steroids, and inhaled steroids. Continue supplemental oxygen as needed. 3. Hypertension. 4. Stage IV non-small cell lung cancer metastatic to bone. 5. Intractable pain secondary to neoplasm. Continue MS Contin, Dilaudid, NSAIDs, IV Solu-Medrol. Patient is scheduled to have palliative radiation today. 6. Nicotine abuse. 8. Anemia suspect secondary to chronic disease. Continue to monitor the patient. Continue antibiotics. Continue to follow with pulmonary service and oncology service. Continue supportive treatment and pain management. Continue GI and DVT prophylaxis. Repeat CBC and BMP in a.m. The above impression and plan have been discussed and directed by Dr. Koehler. Anna RAMIREZ acting as scribe for Dr. Koehler.
[2016-05-28] MEDS: HYDROmorphone 2 MG TAB PO PRN ×3 (14:15→20:17)
[2016-05-28] MEDS: FAMOTIDINE 20 MG TAB PO SCH (20:12)
[2016-05-29] MEDS: SODIUM CHLORIDE 0.9% 1,000 ML IV SCH ×3 (00:56→20:42)
[2016-05-29] MEDS: HYDROmorphone 2 MG TAB PO PRN ×5 (03:36→20:39)
[2016-05-29] MEDS: VANCOMYCIN 1,250 MG in SODIUM CHLORIDE 0.9% 250 ML IVPB SCH ×3 (04:47→20:39)
[2016-05-29] MEDS: MORPHINE SULFATE ER 30 MG TABLET PO SCH ×2 (08:00→16:19)
[2016-05-29] MEDS: CYCLOBENZAPRINE 10 MG TAB PO SCH ×3 (08:01→22:17)
[2016-05-29] MEDS: CHOLECALCIFEROL 1,000 UNIT TAB PO SCH (08:01)
[2016-05-29] MEDS: ASCORBIC ACID 500 MG TAB PO SCH (08:01)
[2016-05-29] MEDS: FOLIC ACID 1 MG TAB PO SCH (08:02)
[2016-05-29] MEDS: methylPREDNISolone SOD SUCCI 40 MG/ML 1 ML VIAL IV SCH ×2 (08:02→20:39)
[2016-05-29] MEDS: MELOXICAM 7.5 MG TAB PO SCH (08:02)
[2016-05-29] MEDS: ENOXAPARIN 40 MG/0.4 ML SYRINGE SQ SCH (08:02)
[2016-05-29] MEDS: ESCITALOPRAM 20 MG TAB PO SCH (08:02)
[2016-05-29] MEDS: MULTIVITAMINS, THERA 1 EACH TAB PO SCH (08:02)
[2016-05-29] MEDS: DIAZEPAM 5 MG TAB PO SCH ×3 (08:06→22:17)
[2016-05-29 08:37] LABS: Anion Gap 8 mmol/L; Blood Urea Nitrogen 19 mg/dL (9-20); Calcium 8.5 mg/dL (8.4-10.2); Carbon Dioxide 30 mmol/L (22-30); Chloride 102 mmol/L (98-107); Glucose 86 mg/dL (74-99); Non-African American GFR(MDRD) >60 (>60 ml/min/1.73 sqM); Potassium 4.9 mmol/L (3.5-5.1); Sodium 140 mmol/L (137-145)
[2016-05-29] MEDS: PIPERACILLIN-TAZOBACTAM 3.375 GM in DEXTROSE/WATER 1 50ML.BAG IVPB SCH ×2 (08:51→16:20)
[2016-05-29] MEDS: IPRATROPIUM-ALBUTEROL 3 ML NEB INHALATION SCH ×4 (09:13→20:51)
[2016-05-29] MEDS: BUDESONIDE 0.5 MG/2 ML NEBU INHALATION SCH ×2 (09:13→20:51)
--- NOTE | 2016-05-29 10:47 | P.PN ---
Subjective Principal diagnosis: Left lower lobe pneumonia; exacerbation of COPD; lung cancer with bone metastasis Patient is a 66-year-old male with medical history for stage IV lung cancer with bone metastasis. Patient recently discharged from the hospital where he was treated for intractable pain secondary to metastatic lesions to cervical spine. Patient presented to hospital with complaints of fever, productive cough with yellow sputum, and shortness of breath. Chest x-ray with evidence of left lower lobe pneumonia. Patient was admitted to the oncology floor for IV antibiotics and pain management with consult to hematology and pulmonary service. Upon examination, patient is feeling better. Patient is able to sit up and a semi-schaffer position without obvious discomfort. Patient reports mostly nonproductive cough. Denies chills, fevers, nausea, vomiting, chest pain, or abdominal pain. Reports flatus with last bowel movement on 05/28/2016. Patient is urinating without difficulty. Patient is able to ambulate to bathroom independently. Reports good appetite. Afebrile. Objective - Vital Signs Vital signs: Vital Signs Temp 96.9 F L 05/29/16 07:00 Pulse 80 05/29/16 09:26 Resp 16 05/29/16 07:00 BP 104/55 05/29/16 07:00 Pulse Ox 94 L 05/29/16 09:15 Intake & Output 05/28/16 05/29/16 05/29/16 18:59 06:59 18:59 Intake Total 300 1140 Balance 300 1140 Intake: IV 250 500 Vancomycin 1,250 mg In 250 500 Sodium Chloride 0.9% 250 ml @ 125 mls/hr IVPB Q12HR [facility] Rx#:[id number] Intake, IV Titration 50 50 Amount Piperacillin-Tazobactam 3 50 50 .375 gm In Dextrose/Water 1 50ml.bag @ 12.5 mls/hr IVPB Q8HR [facility] Rx#: [id number] Oral 590 Other: Voiding Method Toilet Toilet # Voids 2 - Exam GENERAL: Pt awake and alert, lying in bed, in no acute distress. HEAD: Atraumatic, normocephalic. EYES: Conjunctiva are normal. ENT: Moist mucous membranes. NECK:Supple without lymphadenopathy or JVD. LUNGS: Breath sounds diminished with minimal expiratory wheeze and coarse rhonchi primarily to posterior lobes, increased on right side. HEART: Heart S1, S2, no S3 or S4. Regular rate and rhythm. No murmurs, rubs or gallops. Sinus tachycardia. ABDOMEN: Soft, nontender, nondistended, normoactive bowel sounds. EXTREMITIES: 2+ peripheral pulses. No edema. No calf tenderness. NEUROLOGICAL: Pt oriented x 3. Cranial nerves II through XII grossly intact. Strength and sensation grossly intact. PSYCH: Calm. SKIN: Warm, dry, pale. - Labs CBC & Chem 7: 05/28/16 07:27 05/29/16 07:45 Labs: Abnormal Lab Results - Last 24 Hours (Table) 05/29/16 Range/Units 07:45 Creatinine 0.54 L (0.66-1.25) mg/dL Assessment and Plan Plan: Impression and plan: 1. Severe sepsis secondary to possible left lower lobe pneumonia, healthcare acquired. Pulmonology consult requested, recommendations noted. Antibiotics has been changed to IV Zosyn and IV vancomycin. Final sputum culture from 05/24 with normal ethan. Preliminary blood culture no growth after 120 hours. 2. Acute exacerbation of chronic obstructive pulmonary disease. Continue with nebulized treatments, systemic steroids, and inhaled steroids. Continue supplemental oxygen as needed. 3. Hypertension. 4. Stage IV non-small cell lung cancer metastatic to bone. 5. Intractable pain secondary to neoplasm. Continue MS Contin, Dilaudid, NSAIDs, IV Solu-Medrol. Patient is scheduled to have palliative radiation again today. 6. Nicotine abuse. 8. Anemia suspect secondary to chronic disease. Continue to monitor the patient. Continue antibiotics. Continue to follow with pulmonary service and oncology service. Continue supportive treatment and pain management. Continue GI and DVT prophylaxis. Repeat CBC and BMP in a.m. The above impression and plan have been discussed and directed by Dr. Koehler. Anna RAMIREZ acting as scribe for Dr. Koehler.
[2016-05-29] MEDS: B COMPLEX-VIT C-VIT E-ZINC 1 EACH TAB PO SCH (12:31)
--- NOTE | 2016-05-29 13:47 | P.PN ---
Subjective Principal diagnosis: Acute exacerbation of COPD Patient seen and examined. Patient is sitting up eating lunch. He states that he is feeling okay. His breathing is a little bit better. He states he does not wear oxygen at home. He is currently on 2 L. He does have bilateral wheezing. He has been afebrile. Objective - Vital Signs Vital signs: Vital Signs Temp 96.9 F L 05/29/16 07:00 Pulse 88 05/29/16 12:25 Resp 16 05/29/16 07:00 BP 104/55 05/29/16 07:00 Pulse Ox 94 L 05/29/16 09:15 Intake & Output 05/28/16 05/29/16 05/29/16 18:59 06:59 18:59 Intake Total 300 1140 Balance 300 1140 Intake: IV 250 500 Vancomycin 1,250 mg In 250 500 Sodium Chloride 0.9% 250 ml @ 125 mls/hr IVPB Q12HR [facility] Rx#:[id number] Intake, IV Titration 50 50 Amount Piperacillin-Tazobactam 3 50 50 .375 gm In Dextrose/Water 1 50ml.bag @ 12.5 mls/hr IVPB Q8HR [facility] Rx#: [id number] Oral 590 Other: Voiding Method Toilet Toilet # Voids 2 3 - Exam Gen.: Patient is alert and oriented 3, no acute distress Cardiovascular: Regular rate and rhythm, S1/S2 lungs: Scattered expiratory wheezing Abdomen: Soft nontender nondistended positive bowel sounds Extremities: No edema - Labs CBC & Chem 7: 05/28/16 07:27 05/29/16 07:45 Labs: Abnormal Lab Results - Last 24 Hours (Table) 05/29/16 Range/Units 07:45 Creatinine 0.54 L (0.66-1.25) mg/dL Assessment and Plan Plan: Acute exacerbation of COPD Bronchospasm Sepsis Left lower lobe health care acquired pneumonia Dyspnea on exertion Stage IV non-small cell lung cancer Active tobacco abuse Back and shoulder pain with bone metastases Anemia Thrombocytosis History of obstructive sleep apnea not on CPAP O2 to maintain saturation greater than equal to 88% Bronchodilators and Pulmicort IV Solu-Medrol taper Pain control Antibiotics: vanco/zosyn Sputum culture: Normal ethan Incentive spirometry use encouraged Repeat chest x-ray in a.m. Smoking cessation recommended Chemo/radiation per oncology team GI and DVT prophylaxis: Lovenox, Pepcid
--- NOTE | 2016-05-29 15:07 | CDI ---
In responding to this query, please exercise your independent professional judgment. The [facility] Coding Staff and Clinical Documentation Specialists appreciate your assistance in clarifying documentation, maintaining compliance with coding guidelines, accurately documenting patients condition and capturing severity of illness. The fact that a question is asked does not imply that any particular answer is desired or expected. Communication forms are a method of clarifying documentation and are not made part of the Legal Health Record. Thank you in advance for your clarification. Last Revision, March 2015 Augustin Dai [address] [facility] [place] [address] Documentation Clarification Form Date: 05/29/2016 2:33:00 PM From: Carolyn Fournier Admit Date: 05/23/2016 11:07:00 PM Patient Name: Rafi Cutler Visit Number: [id number] Discharge Date: Dr. Jo Saul Healthcare acquired pneumonia is documented in your consult on 05/26/16 and continues in your progress notes. History/Risk Factors: Stage IV non-small cell lung cancer, COPD, Asthma, Hypertension, Current every day smoker Clinical Indicators: complains of congestive, productive cough with associated intermittent shortness of breath, dyspnea. Vital signs on admission: 135/83 133 24 102.298 % 05/25/16 progress note: Patient most probably has pneumococcal pneumonia WBC/Left shift: 44.1 X-ray: left lower lobe infiltrate Lung/Breathing assessment: Mild wheezing noted bilaterally. Sputum Gram Stain: Rare Gram Positive Cocci, Rare Gram Positive Bacilli Sputum Culture Final: Few normal respiratory ethan Treatment: Antibiotics: Vancomycin IV, Zosyn IV (was on rocephin and zithromycin) Solu-Medrol IV (taper) IV @ 100 mls/hr O2 (titrate Breathing Tx: DuoNeb's , Pulmicort Inhaler In order to capture the severity of condition and with current treatment, please clarify if the condition signifies and you are treating for: Bacterial Pneumonia, specify causal organism (if known) Gram Negative Pneumonia Due to Strep Due to Staph Due to E. Coli Other bacteria (specify) Viral Pneumonia, specify casual organism (if known) Unable to determine Link any associated conditions to the pneumonia: Influenza with secondary gram negative pneumonia Sepsis due to pneumonia Acute respiratory failure due to pneumonia Other, please specify Please document in your progress notes in order to capture severity of illness and risk of mortality. Include clinical findings that support your diagnosis. FYI: Press F11 to launch patient chart. Place X here if this finding has no clinical significance, is not applicable or if you are not able to provide any additional documentation. KIARAD
--- NOTE | 2016-05-29 16:26 | XR ---
EXAMINATION TYPE: XR chest 2V DATE OF EXAM: 05/29/2016 4:16 PM COMPARISON: 05/23/2016 HISTORY: Shortness of breath TECHNIQUE: Frontal and lateral views of the chest are obtained. FINDINGS: Scattered senescent parenchymal changes noted. Hyperinflation compatible with COPD. Left lower lobe mass is noted measuring approximately 5.2 x 3.9 cm. Additional ill-defined opacity le ft mid lung zone. Heart size is stable. Mediastinal structures are stable and grossly unremarkable. No evidence for hilar prominence. Degenerative changes dorsal spine. IMPRESSION: 1. No evidence for acute pulmonary disease. Findings felt to reflect underlying malignancy.
[2016-05-29] MEDS: FAMOTIDINE 20 MG TAB PO SCH (20:39)
[2016-05-29] MEDS: MONTELUKAST 10 MG TAB PO SCH (20:39)
[2016-05-30] MEDS: MORPHINE SULFATE ER 30 MG TABLET PO SCH ×4 (00:06→23:35)
[2016-05-30] MEDS: PIPERACILLIN-TAZOBACTAM 3.375 GM in DEXTROSE/WATER 1 50ML.BAG IVPB SCH ×4 (00:07→23:32)
[2016-05-30] MEDS ORDERED: VANCOMYCIN TROUGH DUE 1 EACH MISC MISCELLANE ONE (03:00)
[2016-05-30 03:33] LABS: Anion Gap 7 mmol/L; Blood Urea Nitrogen 21 mg/dL (9-20); Calcium 8.7 mg/dL (8.4-10.2); Carbon Dioxide 31 mmol/L (22-30); Chloride 101 mmol/L (98-107); Glucose 155 mg/dL (74-99); Non-African American GFR(MDRD) >60 (>60 ml/min/1.73 sqM); Potassium 4.9 mmol/L (3.5-5.1); Sodium 139 mmol/L (137-145)
[2016-05-30] MEDS: VANCOMYCIN 1,250 MG in SODIUM CHLORIDE 0.9% 250 ML IVPB SCH ×3 (04:42→20:10)
[2016-05-30] MEDS: IPRATROPIUM-ALBUTEROL 3 ML NEB INHALATION SCH ×4 (07:46→21:06)
[2016-05-30] MEDS: BUDESONIDE 0.5 MG/2 ML NEBU INHALATION SCH ×2 (07:46→21:06)
[2016-05-30] MEDS: ASCORBIC ACID 500 MG TAB PO SCH (08:55)
[2016-05-30] MEDS: CYCLOBENZAPRINE 10 MG TAB PO SCH ×3 (08:56→21:44)
[2016-05-30] MEDS: CHOLECALCIFEROL 1,000 UNIT TAB PO SCH (08:56)
[2016-05-30] MEDS: ENOXAPARIN 40 MG/0.4 ML SYRINGE SQ SCH (08:56)
[2016-05-30] MEDS: DIAZEPAM 5 MG TAB PO SCH ×3 (08:56→21:47)
[2016-05-30] MEDS: FOLIC ACID 1 MG TAB PO SCH (08:57)
[2016-05-30] MEDS: methylPREDNISolone SOD SUCCI 40 MG/ML 1 ML VIAL IV SCH ×2 (08:57→21:00)
[2016-05-30] MEDS: MELOXICAM 7.5 MG TAB PO SCH (08:57)
[2016-05-30] MEDS: ESCITALOPRAM 20 MG TAB PO SCH (08:57)
[2016-05-30] MEDS: HYDROmorphone 2 MG TAB PO PRN ×3 (08:58→20:00)
[2016-05-30] MEDS: MULTIVITAMINS, THERA 1 EACH TAB PO SCH (08:58)
--- NOTE | 2016-05-30 09:08 | XR ---
EXAMINATION TYPE: XR chest 1V portable DATE OF EXAM: 05/30/2016 8:51 AM HISTORY: Cough and shortness of breath. REFERENCE: Previous study dated 05/29/2016. FINDINGS: There is a stable infrahilar mass on the left measuring 3.9 x 5.2 cm. The lungs are otherwi se clear. The lungs are overinflated. Pleural spaces are clear. The heart is not enlarged. IMPRESSION: STABLE LEFT-SIDED MASS.
[2016-05-30] MEDS: B COMPLEX-VIT C-VIT E-ZINC 1 EACH TAB PO SCH (12:14)
[2016-05-30] MEDS: SODIUM CHLORIDE 0.9% 1,000 ML IV SCH ×2 (12:14→23:33)
--- NOTE | 2016-05-30 13:11 | P.PN ---
Subjective Principal diagnosis: Left lower lobe pneumonia; exacerbation of COPD; lung cancer with bone metastasis Patient is a 66-year-old male with medical history for stage IV lung cancer with bone metastasis. Patient recently discharged from the hospital where he was treated for intractable pain secondary to metastatic lesions to cervical spine. Patient presented to hospital with complaints of fever, productive cough with yellow sputum, and shortness of breath. Chest x-ray with evidence of left lower lobe pneumonia. Patient was admitted to the oncology floor for IV antibiotics and pain management with consult to hematology and pulmonary service. Upon examination, patient is feeling about the same as yesterday. Patient continues with mostly nonproductive cough, states it's difficult for sputum to come up. Patient continues to complain of left posterior shoulder pain and back pain but states it's controlled with current pain regimen. Denies chills, fevers, nausea, vomiting, chest pain, or abdominal pain. Patient is urinating without difficulty. Patient is able to ambulate to bathroom independently. Reports good appetite. Afebrile. Objective - Vital Signs Vital signs: Vital Signs Temp 97.2 F L 05/30/16 07:00 Pulse 90 05/30/16 12:10 Resp 16 05/30/16 07:00 BP 121/75 05/30/16 07:00 Pulse Ox 92 L 05/30/16 07:00 Intake & Output 05/29/16 05/30/16 05/30/16 18:59 06:59 18:59 Intake Total 350 Balance 350 Intake: IV 250 Vancomycin 1,250 mg In 250 Sodium Chloride 0.9% 250 ml @ 125 mls/hr IVPB Q8H [facility] Rx#:[id number] Intake, IV Titration 100 Amount Piperacillin-Tazobactam 3 100 .375 gm In Dextrose/Water 1 50ml.bag @ 12.5 mls/hr IVPB Q8HR [facility] Rx#: [id number] Other: Voiding Method Toilet Toilet Toilet # Voids 3 2 - Exam GENERAL: Pt awake and alert, lying in bed, in no acute distress. HEAD: Atraumatic, normocephalic. EYES: Conjunctiva are normal. ENT: Moist mucous membranes. NECK:Supple without lymphadenopathy or JVD. LUNGS: Breath sounds diminished with minimal expiratory wheeze. HEART: Heart S1, S2, no S3 or S4. Regular rate and rhythm. No murmurs, rubs or gallops. Sinus tachycardia. ABDOMEN: Soft, nontender, nondistended, normoactive bowel sounds. EXTREMITIES: 2+ peripheral pulses. No edema. No calf tenderness. NEUROLOGICAL: Pt oriented x 3. Cranial nerves II through XII grossly intact. Strength and sensation grossly intact. PSYCH: Calm. SKIN: Warm, dry, pale. - Labs CBC & Chem 7: 05/28/16 07:27 05/30/16 02:56 Labs: Abnormal Lab Results - Last 24 Hours (Table) 05/30/16 Range/Units 02:56 Carbon Dioxide 31 H (22-30) mmol/L BUN 21 H (9-20) mg/dL Creatinine 0.60 L (0.66-1.25) mg/dL Glucose 155 H (74-99) mg/dL - Imaging and Cardiology Chest x-ray: report reviewed (Chest x-ray shows stable infrahilar mass on the left measuring 3.95.2 cm. Lungs otherwise clear. Lungs are overinflated. Pleural spaces are clear.) Assessment and Plan Plan: Impression and plan: 1. Severe sepsis secondary to possible left lower lobe pneumonia, healthcare acquired. Pulmonology consult requested, recommendations noted. Antibiotics has been changed to IV Zosyn and IV vancomycin. Final sputum culture from 05/24 with normal ethan. Preliminary blood culture no growth after 144 hours. Chest x-ray stable. 2. Acute exacerbation of chronic obstructive pulmonary disease. Continue with nebulized treatments, systemic steroids, and inhaled steroids. Continue supplemental oxygen as needed. 3. Hypertension. 4. Stage IV non-small cell lung cancer metastatic to bone. 5. Intractable pain secondary to neoplasm. Continue MS Contin, Dilaudid, NSAIDs, IV Solu-Medrol. Patient is scheduled to have palliative radiation again today. 6. Nicotine abuse. 8. Anemia suspect secondary to chronic disease. Continue to monitor the patient. Continue antibiotics. We'll look for recommendations from pulmonary service for discharge readiness and antibiotics. Continue supportive treatment and pain management. Continue GI and DVT prophylaxis. Repeat CBC and BMP in a.m. The above impression and plan have been discussed and directed by Dr. Koehler. Anna RAMIREZ acting as scribe for Dr. Koehler.
--- NOTE | 2016-05-30 14:10 | PN ---
DATE OF SERVICE: 05/30/2016 Mr. Rafi Cutler is a 66-year-old male who was seen, evaluated, examined. This patient has a stage IV lung cancer. Patient has been getting therapy and treatment for pneumonia. Clinically patient is doing slightly better, but still feeling very weak. Denies any chest pain. Hemodynamic status is stable. Last set of vitals include blood pressure is 120/75, respiratory rate 16, pulse 81, temperature 98, saturation 92%. HEENT: Unremarkable. NECK: Supple. LUNGS: Good air entry bilaterally. Some expiratory fine wheezing are present. HEART: Regular rate and rhythm. S1 and S2 audible. ABDOMEN: Soft. No rebound or rigidity. EXTREMITIES: +1 peripheral pulses. NEUROLOGICAL EXAMINATION: Otherwise, awake and alert. Sputum cultures are few respiratory ethan is seen, but no obvious growth has been identified. Other laboratory data reviewed. The white cell count last taken was 56,200. ( )
--- NOTE | 2016-05-30 14:19 | PN ---
DATE OF SERVICE: 05/30/2016 Mr. Rafi Cutler is a 66-year-old with adenocarcinoma stage IV and pneumonia. The patient clinically is slightly better. Cough, congestion, shortness of breath has improved. Breathing more comfortably. Sitting upright in the bed. Eating his breakfast. Blood pressure 120/75, respiratory rate 16, pulse 81, temperature 98, saturation 92%. HEENT: Unremarkable. NECK: Supple. LUNGS: Good air entry bilaterally. Fine expiratory rhonchi are is present. HEART: Regular rate and rhythm. ABDOMEN: Soft. No rebound or rigidity. EXTREMITIES: +1. NEUROLOGICAL EXAMINATION: Awake and alert. No focal neurological deficits. Laboratory data reviewed. LABS: Sodium is 130, potassium 4.9. BUN and creatinine are 21 and 0.6. Glucose is 155. Current medications reviewed: 1. Tylenol as needed. 2. DuoNeb updraft 4 times a day. 3. Vitamin C. 4. Pulmicort. 5. Cholecalciferol. 6. Valium. 7. Lovenox. 8. Also on Pepcid. 9. Folic acid. 10. Dilaudid. 11. Solu-Medrol 40 mg q.12. 12. Singulair. 13. Vancomycin. 14. Vitamin B complex. The latest chest x-ray performed earlier today reviewed and compared with the prior x-ray: Stable left-sided mass is seen, which is about 4 x 5 cm in size. IMPRESSION: 1. Stage IV lung cancer. 2. Pneumonia. 3. Acute chronic obstructive pulmonary disease exacerbation. 4. Tracheobronchitis. Plan is to continue steroids, antibiotics. Continue supportive care. Increase activity as tolerated. Hopefully patient will be ready for discharge in 1 to 2 days.
[2016-05-30] MEDS: FAMOTIDINE 20 MG TAB PO SCH (21:43)
[2016-05-30] MEDS: MONTELUKAST 10 MG TAB PO SCH (21:44)
[2016-05-31] MEDS: VANCOMYCIN 1,250 MG in SODIUM CHLORIDE 0.9% 250 ML IVPB SCH ×3 (04:46→20:54)
[2016-05-31] MEDS: SODIUM CHLORIDE 0.9% 1,000 ML IV SCH ×3 (04:46→23:20)
[2016-05-31] MEDS: HYDROmorphone 2 MG TAB PO PRN ×3 (04:49→20:25)
[2016-05-31 07:54] LABS: Anion Gap 8 mmol/L; Blood Urea Nitrogen 18 mg/dL (9-20); Calcium 8.8 mg/dL (8.4-10.2); Carbon Dioxide 28 mmol/L (22-30); Chloride 103 mmol/L (98-107); Glucose 119 mg/dL (74-99); Non-African American GFR(MDRD) >60 (>60 ml/min/1.73 sqM); Potassium 4.7 mmol/L (3.5-5.1); Sodium 139 mmol/L (137-145)
[2016-05-31] MEDS: DIAZEPAM 5 MG TAB PO SCH ×3 (08:29→23:16)
[2016-05-31] MEDS: MORPHINE SULFATE ER 30 MG TABLET PO SCH ×3 (08:30→23:23)
[2016-05-31] MEDS: CHOLECALCIFEROL 1,000 UNIT TAB PO SCH (08:31)
[2016-05-31] MEDS: PIPERACILLIN-TAZOBACTAM 3.375 GM in DEXTROSE/WATER 1 50ML.BAG IVPB SCH ×3 (08:31→23:24)
[2016-05-31] MEDS: ASCORBIC ACID 500 MG TAB PO SCH (08:31)
[2016-05-31] MEDS: FOLIC ACID 1 MG TAB PO SCH (08:32)
[2016-05-31] MEDS: ENOXAPARIN 40 MG/0.4 ML SYRINGE SQ SCH (08:32)
[2016-05-31] MEDS: CYCLOBENZAPRINE 10 MG TAB PO SCH ×3 (08:32→23:16)
[2016-05-31] MEDS: MELOXICAM 7.5 MG TAB PO SCH (08:32)
[2016-05-31] MEDS: ESCITALOPRAM 20 MG TAB PO SCH (08:32)
[2016-05-31] MEDS: MULTIVITAMINS, THERA 1 EACH TAB PO SCH (08:32)
[2016-05-31] MEDS: methylPREDNISolone SOD SUCCI 40 MG/ML 1 ML VIAL IV SCH ×2 (08:33→20:28)
[2016-05-31] MEDS: BUDESONIDE 0.5 MG/2 ML NEBU INHALATION SCH ×2 (09:33→20:47)
[2016-05-31] MEDS: IPRATROPIUM-ALBUTEROL 3 ML NEB INHALATION SCH ×4 (09:33→20:47)
[2016-05-31] MEDS: B COMPLEX-VIT C-VIT E-ZINC 1 EACH TAB PO SCH (13:09)
--- NOTE | 2016-05-31 20:27 | PN ---
DATE OF SERVICE: 05/31/2016 I am covering for Dr. Koehler. HISTORY OF PRESENT ILLNESS: This 66-year-old gentleman who was admitted the left lower pneumonia, also had acute exacerbation of chronic obstructive pulmonary disease. The patient also has lung cancer with bone mets. At this time the patient also had severe sepsis on presentation. Culture reports are showing no acute abnormalities currently. PAST MEDICAL HISTORY: Reviewed. REVIEW OF SYSTEMS: CARDIOVASCULAR: No angina. RESPIRATORY: As mentioned. GI: As mentioned. : No dysuria or hematuria. NERVOUS SYSTEM: No numbness or weakness. Medications were reviewed and include: 1. Tylenol 650 every 4 p.r.n. 2. DuoNeb q.i.d. and p.r.n. 3. Vitamin C 400 daily. 4. Pulmicort 0.5 b.i.d. 5. Vitamin D 5000 units. 7. Valium 5 mg p.o. t.i.d. 8. Lovenox 40 mg subcu daily. 9. Lexapro 20 mg. 10. Pepcid 20 mg at bedtime. 11. Folic acid 1 mg daily. 12. Dilaudid 4 mg every 3 p.r.n. 13. Mobic 15 mg p.o. daily. 14. Solumedrol 45 b.i.d. 15. Singulair 10 mg at bedtime. 16. MS Contin 30 mg every 8 hours. 17. Multivitamins daily. 18. Zosyn 3.75 IV every 8 hours. 19. Vancomycin 1.25 every 8 hours. PHYSICAL EXAMINATION: GENERAL: The patient is alert, oriented x3. VITAL SIGNS: Pulse 88, blood pressure 114/70, respirations 18, temperature 97.4, pulse ox 93% on room air. HEENT: Conjunctiva normal. Oral mucosa moist. NECK: NO JVD. No carotid bruit. No lymph node enlargement. CARDIOVASCULAR: S1 and S2. No S3. LUNGS: Breath sounds are diminished in the bases. Bilateral scattered rhonchi and crackles. Respiratory wheezing also present. ABDOMEN: Soft, nontender. No masses palpable. EXTREMITIES: No edema. NERVOUS SYSTEM: Mild diffuse weakness. LYMPHADENOPATHY: No lymph nodes palpable in the neck, axilla or groin. SKIN: No rashes, ulcers or bleeding. LABS: WBC 6.8, hemoglobin is 9.6. ASSESSMENT: 1. Acute left lower lobe pneumonia, possibly health care associated with severe sepsis, present on admission. 2. Increased WBC. 3. Anemia. 4. Macrocytosis. 5. Chronic obstructive pulmonary disease, acute exacerbation. 6. Hypertension. 7. 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 8. Intractable pain secondary to neoplasm. 9. Insulin dependent diabetes mellitus. 10. Anemia secondary to chronic disease. 11. FULL CODE. RECOMMENDATIONS AND DISCUSSION: In this 66-year-old gentleman who presented with multiple complex medical issues, at this time we will monitor the patient closely, continue current medications and treatment. Continue with bronchodilators. Continue with antibiotics. Continue with Zosyn. Follow closely with pulmonary. Otherwise, steroids and monitor blood sugars closely. I would also recommend repeat labs. Further recommendations to follow. Prognosis guarded. Further recommendations to follow. MTDD
[2016-05-31] MEDS: FAMOTIDINE 20 MG TAB PO SCH (20:28)
[2016-05-31] MEDS: MONTELUKAST 10 MG TAB PO SCH (20:28)
[2016-05-31 23:14] VITALS: RESP 16
[2016-06-01] MEDS: VANCOMYCIN 1,250 MG in SODIUM CHLORIDE 0.9% 250 ML IVPB SCH ×3 (05:27→22:38)
[2016-06-01 07:34] LABS: Anisocytosis Slight; CHCM 30.5; HCT 31.9 % (39.0-53.0); HDW 2.61; HGB 9.6 gm/dL (13.0-17.5); Hypochromasia Moderate; MCH 29.7 pg (25.0-35.0); MCV 98.8 fL (80.0-100.0); Macrocytosis Slight; Mean Platelet Volume 7.9; RBC 3.23 m/uL (4.30-5.90); WBC (Perox) 42.45
[2016-06-01 07:44] LABS: WBC 39.8 k/uL (3.8-10.6)
[2016-06-01 07:57] LABS: Anion Gap 7 mmol/L; Blood Urea Nitrogen 17 mg/dL (9-20); Calcium 8.9 mg/dL (8.4-10.2); Carbon Dioxide 28 mmol/L (22-30); Chloride 103 mmol/L (98-107); Glucose 99 mg/dL (74-99); Non-African American GFR(MDRD) >60 (>60 ml/min/1.73 sqM); Potassium 4.3 mmol/L (3.5-5.1); Sodium 138 mmol/L (137-145)
[2016-06-01] MEDS: DIAZEPAM 5 MG TAB PO SCH ×3 (08:50→22:38)
[2016-06-01] MEDS: CHOLECALCIFEROL 1,000 UNIT TAB PO SCH (08:50)
[2016-06-01] MEDS: ENOXAPARIN 40 MG/0.4 ML SYRINGE SQ SCH (08:51)
[2016-06-01] MEDS: MULTIVITAMINS, THERA 1 EACH TAB PO SCH (08:51)
[2016-06-01] MEDS: MELOXICAM 7.5 MG TAB PO SCH (08:51)
[2016-06-01] MEDS: ASCORBIC ACID 500 MG TAB PO SCH (08:51)
[2016-06-01] MEDS: ESCITALOPRAM 20 MG TAB PO SCH (08:52)
[2016-06-01] MEDS: methylPREDNISolone SOD SUCCI 40 MG/ML 1 ML VIAL IV SCH ×2 (08:52→19:59)
[2016-06-01] MEDS: FOLIC ACID 1 MG TAB PO SCH (08:52)
[2016-06-01] MEDS: MORPHINE SULFATE ER 30 MG TABLET PO SCH ×3 (08:52→23:59)
[2016-06-01] MEDS: CYCLOBENZAPRINE 10 MG TAB PO SCH ×3 (08:52→19:59)
[2016-06-01] MEDS: SODIUM CHLORIDE 0.9% 1,000 ML IV SCH ×2 (08:55→19:58)
[2016-06-01] MEDS: BUDESONIDE 0.5 MG/2 ML NEBU INHALATION SCH ×2 (09:28→18:34)
[2016-06-01] MEDS: IPRATROPIUM-ALBUTEROL 3 ML NEB INHALATION SCH ×4 (09:28→18:34)
[2016-06-01] MEDS: PIPERACILLIN-TAZOBACTAM 3.375 GM in DEXTROSE/WATER 1 50ML.BAG IVPB SCH ×2 (09:59→16:47)
[2016-06-01] MEDS: HYDROmorphone 2 MG TAB PO PRN ×4 (10:04→22:51)
[2016-06-01 10:15] LABS: Add Differential Manual Differential
[2016-06-01 10:16] LABS: Nucleated Red Blood Cells 0 /100 WBC (0-0); Total Cells Counted 200
[2016-06-01 10:17] LABS: Manual Review Performed
[2016-06-01] MEDS: B COMPLEX-VIT C-VIT E-ZINC 1 EACH TAB PO SCH (13:23)
[2016-06-01] MEDS: FAMOTIDINE 20 MG TAB PO SCH (19:59)
[2016-06-01] MEDS: MONTELUKAST 10 MG TAB PO SCH (19:59)
--- NOTE | 2016-06-01 21:40 | PN ---
Mr. Rafi Cutler is a 66-year-old male, seen, evaluated, examined. Patient has a history of stage IV lung cancer, has been admitted to hospital with acute COPD exacerbation and pneumonia. Clinically patient is slightly doing better. Cough, congestion, shortness of breath has improved. Does complain of some generalized weakness. His hemodynamic status is stable. Last set of vitals include blood pressure is 110/75, respiratory rate 16, pulse 105, temperature 98, saturation 94% on 2 liters oxygen. HEENT: Unremarkable. NECK: Supple. LUNGS: Good air entry bilaterally. HEART: Regular rate and rhythm. S1, S2 audible. Fine rhonchi on forced expiration is present. ABDOMEN: Soft. EXTREMITIES: +1 peripheral pulses. NEUROLOGICAL EXAMINATION: Otherwise, awake and alert. Labs reviewed. Sodium ( ) white cell count is 39,800, hemoglobin 9.6, hematocrit 31, platelet count 322,000. IMPRESSION: 1. Left lower lobe pneumonia. Health Care associated on broad-spectrum antibiotics. 2. Leukocytosis. 3. Severe chronic obstructive pulmonary disease with acute exacerbation. 4. Acute on chronic hypoxic respiratory failure. 5. Stage IV lung cancer with METs to the bone. 6. Generalized weakness, chronic anemia. PLAN AND RECOMMENDATION: Supportive care. Follow clinical course closely. Increase activity as tolerated. Will follow clinical course closely. Further recommendations pending.
--- NOTE | 2016-06-01 21:54 | PN ---
DATE OF SERVICE: 06/01/2016 The patient seen, evaluated, examined. This patient is a 66-year-old metastatic stage IV cancer. Clinically, patient is slightly better. Cough, congestion, shortness with wheezing is improved. Still continues to have issues associated with intermittent wheezing, shortness of breath and weakness. Blood pressure 110/75, respiratory rate 16, pulse 101, temperature 97, saturation 94% on room air. HEENT: Unremarkable. NECK: Supple. LUNGS: Good air entry bilaterally. HEART: Regular rate and rhythm. ABDOMEN: Soft. NEUROLOGICAL EXAMINATION: Otherwise, awake and alert. Medications reviewed. Laboratory data reviewed. The patient is on: 1. DuoNeb unit dose 4 times a day. 2. Pulmicort 2 times a day. 3. Flexeril. 4. Diltiazem. 5. Lovenox. 6. Lexapro. 7. Pepcid. 8. Also on Solu-Medrol 40 q.12. 9. Sliding scale insulin. 10. Zosyn. 11. Vancomycin. The culture results and reports are reviewed. Sputum culture no growth so far. IMPRESSION: 1. Acute chronic obstructive pulmonary disease exacerbation and tracheobronchitis. 2. Left sided pneumonia, involving left lower lobe. 3. History of lung cancer. 4. Generalized weakness and medical debility along with chronic protein calorie malnourishment. PLAN: As above. Continue antibiotics, steroids and bronchodilators. If he remains stable, hopefully everything will be switched to oral in the next 24 hours and then can plan for possible discharge.
[2016-06-01 23:14] VITALS: BP 117/72
[2016-06-02] MEDS: PIPERACILLIN-TAZOBACTAM 3.375 GM in DEXTROSE/WATER 1 50ML.BAG IVPB SCH ×2 (01:16→08:36)
[2016-06-02] MEDS: HYDROmorphone 2 MG TAB PO PRN ×3 (01:38→13:23)
[2016-06-02] MEDS: SODIUM CHLORIDE 0.9% 1,000 ML IV SCH (04:19)
[2016-06-02] MEDS: VANCOMYCIN 1,250 MG in SODIUM CHLORIDE 0.9% 250 ML IVPB SCH ×2 (04:19→11:56)
[2016-06-02 07:42] LABS: Anisocytosis Slight; Basophils % (A) 0 %; CH 29.7; CHCM 30.3; Eosinophils % (A) 0 %; HCT 31.2 % (39.0-53.0); HGB 9.3 gm/dL (13.0-17.5); Hypochromasia Marked; Luc # (Auto) 0.05; Luc % (Auto) 0; Lymphocytes # (A) 0.5 k/uL (1.0-4.8); Lymphocytes % (A) 1 %; MCH 29.5 pg (25.0-35.0); MCV 98.4 fL (80.0-100.0); Macrocytosis Slight; Mean Platelet Volume 8.1; Monocytes # (A) 0.7 k/uL (0-1.0); Monocytes % (A) 2 %; Neutrophils % (A) 96 %; RBC 3.17 m/uL (4.30-5.90); RDW 18.5 % (11.5-15.5); WBC (Perox) 37.88
[2016-06-02 08:03] LABS: Anion Gap 6 mmol/L; Blood Urea Nitrogen 18 mg/dL (9-20); Calcium 8.6 mg/dL (8.4-10.2); Carbon Dioxide 29 mmol/L (22-30); Chloride 104 mmol/L (98-107); Glucose 97 mg/dL (74-99); Non-African American GFR(MDRD) >60 (>60 ml/min/1.73 sqM); Potassium 4.4 mmol/L (3.5-5.1); Sodium 139 mmol/L (137-145)
[2016-06-02 08:05] LABS: WBC 36.3 k/uL (3.8-10.6)
[2016-06-02] MEDS: MELOXICAM 7.5 MG TAB PO SCH (08:37)
[2016-06-02] MEDS: ENOXAPARIN 40 MG/0.4 ML SYRINGE SQ SCH (08:37)
[2016-06-02] MEDS: methylPREDNISolone SOD SUCCI 40 MG/ML 1 ML VIAL IV SCH (08:37)
[2016-06-02] MEDS: ESCITALOPRAM 20 MG TAB PO SCH (08:37)
[2016-06-02] MEDS: FOLIC ACID 1 MG TAB PO SCH (08:37)
[2016-06-02] MEDS: CYCLOBENZAPRINE 10 MG TAB PO SCH (08:37)
[2016-06-02] MEDS: DIAZEPAM 5 MG TAB PO SCH (08:37)
[2016-06-02] MEDS: ASCORBIC ACID 500 MG TAB PO SCH (08:38)
[2016-06-02] MEDS: MORPHINE SULFATE ER 30 MG TABLET PO SCH ×2 (08:39→15:59)
[2016-06-02] MEDS: MULTIVITAMINS, THERA 1 EACH TAB PO SCH (08:41)
[2016-06-02] MEDS: IPRATROPIUM-ALBUTEROL 3 ML NEB INHALATION SCH ×3 (08:53→15:00)
[2016-06-02] MEDS: BUDESONIDE 0.5 MG/2 ML NEBU INHALATION SCH (08:53)
--- NOTE | 2016-06-02 08:53 | PN ---
DATE OF SERVICE: 06/01/2016 I am covering for Dr. Koehler. This 66-year-old gentleman who was admitted with left lower pneumonia is feeling slightly better. The patient still has significant cough but unable to expectorate much sputum. Pulmonary Dr. Saul and Dr. Mooney are following the patient. No chest pain. No palpitations. No fever. On exam, alert and oriented times three. Pulse 105, blood pressure 110/74, respiratory rate 16, temperature 97.9, pulse ox 94% on room air. HEENT: Conjunctivae normal. NECK: No jugular venous distention. CARDIOVASCULAR: S1, S2 muffled. RESPIRATORY: Breath sounds diminished at the bases. Bilateral scattered rhonchi and crackles. ABDOMEN: Soft, nontender. No mass palpable. Legs: No edema CENTRAL NERVOUS SYSTEM: No focal deficits. LABS: WBC 13.9, hemoglobin 9.6. ASSESSMENT: 1. Acute left lower lobe pneumonia, possibly healthcare associated with severe sepsis, present on admission. 2. Increased WBC. 3. Anemia. 4. Macrocytosis. 5. Chronic obstructive pulmonary disease acute exacerbation. 6. Hypertension. 7. Stage IV non-small lung cancer with mets to the bone. 8. Intractable pain secondary to neoplasm. 9. Diabetes mellitus type 2. 10. Anemia, secondary to chronic disease. 11. FULL CODE. RECOMMENDATIONS AND DISCUSSION: In this 66-year-old gentleman who presented with multiple complex medical issues, we will monitor the patient closely. Continue the current medications. Continue symptomatic treatment. Continue the bronchodilators and continue antibiotics. I will order repeat labs for tomorrow. Closely follow with pulmonary. Otherwise, Dr. Koehler will follow. Further recommendations to follow.
[2016-06-02 08:58] VITALS: TEMP 96.9
[2016-06-02 09:23] LABS: Manual Review Performed
[2016-06-02] MEDS: CHOLECALCIFEROL 1,000 UNIT TAB PO SCH (09:50)
[2016-06-02] MEDS: B COMPLEX-VIT C-VIT E-ZINC 1 EACH TAB PO SCH (11:56)
--- NOTE | 2016-06-02 12:43 | P.DS ---
Providers Date of admission: 05/23/16 23:07 Expected date of discharge: 06/02/16 Attending physician: Ty Koehler Consults: 05/23/16 23:17 Consult Physician Routine Consulting Provider: Carisa Polk Consult Reason/Comments: lung cancer with mets Do you want consulting provider notified?: Yes 05/26/16 08:06 Consult Physician Stat Consulting Provider: Félix Teran Consult Reason/Comments: pnm Do you want consulting provider notified?: Yes Primary care physician: Ty Koehler Hospital Course: Patient is a 66-year-old male with medical history for stage IV lung cancer with bone metastasis. Patient recently discharged from the hospital where he was treated for intractable pain secondary to metastatic lesions to cervical spine. Patient presented to hospital with complaints of fever, productive cough with yellow sputum, and shortness of breath. Chest x-ray with evidence of left lower lobe pneumonia. Patient was admitted to the oncology floor for IV antibiotics and pain management with consult to hematology and pulmonary service. Patient improved with antibiotics, systemic and inhaled steroids, nebulized updraft treatments, IV hydration, and supportive treatment. Patient did undergo palliative radiation therapy during hospital stay. Patient was felt stable for discharge to home with follow-up in the outpatient setting. Below is a list of patient's medical problems addressed during this hospitalization. Discharge diagnoses: 1. Severe sepsis secondary to possible left lower lobe pneumonia, possibly healthcare associated, present on admission. 2. Acute exacerbation of chronic obstructive pulmonary disease. 3. Hypertension. 4. Stage IV non-small cell lung cancer metastatic to bone. 5. Intractable pain secondary to neoplasm. 6. Nicotine abuse. 7. Anemia secondary to chronic disease. 8. Medical debility and generalized weakness with chronic protein calorie malnutrition. The above impression and plan have been discussed and directed by Dr. Koehler. Anna ROBLES-Bebeto acting as scribe for Dr. Koehler. Pertinent Studies: EKG; chest x-ray Patient Condition at Discharge: Fair Plan - Discharge Summary New Discharge Prescriptions: Meloxicam [Mobic] 15 mg PO DAILY #30 tab Montelukast [Singulair] 10 mg PO HS #30 tab Morphine Sulfate ER [Ms Contin] 30 mg PO Q8HR #21 tablet Discharge Medication List Escitalopram [Lexapro] 20 mg PO DAILY 12/17/15 [History] Folic Acid 1 mg PO DAILY #90 tablet 01/01/16 [Rx] Cholecalciferol [Vitamin D3] 5,000 unit PO DAILY 03/13/16 [History] Ascorbic Acid [Vitamin C] 500 mg PO DAILY 05/12/16 [History] Cyclobenzaprine [Flexeril] 10 mg PO TID 05/12/16 [History] Flax Larios Lignans 1 tab PO DAILY 05/12/16 [History] Multivitamins, Thera [Multivitamin] 1 tab PO DAILY 05/12/16 [History] Gibbon 3,6,9 1 cap PO DAILY 05/12/16 [History] Opdivo(Unknown) 1 dose IV Q14D 05/12/16 [History] Vitamin B Complex 1 cap PO DAILY 05/12/16 [History] Budesonide [Pulmicort] 0.5 mg INHALATION RT-BID #60 nebu 05/21/16 [Rx] Diazepam [Valium] 5 mg PO BID #14 tab 05/21/16 [Rx] Famotidine [Pepcid] 20 mg PO HS #30 tab 05/21/16 [Rx] HYDROmorphone [Dilaudid] 4 mg PO Q3HR PRN #112 tab 05/21/16 [Rx] Ipratropium-Albuterol Nebulize [Duoneb 0.5 mg-3 mg/3 ml Soln] 3 ml INHALATION RT -QID #30 ampul.neb 05/21/16 [Rx] Acetaminophen Tab [Tylenol] 650 mg PO Q4H PRN #0 tab 06/02/16 [Rx] Meloxicam [Mobic] 15 mg PO DAILY #30 tab 06/02/16 [Rx] Montelukast [Singulair] 10 mg PO HS #30 tab 06/02/16 [Rx] Morphine Sulfate ER [Ms Contin] 30 mg PO Q8HR #21 tablet 06/02/16 [Rx] Follow up Appointment(s)/Referral(s): Ty Koehler DO [Primary Care Provider] - 1 Week Angel Huerta MD [STAFF PHYSICIAN] - 07/14/16 1:00 pm
[2016-06-02 15:12] VITALS: PULSE 100
== END 2016-06-02 17:00 | disposition home or self-care (01) | DRG 871 ==
LOC: EC 21:31 → 5MS5E 23:07 → 5ONC 05-24 09:40
PROVIDERS: ADMIT Family Medicine; ATTEND Family Medicine
DX: A41.9 Sepsis, unspecified organism (principal); J96.21 Acute and chronic respiratory failure with hypoxia; J18.9 Pneumonia, unspecified organism; J96.22 Acute and chronic respiratory failure with hypercapnia; C34.32 Malignant neoplasm of lower lobe, left bronchus or lung; C79.51 Secondary malignant neoplasm of bone; J44.0 Chronic obstructive pulmonary disease with (acute) lower respiratory infection; E46 Unspecified protein-calorie malnutrition; E87.1 Hypo-osmolality and hyponatremia; J44.1 Chronic obstructive pulmonary disease with (acute) exacerbation; J98.11 Atelectasis; D63.8 Anemia in other chronic diseases classified elsewhere; E87.8 Other disorders of electrolyte and fluid balance, not elsewhere classified; D47.3 Essential (hemorrhagic) thrombocythemia; I10 Essential (primary) hypertension; E11.9 Type 2 diabetes mellitus without complications; D75.89 Other specified diseases of blood and blood-forming organs; F17.200 Nicotine dependence, unspecified, uncomplicated; G47.33 Obstructive sleep apnea (adult) (pediatric); G89.3 Neoplasm related pain (acute) (chronic); J45.909 Unspecified asthma, uncomplicated; K21.9 Gastro-esophageal reflux disease without esophagitis; M19.90 Unspecified osteoarthritis, unspecified site; R65.20 Severe sepsis without septic shock; F32.9 Major depressive disorder, single episode, unspecified; F41.9 Anxiety disorder, unspecified; K44.9 Diaphragmatic hernia without obstruction or gangrene; L40.9 Psoriasis, unspecified; G43.909 Migraine, unspecified, not intractable, without status migrainosus; Z79.899 Other long term (current) drug therapy; Z88.8 Allergy status to other drugs, medicaments and biological substances; Z91.040 Latex allergy status; Z85.828 Personal history of other malignant neoplasm of skin; Z85.47 Personal history of malignant neoplasm of testis; Z82.49 Family history of ischemic heart disease and other diseases of the circulatory system; Y95 Nosocomial condition
CPT/HCPCS: 36415; 71010; 71020; 80048; 80053; 80202; 82550; 82553; 83605; 83880; 84484; 85025; 85027; 85610; 85730; 87040; 87070; 87205; 87502; 93005; 94640; 94760; 96361; 96365; 96375; 96376; 99285

== ENCOUNTER 2016-06-15 20:38 | Inpatient (IN) | payer MEDICARE ==
[2016-06-15] MEDS ORDERED: SODIUM CHLORIDE 0.9% 1,000 ML IV ONE (20:54)
[2016-06-15 21:05] LABS: Anisocytosis Slight; Basophils % (A) 0 %; CH 29.7; CHCM 30.3; Eosinophils # (A) 0.1 k/uL (0-0.7); Eosinophils % (A) 1 %; HCT 25.8 % (39.0-53.0); HDW 2.77; Hypochromasia Moderate; Luc # (Auto) 0.15; Luc % (Auto) 1; Lymphocytes # (A) 0.4 k/uL (1.0-4.8); Lymphocytes % (A) 2 %; MCH 29.8 pg (25.0-35.0); MCHC 30.3 g/dL (31.0-37.0); Macrocytosis Slight; Mean Platelet Volume 7.3; Monocytes # (A) 0.6 k/uL (0-1.0); Monocytes % (A) 3 %; Neutrophils # (A) 18.8 k/uL (1.3-7.7); Neutrophils % (A) 94 %; RBC 2.63 m/uL (4.30-5.90); RDW 16.3 % (11.5-15.5); WBC 20.1 k/uL (3.8-10.6); WBC (Perox) 20.63
[2016-06-15 21:13] LABS: INR 1.3 (<1.1); Partial Thromboplastin Time 25.9 sec (22.0-30.0); Prothrombin Time 12.6 sec (9.0-12.0)
[2016-06-15 21:14] LABS: HGB 7.8 gm/dL (13.0-17.5); MCV 98.4 fL (80.0-100.0)
[2016-06-15 21:16] LABS: ALT 46 U/L (21-72); AST 29 U/L (17-59); Alkaline Phosphatase 174 U/L (38-126); Amylase <30 U/L (30-110); Anion Gap 8 mmol/L; Blood Urea Nitrogen 12 mg/dL (9-20); Calcium 7.9 mg/dL (8.4-10.2); Carbon Dioxide 30 mmol/L (22-30); Chloride 98 mmol/L (98-107); Glucose 103 mg/dL (74-99); Magnesium 1.9 mg/dL (1.6-2.3); Non-African American GFR(MDRD) >60 (>60 ml/min/1.73 sqM); Potassium 3.9 mmol/L (3.5-5.1); Sodium 136 mmol/L (137-145); Total Bilirubin 0.2 mg/dL (0.2-1.3); Total Protein 4.9 g/dL (6.3-8.2)
[2016-06-15 21:28] LABS: Creatine Kinase 42 U/L (55-170)
--- NOTE | 2016-06-15 21:29 | ED ---
Fall HPI - General Source: EMS Mode of arrival: EMS <Franci Goldsmith - Last Filed: 06/15/16 22:30> <Esteban Levin - Last Filed: 06/15/16 23:04> - General Chief Complaint: Fall Stated Complaint: FALL Time Seen by Provider: 06/15/16 20:43 - History of Present Illness Initial Comments: Patient is a 66-year-old male with chief complaint of a fall from a standing position. Patient reports that when he fell he did hit his head. Denies any neck pain at this time. Patient arrived via EMS and was placed in a c-collar. Patient states that there is no loss of consciousness after the injury. Patient is currently being treated for stage IV lung cancer and is on multiple pain medications. Patient reports that after he took his pain medications today he became slightly dizzy and that is when he fell. Patient's reports that when he fell she took his blood pressure for the wrist and reported to be 80/60. Patient does have a laceration over the left eyebrow as well. Patient reports that he has no other symptoms including chest pain or shortness of breath at this time. Patient denies any recent fever, chills, abdominal pain, nausea vomiting, numbness or tingling, dysuria or hematuria, constipation or diarrhea, headaches or visual changes, or any other current symptoms (Franci Goldsmith) - Related Data Home Medications Medication Instructions Recorded Confirmed Escitalopram [Lexapro] 20 mg PO DAILY 12/17/15 05/24/16 Cholecalciferol [Vitamin D3] 5,000 unit PO DAILY 03/13/16 05/24/16 Ascorbic Acid [Vitamin C] 500 mg PO DAILY 05/12/16 05/24/16 Cyclobenzaprine [Flexeril] 10 mg PO TID 05/12/16 05/24/16 Flax Larios Lignans 1 tab PO DAILY 05/12/16 05/24/16 Multivitamins, Thera [Multivitamin] 1 tab PO DAILY 05/12/16 05/24/16 [place] 3,6,9 1 cap PO DAILY 05/12/16 05/24/16 Opdivo(Unknown) 1 dose IV Q14D 05/12/16 05/24/16 Vitamin B Complex 1 cap PO DAILY 05/12/16 05/24/16 Previous Rx's Medication Instructions Recorded Folic Acid 1 mg PO DAILY #90 tablet 01/01/16 Budesonide [Pulmicort] 0.5 mg INHALATION RT-BID #60 nebu 05/21/16 Diazepam [Valium] 5 mg PO BID #14 tab 05/21/16 Famotidine [Pepcid] 20 mg PO HS #30 tab 05/21/16 HYDROmorphone [Dilaudid] 4 mg PO Q3HR PRN #112 tab 05/21/16 Ipratropium-Albuterol Nebulize 3 ml INHALATION RT-QID #30 05/21/16 [Duoneb 0.5 mg-3 mg/3 ml Soln] ampul.neb Acetaminophen Tab [Tylenol] 650 mg PO Q4H PRN #0 tab 06/02/16 Amoxic-Pot Clav 875-125Mg 1 tab PO Q12HR #14 tablet 06/02/16 [Augmentin 875-125] Meloxicam [Mobic] 15 mg PO DAILY #30 tab 06/02/16 Montelukast [Singulair] 10 mg PO HS #30 tab 06/02/16 Morphine Sulfate ER [Ms Contin] 30 mg PO Q8HR #21 tablet 06/02/16 methylPREDNISolone Dose Pack 4 mg PO DIRECTED #21 package 06/02/16 [Medrol Dose Pack] Allergies Allergy/AdvReac Type Severity Reaction Status Date / Time adhesive Allergy Rash/Hives Verified 05/24/16 11:47 clonazepam [From Klonopin] Allergy Unknown Verified 05/24/16 11:47 latex Allergy Rash/Hives Verified 05/24/16 11:47 naproxen [From Naprosyn] Allergy Rash/Hives Verified 05/24/16 11:47 ondansetron Allergy Unknown Verified 05/24/16 11:47 prochlorperazine Allergy Unknown Verified 05/24/16 11:47 topiramate Allergy Blisters Verified 05/24/16 11:47 buprenorphine AdvReac Nausea Verified 05/24/16 11:47 myceline Allergy Unknown Uncoded 05/12/16 19:13 Review of Systems ROS Other: All systems not noted in ROS Statement are negative. <Franci Goldsmith - Last Filed: 06/15/16 22:30> ROS Other: All systems not noted in ROS Statement are negative. <Esteban Levin - Last Filed: 06/15/16 23:04> ROS Statement: Those systems with pertinent positive or pertinent negative responses have been documented in the HPI. 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 , Lung Mass History of Any Multi-Drug Resistant Organisms: None Reported Past Surgical History: Orthopedic Surgery Additional Past Surgical History / Comment(s): cervical fusion 4,5,6. removed spur from neck. right ORCHECTOMY with right LYMPH NODES REMOVED and adrenal glands removed. metal clips and david in abdominal area secondary to surgery from cancer, RT KNEE X2 cyst removed ,SKIN CA REMOVED RT SIDE OF FACE 2001. right thumb fracture with surgery. 2004 left tib/fib and ankle fractures with surgery, colonoscopies/benign polypectomy. Past Anesthesia/Blood Transfusion Reactions: No Reported Reaction Additional Past Anesthesia/Blood Transfusion Reaction / Comment(s): Pt states he has received blood in past without reaction. Past Psychological History: Anxiety, Depression Additional Psychological History / Comment(s): Pt resides with his spouse. He uses a cane on occasion. He drives. Denies alcohol use. 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 No experience. No international travel. No current exposures. No recreational drug use or alcohol use Smoking Status: Former smoker Past Alcohol Use History: None Reported Additional Past Alcohol Use History / Comment(s): Pt states he started smoking in 1960. He is less than a ppd smoker at this time. Estimates was approximately 1 pack per day throughout most of life. pt states he quit smoking 12 days ago from 05/23/15 Past Drug Use History: Marijuana - Past Family History Father Family Medical History: Cancer, Thyroid Disorder Additional Family Medical History / Comment(s): Father had skin cancer. He also had heart disease. He at the age of 95 yrs. Mother Family Medical History: Cancer, COPD, Hypertension Additional Family Medical History / Comment(s): Mother had breast cancer. She at the age of 84 yrs. <Franci Goldsmith - Last Filed: 06/15/16 22:30> General Exam General appearance: alert, in no apparent distress Head exam: Present: atraumatic, normocephalic, normal inspection Eye exam: Present: normal appearance, PERRL, EOMI. Absent: scleral icterus, conjunctival injection, periorbital swelling ENT exam: Present: normal exam, mucous membranes moist Neck exam: Present: normal inspection. Absent: tenderness, meningismus, lymphadenopathy Respiratory exam: Present: normal lung sounds bilaterally, wheezes (biLateral wheezing). Absent: respiratory distress, rales, rhonchi, stridor Cardiovascular Exam: Present: regular rate, normal rhythm, normal heart sounds. Absent: systolic murmur, diastolic murmur, rubs, gallop, clicks GI/Abdominal exam: Present: soft, normal bowel sounds. Absent: distended, tenderness, guarding, rebound, rigid Extremities exam: Present: normal inspection, full ROM, normal capillary refill. Absent: tenderness, pedal edema, joint swelling, calf tenderness Back exam: Present: normal inspection Neurological exam: Present: alert, oriented X3, CN II-XII intact Expanded Patient oriented to: Present: person, place, time Speech: Present: fluid speech Cranial nerves: EOM's Intact: Normal, Gag Reflex: Normal, Tongue Deviation: Normal, Facial Sensation: Normal Cerebellar function: Finger to Nose: Normal Sensory exam: Upper Extremity Light Touch: Normal, Lower Extremity Light Touch: Normal Motor strength exam: RUE: 5, LUE: 5, RLE: 5, LLE: 5 Eye Response: (4) open spontaneously Motor Response: (6) obeys commands Verbal Response: (5) oriented [place] Total: 15 Psychiatric exam: Present: normal affect, normal mood Skin exam: Present: warm, dry, intact, pallor. Absent: normal color, rash <Franci Goldsmith - Last Filed: 06/15/16 22:30> <Esteban Levin - Last Filed: 06/15/16 23:04> - General Exam Comments Initial Comments: Patient is a pale 66-year-old male. He does not appear to be in any acute distress at this time. Patient is currently placed in a c-collar. (Franci Goldsmith) Medical Decision Making - Lab Data Result diagrams: 06/15/16 20:50 06/15/16 20:50 - Radiology Data Radiology results: report reviewed <Franci Goldsmith - Last Filed: 06/15/16 22:30> - Lab Data Result diagrams: 06/15/16 20:50 06/15/16 20:50 <Esteban Levin - Last Filed: 06/15/16 23:04> - Medical Decision Making Medical decision-making. The patient is 66 years old extremely pale. Patient has lung cancer with metastatic lesions around the neck. He stood up today and fell. checked his blood pressure was 80/60 to home. Patient denies hurting himself. He did have CT of the brain and cervical spine which is reported to be negative for bony injuries. But positive for metastatic lesions. The patient's undergoing chemotherapy with Dr. Polk. Comparing labs his white count was 39.82 weeks ago currently is 20,000. His hemoglobin dropped from 9.67.8 and those 2 weeks. Denies any blood per rectum or no change in color of urine. The patient will be given 1 unit of blood transfused., Rehydrated. Admitted to oncology. Dr. Levin Case discussed with Dr. Alonzo. Patient be admitted to Dr. Koehler. (Esteban Levin) - Lab Data Lab Results 06/15/16 06/15/16 06/15/16 Range/Units 20:50 20:50 20:50 WBC 20.1 H (3.8-10.6) k/uL RBC 2.63 L (4.30-5.90) m/uL Hgb 7.8 L D (13.0-17.5) gm/dL Hct 25.8 L (39.0-53.0) % MCV 98.4 D (80.0-100.0) fL MCH 29.8 (25.0-35.0) pg MCHC 30.3 L (31.0-37.0) g/dL RDW 16.3 H (11.5-15.5) % Plt Count 202 (150-450) k/uL Neutrophils % 94 % Lymphocytes % 2 % Monocytes % 3 % Eosinophils % 1 % Basophils % 0 % Neutrophils # 18.8 H (1.3-7.7) k/uL Lymphocytes # 0.4 L (1.0-4.8) k/uL Monocytes # 0.6 (0-1.0) k/uL Eosinophils # 0.1 (0-0.7) k/uL Basophils # 0.0 (0-0.2) k/uL Hypochromasia Moderate Anisocytosis Slight Macrocytosis Slight PT (9.0-12.0) sec INR (<1.1) APTT (22.0-30.0) sec Sodium 136 L (137-145) mmol/L Potassium 3.9 (3.5-5.1) mmol/L Chloride 98 (98-107) mmol/L Carbon Dioxide 30 (22-30) mmol/L Anion Gap 8 mmol/L BUN 12 (9-20) mg/dL Creatinine 0.60 L (0.66-1.25) mg/dL Est GFR (MDRD) Af Amer >60 (>60 ml/min/1.73 sqM) Est GFR (MDRD) Non-Af >60 (>60 ml/min/1.73 sqM) Glucose 103 H (74-99) mg/dL Plasma Lactic Acid Jonathan (0.7-2.0) mmol/L Calcium 7.9 L (8.4-10.2) mg/dL Magnesium 1.9 (1.6-2.3) mg/dL Total Bilirubin 0.2 (0.2-1.3) mg/dL AST 29 (17-59) U/L ALT 46 (21-72) U/L Alkaline Phosphatase 174 H (38-126) U/L Total Creatine Kinase (55-170) U/L CK-MB (CK-2) (0.0-2.4) ng/mL CK-MB (CK-2) Rel Index Troponin I (0.000-0.034) ng/mL Total Protein 4.9 L (6.3-8.2) g/dL Albumin 2.3 L (3.5-5.0) g/dL Amylase <30 L (30-110) U/L Lipase <10 L (23-300) U/L Blood Type O Positive Blood Type Recheck No Antibody Screen NEGATIVE Crossmatch See Detail Spec Expiration Date 06/18/2016 - 234906/15/16 06/15/16 06/15/16 Range/Units 20:50 20:50 21:44 WBC (3.8-10.6) k/uL RBC (4.30-5.90) m/uL Hgb (13.0-17.5) gm/dL Hct (39.0-53.0) % MCV (80.0-100.0) fL MCH (25.0-35.0) pg MCHC (31.0-37.0) g/dL RDW (11.5-15.5) % Plt Count (150-450) k/uL Neutrophils % % Lymphocytes % % Monocytes % % Eosinophils % % Basophils % % Neutrophils # (1.3-7.7) k/uL Lymphocytes # (1.0-4.8) k/uL Monocytes # (0-1.0) k/uL Eosinophils # (0-0.7) k/uL Basophils # (0-0.2) k/uL Hypochromasia Anisocytosis Macrocytosis PT 12.6 H (9.0-12.0) sec INR 1.3 (<1.1) APTT 25.9 (22.0-30.0) sec Sodium (137-145) mmol/L Potassium (3.5-5.1) mmol/L Chloride (98-107) mmol/L Carbon Dioxide (22-30) mmol/L Anion Gap mmol/L BUN (9-20) mg/dL Creatinine (0.66-1.25) mg/dL Est GFR (MDRD) Af Amer (>60 ml/min/1.73 sqM) Est GFR (MDRD) Non-Af (>60 ml/min/1.73 sqM) Glucose (74-99) mg/dL Plasma Lactic Acid Jonathan 1.5 (0.7-2.0) mmol/L Calcium (8.4-10.2) mg/dL Magnesium (1.6-2.3) mg/dL Total Bilirubin (0.2-1.3) mg/dL AST (17-59) U/L ALT (21-72) U/L Alkaline Phosphatase (38-126) U/L Total Creatine Kinase 42 L (55-170) U/L CK-MB (CK-2) 0.9 (0.0-2.4) ng/mL CK-MB (CK-2) Rel Index 2.1 Troponin I <0.012 (0.000-0.034) ng/mL Total Protein (6.3-8.2) g/dL Albumin (3.5-5.0) g/dL Amylase (30-110) U/L Lipase (23-300) U/L Blood Type Blood Type Recheck Antibody Screen Crossmatch Spec Expiration Date 06/15/16 22:30 EKG shows normal sinus rhythm. Ventricular rate of 92 bpm. PA interval 136 ms. QRS ration 74 ms. QRS T/QTc is 356/440 ms. No evidence of ST elevation or T-wave inversion. No evidence of atrial or ventricular arrhythmias. ( Franci Goldsmith) - Radiology Data Chest x-ray shows chronic changes previously described and left lower lobe mass. There is partially visualized ACDF hardware. The diffuse interstitial prominence is unchanged. Large retrocardiac mass at left medial base. CT brain and CT spine showed no acute intracranial abnormality. Stable mild atrophy changes of chronic small vessel ischemic disease. No acute fracture or malalignment cervical spine. Frothy partial opacification of the right maxillary sinus and be seen with acute viral sinusitis. Metastatic centrally necrotic 3.1 cm lymph node in the right lateral mid neck. Additional pleural based metastatic disease is noted in the posterior right at the PACS measuring 3.27 m wide. There is either demineralization of the cheese second posterior states right rib or subtle nondisplaced fracture. (Franci Goldsmith) Disposition <Franci Goldsmith - Last Filed: 06/15/16 22:30> <Esteban Levin - Last Filed: 06/15/16 23:04> Clinical Impression: Anemia of unknown etiology, History of lung cancer Disposition: ADMITTED IP TO THIS HOSP Condition: Serious
[2016-06-15 21:39] LABS: Creatine Kinase MB 0.9 ng/mL (0.0-2.4); Troponin I <0.012 ng/mL (0.000-0.034)
--- NOTE | 2016-06-15 21:46 | XR ---
EXAMINATION TYPE: XR chest 1V portable DATE OF EXAM: 06/15/2016 9:23 PM Comparison: 05/30/2016 Clinical History: 66-year-old male with fall Findings: The cardiomediastinal silhouette, aorta, and pulmonary vasculature are within normal limits. Mild d iffuse interstitial prominence is unchanged. Partially visualized ACDF hardware. No consolidation, pn eumothorax, or pleural effusion. Large retrocardiac mass at the medial left base. Impression: Chronic changes and previously described left lower lobe mass. Appropriate workup and management tawana mmended. Underlying lung cancer not excluded. No acute process seen.
--- NOTE | 2016-06-15 21:56 | CT ---
EXAMINATION TYPE: CT brain porterine wo con DATE OF EXAM: 06/15/2016 9:27 PM COMPARISON: 07/02/2014 HISTORY: 66-year-old male with fall and pain. CT DLP: 1387 mGycm Automated exposure control for dose reduction was used. Technique: Examination of the head was done in axial plane without intravenous contrast. Coronal and sagittal reconstructions performed. CT of the cervical spine was obtained in axial plane without intravenous injection of contrast mater ial. Coronal and sagittal reformatted images were obtained from the axial views for evaluation of f ractures, spinal alignment and canal. FINDINGS: Head: There is no evidence of acute intracranial hemorrhage, acute ischemic changes, mass, mass-effect, or extra-axial fluid collection. There is no effacement of cerebral sulci or basal subarachnoid cister ns. There is no hydrocephalus. There is no midline shift. De La O-white matter distinction is preserv ed. Redemonstrated mild generalized supratentorial volume loss and mild patchy periventricular white karma er hypodensities. There is frothy partial opacification within the right maxillary sinus. Mastoid air cells well pneuma tized. Orbits and globes are intact. No calvarial fracture. Cervical spine: There is abnormal 3.2 cm wide soft tissue in the subpleural posterior right apex. This abuts the unde rsurface and anterior margin of the right posterior second rib which shows either some demineralizati on or subtle nondisplaced fracture, axial image 88. There is abnormal heterogeneous, centrally necrot ic 3.1 cm lymph node in the right lateral mid neck. No craniocervical junction abnormality, predental space widening, or prevertebral soft tissue swellin g. Postsurgical changes of C4-C6 ACDF with mild to moderate degenerative disc disease above and below th e fusion at C3-C4 and C6-C7 with disc osteophyte complexes and uncovertebral joint arthropathy. No acute fracture seen of the cervical spine. Alignment is maintained. There is mild bilateral neural foraminal narrowing at C5-C6 and moderate on both sides at 6-C7. Sagittal and coronal reformatted images confirm above findings. COMBINED IMPRESSION: 1. No acute intracranial abnormality seen. Stable mild atrophy and changes of chronic small vessel is chemic disease. 2. No acute fracture or malalignment of the cervical spine. Uncomplicated C4-C6 ACDF. 3. Frothy partial opacification right maxillary sinus can be seen with acute viral sinusitis. 4. Metastatic, centrally necrotic 3.1 cm lymph node in the right lateral mid neck. 5. Additional pleural-based metastatic disease at the posterior right apex measuring 3.2 cm wide. The re is either demineralization of the adjacent second posterior right rib or a subtle nondisplaced fra cture.
[2016-06-15] MEDS ORDERED: ALBUTEROL NEBULIZED 2.5 MG/3 ML INHALATION STA (23:01)
[2016-06-15] MEDS ORDERED: IPRATROPIUM-ALBUTEROL 3 ML NEB INHALATION STA (23:02)
[2016-06-15] MEDS ORDERED: NALOXONE 0.4 MG/ML 1 ML VIAL IV PRN (23:05)
[2016-06-16] MEDS: SODIUM CHLORIDE 0.9% 1,000 ML IV SCH ×3 (01:23→14:49)
[2016-06-16] MEDS: HYDROmorphone 1 MG/ML 1 ML SYRINGE IV PRN ×3 (01:56→11:57)
[2016-06-16 04:48] VITALS: BMI 21.9
[2016-06-16 07:11] LABS: Anisocytosis Slight; Basophils % (A) 0 %; CH 29.7; CHCM 30.7; Eosinophils # (A) 0.2 k/uL (0-0.7); Eosinophils % (A) 1 %; HCT 27.6 % (39.0-53.0); HDW 3.05; HGB 8.7 gm/dL (13.0-17.5); Hypochromasia Moderate; Luc # (Auto) 0.08; Luc % (Auto) 1; Lymphocytes # (A) 0.2 k/uL (1.0-4.8); Lymphocytes % (A) 1 %; MCH 30.7 pg (25.0-35.0); MCHC 31.7 g/dL (31.0-37.0); Macrocytosis Slight; Mean Platelet Volume 7.4; Monocytes # (A) 0.4 k/uL (0-1.0); Monocytes % (A) 2 %; Neutrophils # (A) 15.9 k/uL (1.3-7.7); Neutrophils % (A) 95 %; RBC 2.84 m/uL (4.30-5.90); RDW 16.7 % (11.5-15.5); WBC 16.7 k/uL (3.8-10.6); WBC (Perox) 17.82
[2016-06-16] MEDS ORDERED: IPRATROPIUM-ALBUTEROL 3 ML NEB INHALATION PRN (08:34)
[2016-06-16] MEDS: PANTOPRAZOLE 40 MG/10 ML VIAL IV SCH (09:40)
[2016-06-16] MEDS: CYCLOBENZAPRINE 10 MG TAB PO SCH ×3 (09:41→22:48)
[2016-06-16] MEDS: B COMPLEX-VIT C-VIT E-ZINC 1 EACH TAB PO SCH (09:41)
[2016-06-16] MEDS: ASCORBIC ACID 500 MG TAB PO SCH (10:56)
[2016-06-16] MEDS: FOLIC ACID 1 MG TAB PO SCH (10:56)
[2016-06-16] MEDS: ESCITALOPRAM 20 MG TAB PO SCH (10:56)
[2016-06-16] MEDS: MELOXICAM 7.5 MG TAB PO SCH (10:56)
[2016-06-16] MEDS: DIAZEPAM 5 MG TAB PO SCH ×2 (10:58→20:56)
[2016-06-16] MEDS: MULTIVITAMINS, THERA 1 EACH TAB PO SCH (11:00)
[2016-06-16] MEDS: CHOLECALCIFEROL 1,000 UNIT TAB PO SCH (11:00)
[2016-06-16] MEDS: IPRATROPIUM-ALBUTEROL 3 ML NEB INHALATION SCH ×3 (11:57→21:21)
--- NOTE | 2016-06-16 14:25 | P.HPIM ---
History of Present Illness H&P Date: 06/16/16 Chief Complaint: Fall Patient is a 66-year-old male with medical history for stage IV lung cancer with bone metastasis. Patient recently hospitalized from 05/23/2016 to 06/02/2016 with severe sepsis secondary to left lower lobe pneumonia, acute exacerbation of COPD, and intractable pain secondary to neoplasm. Patient presented to the hospital with complaints of falling down from a standing position, no reported history of loss of consciousness. Patient did sustain a laceration over his left eyebrow. Per medical records, reports that patient became slightly dizzy and fell after he took his pain medications and when she recorded his blood pressure it was 80/60. EKG and admission showed normal sinus rhythm. Chest x-ray with no acute process. CT cervical spine with no acute fracture, metastatic, centrally necrotic 3.1 cm lymph node in the right lateral mid neck, metastatic disease to posterior right apex. CT head with no acute intracranial abnormality seen. Patient with evidence of leukocytosis, anemia with hemoglobin of 7.8, calcium 7.9, total protein 4.9, albumin 2.3. Troponins less than 0.012. Vitals on admission temperature 97.9, heart rate 91, respiratory rate 14, blood pressure 93/50, oxygen saturation 92% on room air. Patient did receive 1 unit of PRBC in the emergency department and was rehydrated with 1 L of IV fluids. Patient was transferred to the oncology floor with consult requested for oncology service. Upon examination, patient is lying in bed in no acute distress. Patient denies chills, fevers, nausea, vomiting, increased shortness of breath, chest pain, or abdominal pain. Denies dysuria, urgency, hematuria. Patient denies constipation or diarrhea. A.m. lab work: WBC 16.7, hemoglobin 8.7. 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 removed spur from neck. right ORCHECTOMY with right LYMPH NODES REMOVED and adrenal glands removed. metal clips and david in abdominal area secondary to surgery from cancer, RT KNEE X2 cyst removed ,SKIN CA REMOVED RT SIDE OF FACE 2001. right thumb fracture with surgery. 2004 left tib/fib and ankle fractures with surgery, colonoscopies/benign polypectomy. Past Anesthesia/Blood Transfusion Reactions: No Reported Reaction Additional Past Anesthesia/Blood Transfusion Reaction / Comment(s): Pt states he has received blood in past without reaction. Past Psychological History: Anxiety, Depression Additional Psychological History / Comment(s): Pt resides with his spouse. He uses a cane on occasion. He drives. Denies alcohol use. 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 No experience. No international travel. No current exposures. No recreational drug use or alcohol use Smoking Status: Former smoker Past Alcohol Use History: None Reported Additional Past Alcohol Use History / Comment(s): Pt states he started smoking in 1959. He is less than a ppd smoker at this time. Estimates was approximately 1 pack per day throughout most of life. pt states he quit smoking 12 days ago from 05/23/15 Past Drug Use History: Marijuana - Past Family History Father Family Medical History: Cancer, Thyroid Disorder Additional Family Medical History / Comment(s): Father had skin cancer. He also had heart disease. He at the age of 95 yrs. Mother Family Medical History: Cancer, COPD, Hypertension Additional Family Medical History / Comment(s): Mother had breast cancer. She at the age of 84 yrs. Medications and Allergies Home Medications Medication Instructions Recorded Confirmed Type Escitalopram [Lexapro] 20 mg PO DAILY 12/17/15 06/16/16 History Cholecalciferol [Vitamin D3] 5,000 unit PO DAILY 03/13/16 06/16/16 History Ascorbic Acid [Vitamin C] 500 mg PO DAILY 05/12/16 06/16/16 History Cyclobenzaprine [Flexeril] 10 mg PO TID 05/12/16 06/16/16 History Flax Larios Lignans 1 tab PO DAILY 05/12/16 06/16/16 History Multivitamins, Thera [Multivitamin] 1 tab PO DAILY 05/12/16 06/16/16 History [place] 3,6,9 1 cap PO DAILY 05/12/16 06/16/16 History Opdivo(Unknown) 1 dose IV Q14D 05/12/16 06/16/16 History Vitamin B Complex 1 cap PO DAILY 05/12/16 06/16/16 History Albuterol Nebulized [Ventolin 2.5 mg INHALATION RT-Q6H PRN 06/16/16 06/16/16 History Nebulized] Allergies Allergy/AdvReac Type Severity Reaction Status Date / Time adhesive Allergy Rash/Hives Verified 06/16/16 07:18 clonazepam [From Klonopin] Allergy Unknown Verified 06/16/16 07:18 latex Allergy Rash/Hives Verified 06/16/16 07:18 naproxen [From Naprosyn] Allergy Rash/Hives Verified 06/16/16 07:18 ondansetron Allergy Unknown Verified 06/16/16 07:18 prochlorperazine Allergy Unknown Verified 06/16/16 07:18 topiramate Allergy Blisters Verified 06/16/16 07:18 buprenorphine AdvReac Nausea Verified 06/16/16 07:18 myceline Allergy Unknown Uncoded 05/12/16 19:13 Physical Exam Vitals: Vital Signs Temp Pulse Pulse Resp BP BP Pulse Ox 06/16/16 12:05 100 06/16/16 11:57 100 92 L 06/16/16 08:00 122 H 16 06/16/16 07:00 98.8 F 122 H 16 95/51 91 L 06/16/16 00:55 97.4 F L 86 16 102/59 95 06/15/16 23:55 97.9 F 100 16 94/51 92 L 06/15/16 23:35 97.2 F L 91 14 97/55 96 06/15/16 23:27 86 Intake and Output 06/15/16 06/16/16 06/16/16 22:59 06:59 14:59 Intake Total 1220 Balance 1220 Intake: Intake, IV Titration 600 Amount Sodium Chloride 0.9% 1, 600 000 ml @ 100 mls/hr IV . Q10H [facility] Rx#:[id number] Oral 120 Blood Product 500 Rc Cpda-1 Unit 250 [id number] Other: # Voids 1 1 Weight 71.214 kg 71.214 kg Patient Weight 06/17/16 06:59 Weight 71.214 kg GENERAL: Pt awake and alert, lying in bed, in no acute distress. HEAD: Atraumatic, normocephalic. EYES: Conjunctiva are normal. ENT: Moist mucous membranes. NECK:Supple without lymphadenopathy or JVD. LUNGS: Breath sounds diminished with minimal expiratory wheeze. HEART: Heart S1, S2, no S3 or S4. Regular rate and rhythm. No murmurs, rubs or gallops. ABDOMEN: Soft, nontender, nondistended, normoactive bowel sounds. EXTREMITIES: 2+ peripheral pulses. No edema. No calf tenderness. NEUROLOGICAL: Pt oriented x 3. Cranial nerves II through XII grossly intact. Strength and sensation grossly intact. PSYCH: Calm. SKIN: Warm, dry, pale. Laceration above left eyebrow. Sutures intact. No erythema or purulent drainage. Results CBC & Chem 7: 06/16/16 06:35 06/15/16 20:50 Labs: Abnormal Lab Results - Last 24 Hours (Table) 06/16/16 Range/Units 06:35 WBC 16.7 H (3.8-10.6) k/uL RBC 2.84 L (4.30-5.90) m/uL Hgb 8.7 L (13.0-17.5) gm/dL Hct 27.6 L (39.0-53.0) % RDW 16.7 H (11.5-15.5) % Neutrophils # 15.9 H (1.3-7.7) k/uL Lymphocytes # 0.2 L (1.0-4.8) k/uL Thrombosis Risk Factor Assmnt - DVT/VTE Prophylaxis DVT/VTE Prophylaxis: Mechanical Prophylaxis ordered - Choose All That Apply Each Factor Represents 1 point: Abnormal pulmonary function (COPD), Serious lung disease incl. pneumonia (< 1month) Each Risk Factor Represents 2 Points: Age 61-74 years Other congenital or acquired thrombophilia - If yes, enter type in comment: No Thrombosis Risk Factor Assessment Total Risk Factor Score: 4 Thrombosis Risk Factor Assessment Level: Moderate Risk Assessment and Plan Plan: Impression: 1. Bilateral lower extremity weakness suspect secondary to hypotension secondary to dehydration; possible anemia; and medication. 2. Anemia secondary to chronic disease. 3. Stage IV non-small cell lung cancer with metastasis to bone. 4. Intractable pain secondary to neoplasm. 5. Chronic obstructive pulmonary disease. 6. Medical debility and generalized weakness with chronic protein calorie malnutrition. Plan: Continue to monitor patient. Continue current medications. Continue IV hydration. Oncology consult in place, recommendations pending. Continue supportive treatment and pain management. Continue GI and DVT prophylaxis. Repeat CBC and BMP in a.m. The above impression and plan have been discussed and directed by Dr. Koehler. Anna ROBLES-Bebeto acting as scribe for Dr. Koehler.
[2016-06-16] MEDS: MORPHINE SULFATE ER 30 MG TABLET PO SCH ×2 (15:42→22:48)
[2016-06-16] MEDS: HYDROmorphone 2 MG TAB PO PRN (18:48)
--- NOTE | 2016-06-16 20:09 | P.CONS ---
History of Present Illness - Reason for Consult Consult date: 06/16/16 lung cancer Requesting physician: Esteban Levin - Chief Complaint legs "giving out" - History of Present Illness Please refer to Medical Consult 05/24/16 as details of pt history are unchanged other then he has received a 2nd cycle of nivolumab and zometa infusion in the last 3 weeks. Pt is admitted due to "legs giving out" and hypotension when BP checked at home. When seen pt was laying flat in bed, tolerating fair amounts or oral intake, denies chest pain, mild SOB with activity and weak, denies numbness, tingling or unilateral deficits. Review of Systems All systems: negative Constitutional: Reports as per HPI Past Medical History Past Medical History: Asthma, Cancer, COPD, GERD/Reflux, Hypertension, Osteoarthritis (OA), Pneumonia, Skin Disorder, Sleep Apnea/CPAP/BIPAP Additional Past Medical History / Comment(s): cervical and back pain, LAVERN but no longer uses his CPAP, basal cell skin cancer right side of face 2001 - surgically removed, 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 removed spur from neck. right ORCHECTOMY with right LYMPH NODES REMOVED and adrenal glands removed. metal clips and david in abdominal area secondary to surgery from cancer, RT KNEE X2 cyst removed ,SKIN CA REMOVED RT SIDE OF FACE 2001. right thumb fracture with surgery. 2004 left tib/fib and ankle fractures with surgery, colonoscopies/benign polypectomy. Past Anesthesia/Blood Transfusion Reactions: No Reported Reaction Additional Past Anesthesia/Blood Transfusion Reaction / Comm: Pt states he has received blood in past without reaction. Past Psychological History: Anxiety, Depression Additional Psychological History / Comment(s): Pt resides with his spouse. He uses a cane on occasion. He drives. Denies alcohol use. 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 No experience. No international travel. No current exposures. No recreational drug use or alcohol use Smoking Status: Former smoker Past Alcohol Use History: None Reported Additional Past Alcohol Use History / Comment(s): Pt states he started smoking in 1960. He is less than a ppd smoker at this time. Estimates was approximately 1 pack per day throughout most of life. pt states he quit smoking 12 days ago from 05/23/15 Past Drug Use History: Marijuana - Past Family History Father Family Medical History: Cancer, Thyroid Disorder Additional Family Medical History / Comment(s): Father had skin cancer. He also had heart disease. He at the age of 95 yrs. Mother Family Medical History: Cancer, COPD, Hypertension Additional Family Medical History / Comment(s): Mother had breast cancer. She at the age of 84 yrs. Medications and Allergies Home Medications Medication Instructions Recorded Confirmed Type Escitalopram [Lexapro] 20 mg PO DAILY 12/17/15 06/16/16 History Cholecalciferol [Vitamin D3] 5,000 unit PO DAILY 03/13/16 06/16/16 History Ascorbic Acid [Vitamin C] 500 mg PO DAILY 05/12/16 06/16/16 History Cyclobenzaprine [Flexeril] 10 mg PO TID 05/12/16 06/16/16 History Flax Larios Lignans 1 tab PO DAILY 05/12/16 06/16/16 History Multivitamins, Thera [Multivitamin] 1 tab PO DAILY 05/12/16 06/16/16 History [place] 3,6,9 1 cap PO DAILY 05/12/16 06/16/16 History Opdivo(Unknown) 1 dose IV Q14D 05/12/16 06/16/16 History Vitamin B Complex 1 cap PO DAILY 05/12/16 06/16/16 History Albuterol Nebulized [Ventolin 2.5 mg INHALATION RT-Q6H PRN 06/16/16 06/16/16 History Nebulized] Allergies Allergy/AdvReac Type Severity Reaction Status Date / Time adhesive Allergy Rash/Hives Verified 06/16/16 07:18 clonazepam [From Klonopin] Allergy Unknown Verified 06/16/16 07:18 latex Allergy Rash/Hives Verified 06/16/16 07:18 naproxen [From Naprosyn] Allergy Rash/Hives Verified 06/16/16 07:18 ondansetron Allergy Unknown Verified 06/16/16 07:18 prochlorperazine Allergy Unknown Verified 06/16/16 07:18 topiramate Allergy Blisters Verified 06/16/16 07:18 buprenorphine AdvReac Nausea Verified 06/16/16 07:18 myceline Allergy Unknown Uncoded 05/12/16 19:13 Physical Exam Vitals: Vital Signs Temp Pulse Pulse Resp BP BP BP 06/16/16 16:00 82 16 06/16/16 14:32 97.3 F L 82 16 105/55 100/59 06/16/16 12:05 100 06/16/16 11:57 100 06/16/16 08:00 122 H 16 06/16/16 07:00 98.8 F 122 H 16 06/16/16 00:55 97.4 F L 86 16 102/59 06/15/16 23:55 97.9 F 100 16 06/15/16 23:35 97.2 F L 91 14 97/55 06/15/16 23:27 86 BP BP Pulse Ox 06/16/16 16:00 06/16/16 14:32 105/55 105/55 95 06/16/16 12:05 06/16/16 11:57 92 L 06/16/16 08:00 06/16/16 07:00 95/51 91 L 06/16/16 00:55 95 06/15/16 23:55 94/51 92 L 06/15/16 23:35 96 06/15/16 23:27 Intake and Output 06/16/16 06/16/16 06/16/16 06:59 14:59 22:59 Intake Total 1220 1180 Balance 1220 1180 Intake: Intake, IV Titration 600 700 Amount Sodium Chloride 0.9% 1, 600 700 000 ml @ 100 mls/hr IV . Q10H [facility] Rx#:[id number] Oral 120 480 Blood Product 500 Rc Cpda-1 Unit 250 [id number] Other: # Voids 1 1 1 Weight 71.214 kg 71.214 kg 71.214 kg Patient Weight 06/17/16 06:59 Weight 71.214 kg - Constitutional General appearance: average body habitus, cooperative, no acute distress - EENT Eyes: anicteric sclerae, PERRLA, normal appearance ENT: normal oropharynx - Neck Neck: no lymphadenopathy - Respiratory Respiratory: bilateral: CTA - Cardiovascular Rhythm: regular Heart sounds: normal: S1, S2 leg Peripheral Edema: bilateral: None - Gastrointestinal General gastrointestinal: no absent bowel sounds, no decreased bowel sounds, no distended, no hepatomegaly, no hyperactive bowel sounds, normal bowel sounds, no organomegaly, no rigid, no scaphoid, soft, no splenomegaly, no tenderness, no umbilical hernia, no ventral hernia - Integumentary Integumentary: pale - Neurologic Neurologic: CNII-XII intact - Musculoskeletal Musculoskeletal: generalized weakness, strength equal bilaterally - Psychiatric flat affect Psychiatric: A&O x's 3, intact judgment & insight Results CBC & Chem 7: 06/16/16 06:35 06/15/16 20:50 Labs: Abnormal Lab Results - Last 24 Hours (Table) 06/16/16 Range/Units 06:35 WBC 16.7 H (3.8-10.6) k/uL RBC 2.84 L (4.30-5.90) m/uL Hgb 8.7 L (13.0-17.5) gm/dL Hct 27.6 L (39.0-53.0) % RDW 16.7 H (11.5-15.5) % Neutrophils # 15.9 H (1.3-7.7) k/uL Lymphocytes # 0.2 L (1.0-4.8) k/uL Assessment and Plan (1) Anemia Narrative/Plan: Pt has chronic anemia,multifactorial, he has required intermittent transfusions. No acute bleeding suspected as he has been transfused with 1 unit PRBCs with appropriate increase in Hgb, labs will be monitored. Status: Acute (2) Dehydration Narrative/Plan: Pt receiving IV fluids. Orthostatic BP have been ordered as he was brought to ER by family with concerns for low BP at home. Status: Acute (3) Lung cancer metastatic to bone Narrative/Plan: Pt has had 2 cycles of nivolumab. Immunotherapy does not typically have side effects of weakness, GI upset, poor oral intake or hematological toxicities but it can take up to 8 weeks for the effects of treatment to be realized. MRI has been ordered to evaluate the lumbar spine and pelvis. Pt is on zometa for the same. Status: Acute (4) Generalized weakness Narrative/Plan: Pt had c/o weak legs feeling like they are giving out. MRI ordered. PT has been ordered to evaluate pt after MRI results have been reviewed. Pt needs to be evaluated for his strengths and limitations so an appropriate strength/ endurance training program can be implemented. Status: Chronic
[2016-06-16] MEDS: MONTELUKAST 10 MG TAB PO SCH (20:55)
[2016-06-16] MEDS: FAMOTIDINE 20 MG TAB PO SCH (20:56)
[2016-06-16] MEDS: BUDESONIDE 0.5 MG/2 ML NEBU INHALATION SCH (21:21)
[2016-06-17] MEDS: SODIUM CHLORIDE 0.9% 1,000 ML IV SCH ×4 (00:34→23:40)
[2016-06-17] MEDS: HYDROmorphone 2 MG TAB PO PRN ×3 (03:53→20:52)
[2016-06-17] MEDS: HYDROmorphone 1 MG/ML 1 ML SYRINGE IV PRN ×2 (04:32→07:07)
[2016-06-17] MEDS: BUDESONIDE 0.5 MG/2 ML NEBU INHALATION SCH ×2 (07:38→20:13)
[2016-06-17] MEDS: IPRATROPIUM-ALBUTEROL 3 ML NEB INHALATION SCH ×4 (07:38→20:13)
[2016-06-17] MEDS: DIAZEPAM 5 MG TAB PO SCH ×2 (08:57→20:52)
[2016-06-17] MEDS: ESCITALOPRAM 20 MG TAB PO SCH (08:57)
[2016-06-17] MEDS: CYCLOBENZAPRINE 10 MG TAB PO SCH ×3 (08:57→22:57)
[2016-06-17] MEDS: B COMPLEX-VIT C-VIT E-ZINC 1 EACH TAB PO SCH (08:57)
[2016-06-17] MEDS: ASCORBIC ACID 500 MG TAB PO SCH (08:57)
[2016-06-17] MEDS: MORPHINE SULFATE ER 30 MG TABLET PO SCH ×3 (08:57→23:43)
[2016-06-17] MEDS: MELOXICAM 7.5 MG TAB PO SCH (08:57)
[2016-06-17] MEDS: PANTOPRAZOLE 40 MG/10 ML VIAL IV SCH (08:57)
[2016-06-17 09:08] LABS: Anisocytosis Slight; Basophils % (A) 0 %; CH 29.7; CHCM 30.8; Eosinophils # (A) 0.1 k/uL (0-0.7); Eosinophils % (A) 1 %; HCT 27.8 % (39.0-53.0); HDW 2.98; HGB 8.6 gm/dL (13.0-17.5); Hypochromasia Moderate; Luc # (Auto) 0.14; Luc % (Auto) 1; Lymphocytes # (A) 0.3 k/uL (1.0-4.8); Lymphocytes % (A) 2 %; MCV 96.7 fL (80.0-100.0); Macrocytosis Slight; Mean Platelet Volume 7.2; Monocytes # (A) 0.4 k/uL (0-1.0); Monocytes % (A) 2 %; Neutrophils # (A) 17.1 k/uL (1.3-7.7); Neutrophils % (A) 95 %; RBC 2.87 m/uL (4.30-5.90); RDW 16.4 % (11.5-15.5); WBC 18.1 k/uL (3.8-10.6); WBC (Perox) 18.78
[2016-06-17 09:18] LABS: Anion Gap 8 mmol/L; Blood Urea Nitrogen 7 mg/dL (9-20); Calcium 7.5 mg/dL (8.4-10.2); Carbon Dioxide 25 mmol/L (22-30); Chloride 102 mmol/L (98-107); Glucose 107 mg/dL (74-99); Non-African American GFR(MDRD) >60 (>60 ml/min/1.73 sqM); Potassium 4.1 mmol/L (3.5-5.1); Sodium 135 mmol/L (137-145)
[2016-06-17] MEDS: MULTIVITAMINS, THERA 1 EACH TAB PO SCH (11:16)
[2016-06-17] MEDS: FOLIC ACID 1 MG TAB PO SCH (11:16)
[2016-06-17] MEDS: CHOLECALCIFEROL 1,000 UNIT TAB PO SCH (11:16)
--- NOTE | 2016-06-17 12:13 | P.PN ---
Subjective Patient is a 66-year-old male with medical history for stage IV lung cancer with bone metastasis. Patient recently hospitalized from 05/23/2016 to 06/02/2016 with severe sepsis secondary to left lower lobe pneumonia, acute exacerbation of COPD, and intractable pain secondary to neoplasm. Patient presented to the hospital with complaints of falling down from a standing position, no reported history of loss of consciousness. Patient did sustain a laceration over his left eyebrow. Per medical records, reports that patient became slightly dizzy and fell after he took his pain medications and when she recorded his blood pressure it was 80/60. EKG and admission showed normal sinus rhythm. Chest x-ray with no acute process. CT cervical spine with no acute fracture, metastatic, centrally necrotic 3.1 cm lymph node in the right lateral mid neck, metastatic disease to posterior right apex. CT head with no acute intracranial abnormality seen. Patient with evidence of leukocytosis, anemia with hemoglobin of 7.8, calcium 7.9, total protein 4.9, albumin 2.3. Troponins less than 0.012. Vitals on admission temperature 97.9, heart rate 91, respiratory rate 14, blood pressure 93/50, oxygen saturation 92% on room air. Patient did receive 1 unit of PRBC in the emergency department and was rehydrated with 1 L of IV fluids. Patient was transferred to the oncology floor with consult requested for oncology service. 06/17/2016: Patient is evaluated on the oncology floor where he is currently lying in bed. Patient apparently was scheduled for MRI yesterday but became claustrophobic and was unable to complete exam. No new specific complaints overnight. Patient states he "feels down and depressed." Objective - Vital Signs Vital signs: Vital Signs Temp 99.4 F 06/17/16 07:00 Pulse 93 06/17/16 11:32 Resp 20 06/17/16 07:00 BP 132/71 06/17/16 07:00 Pulse Ox 99 06/17/16 11:24 Intake & Output 06/16/16 06/17/16 06/17/16 18:59 06:59 18:59 Intake Total 1180 1120 Balance 1180 1120 Weight 71.214 kg 71.214 kg Intake: Intake, IV Titration 700 400 Amount Sodium Chloride 0.9% 1, 700 400 000 ml @ 100 mls/hr IV . Q10H [facility] Rx#:[id number] Oral 480 720 Other: # Voids 1 1 1 # Bowel Movements 1 - Exam GENERAL: Pt awake and alert, lying in bed, in no acute distress. HEAD: Atraumatic, normocephalic. EYES: Conjunctiva are normal. ENT: Moist mucous membranes. NECK:Supple without lymphadenopathy or JVD. LUNGS: Breath sounds diminished with minimal expiratory wheeze. HEART: Heart S1, S2, no S3 or S4. Regular rate and rhythm. No murmurs, rubs or gallops. ABDOMEN: Soft, nontender, nondistended, normoactive bowel sounds. EXTREMITIES: 2+ peripheral pulses. No edema. No calf tenderness. NEUROLOGICAL: Pt oriented x 3. Cranial nerves II through XII grossly intact. Strength and sensation grossly intact. PSYCH: Calm. SKIN: Warm, dry, pale. Laceration above left eyebrow. Sutures intact. No erythema or purulent drainage. - Labs CBC & Chem 7: 06/17/16 08:45 06/17/16 08:45 Labs: Abnormal Lab Results - Last 24 Hours (Table) 06/17/16 06/17/16 Range/Units 08:45 08:45 WBC 18.1 H (3.8-10.6) k/uL RBC 2.87 L (4.30-5.90) m/uL Hgb 8.6 L (13.0-17.5) gm/dL Hct 27.8 L (39.0-53.0) % RDW 16.4 H (11.5-15.5) % Neutrophils # 17.1 H (1.3-7.7) k/uL Lymphocytes # 0.3 L (1.0-4.8) k/uL Sodium 135 L (137-145) mmol/L BUN 7 L (9-20) mg/dL Creatinine 0.47 L (0.66-1.25) mg/dL Glucose 107 H (74-99) mg/dL Calcium 7.5 L (8.4-10.2) mg/dL Assessment and Plan Plan: Impression: 1. Bilateral lower extremity weakness suspect secondary to hypotension secondary to dehydration; possible anemia; and medication, present on admission , improved. 2. Anemia secondary to chronic disease. 3. Stage IV non-small cell lung cancer with metastasis to bone. 4. Intractable pain secondary to neoplasm. 5. Chronic obstructive pulmonary disease. 6. Medical debility and generalized weakness with chronic protein calorie malnutrition. 7. Depression. Plan: Continue to monitor patient. Continue current medications. We'll increase Lexapro to 40 mg. Continue IV hydration. Oncology consult in place, recommendations noted. Patient is scheduled for an MRI of pelvis and lumbar spine. Continue supportive treatment and pain management. Continue GI and DVT prophylaxis. Repeat CBC and CMP in a.m. Did speak with oncology service about patient being possible candidate for hospice. Dr. Salazar to speak with and patient. The above impression and plan have been discussed and directed by Dr. Koehler. Anna ROBLES-C acting as scribe for Dr. Koehler.
[2016-06-17] MEDS ORDERED: SODIUM CHLORIDE 0.9% 250 ML IV ONE (15:17)
[2016-06-17] MEDS ORDERED: LORazepam 2 MG/ML SYRINGE IV ONE (18:45)
[2016-06-17] MEDS: MONTELUKAST 10 MG TAB PO SCH (20:52)
[2016-06-17] MEDS: ACETAMINOPHEN TAB 325 MG TAB PO PRN (20:52)
[2016-06-17] MEDS: FAMOTIDINE 20 MG TAB PO SCH (20:52)
--- NOTE | 2016-06-18 01:34 | MR ---
EXAMINATION TYPE: MR lumbar spine wo/w con DATE OF EXAM: 06/17/2016 7:58 PM COMPARISON: 12/17/2015 HISTORY: Lower extremity weakness TECHNIQUE: Multiplanar, multisequence images of the lumbar spine were acquired utilizing 14 mL intravenous Multi You gadolinium contrast. Diffusion weighted imaging was performed. Findings Normal alignment. There is moderate narrowing of disc spaces throughout the lumbar spine. There is sp urring of the endplates. There is facet arthropathy and narrowing of the neural foramina bilaterally at L4-5. This is worse on the right side. There are small posterior disc herniations at L3-4 L4-5 and L5-S1. There is no significant spinal stenosis. There is no paraspinal mass. Posterior elements are intact. Sacroiliac joints appear normal. Contrast images show no pathologic enhancement. There is no compression fracture. IMPRESSION: Moderate multilevel spondylosis. Small posterior disc herniations from L3 to S1 without significant s dong stenosis. There is right side L4-5 L5-S1 neural foraminal stenosis due to disc space narrowing and facet arthropathy. There is overall no significant change compared to last exam. Exam is limited slightly by motion. There is posterior lumbar spinal muscle atrophy similar to old exam.
[2016-06-18] MEDS: HYDROmorphone 2 MG TAB PO PRN ×4 (05:01→20:44)
[2016-06-18 08:32] LABS: Anisocytosis Slight; CH 29.7; CHCM 30.4; HCT 30.8 % (39.0-53.0); HDW 2.94; HGB 9.4 gm/dL (13.0-17.5); Hypochromasia Moderate; MCH 29.7 pg (25.0-35.0); MCHC 30.3 g/dL (31.0-37.0); MCV 97.9 fL (80.0-100.0); Macrocytosis Slight; RBC 3.15 m/uL (4.30-5.90); RDW 16.3 % (11.5-15.5); WBC 22.6 k/uL (3.8-10.6)
[2016-06-18] MEDS: ASCORBIC ACID 500 MG TAB PO SCH (08:33)
[2016-06-18] MEDS: CYCLOBENZAPRINE 10 MG TAB PO SCH ×3 (08:33→21:18)
[2016-06-18] MEDS: B COMPLEX-VIT C-VIT E-ZINC 1 EACH TAB PO SCH (08:33)
[2016-06-18] MEDS: MELOXICAM 7.5 MG TAB PO SCH (08:33)
[2016-06-18] MEDS: ESCITALOPRAM 20 MG TAB PO SCH (08:33)
[2016-06-18] MEDS: DIAZEPAM 5 MG TAB PO SCH ×2 (08:33→21:18)
[2016-06-18] MEDS: MORPHINE SULFATE ER 30 MG TABLET PO SCH ×3 (08:34→23:57)
[2016-06-18] MEDS: IPRATROPIUM-ALBUTEROL 3 ML NEB INHALATION SCH ×4 (08:54→20:52)
[2016-06-18] MEDS: BUDESONIDE 0.5 MG/2 ML NEBU INHALATION SCH ×2 (08:54→20:52)
[2016-06-18 10:51] LABS: Add Differential Manual Differential; Manual Review Performed
[2016-06-18 10:53] LABS: Nucleated Red Blood Cells 0 /100 WBC (0-0)
[2016-06-18 10:55] LABS: Total Cells Counted 200; Toxic Granulation Present
[2016-06-18] MEDS: CHOLECALCIFEROL 1,000 UNIT TAB PO SCH (12:14)
[2016-06-18] MEDS: FOLIC ACID 1 MG TAB PO SCH (12:14)
[2016-06-18] MEDS: SODIUM CHLORIDE 0.9% 1,000 ML IV SCH (12:14)
[2016-06-18] MEDS: MULTIVITAMINS, THERA 1 EACH TAB PO SCH (12:14)
[2016-06-18 14:40] LABS: Anion Gap 9 mmol/L; Blood Urea Nitrogen 8 mg/dL (9-20); Calcium 8.1 mg/dL (8.4-10.2); Carbon Dioxide 27 mmol/L (22-30); Chloride 101 mmol/L (98-107); Glucose 94 mg/dL (74-99); Non-African American GFR(MDRD) >60 (>60 ml/min/1.73 sqM); Potassium 4.1 mmol/L (3.5-5.1); Sodium 137 mmol/L (137-145)
--- NOTE | 2016-06-18 16:06 | P.PN ---
Subjective Patient is a 66-year-old male with medical history for stage IV lung cancer with bone metastasis. Patient recently hospitalized from 05/23/2016 to 06/02/2016 with severe sepsis secondary to left lower lobe pneumonia, acute exacerbation of COPD, and intractable pain secondary to neoplasm. Patient presented to the hospital with complaints of falling down from a standing position, no reported history of loss of consciousness. Patient did sustain a laceration over his left eyebrow. Per medical records, reports that patient became slightly dizzy and fell after he took his pain medications and when she recorded his blood pressure it was 80/60. EKG and admission showed normal sinus rhythm. Chest x-ray with no acute process. CT cervical spine with no acute fracture, metastatic, centrally necrotic 3.1 cm lymph node in the right lateral mid neck, metastatic disease to posterior right apex. CT head with no acute intracranial abnormality seen. Patient with evidence of leukocytosis, anemia with hemoglobin of 7.8, calcium 7.9, total protein 4.9, albumin 2.3. Troponins less than 0.012. Vitals on admission temperature 97.9, heart rate 91, respiratory rate 14, blood pressure 93/50, oxygen saturation 92% on room air. Patient did receive 1 unit of PRBC in the emergency department and was rehydrated with 1 L of IV fluids. Patient was transferred to the oncology floor with consult requested for oncology service. 06/17/2016: Patient is evaluated on the oncology floor where he is currently lying in bed. Patient apparently was scheduled for MRI yesterday but became claustrophobic and was unable to complete exam. No new specific complaints overnight. Patient states he "feels down and depressed." 06/18/2016: Patient is evaluated on the oncology floor is currently lying in bed. Nurse reports that patient got up last night and fell, according to patient he tripped over his own feet. No other specific complaints overnight. Patient is scheduled to undergo an MRI of his pelvis today. Objective - Vital Signs Vital signs: Vital Signs Temp 97.2 F L 06/18/16 15:00 Pulse 98 06/18/16 15:00 Resp 18 06/18/16 15:00 BP 117/70 06/18/16 15:00 Pulse Ox 92 L 06/18/16 15:00 Intake & Output 06/17/16 06/18/16 06/18/16 18:59 06:59 18:59 Intake Total 800 2150 1190 Balance 800 2150 1190 Weight 71.214 kg Intake: IV 800 400 800 Sodium Chloride 0.9% 1, 800 400 800 000 ml @ 100 mls/hr IV . Q10H [facility] Rx#:[id number] Intake, IV Titration 800 Amount Sodium Chloride 0.9% 1, 800 000 ml @ 100 mls/hr IV . Q10H [facility] Rx#:[id number] Oral 950 390 Other: # Voids 1 2 # Bowel Movements 1 1 - Exam GENERAL: Pt awake and alert, lying in bed, in no acute distress. HEAD: Atraumatic, normocephalic. EYES: Conjunctiva are normal. ENT: Moist mucous membranes. NECK:Supple without lymphadenopathy or JVD. LUNGS: Breath sounds diminished with minimal expiratory wheeze. HEART: Heart S1, S2, no S3 or S4. Regular rate and rhythm. No murmurs, rubs or gallops. ABDOMEN: Soft, nontender, nondistended, normoactive bowel sounds. EXTREMITIES: 2+ peripheral pulses. No edema. No calf tenderness. NEUROLOGICAL: Pt oriented x 3. Cranial nerves II through XII grossly intact. Strength and sensation grossly intact. PSYCH: Calm. SKIN: Warm, dry, pale. Laceration above left eyebrow. Sutures intact. No erythema or purulent drainage. - Labs CBC & Chem 7: 06/18/16 08:15 06/18/16 08:15 Labs: Abnormal Lab Results - Last 24 Hours (Table) 06/18/16 06/18/16 Range/Units 08:15 08:15 WBC 22.6 H (3.8-10.6) k/uL RBC 3.15 L (4.30-5.90) m/uL Hgb 9.4 L (13.0-17.5) gm/dL Hct 30.8 L (39.0-53.0) % MCHC 30.3 L (31.0-37.0) g/dL RDW 16.3 H (11.5-15.5) % Neutrophils # (Manual) 21.4 H (1.3-7.7) k/uL Lymphocytes # (Manual) 0.5 L (1.0-4.8) k/uL BUN 8 L (9-20) mg/dL Creatinine 0.50 L (0.66-1.25) mg/dL Calcium 8.1 L (8.4-10.2) mg/dL Assessment and Plan Plan: Impression: 1. Bilateral lower extremity weakness suspect secondary to hypotension secondary to dehydration; possible anemia; and medication, present on admission , improved. 2. Anemia secondary to chronic disease. 3. Stage IV non-small cell lung cancer with metastasis to bone. 4. Intractable pain secondary to neoplasm. 5. Chronic obstructive pulmonary disease. 6. Medical debility and generalized weakness with chronic protein calorie malnutrition. 7. Depression. 8. Gait dysfunction. Maintain fall precautions. Continue physical therapy. Plan: Continue to monitor patient. Continue current medications. Continue IV hydration. Oncology consult in place, recommendations noted. Patient is scheduled for an MRI of pelvis. Continue supportive treatment and pain management. Continue GI and DVT prophylaxis. Repeat CBC and CMP in a.m. The above impression and plan have been discussed and directed by Dr. Koehler. Anna RAMIREZ acting as scribe for Dr. Koehler.
[2016-06-18] MEDS ORDERED: LORazepam 2 MG/ML SYRINGE IV ONE (18:45)
[2016-06-18] MEDS: FAMOTIDINE 20 MG TAB PO SCH (21:18)
[2016-06-18] MEDS: MONTELUKAST 10 MG TAB PO SCH (21:18)
--- NOTE | 2016-06-18 22:38 | MR ---
EXAMINATION TYPE: MR pelvis wo/w con DATE OF EXAM: 06/18/2016 8:26 PM COMPARISON: CT [facility] April 15, 2016 HISTORY: lower extremity weakness per order. History of testicular cancer and metastatic lung cancer CONTRAST: Standard multiplanar, multisequence MRI departmental protocol utilizing 14 mL intravenous MultiHance gadolinium contrast. Imaging is performed of the pelvis. FINDINGS: Exam is suboptimal due to to inhomogeneous fat saturation as well as artifact degradation. Bone marrow signal intensity shows overall marked heterogeneity consistent with red marrow reconversi on. There is suspicious lesion in the right iliac bone at level of sacroiliac joint with anterior cor tical breakthrough and intrapelvic extension seen best image 21 series 801 consistent with ossific me tastatic disease redemonstrated. I do suspect some additional ossific metastatic lesions though artif act degradation is present. For reference new lesion left ischial tuberosity is present on image 11 s eries 801. There is suggestion of a left gluteal lesion on image 22 series 1001 for example but this is not repr oduced on all imaging sequences and favored artifactual. There is probable new enhancing 2.2 cm lesion left groin region near the bladder on image 15 series 1 001 separate from bowel loop There is asymmetric small to moderate-sized right hip joint effusion. Bladder is felt within normal limits. Prostate gland is not enlarged. IMPRESSION: There is suspected interval metastatic disease progression with new enhancing lesion just above left groin region adjacent to anterolateral bladder wall. There is increase in size of known r ight medial iliac ossific lesion with several new ossific metastatic foci likely present. Consider re peat CT and/or bone scan correlation to confirm.
[2016-06-19] MEDS: HYDROmorphone 2 MG TAB PO PRN ×2 (01:17→19:08)
[2016-06-19] MEDS: ACETAMINOPHEN TAB 325 MG TAB PO PRN (05:34)
[2016-06-19] MEDS: SODIUM CHLORIDE 0.9% 1,000 ML IV SCH ×3 (06:21→21:29)
[2016-06-19] MEDS: MORPHINE SULFATE ER 30 MG TABLET PO SCH ×3 (07:47→23:46)
[2016-06-19] MEDS: DIAZEPAM 5 MG TAB PO SCH ×2 (07:47→20:34)
[2016-06-19] MEDS: ASCORBIC ACID 500 MG TAB PO SCH (07:48)
[2016-06-19] MEDS: B COMPLEX-VIT C-VIT E-ZINC 1 EACH TAB PO SCH (07:48)
[2016-06-19] MEDS: CYCLOBENZAPRINE 10 MG TAB PO SCH ×3 (07:49→20:34)
[2016-06-19] MEDS: MELOXICAM 7.5 MG TAB PO SCH (07:49)
[2016-06-19] MEDS: ESCITALOPRAM 20 MG TAB PO SCH (07:49)
[2016-06-19 08:24] LABS: Anisocytosis Slight; CH 29.5; CHCM 30.5; HCT 30.9 % (39.0-53.0); HDW 2.91; HGB 9.6 gm/dL (13.0-17.5); Hypochromasia Moderate; MCH 29.9 pg (25.0-35.0); MCHC 30.9 g/dL (31.0-37.0); MCV 96.9 fL (80.0-100.0); Macrocytosis Slight; Mean Platelet Volume 7.1; RBC 3.19 m/uL (4.30-5.90); RDW 16.4 % (11.5-15.5); WBC 22.9 k/uL (3.8-10.6); WBC (Perox) 25.96
[2016-06-19 08:36] LABS: Anion Gap 9 mmol/L; Blood Urea Nitrogen 12 mg/dL (9-20); Carbon Dioxide 24 mmol/L (22-30); Chloride 104 mmol/L (98-107); Glucose 106 mg/dL (74-99); Non-African American GFR(MDRD) >60 (>60 ml/min/1.73 sqM); Potassium 3.9 mmol/L (3.5-5.1); Sodium 137 mmol/L (137-145)
[2016-06-19] MEDS: IPRATROPIUM-ALBUTEROL 3 ML NEB INHALATION SCH ×4 (09:06→20:56)
[2016-06-19] MEDS: BUDESONIDE 0.5 MG/2 ML NEBU INHALATION SCH ×2 (09:06→20:56)
[2016-06-19 09:37] LABS: Glucose,Whole Blood 131 mg/dL (75-99)
--- NOTE | 2016-06-19 10:39 | XR ---
EXAMINATION TYPE: XR chest 2V DATE OF EXAM: 06/19/2016 10:34 AM COMPARISON: 06/15/2016 INDICATION: Fever TECHNIQUE: Frontal and lateral views of the chest are obtained. FINDINGS: The heart size is normal. The pulmonary vasculature is normal. There is improving retrocardiac infiltrate. Residual remains. Continued follow-up is recommended.. IMPRESSION: 1. Resolving left base infiltrate. Pneumonia is within the differential. Continued follow-up is recom mended
[2016-06-19 10:42] LABS: Add Differential Manual Differential
[2016-06-19 10:44] LABS: Manual Review Performed; Nucleated Red Blood Cells 0 /100 WBC (0-0); Total Cells Counted 100
[2016-06-19] MEDS: FOLIC ACID 1 MG TAB PO SCH (12:10)
[2016-06-19] MEDS: CHOLECALCIFEROL 1,000 UNIT TAB PO SCH (12:10)
[2016-06-19] MEDS: MULTIVITAMINS, THERA 1 EACH TAB PO SCH (12:10)
[2016-06-19 12:48] LABS: Appearance,Urine Clear (Clear); Bilirubin,Urine Negative (Negative); Glucose,Urine (UA) Negative (Negative); Ketones,Urine Negative (Negative); Leukocyte Esterase,Urine Negative (Negative); Nitrite,Urine Negative (Negative); PH, Urine 6.5 (5.0-8.0); Protein,Urine Negative (Negative); UA Billing (MACRO vs. MICRO) CHEM; Urobilinogen,Urine <2.0 mg/dL (<2.0)
--- NOTE | 2016-06-19 13:14 | P.PN ---
Subjective Pt seen today in f/u, he states he ate most of his breakfast, he did get up with PT yesterday, he is still having persistent pain in his low back and his legs. Objective - Vital Signs Vital signs: Vital Signs Temp 98.7 F 06/19/16 07:00 Pulse 92 06/19/16 12:30 Resp 14 06/19/16 12:30 BP 106/63 06/19/16 12:30 Pulse Ox 93 L 06/19/16 07:00 Intake & Output 06/18/16 06/19/16 06/19/16 18:59 06:59 18:59 Intake Total 1190 1390 Balance 1190 1390 Weight 71.214 kg 71.214 kg Intake: IV 800 800 Sodium Chloride 0.9% 1, 800 800 000 ml @ 100 mls/hr IV . Q10H [facility] Rx#:[id number] Oral 390 590 Other: Voiding Method Toilet Toilet # Voids 3 - Constitutional General appearance: Present: average body habitus, cooperative - EENT EENT Comment(s): dry mouth Eyes: Present: normal appearance - Respiratory Respiratory: bilateral: CTA - Cardiovascular Heart sounds: normal: S1, S2 - Peripheral edema foot Peripheral Edema: bilateral: Trace - Gastrointestinal General gastrointestinal: Present: normal bowel sounds, soft. Absent: absent bowel sounds, decreased bowel sounds, distended, hepatomegaly, hyperactive bowel sounds, organomegaly, rigid, scaphoid, splenomegaly, tenderness, umbilical hernia, ventral hernia - Integumentary Integumentary: Present: pale - Neurologic Neurologic: Present: CNII-XII intact - Musculoskeletal Musculoskeletal: Present: generalized weakness - Psychiatric Psychiatric Comment(s): flat affect - Labs CBC & Chem 7: 06/19/16 08:04 06/19/16 08:04 Labs: Abnormal Lab Results - Last 24 Hours (Table) 06/18/16 06/19/16 06/19/16 Range/Units 08:15 08:04 08:04 WBC 22.9 H (3.8-10.6) k/uL RBC 3.19 L (4.30-5.90) m/uL Hgb 9.6 L (13.0-17.5) gm/dL Hct 30.9 L (39.0-53.0) % MCHC 30.9 L (31.0-37.0) g/dL RDW 16.4 H (11.5-15.5) % Neutrophils # (Manual) 21.8 H (1.3-7.7) k/uL Lymphocytes # (Manual) 0.2 L (1.0-4.8) k/uL BUN 8 L (9-20) mg/dL Creatinine 0.50 L 0.56 L (0.66-1.25) mg/dL Glucose 106 H (74-99) mg/dL POC Glucose (mg/dL) (75-99) mg/dL Calcium 8.1 L 8.0 L (8.4-10.2) mg/dL 06/19/16 Range/Units 09:34 WBC (3.8-10.6) k/uL RBC (4.30-5.90) m/uL Hgb (13.0-17.5) gm/dL Hct (39.0-53.0) % MCHC (31.0-37.0) g/dL RDW (11.5-15.5) % Neutrophils # (Manual) (1.3-7.7) k/uL Lymphocytes # (Manual) (1.0-4.8) k/uL BUN (9-20) mg/dL Creatinine (0.66-1.25) mg/dL Glucose (74-99) mg/dL POC Glucose (mg/dL) 131 H (75-99) mg/dL Calcium (8.4-10.2) mg/dL - Imaging and Cardiology MRI - abdomen: report reviewed MRI lumbar spine report reviewed Assessment and Plan (1) Anemia Narrative/Plan: Pt has chronic multifactorial anemia,no need for transfusion today Status: Chronic (2) Dehydration Status: Acute (3) Lung cancer metastatic to bone Narrative/Plan: MRI reports reviewed. Pt was only recently started on nivolumab and has only had 2 cycles. The progression on imaging could be progression from prior to starting new therapy, also with immunotherapy imaging too early in treatment can give false positive results. There results will be reviewed with Dr. Polk and I will plan a meeting with pt and to discuss his recommendations. Status: Acute (4) Generalized weakness Narrative/Plan: It is clear that the pt needs physical therapy and pain control which is challenging as his pain keeps him from being active. Have discussed the case with PT, will review options with pt and at meeting. Status: Chronic Plan: Nursing contacted our service about 1245 with concerns for tachycardia, tamp 99.9F and confusion per pt . Pancultures ordered and MRI of the brain requested.
--- NOTE | 2016-06-19 14:48 | CDI ---
In responding to this query, please exercise your independent professional judgment. The [facility] Coding Staff and Clinical Documentation Specialists appreciate your assistance in clarifying documentation, maintaining compliance with coding guidelines, accurately documenting patients condition and capturing severity of illness. The fact that a question is asked does not imply that any particular answer is desired or expected. Communication forms are a method of clarifying documentation and are not made part of the Legal Health Record. Thank you in advance for your clarification. Last Revision, March 2015 Augustin Dai [address] [facility] [place] [address] Documentation Clarification Form Date: 06/19/2016 2:21:00 PM From: Carolynnarciso Fournier Admit Date: 06/15/2016 11:05:00 PM Patient Name: Rafi Cutler Visit Number: [id number] Discharge Date: Dr. Jermaine Salazar/Siria Smyth EMERGENCY MEDICAL TECHNICIAN-C A diagnosis of anemia, multifactorial lacks specificity to accurately reflect your patients severity of condition and clarification is needed. Patient history/risk factors: Lung Cancer with metastatic to bone, Asthma, COPD , Hypertension, Sleep Apnea Clinical indicators: complaint of fall form standing after taking pain meds became slightly dizzy. Family took his blood pressure and reported to be 80/60 ER Vital signs: 93/50 91 14 97.7 92 % RA Hemoglobin: 7.8 Hematocrit: 25.8 Treatment: Transfused 1 units of PRBCs, Monitoring labs) IV Fluid Orthostatic BP In order to capture the severity of condition, please further clarify the type of anemia and etiology if known: Acute blood loss anemia Acute on chronic blood loss anemia Chronic blood loss anemia Iron deficiency anemia Hemolytic anemia Drug induced anemia Anemia due to malignancy Nutritional anemia Anemia of chronic kidney disease Unable to determine Other, please specify Please document in your progress notes in order to capture severity of illness and risk of mortality. Include clinical findings that support your diagnosis. FYI: Press F11 to launch patient chart. Place X here if this finding has no clinical significance, is not applicable or if you are not able to provide any additional documentation. MTDD
--- NOTE | 2016-06-19 16:17 | P.PN ---
Subjective Patient is a 66-year-old male with medical history for stage IV lung cancer with bone metastasis. Patient recently hospitalized from 05/23/2016 to 06/02/2016 with severe sepsis secondary to left lower lobe pneumonia, acute exacerbation of COPD, and intractable pain secondary to neoplasm. Patient presented to the hospital with complaints of falling down from a standing position, no reported history of loss of consciousness. Patient did sustain a laceration over his left eyebrow. Per medical records, reports that patient became slightly dizzy and fell after he took his pain medications and when she recorded his blood pressure it was 80/60. EKG and admission showed normal sinus rhythm. Chest x-ray with no acute process. CT cervical spine with no acute fracture, metastatic, centrally necrotic 3.1 cm lymph node in the right lateral mid neck, metastatic disease to posterior right apex. CT head with no acute intracranial abnormality seen. Patient with evidence of leukocytosis, anemia with hemoglobin of 7.8, calcium 7.9, total protein 4.9, albumin 2.3. Troponins less than 0.012. Vitals on admission temperature 97.9, heart rate 91, respiratory rate 14, blood pressure 93/50, oxygen saturation 92% on room air. Patient did receive 1 unit of PRBC in the emergency department and was rehydrated with 1 L of IV fluids. Patient was transferred to the oncology floor with consult requested for oncology service. 06/17/2016: Patient is evaluated on the oncology floor where he is currently lying in bed. Patient apparently was scheduled for MRI yesterday but became claustrophobic and was unable to complete exam. No new specific complaints overnight. Patient states he "feels down and depressed." 06/18/2016: Patient is evaluated on the oncology floor is currently lying in bed. Nurse reports that patient got up last night and fell, according to patient he tripped over his own feet. No other specific complaints overnight. Patient is scheduled to undergo an MRI of his pelvis today. 06/19/2016: Patient is evaluated on the oncology floor where he is currently sitting at bedside. Patient states he is in the hospital but unable to state year or month. Patient needs assistance in urinating and appears very confused. Nurse reports that patient had a fever this morning and was given Tylenol a little while later he was soaked in sweat per nurse. Chest x-ray was obtained with evidence of resolving left base infiltrate. Urinalysis with no evidence of infection. White count increased to 22.9. Hemoglobin 9.6. Hematology is following patient, notes reviewed. Objective - Vital Signs Vital signs: Vital Signs Temp 98.7 F 06/19/16 07:00 Pulse 92 06/19/16 12:30 Resp 14 06/19/16 12:30 BP 106/63 06/19/16 12:30 Pulse Ox 93 L 06/19/16 07:00 Intake & Output 06/18/16 06/19/16 06/19/16 18:59 06:59 18:59 Intake Total 1190 1390 Output Total 700 Balance 1190 1390 -700 Weight 71.214 kg 71.214 kg Intake: IV 800 800 Sodium Chloride 0.9% 1, 800 800 000 ml @ 100 mls/hr IV . Q10H [facility] Rx#:[id number] Oral 390 590 Output: Urine 700 Other: Voiding Method Toilet Toilet # Voids 3 - Exam GENERAL: Pt awake but despondent, sitting on side of bed but needs assistance not to fall, appears confused. HEAD: Atraumatic, normocephalic. EYES: Conjunctiva are normal. ENT: Moist mucous membranes. NECK:Supple without lymphadenopathy or JVD. LUNGS: Breath sounds diminished. HEART: Heart S1, S2, no S3 or S4. Regular rate and rhythm. No murmurs, rubs or gallops. ABDOMEN: Soft, nontender, nondistended, normoactive bowel sounds. EXTREMITIES: 2+ peripheral pulses. No edema. No calf tenderness. NEUROLOGICAL: Pt oriented x 1. No focal deficits. Decreased body strength to upper and lower extremities. PSYCH: Despondent. SKIN: Warm, dry, pale. Laceration above left eyebrow. Sutures intact. No erythema or purulent drainage. - Labs CBC & Chem 7: 06/19/16 08:04 06/19/16 08:04 Labs: Abnormal Lab Results - Last 24 Hours (Table) 06/19/16 06/19/16 06/19/16 Range/Units 08:04 08:04 09:34 WBC 22.9 H (3.8-10.6) k/uL RBC 3.19 L (4.30-5.90) m/uL Hgb 9.6 L (13.0-17.5) gm/dL Hct 30.9 L (39.0-53.0) % MCHC 30.9 L (31.0-37.0) g/dL RDW 16.4 H (11.5-15.5) % Neutrophils # (Manual) 21.8 H (1.3-7.7) k/uL Lymphocytes # (Manual) 0.2 L (1.0-4.8) k/uL Creatinine 0.56 L (0.66-1.25) mg/dL Glucose 106 H (74-99) mg/dL POC Glucose (mg/dL) 131 H (75-99) mg/dL Calcium 8.0 L (8.4-10.2) mg/dL - Imaging and Cardiology MRI of pelvis and MRI of lumbar spine reviewed. Assessment and Plan Plan: Impression: 1. Acute metabolic encephalopathy, etiology unclear at this time, possible infectious or cancer related. 2. Bilateral lower extremity weakness suspect secondary to hypotension secondary to dehydration; possible anemia; and medication, present on admission , improved. 2. Anemia secondary to chronic disease. 3. Stage IV non-small cell lung cancer with metastasis to bone. 4. Intractable pain secondary to neoplasm. 5. Chronic obstructive pulmonary disease. 6. Medical debility and generalized weakness with chronic protein calorie malnutrition. 7. Depression. 8. Gait dysfunction. Plan: Continue to monitor patient. Will consult Dr. Latham from infectious disease service. Patient is scheduled to undergo MRI of brain. Continue current medications. Continue IV hydration. Oncology consult in place, recommendations noted. Continue supportive treatment and pain management. Continue GI and DVT prophylaxis. Repeat CBC and BMP in a.m. The above impression and plan have been discussed and directed by Dr. Koehler. Anna RAMIREZ acting as scribe for Dr. Koehler.
[2016-06-19] MEDS: MONTELUKAST 10 MG TAB PO SCH (20:34)
[2016-06-19] MEDS: FAMOTIDINE 20 MG TAB PO SCH (20:34)
--- NOTE | 2016-06-19 21:14 | MR ---
EXAMINATION TYPE: MR brain wo/w con DATE OF EXAM: 06/19/2016 7:49 PM COMPARISON: January 15, 2016 MRI, CT examination June 15, 2016 HISTORY: Confusion, lung ca with mets CONTRAST: Standard multiplanar, multisequence MRI departmental protocol utilizing 14 mL intravenous M ultiHance gadolinium contrast. FINDINGS: There is no restricted diffusion to suggest acute or subacute infarction. No abnormal gadol inium contrast enhancement. No focal lesions. The previously seen nonspecific T2 prolongation within the deep white matter is unaltered. Skeletal structures and visualized extracalvarial structures are unremarkable. IMPRESSION: NO ACUTE PROCESS OR FOCAL FINDINGS. STABLE APPEARANCE COMPARED TO THE MRI EVALUATION OF 2015.
--- NOTE | 2016-06-19 22:53 | CONS ---
DATE OF CONSULTATION: 06/19/2016 REASON FOR CONSULTATION: Fever and a question of pneumonia. HISTORY OF PRESENT ILLNESS: The patient is a 66-year-old male with a past medical history significant for stage IV lung cancer with metastases to the bone. Patient did have recent multiple admissions to the hospital. The last one was from May 23 to June 02, 2016, when the patient was treated for left lobe pneumonia thought to be secondary to underlying resistant Gram-positive and Gram-negative, and was treated with vancomycin and Zosyn; however, it is not very clear which antibiotic the patient was discharged home on. The patient has now been brought to the ER by the family on June 15, 2016, with the chief complaint that the patient did have multiple falls and has been feeling very weak and dizzy. He did have a fall with laceration to the left eyebrow; at home was noticed to have a blood pressure of 80/60. Subsequently the patient was evaluated and admitted to hospital. He did have an admission chest x-ray that was reported to be negative. He did have an elevated white count of 18,000 on admission. Today the patient was noticed to have a fever of 99.9. Chest x-ray was done today which is now showing a resolving left lower lobe pneumonia, but there was no mention of pneumonia on the x-ray that was done on June 15, 2016. He did have blood and urine cultures obtained. I was asked to see the patient for further recommendations regarding antibiotics. At time of my evaluation early this afternoon the patient was more sleepy, lethargic, and did not answer any questions to me. Most of the information has been obtained from review of the chart and talking to the family present at the bedside; however, they did mention specifically that the patient did not have any difficulty swallowing or any choking on food; they have not noticed any significant cough, sputum production or any abdominal pain. Review of systems could not be reliably obtained, but the positives have been mentioned in the HPI. Past medical history is significant for: 1. Stage IV lung cancer with metastases to the bone. 2. History of pneumonia. 3. Hypertension. 4. Osteoarthritis. 5. Sleep apnea. 6. Asthma. PAST SURGICAL HISTORY: 1. Cervical fusion. 2. Right thumb fracture repair. 3. Left tibial/fibular and ankle fracture with surgery. 4. Colonoscopy. 5. Polypectomy. SOCIAL HISTORY: Remote history of smoking; quit back last year. history of marijuana use. FAMILY HISTORY: Father with history of cancer and thyroid disorder. ALLERGIES: 1. CLONAZEPAM. 2. LATEX. 3. NAPROXEN. 4. ZOFRAN. 5. TOPAMAX. Medications currently include: 1. Tylenol. 2. DuoNeb. 3. Vitamin C. 4. Pulmicort. 5. Vitamin D3. 6. Flexeril. 7. Valium. 8. Lexapro. 9. Pepcid. 10. Dilaudid. 11. Mobic. 12. Singulair. 13. MS Contin. 14. Theragran. On examination, blood pressure is 104/61 with a pulse of 91, temperature 96.4. T-max is 99.9. He is 97% on room air. General description is a middle-aged male lying in bed in no distress. HEENT examination shows pallor. No scleral icterus. Oral mucous membrane dry. NECK: Trachea is central. No thyromegaly. LUNGS: Unlabored breathing with decreased breath sounds at the bases. No wheeze. CONSULT REDICTATED MTDD
[2016-06-19] MEDS: PIPERACILLIN-TAZOBACTAM 3.375 GM in DEXTROSE/WATER 1 50ML.BAG IVPB SCH (23:45)
[2016-06-20] MEDS: HYDROmorphone 2 MG TAB PO PRN ×3 (03:18→18:16)
--- NOTE | 2016-06-20 06:44 | P.CONS ---
History of Present Illness - Chief Complaint Medical debility - History of Present Illness I had adapted see patient for inpatient rehab consultation with regard to medical debility. Patient admitted to [facility] June 15 with pulmonary cancer stage IV and metastases. Admitted with sepsis and left lower lobe pneumonia. Chest x-rays followed and document decreasing left lower lobe infiltrate. Head CT with her right neck 3.1 cm lymph node. Lumbar MRI with herniations L3-S1 with right-sided stenosis at L4, 5. Pelvic MRI with suspected changes in medicines case his. PT just prescribed. I have added OT. Previous functional history: As elicited from patient. 66-year-old right- handed white male who is lives and 2 floor home with . Retired. History smoking remote past. Doesn't drink. does the cooking and laundry now does the driving. Patient describes independent with standing shower and gait with 4 wheeled walker. Does have standard cane. Regular doctors Dr. Koehler. Family history of father of heart attack. Review of Systems Review of systems: ENT: Denies sneezes or discharge. Eyes: Denies discharge or photophobia. Cardiac: Denies chest pain or palpitation. Pulmonary: Denies cough or shortness of breath. Gastrointestinal: Denies nausea, emesis, constipation, diarrhea. Genitourinary: Denies discharge or frequency. Musculoskeletal: Some back discomfort. Neurologic: At least mild generalized weakness. Endocrine: Denies shakes or sweats. Oncology: Denies cancers. Dermatologic: Denies rash, itching, pruritus. ALLERGY/immunology: Denies sneezes, rashes. 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 removed spur from neck. right ORCHECTOMY with right LYMPH NODES REMOVED and adrenal glands removed. metal clips and david in abdominal area secondary to surgery from cancer, RT KNEE X2 cyst removed ,SKIN CA REMOVED RT SIDE OF FACE 2001. right thumb fracture with surgery. 2004 left tib/fib and ankle fractures with surgery, colonoscopies/benign polypectomy. Past Anesthesia/Blood Transfusion Reactions: No Reported Reaction Additional Past Anesthesia/Blood Transfusion Reaction / Comm: Pt states he has received blood in past without reaction. Past Psychological History: Anxiety, Depression Additional Psychological History / Comment(s): Pt resides with his spouse. He uses a cane on occasion. He drives. Denies alcohol use. 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 No experience. No international travel. No current exposures. No recreational drug use or alcohol use Smoking Status: Former smoker Past Alcohol Use History: None Reported Additional Past Alcohol Use History / Comment(s): Pt states he started smoking in 1959. He is less than a ppd smoker at this time. Estimates was approximately 1 pack per day throughout most of life. pt states he quit smoking 12 days ago from 05/23/15 Past Drug Use History: Marijuana - Past Family History Father Family Medical History: Cancer, Thyroid Disorder Additional Family Medical History / Comment(s): Father had skin cancer. He also had heart disease. He at the age of 95 yrs. Mother Family Medical History: Cancer, COPD, Hypertension Additional Family Medical History / Comment(s): Mother had breast cancer. She at the age of 84 yrs. Medications and Allergies Home Medications Medication Instructions Recorded Confirmed Type Escitalopram [Lexapro] 20 mg PO DAILY 12/17/15 06/16/16 History Cholecalciferol [Vitamin D3] 5,000 unit PO DAILY 03/13/16 06/16/16 History Ascorbic Acid [Vitamin C] 500 mg PO DAILY 05/12/16 06/16/16 History Cyclobenzaprine [Flexeril] 10 mg PO TID 05/12/16 06/16/16 History Flax Larios Lignans 1 tab PO DAILY 05/12/16 06/16/16 History Multivitamins, Thera [Multivitamin] 1 tab PO DAILY 05/12/16 06/16/16 History [place] 3,6,9 1 cap PO DAILY 05/12/16 06/16/16 History Opdivo(Unknown) 1 dose IV Q14D 05/12/16 06/16/16 History Vitamin B Complex 1 cap PO DAILY 05/12/16 06/16/16 History Albuterol Nebulized [Ventolin 2.5 mg INHALATION RT-Q6H PRN 06/16/16 06/16/16 History Nebulized] Allergies Allergy/AdvReac Type Severity Reaction Status Date / Time adhesive Allergy Rash/Hives Verified 06/16/16 07:18 clonazepam [From Klonopin] Allergy Unknown Verified 06/16/16 07:18 latex Allergy Rash/Hives Verified 06/16/16 07:18 naproxen [From Naprosyn] Allergy Rash/Hives Verified 06/16/16 07:18 ondansetron Allergy Unknown Verified 06/16/16 07:18 prochlorperazine Allergy Unknown Verified 06/16/16 07:18 topiramate Allergy Blisters Verified 06/16/16 07:18 buprenorphine AdvReac Nausea Verified 06/16/16 07:18 myceline Allergy Unknown Uncoded 05/12/16 19:13 Physical Exam Vitals: Vital Signs Temp Pulse Pulse Resp BP BP Pulse Ox 06/19/16 22:32 97.5 F L 111 H 16 118/62 96 06/19/16 15:00 96.4 F L 91 20 104/61 97 06/19/16 12:30 92 14 106/63 06/19/16 11:00 95 06/19/16 09:19 96 06/19/16 09:07 96 06/19/16 07:00 98.7 F 118 H 20 108/62 93 L Intake and Output 06/19/16 06/19/16 06/20/16 14:59 22:59 06:59 Intake Total 590 800 Output Total 700 Balance -700 590 800 Intake: IV 800 Sodium Chloride 0.9% 1, 800 000 ml @ 100 mls/hr IV . Q10H [facility] Rx#:[id number] Oral 590 Output: Urine 700 Other: Voiding Method Toilet Toilet Toilet # Voids 2 3 # Bowel Movements 1 Weight 71.214 kg 71.214 kg 71.214 kg Patient Weight 06/20/16 06:59 Weight 71.214 kg Skin: Good color, texture, turgor. General: Overweight and comfortable appearance but sleepy. Head: Normocephalic, atraumatic. Eyes: Symmetric. Pupils equal round. Ears: Symmetric. Hearing within normal limits. Mouth: Clear. Neck: Supple. Carotid without bruit. Cardiac: Regular rate and rhythm. Lungs: Clear anteriorly and posteriorly. Abdomen: Soft active nontender overweight. Extremities: Normal tone. Mild edema forelegs and feet. Arthritic changes consistent with age. Neurological: Mental status: Alert, cooperative, pleasant. Cranial nerves: Symmetric facial tone and trapezius. Motor: Actively elevates all limbs off of bed. Sensation: Intact throughout. DTRs: Symmetric and equal throughout. Mobility: Did not attempt to sit or stand this a.m. Results CBC & Chem 7: 06/19/16 08:04 06/19/16 08:04 Labs: Abnormal Lab Results - Last 24 Hours (Table) 06/19/16 06/19/16 06/19/16 Range/Units 08:04 08:04 09:34 WBC 22.9 H (3.8-10.6) k/uL RBC 3.19 L (4.30-5.90) m/uL Hgb 9.6 L (13.0-17.5) gm/dL Hct 30.9 L (39.0-53.0) % MCHC 30.9 L (31.0-37.0) g/dL RDW 16.4 H (11.5-15.5) % Neutrophils # (Manual) 21.8 H (1.3-7.7) k/uL Lymphocytes # (Manual) 0.2 L (1.0-4.8) k/uL Creatinine 0.56 L (0.66-1.25) mg/dL Glucose 106 H (74-99) mg/dL POC Glucose (mg/dL) 131 H (75-99) mg/dL Calcium 8.0 L (8.4-10.2) mg/dL Microbiology - Last 24 Hours (Table) 06/19/16 12:30 Urine Culture - Preliminary Urine,Voided Chest x-ray: report reviewed (Decreasing left lower lobe infiltrate) Assessment and Plan (1) History of lung cancer Status: Acute Plan: Impression: 1. Medical debility. 2. Left lower lobe infiltrate/pneumonia with sepsis. 3. Pulmonary cancer with metastatic stasis. 4. Exacerbation low back pain. 5. Sleep apnea. 6. Osteoarthritis. 7. COPD. 8. Hypertension. Comments and plan: At this time physical and occupational therapies are prescribed. Follow therapies with yourself for safety concerns and possible need and benefit of inpatient rehab. We'll also need to know any future oncology treatment plan.
--- NOTE | 2016-06-20 07:33 | CONS ---
DATE OF CONSULTATION: DATE OF SERVICE: 06/19/2016 REASON FOR CONSULTATION: Pneumonia. HISTORY OF PRESENT ILLNESS: The patient is a 66-year-old male with a past medical history significant for metastatic lung cancer with mets to the bone with recent multiple admissions to the [facility] last one was from May 23 to June 02, 2016 where the patient was treated for pneumonia. The patient has now been brought back to the [facility] ER on 06/15/2016 after the patient had been falling at home with a recent fall with laceration to the left eyebrow area. No loss of consciousness. The patient was noticed to be hypotensive on admission and did require fluid resuscitation. The patient did have an elevated white count of 18,000 and the chest x-ray reported negative for any acute infiltrate. The patient did spike a fever of 99.9 this morning for which the patient did receive a dose of Tylenol. Patient subsequently was noticed to be drenched in sweat. Followup x-ray was done which is now showing a resolving left-sided pneumonia though no pneumonia was reported on admission x-ray on 06/15. The patient did have blood and urine cultures obtained. I was asked to see the patient for further recommendation regarding antibiotic therapy, most of this information has been obtained from the review of chart, talking to nursing staff as well family at the bedside as the patient was lethargic, sleepy and unable to provide any history. No choking on the food has been noticed or any significant cough per the family member. No nausea, vomiting or any diarrhea. REVIEW OF SYSTEMS: Could not be reliably obtained, but the positives have been mentioned in HPI. PAST MEDICAL HISTORY: Significant for hypertension, osteoarthritis, pneumonia, COPD, metastatic lung cancer, asthma, pneumonias. PAST SURGICAL HISTORY: Cervical fusion, lung biopsy, right knee cyst removed x2, skin cancer removed, right thumb fracture repair, left tibia-fibula and ankle fracture repair, colonoscopy and polypectomy. SOCIAL HISTORY: Positive for smoking; quit back in May 2015; also history of marijuana use. FAMILY HISTORY: Father with history of cancer and thyroid problem. Allergies including NAPROXEN, ZOFRAN, TOPAMAX. Medications include the patient is currently on Tylenol, DuoNeb, vitamin C, Pulmicort, Vitamin D3, Flexeril, Valium, Lexapro, Pepcid, folic acid, Dilaudid, Mobic, Singulair, MS Contin, Theragran, Narcan, no antibiotics. On examination, blood pressure is 104/61 with a pulse of 91, temperature 96.4, T-max is 99.9. He is 97% on room air. General description is a middle aged male lying in bed in no distress. No tachypnea or accessory muscle of respiration use. HEENT examination shows pallor. No scleral icterus. Oral mucous membranes dry. NECK: Trachea central. No thyromegaly. LUNGS: Unlabored breathing with decreased breath sounds at the bases. No wheeze or crackles. HEART: S1, S2. Regular rate and rhythm. ABDOMEN: Soft, no tenderness. No guarding or rigidity. EXTREMITIES: No edema of feet. SKIN EXAMINATION: No rash or mass palpable. NEUROLOGICAL: The patient is too lethargic where orientation could not be determined. LABS: Hemoglobin 9.6, white count 22.6 with a BUN of 12, creatinine 0.56. Urine has been negative. xray mentioned above. Admission blood cultures were negative. DIAGNOSTIC IMPRESSION AND PLAN: Patient with a low grade fever this morning with drenching sweats. Decreased level of consciousness in a patient with metastatic lung cancer with multiple falls. Admission x-ray reported to be negative for any pneumonia though the x-ray done this morning is showing a resolving left sided pneumonia, though the patient clinically not behaving as such as the patient was noticed to be breathing comfortably on room air. No significant cough noticed by the family members or any choking on the food. However, we do not have any other clinical focus of this infection, his abdomen was soft on clinical examination. Urine has been negative with a question of his elevated white count related to his diffuse metastatic lung cancer, PLAN: 1. We will add Zosyn 3.375 grams every 8 hours while awaiting for the culture to finalize. 2. Continue with IV fluid. 3. Patient may benefit from possible palliative care in view of the stage IV metastatic cancer and overall poor health condition. Thank you for this consultation. Will follow this patient along with you. AMY
[2016-06-20] MEDS: PIPERACILLIN-TAZOBACTAM 3.375 GM in DEXTROSE/WATER 1 50ML.BAG IVPB SCH ×3 (07:38→23:26)
[2016-06-20] MEDS: ASCORBIC ACID 500 MG TAB PO SCH (08:07)
[2016-06-20] MEDS: DIAZEPAM 5 MG TAB PO SCH ×2 (08:07→21:40)
[2016-06-20] MEDS: CYCLOBENZAPRINE 10 MG TAB PO SCH ×2 (08:07→21:40)
[2016-06-20] MEDS: MORPHINE SULFATE ER 30 MG TABLET PO SCH ×3 (08:07→23:28)
[2016-06-20] MEDS: ESCITALOPRAM 20 MG TAB PO SCH (08:08)
[2016-06-20] MEDS: MELOXICAM 7.5 MG TAB PO SCH (08:08)
[2016-06-20] MEDS: B COMPLEX-VIT C-VIT E-ZINC 1 EACH TAB PO SCH (08:08)
[2016-06-20] MEDS: ACETAMINOPHEN TAB 325 MG TAB PO PRN (08:22)
[2016-06-20] MEDS: IPRATROPIUM-ALBUTEROL 3 ML NEB INHALATION SCH ×4 (09:23→20:18)
[2016-06-20] MEDS: BUDESONIDE 0.5 MG/2 ML NEBU INHALATION SCH ×2 (09:23→20:18)
[2016-06-20] MEDS: CHOLECALCIFEROL 1,000 UNIT TAB PO SCH (12:35)
[2016-06-20] MEDS: FOLIC ACID 1 MG TAB PO SCH (12:36)
[2016-06-20] MEDS: MULTIVITAMINS, THERA 1 EACH TAB PO SCH (12:36)
[2016-06-20] MEDS: SODIUM CHLORIDE 0.9% 1,000 ML IV SCH ×3 (12:53→23:27)
--- NOTE | 2016-06-20 15:25 | P.PN ---
Subjective Patient is a 66-year-old male with medical history for stage IV lung cancer with bone metastasis. Patient recently hospitalized from 05/23/2016 to 06/02/2016 with severe sepsis secondary to left lower lobe pneumonia, acute exacerbation of COPD, and intractable pain secondary to neoplasm. Patient presented to the hospital with complaints of falling down from a standing position, no reported history of loss of consciousness. Patient did sustain a laceration over his left eyebrow. Per medical records, reports that patient became slightly dizzy and fell after he took his pain medications and when she recorded his blood pressure it was 80/60. EKG and admission showed normal sinus rhythm. Chest x-ray with no acute process. CT cervical spine with no acute fracture, metastatic, centrally necrotic 3.1 cm lymph node in the right lateral mid neck, metastatic disease to posterior right apex. CT head with no acute intracranial abnormality seen. Patient with evidence of leukocytosis, anemia with hemoglobin of 7.8, calcium 7.9, total protein 4.9, albumin 2.3. Troponins less than 0.012. Vitals on admission temperature 97.9, heart rate 91, respiratory rate 14, blood pressure 93/50, oxygen saturation 92% on room air. Patient did receive 1 unit of PRBC in the emergency department and was rehydrated with 1 L of IV fluids. Patient was transferred to the oncology floor with consult requested for oncology service. 06/17/2016: Patient is evaluated on the oncology floor where he is currently lying in bed. Patient apparently was scheduled for MRI yesterday but became claustrophobic and was unable to complete exam. No new specific complaints overnight. Patient states he "feels down and depressed." 06/18/2016: Patient is evaluated on the oncology floor is currently lying in bed. Nurse reports that patient got up last night and fell, according to patient he tripped over his own feet. No other specific complaints overnight. Patient is scheduled to undergo an MRI of his pelvis today. 06/19/2016: Patient is evaluated on the oncology floor where he is currently sitting at bedside. Patient states he is in the hospital but unable to state year or month. Patient needs assistance in urinating and appears very confused. Nurse reports that patient had a fever this morning and was given Tylenol a little while later he was soaked in sweat per nurse. Chest x-ray was obtained with evidence of resolving left base infiltrate. Urinalysis with no evidence of infection. White count increased to 22.9. Hemoglobin 9.6. Hematology is following patient, notes reviewed. 06/20/2016: Patient is evaluated on the oncology floor he is currently lying in bed. Patient remains confused. Patient is able to state his name and that he was in the hospital but doesn't know month or year. Patient did have a temperature of 101.4 this morning, and is currently perspiring. Infectious disease service has evaluated patient and patient has been started on IV antibiotics in the form of Zosyn while blood cultures finalize. Patient has been evaluated by Dr. Tirado, and patient continues with physical and occupational therapy. Patient may possibly need inpatient rehab pending oncology treatment plan. Objective - Vital Signs Vital signs: Vital Signs Temp 101.4 F H 06/20/16 07:00 Pulse 76 06/20/16 13:07 Resp 24 06/20/16 07:00 BP 130/73 06/20/16 07:00 Pulse Ox 92 L 06/20/16 07:00 Intake & Output 06/19/16 06/20/16 06/20/16 18:59 06:59 18:59 Intake Total 1390 Output Total 700 Balance -700 1390 Weight 71.214 kg 71.214 kg 71.214 kg Intake: IV 800 Sodium Chloride 0.9% 1, 800 000 ml @ 100 mls/hr IV . Q10H [facility] Rx#:[id number] Oral 590 Output: Urine 700 Other: Voiding Method Toilet Toilet Toilet # Voids 3 3 # Bowel Movements 1 - Exam GENERAL: Pt awake but despondent, lying in bed, appears confused. HEAD: Atraumatic, normocephalic. EYES: Conjunctiva are normal. ENT: Moist mucous membranes. NECK:Supple without lymphadenopathy or JVD. LUNGS: Breath sounds diminished. HEART: Heart S1, S2, no S3 or S4. Regular rate and rhythm. No murmurs, rubs or gallops. ABDOMEN: Soft, nontender, nondistended, normoactive bowel sounds. EXTREMITIES: 2+ peripheral pulses. No edema. No calf tenderness. NEUROLOGICAL: Pt oriented x 1. No focal deficits. Decreased body strength to upper and lower extremities. PSYCH: Despondent. SKIN: Warm, dry, pale. Laceration above left eyebrow. Sutures intact. No erythema or purulent drainage. - Labs CBC & Chem 7: 06/19/16 08:04 06/19/16 08:04 Labs: Microbiology - Last 24 Hours (Table) 06/19/16 12:30 Urine Culture - Preliminary Urine,Voided Assessment and Plan Plan: Impression: 1. Acute metabolic encephalopathy, etiology unclear at this time, possible infectious or cancer related. MRI of brain with no evidence of metastasis. 2. Bilateral lower extremity weakness suspect secondary to hypotension secondary to dehydration; possible anemia; and medication, present on admission , improved. 2. Anemia secondary to chronic disease. 3. Stage IV non-small cell lung cancer with metastasis to bone. 4. Intractable pain secondary to neoplasm. 5. Chronic obstructive pulmonary disease. 6. Medical debility and generalized weakness with chronic protein calorie malnutrition. 7. Depression. 8. Gait dysfunction. Plan: Continue to monitor patient. Continue IV fluids and IV antibiotics. Await results of blood cultures. Continue current medications. Oncology consult in place, recommendations noted. Continue supportive treatment and pain management. Continue GI and DVT prophylaxis. Repeat CBC and BMP in a.m. The above impression and plan have been discussed and directed by Dr. Koehler. Anna ROBLES-C acting as scribe for Dr. Koehler.
--- NOTE | 2016-06-20 15:48 | P.PN ---
Subjective Principal diagnosis: Fall, hypotension Pt seen today in follow up, some of his meds were adjusted yesterday at his 's request due to significant lethargy, pt pain is described essentially the same-low back, 6-12/18, only relief is with meds or laying down-even with adjustments, he is more alert today. He ate well this am, no nausea, he has a cough with moderate amounts of thick yellow/kendall sputum being expectorated, no hemoptysis, abd pain, dysuria, diarrhea or constipation. Objective - Vital Signs Vital signs: Vital Signs Temp 101.4 F H 06/20/16 07:00 Pulse 76 06/20/16 13:07 Resp 24 06/20/16 07:00 BP 130/73 06/20/16 07:00 Pulse Ox 92 L 06/20/16 07:00 Intake & Output 06/19/16 06/20/16 06/20/16 18:59 06:59 18:59 Intake Total 1390 Output Total 700 Balance -700 1390 Weight 71.214 kg 71.214 kg 71.214 kg Intake: IV 800 Sodium Chloride 0.9% 1, 800 000 ml @ 100 mls/hr IV . Q10H [facility] Rx#:[id number] Oral 590 Output: Urine 700 Other: Voiding Method Toilet Toilet Toilet # Voids 3 3 # Bowel Movements 1 - Constitutional General appearance: Present: average body habitus, cooperative, no acute distress - Respiratory Respiratory: bilateral: diminished, rhonchi (anterior ) - Cardiovascular Heart sounds: normal: S1, S2 - Peripheral edema foot Peripheral Edema: bilateral: Trace - Gastrointestinal General gastrointestinal: Present: normal bowel sounds, soft - Integumentary Integumentary: Present: pale - Neurologic Neurologic: Present: CNII-XII intact - Musculoskeletal Musculoskeletal: Present: generalized weakness, strength equal bilaterally - Psychiatric Psychiatric Comment(s): When trying to discuss with pt what his goals are-does he want to continue treatment for cancer, would he like rehabilitation-he avoided the subject by talking about movies and did not answer any of my direct questions. He is slow to respond and avoids many questions, follows commands perfectly. - Labs CBC & Chem 7: 06/19/16 08:04 06/19/16 08:04 Labs: Microbiology - Last 24 Hours (Table) 06/19/16 12:30 Urine Culture - Preliminary Urine,Voided Assessment and Plan (1) Anemia Narrative/Plan: No transfusion today Status: Chronic (2) Dehydration Narrative/Plan: Stable, pt oral intake increased Status: Acute (3) Lung cancer metastatic to bone Narrative/Plan: Discussed with pt and his CT findings. With immunotherapy though imaging can be misleading especially this early in treatment, f/u imaging is not recommended until atleast 6-8 cycles are complete due to false positive/ progressive findings. Clinical picture is the strongest indicator of response this early on in treatment. Unfortunately pt has been admitted to the hospital after each cycle of chemotherapy (2 doses) and now after each cycle of immunotherapy (2 cycles). I strongly suggested that for the pt to continue on with any caner treatment he needs to be rehabilitated and more independent. His cannot care for him in his current state. Dr. Tirado consulted for evaluation of inpatient rehab, if pt not a candidate then maybe home PT/OT or if it felt that he cannot be managed at home at all then ECF with rehab may have to be the plan of care. In any case pt treatment will be HELD until such time that he has completed rehabilitation and been reevaluated by Dr. Polk for appropriateness to resume treatment. understood situation, pt did not participate in the conversation. Status: Acute (4) Generalized weakness Narrative/Plan: PT ordered, Dr. Tirado evaluating pt Status: Chronic Plan: MRI results reviewed with pt and , no evidence to suggest brain metastasis.
--- NOTE | 2016-06-20 18:18 | PN ---
DATE OF SERVICE: 06/20/2016 REASON FOR FOLLOWUP: Fever and a question of pneumonia. INTERVAL HISTORY: The patient did spike another fever of 101.4 this morning. Patient is afebrile since then. He seems to more awake and alert today; complaining of some shortness of breath and a cough, but not bringing up any sputum, and no abdominal pain. No nausea or vomiting or diarrhea. On examination, blood pressure is 130/73 with a pulse of 80, temperature to 101.4. He is 92% on room air. General description is a middle-aged male lying in bed in no distress. RESPIRATORY SYSTEM: Unlabored breathing. Clear to auscultation anteriorly with decreased breath sounds at the bases. No wheeze. HEART: S1, S2. Regular rate and rhythm. ABDOMEN: Soft. No tenderness. EXTREMITIES: No edema of the feet. LABS: Urine is negative. No CBC was done today. Blood culture obtained yesterday is so far pending. DIAGNOSTIC IMPRESSION AND PLAN: Patient with a fever and concern for possible pneumonia; however, the patient does seem to have any respiratory distress; breathing comfortably on room air. Mild cough but not bringing up any sputum. Will go ahead and obtain influenza PCR. Continue the patient on Zosyn. Will try to obtain sputum if any more fever to adjust antibiotics further. Continue supportive care.
[2016-06-20] MEDS: MONTELUKAST 10 MG TAB PO SCH (21:40)
[2016-06-20] MEDS: FAMOTIDINE 20 MG TAB PO SCH (21:40)
[2016-06-21 06:56] LABS: Anisocytosis Slight; Basophils % (A) 0 %; CH 29.2; CHCM 30.1; Eosinophils # (A) 0.2 k/uL (0-0.7); Eosinophils % (A) 1 %; HCT 27.3 % (39.0-53.0); HDW 2.83; HGB 8.3 gm/dL (13.0-17.5); Hypochromasia Marked; Luc % (Auto) 1; Lymphocytes # (A) 0.4 k/uL (1.0-4.8); Lymphocytes % (A) 2 %; MCH 29.7 pg (25.0-35.0); MCHC 30.5 g/dL (31.0-37.0); MCV 97.3 fL (80.0-100.0); Macrocytosis Slight; Mean Platelet Volume 7.3; Monocytes # (A) 0.5 k/uL (0-1.0); Monocytes % (A) 2 %; Neutrophils # (A) 18.8 k/uL (1.3-7.7); Neutrophils % (A) 94 %; RBC 2.81 m/uL (4.30-5.90); RDW 16.2 % (11.5-15.5); WBC 20.1 k/uL (3.8-10.6); WBC (Perox) 21.22
[2016-06-21] MEDS: IPRATROPIUM-ALBUTEROL 3 ML NEB INHALATION SCH ×4 (07:04→19:16)
[2016-06-21] MEDS: BUDESONIDE 0.5 MG/2 ML NEBU INHALATION SCH ×2 (07:04→19:15)
[2016-06-21 07:40] LABS: Anion Gap 8 mmol/L; Blood Urea Nitrogen 12 mg/dL (9-20); Calcium 7.9 mg/dL (8.4-10.2); Carbon Dioxide 26 mmol/L (22-30); Chloride 102 mmol/L (98-107); Glucose 83 mg/dL (74-99); Non-African American GFR(MDRD) >60 (>60 ml/min/1.73 sqM); Potassium 3.9 mmol/L (3.5-5.1); Sodium 136 mmol/L (137-145)
[2016-06-21] MEDS: ESCITALOPRAM 20 MG TAB PO SCH (09:05)
[2016-06-21] MEDS: PIPERACILLIN-TAZOBACTAM 3.375 GM in DEXTROSE/WATER 1 50ML.BAG IVPB SCH ×3 (09:05→23:18)
[2016-06-21] MEDS: MORPHINE SULFATE ER 30 MG TABLET PO SCH ×2 (09:06→16:41)
[2016-06-21] MEDS: B COMPLEX-VIT C-VIT E-ZINC 1 EACH TAB PO SCH (09:06)
[2016-06-21] MEDS: ASCORBIC ACID 500 MG TAB PO SCH (09:06)
[2016-06-21] MEDS: CYCLOBENZAPRINE 10 MG TAB PO SCH ×2 (09:06→21:31)
[2016-06-21] MEDS: DIAZEPAM 5 MG TAB PO SCH ×2 (09:06→21:31)
[2016-06-21] MEDS: MELOXICAM 7.5 MG TAB PO SCH (09:06)
[2016-06-21] MEDS: SODIUM CHLORIDE 0.9% 1,000 ML IV SCH ×2 (11:08→21:31)
[2016-06-21] MEDS: CHOLECALCIFEROL 1,000 UNIT TAB PO SCH (11:51)
[2016-06-21] MEDS: MULTIVITAMINS, THERA 1 EACH TAB PO SCH (11:51)
[2016-06-21] MEDS: FOLIC ACID 1 MG TAB PO SCH (11:51)
[2016-06-21] MEDS: HYDROmorphone 2 MG TAB PO PRN (12:03)
--- NOTE | 2016-06-21 17:35 | P.PN ---
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 Patient was noted to have hypotension initially. Patient was supported with 1 unit of PRBC. Thereafter patient has had some encephalopathy suspected likely secondary to some infectious etiology. ID has been on case. There has been some workup that has been ongoing. Today patient was seen in cross coverage for Dr. Koehler, patient states to be doing well denies having any headaches, blurry vision, worsening difficulty breathing, nausea, vomiting. Patient's pain is controlled with pain medications Objective - Vital Signs Vital signs: Vital Signs Temp 97.4 F L 06/21/16 15:00 Pulse 112 H 06/21/16 15:42 Resp 18 06/21/16 15:00 BP 99/58 06/21/16 15:00 Pulse Ox 93 L 06/21/16 15:00 Intake & Output 06/20/16 06/21/16 06/21/16 18:59 06:59 18:59 Intake Total 1680 450 Balance 1680 450 Weight 71.214 kg Intake: IV 1200 400 Sodium Chloride 0.9% 1, 1200 400 000 ml @ 100 mls/hr IV . Q10H [facility] Rx#:[id number] Intake, IV Titration 50 Amount Piperacillin-Tazobactam 3 50 .375 gm In Dextrose/Water 1 50ml.bag @ 12.5 mls/hr IVPB Q8HR [facility] Rx#: [id number] Oral 480 Other: Voiding Method Toilet Toilet # Voids 3 2 1 - Exam Appearance does not appear to be in distress Lungs diminished breath sounds no rhonchi or wheezing Heart S1-S2 heard regular rate and rhythm no murmurs or patient Abdomen is soft no organomegaly nontender lower extremities no edema noted Neurologically no focal motor or sensory deficits noted. - Labs CBC & Chem 7: 06/21/16 06:22 06/21/16 06:22 Labs: Abnormal Lab Results - Last 24 Hours (Table) 06/21/16 06/21/16 Range/Units 06:22 06:22 WBC 20.1 H (3.8-10.6) k/uL RBC 2.81 L (4.30-5.90) m/uL Hgb 8.3 L (13.0-17.5) gm/dL Hct 27.3 L (39.0-53.0) % MCHC 30.5 L (31.0-37.0) g/dL RDW 16.2 H (11.5-15.5) % Neutrophils # 18.8 H (1.3-7.7) k/uL Lymphocytes # 0.4 L (1.0-4.8) k/uL Sodium 136 L (137-145) mmol/L Creatinine 0.49 L (0.66-1.25) mg/dL Calcium 7.9 L (8.4-10.2) mg/dL Microbiology - Last 24 Hours (Table) 06/19/16 14:16 Blood Culture - Preliminary Blood No Growth after 48 hours 06/20/16 15:30 Gram Stain - Preliminary Sputum Sputum Culture - Preliminary 06/19/16 12:30 Urine Culture - Final Urine,Voided Assessment and Plan Plan: #1 acute metabolic encephalopathy could have some underlying toxic encephalopathy with use of pain medications as well #2 debility #3 anemia of chronic disease #4 COPD #5 stage IV non-small cell lung cancer #6 leukocytosis #7 depression or graft plan Plan Continue supportive care. no clear-cut evidence of infection. However patient does have a cough productive in nature we'll await aspirate cultures. Patient will likely need placement. Prognosis Is poor
[2016-06-21] MEDS: [UNRECOGNIZED DRUG - OTHER] PO SCH (18:39)
--- NOTE | 2016-06-21 18:54 | PN ---
DATE OF SERVICE: June 21, 2016 CHIEF COMPLAINT: Tired. Rafi is seen today as a followup. He remains extremely tired. He is unsteady when he is ambulating and he is short of breath with slight exertion. No fever or chills. No nausea or vomiting. No dysphagia. No melena, hematochezia or hematuria. The patient is stating his pain is currently under control. His pain; in particular, back pain and neck pain is currently under control. His current medications are reviewed in his electronic medical record. PHYSICAL EXAMINATION: He is alert, oriented x3. He does not appear to be in distress. His vital signs are pulse is 124, temperature 99.8, blood pressure 131/72. HEENT: Normocephalic, atraumatic. No icterus. Neck is supple. CHEST: Coarse breath sounds bilaterally. Lungs revealed crackle at the left lower base. Abdomen is soft. No tenderness. Extremities reveal 1+ edema. LABORATORY DATA: WBC of 20.1, hemoglobin 8.3, hematocrit 27.3, platelets are 190. IMPRESSIONS: 1. Metastatic non-small cell lung carcinoma. The patient has progressed on first line systemic therapy and he just recently started immunotherapy with Opdivo and he has had 2 cycles so far. 2. Poor performance status with generalized weakness, fatigue and unsteady gait. 3. Leukocytosis. This is reactive to underlying malignancy. The patient has had leukocytosis for a significant period of time. 4. Anemia related to chronic illness and chemotherapy induced. RECOMMENDATIONS: 1. Overall prognosis is poor at this point in time. The patient and his are fully aware of that. 2. I had another discussion with the patient's today. They would like to proceed with some physical therapy and rehabilitation. If his performance status improves, then they may resume treatment with Opdivo, although otherwise decision for comfort care will be made.
[2016-06-21] MEDS: MONTELUKAST 10 MG TAB PO SCH (21:31)
[2016-06-21] MEDS: FAMOTIDINE 20 MG TAB PO SCH (21:31)
[2016-06-22] MEDS: MORPHINE SULFATE ER 30 MG TABLET PO SCH ×4 (00:07→23:57)
--- NOTE | 2016-06-22 07:54 | PN ---
DATE OF SERVICE: 06/21/2016 Reason for follow-up is fever and question of pneumonia. INTERVAL HISTORY: The patient overall feels better and has improved. He has been breathing comfortably. Denies any significant chest pain, no cough. No abdominal pain or any diarrhea. On examination, blood pressure 113/63 with a pulse of 112, temperature 98. He is 92% on room air. General description is a middle-age male lying in bed in no distress. RESPIRATORY SYSTEM: Unlabored breathing with decreased breath sounds in the bases. No wheeze. HEART: S1, S2. Regular rate and rhythm. ABDOMEN: Soft. No tenderness. EXTREMITIES: No edema of feet. LABS: Hemoglobin 8.3, white count of 20,000. BUN of 12, creatinine 0.49. Influenza A and B are negative. Urine is negative. Blood culture so far is negative. Sputum cultures are currently pending. DIAGNOSTIC IMPRESSION AND PLAN: Patient with fever with a question of pneumonia. So far sputum culture is currently pending. The patient will continue on Zosyn adjusting antibiotics further based on culture report. Continue supportive care.
[2016-06-22] MEDS: DIAZEPAM 5 MG TAB PO SCH ×2 (08:34→20:53)
[2016-06-22] MEDS: MELOXICAM 7.5 MG TAB PO SCH (08:34)
[2016-06-22] MEDS: ESCITALOPRAM 20 MG TAB PO SCH (08:35)
[2016-06-22] MEDS: PIPERACILLIN-TAZOBACTAM 3.375 GM in DEXTROSE/WATER 1 50ML.BAG IVPB SCH ×3 (08:36→23:57)
[2016-06-22] MEDS: B COMPLEX-VIT C-VIT E-ZINC 1 EACH TAB PO SCH (08:37)
[2016-06-22] MEDS: CYCLOBENZAPRINE 10 MG TAB PO SCH ×2 (08:37→20:53)
[2016-06-22] MEDS: ASCORBIC ACID 500 MG TAB PO SCH (08:37)
[2016-06-22] MEDS: BUDESONIDE 0.5 MG/2 ML NEBU INHALATION SCH ×2 (08:54→19:35)
[2016-06-22] MEDS: IPRATROPIUM-ALBUTEROL 3 ML NEB INHALATION SCH ×4 (08:54→19:35)
[2016-06-22] MEDS: [UNRECOGNIZED DRUG - OTHER] PO SCH ×3 (09:21→18:10)
[2016-06-22] MEDS: MULTIVITAMINS, THERA 1 EACH TAB PO SCH (11:52)
[2016-06-22] MEDS: FOLIC ACID 1 MG TAB PO SCH (11:52)
[2016-06-22] MEDS: HYDROmorphone 2 MG TAB PO PRN ×2 (11:52→19:29)
[2016-06-22] MEDS: CHOLECALCIFEROL 1,000 UNIT TAB PO SCH (11:52)
[2016-06-22] MEDS: SODIUM CHLORIDE 0.9% 1,000 ML IV SCH ×2 (16:11→16:14)
--- NOTE | 2016-06-22 17:01 | P.PN ---
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 Patient was noted to have hypotension initially. Patient was supported with 1 unit of PRBC. Thereafter patient has had some encephalopathy suspected likely secondary to some infectious etiology. ID has been on case. There has been some workup that has been ongoing. Today patient was seen in cross coverage for Dr. Koehler, patient states to be doing well denies having any headaches, blurry vision, worsening difficulty breathing, nausea, vomiting. Patient's pain is controlled with pain medications 06/22/2016 Patient continues to have fevers. Patient says to have a cough minimally productive in nature. Denies having any chest pain, difficulty in breathing, nausea, vomiting. Objective - Vital Signs Vital signs: Vital Signs Temp 97.7 F 06/22/16 14:45 Pulse 96 06/22/16 15:59 Resp 20 06/22/16 14:45 BP 109/52 06/22/16 14:45 Pulse Ox 92 L 06/22/16 14:45 Intake & Output 06/21/16 06/22/16 06/22/16 18:59 06:59 18:59 Intake Total 565 1200 450 Balance 565 1200 450 Intake: IV 400 1200 400 Sodium Chloride 0.9% 1, 400 1200 400 000 ml @ 100 mls/hr IV . Q10H [facility] Rx#:[id number] Intake, IV Titration 50 50 Amount Piperacillin-Tazobactam 3 50 50 .375 gm In Dextrose/Water 1 50ml.bag @ 12.5 mls/hr IVPB Q8HR [facility] Rx#: [id number] Oral 115 Other: Voiding Method Toilet Toilet Urinal # Voids 1 1 3 - Exam Appearance does not appear to be in distress Lungs diminished breath sounds no rhonchi or wheezing Heart S1-S2 heard regular rate and rhythm no murmurs or patient Abdomen is soft no organomegaly nontender lower extremities no edema noted Neurologically no focal motor or sensory deficits noted. - Labs CBC & Chem 7: 06/21/16 06:22 06/21/16 06:22 Labs: Microbiology - Last 24 Hours (Table) 06/19/16 14:16 Blood Culture - Preliminary Blood No Growth after 72 hours 06/20/16 15:30 Gram Stain - Final Sputum Sputum Culture - Final Assessment and Plan Plan: #1 acute metabolic encephalopathy could have some underlying toxic encephalopathy with use of pain medications as well #2 debility #3 anemia of chronic disease #4 COPD #5 stage IV non-small cell lung cancer #6 leukocytosis #7 depression or graft plan 8. FUO Plan Continue supportive care. no clear-cut evidence of infection. However patient does have a cough productive in nature we'll await aspirate cultures. Continue recommendations per infectious diseases.
[2016-06-22] MEDS: MONTELUKAST 10 MG TAB PO SCH (20:53)
[2016-06-22] MEDS: FAMOTIDINE 20 MG TAB PO SCH (20:53)
[2016-06-23] MEDS: SODIUM CHLORIDE 0.9% 1,000 ML IV SCH ×3 (01:34→20:30)
[2016-06-23] MEDS: BUDESONIDE 0.5 MG/2 ML NEBU INHALATION SCH ×2 (07:20→18:51)
[2016-06-23] MEDS: IPRATROPIUM-ALBUTEROL 3 ML NEB INHALATION SCH ×4 (07:21→18:51)
[2016-06-23] MEDS: PIPERACILLIN-TAZOBACTAM 3.375 GM in DEXTROSE/WATER 1 50ML.BAG IVPB SCH ×3 (08:48→23:41)
[2016-06-23] MEDS: DIAZEPAM 5 MG TAB PO SCH ×2 (08:50→20:29)
[2016-06-23] MEDS: MORPHINE SULFATE ER 30 MG TABLET PO SCH ×3 (08:50→23:44)
[2016-06-23] MEDS: CYCLOBENZAPRINE 10 MG TAB PO SCH ×2 (08:51→20:29)
[2016-06-23] MEDS: [UNRECOGNIZED DRUG - OTHER] PO SCH ×3 (08:51→17:32)
[2016-06-23] MEDS: ASCORBIC ACID 500 MG TAB PO SCH (08:51)
[2016-06-23] MEDS: MELOXICAM 7.5 MG TAB PO SCH (08:51)
[2016-06-23] MEDS: B COMPLEX-VIT C-VIT E-ZINC 1 EACH TAB PO SCH (08:52)
[2016-06-23] MEDS: ESCITALOPRAM 20 MG TAB PO SCH (08:52)
[2016-06-23] MEDS: HYDROmorphone 2 MG TAB PO PRN ×2 (12:35→21:17)
[2016-06-23] MEDS: FOLIC ACID 1 MG TAB PO SCH (12:36)
[2016-06-23] MEDS: CHOLECALCIFEROL 1,000 UNIT TAB PO SCH (12:36)
[2016-06-23] MEDS: MULTIVITAMINS, THERA 1 EACH TAB PO SCH (12:36)
--- NOTE | 2016-06-23 13:59 | P.PN ---
Subjective Patient is a 66-year-old male with medical history for stage IV lung cancer with bone metastasis. Patient recently hospitalized from 05/23/2016 to 06/02/2016 with severe sepsis secondary to left lower lobe pneumonia, acute exacerbation of COPD, and intractable pain secondary to neoplasm. Patient presented to the hospital with complaints of falling down from a standing position, no reported history of loss of consciousness. Patient did sustain a laceration over his left eyebrow. Per medical records, reports that patient became slightly dizzy and fell after he took his pain medications and when she recorded his blood pressure it was 80/60. EKG and admission showed normal sinus rhythm. Chest x-ray with no acute process. CT cervical spine with no acute fracture, metastatic, centrally necrotic 3.1 cm lymph node in the right lateral mid neck, metastatic disease to posterior right apex. CT head with no acute intracranial abnormality seen. Patient with evidence of leukocytosis, anemia with hemoglobin of 7.8, calcium 7.9, total protein 4.9, albumin 2.3. Troponins less than 0.012. Vitals on admission temperature 97.9, heart rate 91, respiratory rate 14, blood pressure 93/50, oxygen saturation 92% on room air. Patient did receive 1 unit of PRBC in the emergency department and was rehydrated with 1 L of IV fluids. Patient was transferred to the oncology floor with consult requested for oncology service. 06/17/2016: Patient is evaluated on the oncology floor where he is currently lying in bed. Patient apparently was scheduled for MRI yesterday but became claustrophobic and was unable to complete exam. No new specific complaints overnight. Patient states he "feels down and depressed." 06/18/2016: Patient is evaluated on the oncology floor is currently lying in bed. Nurse reports that patient got up last night and fell, according to patient he tripped over his own feet. No other specific complaints overnight. Patient is scheduled to undergo an MRI of his pelvis today. 06/19/2016: Patient is evaluated on the oncology floor where he is currently sitting at bedside. Patient states he is in the hospital but unable to state year or month. Patient needs assistance in urinating and appears very confused. Nurse reports that patient had a fever this morning and was given Tylenol a little while later he was soaked in sweat per nurse. Chest x-ray was obtained with evidence of resolving left base infiltrate. Urinalysis with no evidence of infection. White count increased to 22.9. Hemoglobin 9.6. Hematology is following patient, notes reviewed. 06/20/2016: Patient is evaluated on the oncology floor he is currently lying in bed. Patient remains confused. Patient is able to state his name and that he was in the hospital but doesn't know month or year. Patient did have a temperature of 101.4 this morning, and is currently perspiring. Infectious disease service has evaluated patient and patient has been started on IV antibiotics in the form of Zosyn while blood cultures finalize. Patient has been evaluated by Dr. Tirado, and patient continues with physical and occupational therapy. Patient may possibly need inpatient rehab pending oncology treatment plan. 06/23/2016: Patient is evaluated on the oncology floor he is currently lying in bed. Patient is alert and answers questions appropriately. Patient reports some productive sputum. Patient complains of some shortness of breath. Patient states his appetite is fair. Patient denies nausea, vomiting, chest pain, or problems with urinating or defecating. Patient states his pain is controlled with current pain regimen. Patient continues on IV Zosyn for possible pneumonia. T-max the last 24 hours 100.9. WBC decreased to 20. Hemoglobin 8.3. Objective - Vital Signs Vital signs: Vital Signs Temp 97.4 F L 06/23/16 13:29 Pulse 88 06/23/16 11:12 Resp 20 06/23/16 07:00 BP 108/67 06/23/16 07:00 Pulse Ox 94 L 06/23/16 07:00 Intake & Output 06/22/16 06/23/16 06/23/16 18:59 06:59 18:59 Intake Total 450 2130 Balance 450 2130 Weight 71.214 kg Intake: IV 400 1000 Sodium Chloride 0.9% 1, 400 1000 000 ml @ 100 mls/hr IV . Q10H [facility] Rx#:[id number] Intake, IV Titration 50 50 Amount Piperacillin-Tazobactam 3 50 50 .375 gm In Dextrose/Water 1 50ml.bag @ 12.5 mls/hr IVPB Q8HR [facility] Rx#: [id number] Oral 1080 Other: Voiding Method Toilet Toilet Toilet Urinal Urinal Urinal # Voids 3 2 - Exam GENERAL: Pt awake and alert, lying in bed, in no acute distress. HEAD: Atraumatic, normocephalic. EYES: Conjunctiva are normal. ENT: Moist mucous membranes. NECK:Supple without lymphadenopathy or JVD. LUNGS: Breath sounds diminished. HEART: Heart S1, S2, no S3 or S4. Regular rate and rhythm. No murmurs, rubs or gallops. ABDOMEN: Soft, nontender, nondistended, normoactive bowel sounds. EXTREMITIES: 2+ peripheral pulses. No edema. No calf tenderness. NEUROLOGICAL: Pt oriented x 3. No focal deficits. Decreased body strength to upper and lower extremities. PSYCH: Calm. SKIN: Warm, dry, pale. Laceration above left eyebrow. Sutures intact. No erythema or purulent drainage. - Labs CBC & Chem 7: 06/21/16 06:22 06/21/16 06:22 Labs: Microbiology - Last 24 Hours (Table) 06/19/16 14:16 Blood Culture - Preliminary Blood No Growth after 72 hours 06/20/16 15:30 Gram Stain - Final Sputum Sputum Culture - Final Assessment and Plan Plan: Impression: 1. Acute metabolic encephalopathy, possible toxic encephalopathy with use of pain medications, improved. MRI of brain with no evidence of metastasis. 2. Bilateral lower extremity weakness suspect secondary to hypotension secondary to dehydration; possible anemia; and medication, present on admission , improved. 2. Anemia secondary to chronic disease. 3. Stage IV non-small cell lung cancer with metastasis to bone. 4. Intractable pain secondary to neoplasm. 5. Chronic obstructive pulmonary disease. 6. Medical debility and generalized weakness with chronic protein calorie malnutrition. 7. Depression. 8. Gait dysfunction. Plan: Continue to monitor patient. Continue IV fluids and IV antibiotics. Continue to follow with oncology and infectious disease service. Continue supportive treatment and pain management. Continue GI and DVT prophylaxis. Repeat CBC and BMP in a.m. The above impression and plan have been discussed and directed by Dr. Koehler. Anna RAMIREZ acting as scribe for Dr. Koehler.
[2016-06-23] MEDS: FAMOTIDINE 20 MG TAB PO SCH (20:29)
[2016-06-23] MEDS: MONTELUKAST 10 MG TAB PO SCH (20:29)
--- NOTE | 2016-06-23 22:20 | PN ---
DATE OF SERVICE: 06/23/2016 REASON FOR FOLLOWUP: Pneumonia. INTERVAL HISTORY: The patient is afebrile. He is getting more awake and alert. He is breathing comfortably. He continues to have a cough, bringing up some yellow sputum. Denies having any chest pain. No abdominal pain or any diarrhea. On examination, his blood pressure is 111/59 with a pulse of 116, temperature 99.5. He is 92% on room air. General description is a middle-aged male lying in bed in no distress. RESPIRATORY SYSTEM: Unlabored breathing with decreased breath sounds at the base. HEART: S1, S2. Regular rate and rhythm. ABDOMEN: Soft. No tenderness. LABS: No new labs have been obtained today. Sputum culture is so far negative. Blood culture negative. DIAGNOSTIC IMPRESSION AND PLAN: Patient with a fever with evidence of left-sided pneumonia; sputum negative for any resistant pathogen. Repeat a chest x-ray tomorrow as well as CBC. Continue the patient on Zosyn. Continue supportive care.
[2016-06-24] MEDS: HYDROmorphone 2 MG TAB PO PRN ×2 (06:23→11:47)
[2016-06-24] MEDS: IPRATROPIUM-ALBUTEROL 3 ML NEB INHALATION SCH ×4 (07:46→19:58)
[2016-06-24] MEDS: BUDESONIDE 0.5 MG/2 ML NEBU INHALATION SCH ×2 (07:46→19:58)
[2016-06-24] MEDS: PIPERACILLIN-TAZOBACTAM 3.375 GM in DEXTROSE/WATER 1 50ML.BAG IVPB SCH ×3 (08:15→23:42)
[2016-06-24] MEDS: DIAZEPAM 5 MG TAB PO SCH ×2 (08:16→21:12)
[2016-06-24] MEDS: ESCITALOPRAM 20 MG TAB PO SCH (08:16)
[2016-06-24] MEDS: [UNRECOGNIZED DRUG - OTHER] PO SCH ×3 (08:16→17:05)
[2016-06-24] MEDS: CYCLOBENZAPRINE 10 MG TAB PO SCH ×2 (08:17→21:12)
[2016-06-24] MEDS: MORPHINE SULFATE ER 30 MG TABLET PO SCH ×3 (08:17→23:44)
[2016-06-24] MEDS: MELOXICAM 7.5 MG TAB PO SCH (08:18)
[2016-06-24] MEDS: ASCORBIC ACID 500 MG TAB PO SCH (08:18)
[2016-06-24] MEDS: B COMPLEX-VIT C-VIT E-ZINC 1 EACH TAB PO SCH (08:18)
[2016-06-24] MEDS: SODIUM CHLORIDE 0.9% 1,000 ML IV SCH ×2 (08:19→17:06)
[2016-06-24 08:47] LABS: Anisocytosis Slight; Poikilocytosis Moderate
[2016-06-24 09:08] LABS: Basophils # (A) 0.1 k/uL (0-0.2); Basophils % (A) 0 %; CH 28.7; CHCM 27.9; Eosinophils # (A) 0.1 k/uL (0-0.7); Eosinophils % (A) 0 %; HDW 2.58; Hypochromasia Marked; Luc % (Auto) 1; Lymphocytes # (A) 0.4 k/uL (1.0-4.8); Lymphocytes % (A) 2 %; MCH 29.7 pg (25.0-35.0); MCHC 28.8 g/dL (31.0-37.0); Macrocytosis Moderate; Mean Platelet Volume 8.7; Monocytes % (A) 4 %; Neutrophils # (A) 22.6 k/uL (1.3-7.7); Neutrophils % (A) 93 %; RBC 2.78 m/uL (4.30-5.90); WBC 24.3 k/uL (3.8-10.6); WBC (Perox) 24.85
[2016-06-24 09:11] LABS: Anion Gap 9 mmol/L; Blood Urea Nitrogen 11 mg/dL (9-20); Carbon Dioxide 25 mmol/L (22-30); Chloride 99 mmol/L (98-107); Glucose 116 mg/dL (74-99); Non-African American GFR(MDRD) >60 (>60 ml/min/1.73 sqM); Potassium 4.2 mmol/L (3.5-5.1); Sodium 133 mmol/L (137-145)
--- NOTE | 2016-06-24 09:12 | XR ---
EXAMINATION TYPE: XR chest 2V DATE OF EXAM: 06/24/2016 9:08 AM COMPARISON: 06/19/2016 TECHNIQUE: PA and lateral views submitted. HISTORY: Fever FINDINGS: There is persistent left lower lobe infiltrate and small effusion. Abnormal attenuation the retroster nal space is also seen. Degenerative change of the spine and underlying COPD noted. Chronic deformity involving the left clav icle. No overt failure. Heart size within normal limits. IMPRESSION: 1. Left lower lobe infiltrate and small effusion 2. Abnormal density within the retrosternal space may represent developing infiltrate.
[2016-06-24 09:14] LABS: HCT 28.6 % (39.0-53.0)
[2016-06-24 09:15] LABS: HGB 8.3 gm/dL (13.0-17.5)
[2016-06-24] MEDS: CHOLECALCIFEROL 1,000 UNIT TAB PO SCH (11:49)
[2016-06-24] MEDS: MULTIVITAMINS, THERA 1 EACH TAB PO SCH (11:49)
[2016-06-24] MEDS: FOLIC ACID 1 MG TAB PO SCH (11:49)
[2016-06-24] MEDS: FLUCONAZOLE 100 MG TAB PO SCH (11:57)
[2016-06-24] MEDS: NYSTATIN 100,000 UNIT/ML SUSP 500,000 UNIT/5 ML CUP PO SCH ×3 (11:58→21:12)
--- NOTE | 2016-06-24 13:41 | P.PN ---
Subjective Patient is a 66-year-old male with medical history for stage IV lung cancer with bone metastasis. Patient recently hospitalized from 05/23/2016 to 06/02/2016 with severe sepsis secondary to left lower lobe pneumonia, acute exacerbation of COPD, and intractable pain secondary to neoplasm. Patient presented to the hospital with complaints of falling down from a standing position, no reported history of loss of consciousness. Patient did sustain a laceration over his left eyebrow. Per medical records, reports that patient became slightly dizzy and fell after he took his pain medications and when she recorded his blood pressure it was 80/60. EKG and admission showed normal sinus rhythm. Chest x-ray with no acute process. CT cervical spine with no acute fracture, metastatic, centrally necrotic 3.1 cm lymph node in the right lateral mid neck, metastatic disease to posterior right apex. CT head with no acute intracranial abnormality seen. Patient with evidence of leukocytosis, anemia with hemoglobin of 7.8, calcium 7.9, total protein 4.9, albumin 2.3. Troponins less than 0.012. Vitals on admission temperature 97.9, heart rate 91, respiratory rate 14, blood pressure 93/50, oxygen saturation 92% on room air. Patient did receive 1 unit of PRBC in the emergency department and was rehydrated with 1 L of IV fluids. Patient was transferred to the oncology floor with consult requested for oncology service. 06/17/2016: Patient is evaluated on the oncology floor where he is currently lying in bed. Patient apparently was scheduled for MRI yesterday but became claustrophobic and was unable to complete exam. No new specific complaints overnight. Patient states he "feels down and depressed." 06/18/2016: Patient is evaluated on the oncology floor is currently lying in bed. Nurse reports that patient got up last night and fell, according to patient he tripped over his own feet. No other specific complaints overnight. Patient is scheduled to undergo an MRI of his pelvis today. 06/19/2016: Patient is evaluated on the oncology floor where he is currently sitting at bedside. Patient states he is in the hospital but unable to state year or month. Patient needs assistance in urinating and appears very confused. Nurse reports that patient had a fever this morning and was given Tylenol a little while later he was soaked in sweat per nurse. Chest x-ray was obtained with evidence of resolving left base infiltrate. Urinalysis with no evidence of infection. White count increased to 22.9. Hemoglobin 9.6. Hematology is following patient, notes reviewed. 06/20/2016: Patient is evaluated on the oncology floor he is currently lying in bed. Patient remains confused. Patient is able to state his name and that he was in the hospital but doesn't know month or year. Patient did have a temperature of 101.4 this morning, and is currently perspiring. Infectious disease service has evaluated patient and patient has been started on IV antibiotics in the form of Zosyn while blood cultures finalize. Patient has been evaluated by Dr. Tirado, and patient continues with physical and occupational therapy. Patient may possibly need inpatient rehab pending oncology treatment plan. 06/23/2016: Patient is evaluated on the oncology floor he is currently lying in bed. Patient is alert and answers questions appropriately. Patient reports some productive sputum. Patient complains of some shortness of breath. Patient states his appetite is fair. Patient denies nausea, vomiting, chest pain, or problems with urinating or defecating. Patient states his pain is controlled with current pain regimen. Patient continues on IV Zosyn for possible pneumonia. T-max the last 24 hours 100.9. WBC decreased to 20. Hemoglobin 8.3. 06/24/2016: Patient is evaluated on the oncology floor where he is currently lying in bed. Patient is alert and answers questions appropriately. Patient reports some productive sputum. Patient complains of some shortness of breath. Patient states his appetite is fair. Patient denies nausea, vomiting, chest pain, or problems with urinating or defecating. Patient states his pain is controlled with current pain regimen. Chest x-ray revealed persistent left lower lobe infiltrate and small effusion with abnormal density within the retrosternal space may represent developing infiltrate. Sputum culture positive for rare budding yeast. Patient continues on IV Zosyn and Diflucan. T- max the last 24 hours 99.5.. WBC increased to 24.3. Hemoglobin 8.3. Objective - Vital Signs Vital signs: Vital Signs Temp 97.7 F 06/24/16 07:00 Pulse 100 06/24/16 12:24 Resp 16 06/24/16 07:00 BP 124/71 06/24/16 07:00 Pulse Ox 94 L 06/24/16 07:48 Intake & Output 06/23/16 06/24/16 06/24/16 18:59 06:59 18:59 Intake Total 800 600 Balance 800 600 Weight 71.214 kg Intake: IV 800 Sodium Chloride 0.9% 1, 800 000 ml @ 100 mls/hr IV . Q10H [facility] Rx#:[id number] Oral 600 Other: Voiding Method Toilet Toilet Toilet Urinal Urinal Urinal # Voids 2 2 2 # Bowel Movements 1 - Exam GENERAL: Pt awake and alert, lying in bed, in no acute distress. HEAD: Atraumatic, normocephalic. EYES: Conjunctiva are normal. ENT: Moist mucous membranes. NECK:Supple without lymphadenopathy or JVD. LUNGS: Breath sounds diminished. HEART: Heart S1, S2, no S3 or S4. Regular rate and rhythm. No murmurs, rubs or gallops. ABDOMEN: Soft, nontender, nondistended, normoactive bowel sounds. EXTREMITIES: 2+ peripheral pulses. No edema. No calf tenderness. NEUROLOGICAL: Pt oriented x 3. No focal deficits. Decreased body strength to upper and lower extremities. PSYCH: Calm. SKIN: Warm, dry, pale. Laceration above left eyebrow. Sutures intact. No erythema or purulent drainage. - Labs CBC & Chem 7: 06/24/16 08:21 06/24/16 08:21 Labs: Abnormal Lab Results - Last 24 Hours (Table) 06/24/16 06/24/16 Range/Units 08:21 08:21 WBC 24.3 H (3.8-10.6) k/uL RBC 2.78 L (4.30-5.90) m/uL Hgb 8.3 L (13.0-17.5) gm/dL Hct 28.6 L (39.0-53.0) % MCV 103.0 H D (80.0-100.0) fL MCHC 28.8 L (31.0-37.0) g/dL RDW 16.0 H (11.5-15.5) % Neutrophils # 22.6 H (1.3-7.7) k/uL Lymphocytes # 0.4 L (1.0-4.8) k/uL Sodium 133 L (137-145) mmol/L Creatinine 0.53 L (0.66-1.25) mg/dL Glucose 116 H (74-99) mg/dL Calcium 8.0 L (8.4-10.2) mg/dL Microbiology - Last 24 Hours (Table) 06/19/16 14:16 Blood Culture - Preliminary Blood No Growth after 96 hours Assessment and Plan Plan: Impression: 1. Acute metabolic encephalopathy, possible toxic encephalopathy with use of pain medications, improved. MRI of brain with no evidence of metastasis. 2. Bilateral lower extremity weakness suspect secondary to hypotension secondary to dehydration; possible anemia; and medication, present on admission , improved. 2. Anemia suspect secondary to chronic illness and chemotherapy induced. 3. Stage IV non-small cell lung cancer with metastasis to multiple bone sites. 4. Intractable pain secondary to neoplasm. 5. Chronic obstructive pulmonary disease. 6. Medical debility and generalized weakness with moderate to severe protein calorie malnutrition. 7. Depression. 8. Gait dysfunction. 9. Leukocytosis, suspect reactive. Plan: Continue to monitor patient. Continue IV fluids and IV antibiotics. Continue to follow with oncology and infectious disease service. Continue supportive treatment and pain management. Continue GI and DVT prophylaxis. Patient is felt to be an appropriate candidate for hospice. Will await further input from oncology. The above impression and plan have been discussed and directed by Dr. Koehler. Anna RAMIREZ acting as scribe for Dr. Koehler.
--- NOTE | 2016-06-24 14:37 | PN ---
DATE OF SERVICE: 06/24/2016 Reason for followup is: 1. Pneumonia. 2. Persistent elevated white count. INTERVAL HISTORY: The patient is afebrile. He is breathing comfortably, still has some cough, but not bringing up any sputum. Denies any chest pain, no abdominal pain or any diarrhea. On examination, blood pressure is 124/71 with a pulse of 125, temperature 97.7. He is 94% on 2 L nasal cannula. General description is a middle-age male, lying in bed in no distress. HEENT EXAMINATION: Oral mucous membrane is dry. LUNGS: Unlabored breathing. Clear to auscultation anteriorly. HEART: S1, S2, regular rate and rhythm. ABDOMEN: Soft, no tenderness. LABS: Hemoglobin 8.3, white count 24.3 with a BUN of 11, creatinine 0.53. Sputum is usual respiratory ethan. Blood culture negative. Chest x-ray with no worsening pneumonia. DIAGNOSTIC IMPRESSION AND PLAN: Patient with fever and a concern for possible pneumonia, has been treated with the Zosyn with resolution of the fever, although white count still remains to be elevated. Diflucan and Nystatin swish and swallow will be given for possible oral thrush. The patient has been on multiple antibiotics; however, some of the elevated white count could be related to his metastatic lung cancer in a patient who did have overall poor prognosis. Hospice care may be appropriate for him. Continue patient on Zosyn which can be discontinued if the patient chooses hospice. Plan of care was discussed with the nurse practitioner for the primary team. AMY
[2016-06-24] MEDS: FAMOTIDINE 20 MG TAB PO SCH (20:51)
[2016-06-24] MEDS: MONTELUKAST 10 MG TAB PO SCH (21:12)
[2016-06-25] MEDS: SODIUM CHLORIDE 0.9% 1,000 ML IV SCH ×3 (06:16→12:23)
[2016-06-25] MEDS: IPRATROPIUM-ALBUTEROL 3 ML NEB INHALATION SCH ×4 (07:50→20:45)
[2016-06-25] MEDS: BUDESONIDE 0.5 MG/2 ML NEBU INHALATION SCH ×2 (07:50→20:45)
[2016-06-25] MEDS: [UNRECOGNIZED DRUG - OTHER] PO SCH ×3 (08:19→16:47)
[2016-06-25] MEDS: PIPERACILLIN-TAZOBACTAM 3.375 GM in DEXTROSE/WATER 1 50ML.BAG IVPB SCH ×3 (08:19→23:25)
[2016-06-25] MEDS: MELOXICAM 7.5 MG TAB PO SCH (08:19)
[2016-06-25] MEDS: ESCITALOPRAM 20 MG TAB PO SCH (08:19)
[2016-06-25] MEDS: NYSTATIN 100,000 UNIT/ML SUSP 500,000 UNIT/5 ML CUP PO SCH ×4 (08:20→22:18)
[2016-06-25] MEDS: B COMPLEX-VIT C-VIT E-ZINC 1 EACH TAB PO SCH (08:20)
[2016-06-25] MEDS: MORPHINE SULFATE ER 30 MG TABLET PO SCH ×2 (08:20→16:47)
[2016-06-25] MEDS: CYCLOBENZAPRINE 10 MG TAB PO SCH ×2 (08:20→22:18)
[2016-06-25] MEDS: FLUCONAZOLE 100 MG TAB PO SCH (08:20)
[2016-06-25] MEDS: ASCORBIC ACID 500 MG TAB PO SCH (08:20)
[2016-06-25] MEDS: DIAZEPAM 5 MG TAB PO SCH ×2 (08:21→22:17)
--- NOTE | 2016-06-25 12:00 | P.PN ---
Subjective Patient is a 66-year-old male with medical history for stage IV lung cancer with bone metastasis. Patient recently hospitalized from 05/23/2016 to 06/02/2016 with severe sepsis secondary to left lower lobe pneumonia, acute exacerbation of COPD, and intractable pain secondary to neoplasm. Patient presented to the hospital with complaints of falling down from a standing position, no reported history of loss of consciousness. Patient did sustain a laceration over his left eyebrow. Per medical records, reports that patient became slightly dizzy and fell after he took his pain medications and when she recorded his blood pressure it was 80/60. EKG and admission showed normal sinus rhythm. Chest x-ray with no acute process. CT cervical spine with no acute fracture, metastatic, centrally necrotic 3.1 cm lymph node in the right lateral mid neck, metastatic disease to posterior right apex. CT head with no acute intracranial abnormality seen. Patient with evidence of leukocytosis, anemia with hemoglobin of 7.8, calcium 7.9, total protein 4.9, albumin 2.3. Troponins less than 0.012. Vitals on admission temperature 97.9, heart rate 91, respiratory rate 14, blood pressure 93/50, oxygen saturation 92% on room air. Patient did receive 1 unit of PRBC in the emergency department and was rehydrated with 1 L of IV fluids. Patient was transferred to the oncology floor with consult requested for oncology service. 06/17/2016: Patient is evaluated on the oncology floor where he is currently lying in bed. Patient apparently was scheduled for MRI yesterday but became claustrophobic and was unable to complete exam. No new specific complaints overnight. Patient states he "feels down and depressed." 06/18/2016: Patient is evaluated on the oncology floor is currently lying in bed. Nurse reports that patient got up last night and fell, according to patient he tripped over his own feet. No other specific complaints overnight. Patient is scheduled to undergo an MRI of his pelvis today. 06/19/2016: Patient is evaluated on the oncology floor where he is currently sitting at bedside. Patient states he is in the hospital but unable to state year or month. Patient needs assistance in urinating and appears very confused. Nurse reports that patient had a fever this morning and was given Tylenol a little while later he was soaked in sweat per nurse. Chest x-ray was obtained with evidence of resolving left base infiltrate. Urinalysis with no evidence of infection. White count increased to 22.9. Hemoglobin 9.6. Hematology is following patient, notes reviewed. 06/20/2016: Patient is evaluated on the oncology floor he is currently lying in bed. Patient remains confused. Patient is able to state his name and that he was in the hospital but doesn't know month or year. Patient did have a temperature of 101.4 this morning, and is currently perspiring. Infectious disease service has evaluated patient and patient has been started on IV antibiotics in the form of Zosyn while blood cultures finalize. Patient has been evaluated by Dr. Tirado, and patient continues with physical and occupational therapy. Patient may possibly need inpatient rehab pending oncology treatment plan. 06/23/2016: Patient is evaluated on the oncology floor he is currently lying in bed. Patient is alert and answers questions appropriately. Patient reports some productive sputum. Patient complains of some shortness of breath. Patient states his appetite is fair. Patient denies nausea, vomiting, chest pain, or problems with urinating or defecating. Patient states his pain is controlled with current pain regimen. Patient continues on IV Zosyn for possible pneumonia. T-max the last 24 hours 100.9. WBC decreased to 20. Hemoglobin 8.3. 06/24/2016: Patient is evaluated on the oncology floor where he is currently lying in bed. Patient is alert and answers questions appropriately. Patient reports some productive sputum. Patient complains of some shortness of breath. Patient states his appetite is fair. Patient denies nausea, vomiting, chest pain, or problems with urinating or defecating. Patient states his pain is controlled with current pain regimen. Chest x-ray revealed persistent left lower lobe infiltrate and small effusion with abnormal density within the retrosternal space may represent developing infiltrate. Sputum culture positive for rare budding yeast. Patient continues on IV Zosyn and Diflucan. T- max the last 24 hours 99.5.. WBC increased to 24.3. Hemoglobin 8.3. 06/25/2016: Patient is again evaluated on the oncology floor when he is lying in bed. Patient is somewhat despondent and answers questions with yes and no answers. When not spoken to, patient closes his eyes and drift back to sleep. No new complaints overnight. Patient continues on IV Zosyn for possible left lower lobe pneumonia and Diflucan for oral thrush. Patient is currently being evaluated for possible subacute rehab versus hospice. Objective - Vital Signs Vital signs: Vital Signs Temp 97.6 F 06/25/16 07:00 Pulse 131 H 06/25/16 07:00 Resp 20 06/25/16 07:00 BP 104/57 06/25/16 07:00 Pulse Ox 91 L 06/25/16 07:00 Intake & Output 06/24/16 06/25/16 06/25/16 18:59 06:59 18:59 Intake Total 850 1300 Balance 850 1300 Intake: IV 800 800 Sodium Chloride 0.9% 1, 800 800 000 ml @ 100 mls/hr IV . Q10H [facility] Rx#:[id number] Intake, IV Titration 50 Amount Piperacillin-Tazobactam 3 50 .375 gm In Dextrose/Water 1 50ml.bag @ 12.5 mls/hr IVPB Q8HR [facility] Rx#: [id number] Oral 500 Other: Voiding Method Toilet Toilet Urinal Urinal # Voids 2 1 2 - Exam GENERAL: Pt awake and alert, lying in bed, in no acute distress. HEAD: Atraumatic, normocephalic. EYES: Conjunctiva are normal. ENT: Moist mucous membranes. NECK:Supple without lymphadenopathy or JVD. LUNGS: Breath sounds diminished. HEART: Heart S1, S2, no S3 or S4. Regular rate and rhythm. No murmurs, rubs or gallops. ABDOMEN: Soft, nontender, nondistended, normoactive bowel sounds. EXTREMITIES: 2+ peripheral pulses. No edema. No calf tenderness. NEUROLOGICAL: Pt oriented x 3. No focal deficits. Decreased body strength to upper and lower extremities. PSYCH: Calm. SKIN: Warm, dry, pale. Laceration above left eyebrow. Sutures intact. No erythema or purulent drainage. - Labs CBC & Chem 7: 06/24/16 08:21 06/24/16 08:21 Labs: Microbiology - Last 24 Hours (Table) 06/19/16 14:16 Blood Culture - Preliminary Blood No Growth after 120 hours Assessment and Plan Plan: Impression: 1. Acute metabolic encephalopathy, possible toxic encephalopathy with use of pain medications, improved. MRI of brain with no evidence of metastasis. 2. Bilateral lower extremity weakness suspect secondary to hypotension secondary to dehydration; possible anemia; and medication, present on admission , improved. 2. Anemia suspect secondary to chronic illness and chemotherapy induced. 3. Stage IV non-small cell lung cancer with metastasis to multiple bone sites. 4. Intractable pain secondary to neoplasm. 5. Chronic obstructive pulmonary disease. 6. Medical debility and generalized weakness with moderate to severe protein calorie malnutrition. 7. Depression. 8. Gait dysfunction. 9. Leukocytosis, suspect reactive. 10. Possible oral thrush. 11. Possible left lower lobe pneumonia. Plan: Continue to monitor patient. Continue IV fluids and IV antibiotics. Continue to follow with oncology and infectious disease service. Continue supportive treatment and pain management. Continue GI and DVT prophylaxis. Patient is felt to be an appropriate candidate for hospice. Patient is currently being evaluated for possible subacute rehab at [facility]. Patient is not a candidate for inpatient rehab at this time. Will await further input from oncology. The above impression and plan have been discussed and directed by Dr. Koehler. Anna RAMIREZ acting as scribe for Dr. Koehler.
[2016-06-25] MEDS: CHOLECALCIFEROL 1,000 UNIT TAB PO SCH (12:18)
[2016-06-25] MEDS: FOLIC ACID 1 MG TAB PO SCH (12:18)
[2016-06-25] MEDS: MULTIVITAMINS, THERA 1 EACH TAB PO SCH (12:18)
--- NOTE | 2016-06-25 16:09 | CDI ---
In responding to this query, please exercise your independent professional judgment. The [facility] Coding Staff and Clinical Documentation Specialists appreciate your assistance in clarifying documentation, maintaining compliance with coding guidelines, accurately documenting patients condition and capturing severity of illness. The fact that a question is asked does not imply that any particular answer is desired or expected. Communication forms are a method of clarifying documentation and are not made part of the Legal Health Record. Thank you in advance for your clarification. Last Revision, March 2015 Augustindora Dai [address] [facility] [place] [address] Documentation Clarification Form Date: 06/25/2016 3:41:00 PM From: Carolyn Fournier Admit Date: 06/15/2016 11:05:00 PM Patient Name: Rafi Cutler Visit Number: [id number] Discharge Date: Dr. Tamika Latham Pneumonia was documented in your notes on 06/19/16 -06/24/16 History/Risk Factors: COPD, Stage IV lung cancer with metastases to the bone, Hypertension, Clinical Indicators: Complains of some shortness of breath and a cough. He has decreased breath sounds at the bases. Vital signs 06/20/16: 130/73 80 temp 101.4 WBC/Left shift: 18, 000 Chest x-ray 06/24/16 Persistent left lower lobe infiltrate and small effusion. Abnormal density within the retrosternal space may represent developing infiltrate Chest x-ray 06/19/16 Resolving left base infiltrate. Pneumonia is within the differential. Lung/Breathing assessment: per assessment on 06/19/16: Unlabored breathing with decreased breath sounds at the bases. No wheeze. Blood Culture: Negative to date Sputum is usual respiratory ethan Treatment: Antibiotics: IV Zosyn O2 2/L NC (titrate) Breathing TX: Albuterol Duoneb's, Pulmicort Inhalation, Singulair PO .9%@ 100mls/hr IV In order to capture the severity of condition, please clarify if the condition signifies and you are treating for: Aspiration Pneumonia, identify if: Due to solids or liquids Bacterial Pneumonia, specify causal organism (if known) Gram Negative Pneumonia Due to Strep Due to Staph Due to E. Coli Other bacteria (specify) Viral Pneumonia, specify casual organism (if known) Healthcare Acquired Pneumonia/Pneumonia, unspecified Unable to determine Link any associated conditions to the pneumonia: Influenza with secondary gram negative pneumonia Sepsis due to pneumonia Acute respiratory failure due to pneumonia Other, please specify Please document in your progress notes and discharge summary in order to capture severity of illness and risk of mortality. Include clinical findings that support your diagnosis. FYI: Press F11 to launch patient chart. ___x__ Place X here if this finding has no clinical significance, is not applicable or if you are not able to provide any additional documentation. KIARAD
--- NOTE | 2016-06-25 22:12 | PN ---
DATE OF SERVICE: 06/25/2016 REASON FOR FOLLOWUP: Pneumonia. INTERVAL HISTORY: The patient is afebrile. He is breathing comfortably. He did have some cough, but decreased in intensity. Denies having any chest pain. Occasional cough. No abdominal pain or any diarrhea. Blood pressure is 120/61 with a pulse of 119, temperature 97.7. He is 92% on 2L nasal cannula. General description is a middle-age male lying in bed in no distress. RESPIRATORY SYSTEM: Unlabored breathing with decreased breath sounds at the bases. No wheeze. HEART: S1, S2. Regular rate and rhythm. ABDOMEN: Soft, nontender. EXTREMITIES: No edema of the feet. LABS: No new labs have been obtained today. Blood culture remains to be negative. Sputum has the usual respiratory ethan. DIAGNOSTIC IMPRESSION AND PLAN: Patient with fevers with concern for left-sided pneumonia in a patient with initial concern for possible sepsis. He did have a fever of 101.4 on 06/20 along with elevated white count, meeting criteria for systemic inflammatory response syndrome/sepsis, but seemed to have improved, as his fever has resolved. He still has persistent elevated white count, which could be related to his underlying metastatic cancer. Initial concern for possible gram-negative pneumonia; however, that has been ruled out as sputum is negative and is usual respiratory ethan. He will be more likely health care associated pneumonia from usual respiratory organism. Patient had overall response to Zosyn. That will be continued. Finish therapy with oral Avelox. Continue supportive care. MTDD
[2016-06-25] MEDS: MONTELUKAST 10 MG TAB PO SCH (22:17)
[2016-06-25] MEDS: FAMOTIDINE 20 MG TAB PO SCH (22:17)
[2016-06-26] MEDS: MORPHINE SULFATE ER 30 MG TABLET PO SCH ×2 (02:34→08:09)
[2016-06-26] MEDS: SODIUM CHLORIDE 0.9% 1,000 ML IV SCH ×2 (06:18→06:19)
[2016-06-26 07:43] VITALS: BP 103/49; RESP 18; TEMP 99.1
[2016-06-26] MEDS: IPRATROPIUM-ALBUTEROL 3 ML NEB INHALATION SCH ×2 (08:01→11:58)
[2016-06-26] MEDS: BUDESONIDE 0.5 MG/2 ML NEBU INHALATION SCH (08:01)
[2016-06-26] MEDS: DIAZEPAM 5 MG TAB PO SCH (08:09)
[2016-06-26] MEDS: PIPERACILLIN-TAZOBACTAM 3.375 GM in DEXTROSE/WATER 1 50ML.BAG IVPB SCH (08:09)
[2016-06-26] MEDS: FLUCONAZOLE 100 MG TAB PO SCH (08:10)
[2016-06-26] MEDS: CYCLOBENZAPRINE 10 MG TAB PO SCH (08:10)
[2016-06-26] MEDS: ESCITALOPRAM 20 MG TAB PO SCH (08:10)
[2016-06-26] MEDS: [UNRECOGNIZED DRUG - OTHER] PO SCH ×2 (08:10→12:26)
[2016-06-26] MEDS: ASCORBIC ACID 500 MG TAB PO SCH (08:11)
[2016-06-26] MEDS: MELOXICAM 7.5 MG TAB PO SCH (08:11)
[2016-06-26] MEDS: B COMPLEX-VIT C-VIT E-ZINC 1 EACH TAB PO SCH (08:11)
[2016-06-26] MEDS: NYSTATIN 100,000 UNIT/ML SUSP 500,000 UNIT/5 ML CUP PO SCH ×2 (08:11→12:26)
[2016-06-26 12:10] VITALS: PULSE 98
[2016-06-26] MEDS: CHOLECALCIFEROL 1,000 UNIT TAB PO SCH (12:26)
[2016-06-26] MEDS: MULTIVITAMINS, THERA 1 EACH TAB PO SCH (12:26)
[2016-06-26] MEDS: FOLIC ACID 1 MG TAB PO SCH (12:27)
--- NOTE | 2016-06-26 13:44 | P.DS ---
Providers Date of admission: 06/15/16 23:05 Expected date of discharge: 06/26/16 Attending physician: Ty Koehler Consults: 06/19/16 12:36 Consult Physician Urgent Consulting Provider: Tamika Latham Consult Reason/Comments: FEVER, INCREASED WBC Do you want consulting provider notified?: Yes 06/19/16 17:19 Consult Physician Routine Consulting Provider: Angel Luis Tirado Consult Reason/Comments: assess pt for inpatient rehabilitation Do you want consulting provider notified?: Yes, Notify in am Primary care physician: Ty Koehler [facility] Course: Patient is a 66-year-old male with medical history for stage IV lung cancer with bone metastasis. Patient recently hospitalized from 05/23/2016 to 06/02/2016 with severe sepsis secondary to left lower lobe pneumonia, acute exacerbation of COPD, and intractable pain secondary to neoplasm. Patient presented to the hospital with after falling down from a standing position at home. Bilateral lower extremity weakness was suspected secondary to hypotension secondary to dehydration and anemia. Patient did receive 1 unit of PRBC on admission. MRI of the brain with no evidence of metastasis. During the hospital stay, patient became quite lethargic with high fevers and infectious disease service was consulted. Patient was started on IV antibiotics for possible left lower lobe pneumonia. Patient was also seen and evaluated by oncology service who recommended that patient completed rehab prior to continuing with any cancer treatments. Patient improved slightly during hospital stay and per discussion with , patient was admitted for subacute rehab at [facility]. Opiates, muscle relaxants, and benzodiazepine were adjusted prior to discharge per request in collaboration with Dr. Koehler and oncology service. Discharge diagnoses: 1. Acute metabolic encephalopathy, possible toxic encephalopathy with use of pain medications, improved. 2. Bilateral lower extremity weakness suspect secondary to hypotension secondary to dehydration, possible anemia; and medications, present on admission , improved. 2. Anemia suspect secondary to chronic illness and chemotherapy induced. 3. Stage IV non-small cell lung cancer with metastasis to multiple bone sites. 4. Intractable pain secondary to neoplasm. 5. Chronic obstructive pulmonary disease. 6. Medical debility and generalized weakness with moderate to severe protein calorie malnutrition. 7. Depression. 8. Gait dysfunction. 9. Leukocytosis, suspect reactive. 10. Possible oral thrush. 11. Possible left lower lobe pneumonia. The above impression and plan have been discussed and directed by Dr. Koehler. Anna ROBLES-Bebeto acting as scribe for Dr. Koehler. Pertinent Studies: EKG; chest x-ray; head/cervical spine CT; lumbar spine MRI; pelvis MRI; brain MRI Patient Condition at Discharge: Stable Plan - Discharge Summary New Discharge Prescriptions: Cyclobenzaprine [Flexeril] 10 mg PO BID #14 tab Diazepam [Valium] 5 mg PO BID #14 tab Morphine Sulfate ER [Ms Contin 15Mg] 15 mg PO Q8H #21 tab Moxifloxacin HCl [Avelox] 400 mg PO DAILY #7 tablet Discharge Medication List Escitalopram [Lexapro] 20 mg PO DAILY 12/17/15 [History] Folic Acid 1 mg PO DAILY #90 tablet 01/01/16 [Rx] Cholecalciferol [Vitamin D3] 5,000 unit PO DAILY 03/13/16 [History] Ascorbic Acid [Vitamin C] 500 mg PO DAILY 05/12/16 [History] Multivitamins, Thera [Multivitamin] 1 tab PO DAILY 05/12/16 [History] Vitamin B Complex 1 cap PO DAILY 05/12/16 [History] Budesonide [Pulmicort] 0.5 mg INHALATION RT-BID #60 nebu 05/21/16 [Rx] Famotidine [Pepcid] 20 mg PO HS #30 tab 05/21/16 [Rx] Acetaminophen Tab [Tylenol] 650 mg PO Q4H PRN #0 tab 06/02/16 [Rx] Meloxicam [Mobic] 15 mg PO DAILY #30 tab 06/02/16 [Rx] Montelukast [Singulair] 10 mg PO HS #30 tab 06/02/16 [Rx] Cyclobenzaprine [Flexeril] 10 mg PO BID #14 tab 06/26/16 [Rx] Diazepam [Valium] 5 mg PO BID #14 tab 06/26/16 [Rx] Ipratropium-Albuterol Nebulize [Duoneb 0.5 mg-3 mg/3 ml Soln] 3 ml INHALATION RT -QID ampul.neb 06/26/16 [Rx] Ipratropium-Albuterol Nebulize [Duoneb 0.5 mg-3 mg/3 ml Soln] 3 ml INHALATION RT -QID PRN #0 ampul.neb 06/26/16 [Rx] Morphine Sulfate ER [Ms Contin 15Mg] 15 mg PO Q8H #21 tab 06/26/16 [Rx] Moxifloxacin HCl [Avelox] 400 mg PO DAILY #7 tablet 06/26/16 [Rx] Nystatin 100,000 Unit/ml Susp [Mycostatin Oral Susp] 500,000 unit PO QID 7 Days 06/26/16 [Rx] Follow up Appointment(s)/Referral(s): Ty Koehler DO [Primary Care Provider] - 1-2 days
--- NOTE | 2016-06-26 14:20 | PN ---
DATE OF SERVICE: 06/26/2016 Reason for followup is pneumonia, question of possible nosocomial, negative for any resistant pathogen. INTERVAL HISTORY: The patient is afebrile. Has been breathing comfortably, simply weak and lethargic. No nausea, no vomiting or any diarrhea. On examination his blood pressure is 103/49 with a pulse of 114, temperature 99.1. He is 95% on 2 L nasal cannula. General description is a middle-aged male, up in the bed in no distress. RESPIRATORY SYSTEM: Unlabored breathing with decreased breath sounds at the base. No wheeze. HEART: S1, S2, regular rate and rhythm. ABDOMEN: Soft. No tenderness. LABS: Sputum has been negative of resistant pathogen. Blood culture has been negative. DIAGNOSTIC IMPRESSION AND PLAN: 1. Patient with pneumonia, started in the hospital, nosocomial as initial chest x-ray was negative on admission with concern for possible gram-negative; however, sputum has been negative for any resistant pathogen. He did well on Zosyn. Antibiotic will be switched over to Avelox 400 daily for another 7 days. 2. Possible oral thrush, will give nystatin swish and swallow for about a week.
== END 2016-06-26 14:30 | DRG 91 ==
LOC: EC 20:38 → 5ONC 23:05
PROVIDERS: ADMIT Family Medicine; ATTEND Family Medicine
PROC: 30233N1 Transfusion of Nonautologous Red Blood Cells into Peripheral Vein, Percutaneous Approach (ICD-10-PCS; principal; 2016-06-19)
DX: G92 Toxic encephalopathy (principal); A41.9 Sepsis, unspecified organism; E43 Unspecified severe protein-calorie malnutrition; J18.9 Pneumonia, unspecified organism; C79.51 Secondary malignant neoplasm of bone; C34.90 Malignant neoplasm of unspecified part of unspecified bronchus or lung; J44.0 Chronic obstructive pulmonary disease with (acute) lower respiratory infection; D64.81 Anemia due to antineoplastic chemotherapy; E86.0 Dehydration; T40.605A Adverse effect of unspecified narcotics, initial encounter; I10 Essential (primary) hypertension; D63.8 Anemia in other chronic diseases classified elsewhere; F17.200 Nicotine dependence, unspecified, uncomplicated; F32.9 Major depressive disorder, single episode, unspecified; F41.9 Anxiety disorder, unspecified; G47.33 Obstructive sleep apnea (adult) (pediatric); G89.3 Neoplasm related pain (acute) (chronic); J45.909 Unspecified asthma, uncomplicated; K21.9 Gastro-esophageal reflux disease without esophagitis; M19.90 Unspecified osteoarthritis, unspecified site; M48.06 Spinal stenosis, lumbar region; R29.6 Repeated falls; S01.112A Laceration without foreign body of left eyelid and periocular area, initial encounter; W01.0XXA Fall on same level from slipping, tripping and stumbling without subsequent striking against object, initial encounter; Y92.009 Unspecified place in unspecified non-institutional (private) residence as the place of occurrence of the external cause; Z82.49 Family history of ischemic heart disease and other diseases of the circulatory system; Z85.828 Personal history of other malignant neoplasm of skin; T45.1X5A Adverse effect of antineoplastic and immunosuppressive drugs, initial encounter; Z79.899 Other long term (current) drug therapy; Z88.5 Allergy status to narcotic agent; Z88.8 Allergy status to other drugs, medicaments and biological substances; Z91.040 Latex allergy status
CPT/HCPCS: 36415; 70450; 70553; 71010; 71020; 72125; 72158; 72197; 80048; 80053; 81003; 82150; 82330; 82550; 82553; 83605; 83690; 83735; 84484; 85025; 85610; 85730; 86850; 86900; 86901; 86920; 87040; 87070; 87086; 87205; 87502; 93005; 94640; 94760; 96360; 99285

== ENCOUNTER 2016-06-29 20:08 | Emergency (ER) | payer MEDICARE ==
[2016-06-29] MEDS ORDERED: SODIUM CHLORIDE 0.9% 1,000 ML IV STA (20:18)
[2016-06-29] MEDS ORDERED: SODIUM CHLORIDE 0.9% 500 ML IV STA (20:18)
--- NOTE | 2016-06-29 20:22 | ED ---
General Adult HPI - General Stated complaint: altered mental status, hypotension Time Seen by Provider: 06/29/16 20:12 Source: patient, EMS, RN notes reviewed Mode of arrival: EMS Limitations: no limitations - History of Present Illness Initial comments: Patient is a pleasant 66-year-old male presenting to the emergency department complaining of general weakness. Patient is from a nursing facility. There was concerns for general weakness and low blood pressure. Patient has had some episodes of sweating. Patient has had temperatures up to 99.7 prior to the sweating episodes then resolved. Patient has a known history of lung cancer with metastasis. Patient has received chemotherapy and radiation with further progression of disease. Patient denies change in chronic dyspnea. Patient admits to fatigue and general weakness. Symptoms do worsen with exertion. No chest pain. - Related Data Home Medications Medication Instructions Recorded Confirmed Escitalopram [Lexapro] 20 mg PO DAILY 12/17/15 06/16/16 Cholecalciferol [Vitamin D3] 5,000 unit PO DAILY 03/13/16 06/16/16 Ascorbic Acid [Vitamin C] 500 mg PO DAILY 05/12/16 06/16/16 Multivitamins, Thera [Multivitamin] 1 tab PO DAILY 05/12/16 06/16/16 Vitamin B Complex 1 cap PO DAILY 05/12/16 06/16/16 Previous Rx's Medication Instructions Recorded Folic Acid 1 mg PO DAILY #90 tablet 01/01/16 Budesonide [Pulmicort] 0.5 mg INHALATION RT-BID #60 nebu 05/21/16 Famotidine [Pepcid] 20 mg PO HS #30 tab 05/21/16 Acetaminophen Tab [Tylenol] 650 mg PO Q4H PRN #0 tab 06/02/16 Meloxicam [Mobic] 15 mg PO DAILY #30 tab 06/02/16 Montelukast [Singulair] 10 mg PO HS #30 tab 06/02/16 Cyclobenzaprine [Flexeril] 10 mg PO BID #14 tab 06/26/16 Diazepam [Valium] 5 mg PO BID #14 tab 06/26/16 Ipratropium-Albuterol Nebulize 3 ml INHALATION RT-QID ampul.neb 06/26/16 [Duoneb 0.5 mg-3 mg/3 ml Soln] Ipratropium-Albuterol Nebulize 3 ml INHALATION RT-QID PRN #0 06/26/16 [Duoneb 0.5 mg-3 mg/3 ml Soln] ampul.neb Morphine Sulfate ER [Ms Contin 15 mg PO Q8H #21 tab 06/26/16 15Mg] Moxifloxacin HCl [Avelox] 400 mg PO DAILY #7 tablet 06/26/16 Nystatin 100,000 Unit/ml Susp 500,000 unit PO QID 7 Days 06/26/16 [Mycostatin Oral Susp] Allergies Allergy/AdvReac Type Severity Reaction Status Date / Time adhesive Allergy Rash/Hives Verified 06/29/16 20:23 clonazepam [From Klonopin] Allergy Unknown Verified 06/29/16 20:23 latex Allergy Rash/Hives Verified 06/29/16 20:23 naproxen [From Naprosyn] Allergy Rash/Hives Verified 06/29/16 20:23 ondansetron Allergy Unknown Verified 06/29/16 20:23 prochlorperazine Allergy Unknown Verified 06/29/16 20:23 topiramate Allergy Blisters Verified 06/29/16 20:23 buprenorphine AdvReac Nausea Verified 06/29/16 20:23 myceline Allergy Unknown Uncoded 06/29/16 20:23 Review of Systems ROS Statement: Those systems with pertinent positive or pertinent negative responses have been documented in the HPI. ROS Other: All systems not noted in ROS Statement are negative. Constitutional: Reports: chills Eyes: Denies: eye pain ENT: Denies: ear pain Respiratory: Reports: dyspnea (Chronic, no change). 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 removed spur from neck. right ORCHECTOMY with right LYMPH NODES REMOVED and adrenal glands removed. metal clips and david in abdominal area secondary to surgery from cancer, RT KNEE X2 cyst removed ,SKIN CA REMOVED RT SIDE OF FACE 2001. right thumb fracture with surgery. 2004 left tib/fib and ankle fractures with surgery, colonoscopies/benign polypectomy. Past Anesthesia/Blood Transfusion Reactions: No Reported Reaction Additional Past Anesthesia/Blood Transfusion Reaction / Comment(s): Pt states he has received blood in past without reaction. Past Psychological History: Anxiety, Depression Additional Psychological History / Comment(s): Pt resides with his spouse. He uses a cane on occasion. He drives. Denies alcohol use. 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 No international travel. No current exposures. No recreational drug use or alcohol use Smoking Status: Former smoker Past Alcohol Use History: None Reported Additional Past Alcohol Use History / Comment(s): Pt states he started smoking in 1959. He is less than a ppd smoker at this time. Estimates was approximately 1 pack per day throughout most of life. pt states he quit smoking 12 days ago from 05/23/15 Past Drug Use History: Marijuana - Past Family History Father Family Medical History: Cancer, Thyroid Disorder Additional Family Medical History / Comment(s): Father had skin cancer. He also had heart disease. He at the age of 95 yrs. Mother Family Medical History: Cancer, COPD, Hypertension Additional Family Medical History / Comment(s): Mother had breast cancer. She at the age of 84 yrs. General Exam Limitations: no limitations General appearance: alert Head exam: Present: atraumatic, normocephalic Eye exam: Present: normal appearance, PERRL ENT exam: Present: mucous membranes dry Neck exam: Present: other (Right lateral upper neck with nontender large nodule , approximately 3 cm) Respiratory exam: Present: normal lung sounds bilaterally Cardiovascular Exam: Present: regular rate, normal rhythm GI/Abdominal exam: Absent: tenderness Extremities exam: Present: normal inspection Neurological exam: Present: alert, oriented X3, CN II-XII intact. Absent: motor sensory deficit Expanded Patient oriented to: Present: person, place, time Speech: Present: fluid speech Motor strength exam: RUE: 5, LUE: 5, RLE: 5, LLE: 5 Psychiatric exam: Present: normal affect, normal mood Skin exam: Absent: rash Course Vital Signs 06/29/16 06/29/16 06/29/16 20:19 21:14 22:38 Temperature 97.0 F L 97 F L Pulse Rate 101 H 101 H 113 H Respiratory 20 14 16 Rate Blood Pressure 102/61 109/60 117/70 O2 Sat by Pulse 97 97 94 L Oximetry EKG Findings - EKG Comments: EKG Findings:: Size tachycardia 102. CA 136. QRS 80. QT 348. QTC 453. Normal axis. Normal QRS. Normal ST-T. Medical Decision Making - Medical Decision Making Patient reevaluated and resting comfortably in bed. Patient without complaints. Patient is comfortable with discharge home. Case was discussed in detail with Dr. Salazar who is very familiar with this patient and does recommend discharge. - Lab Data Result diagrams: 06/29/16 20:35 06/29/16 20:35 Lab Results 06/29/16 06/29/16 06/29/16 Range/Units 20:35 20:35 20:35 WBC 37.5 H* (3.8-10.6) k/uL RBC 2.88 L (4.30-5.90) m/uL Hgb 8.5 L (13.0-17.5) gm/dL Hct 27.6 L (39.0-53.0) % MCV 96.1 D (80.0-100.0) fL MCH 29.5 (25.0-35.0) pg MCHC 30.7 L (31.0-37.0) g/dL RDW 16.0 H (11.5-15.5) % Plt Count 359 (150-450) k/uL Neutrophils % 94 % Lymphocytes % 2 % Monocytes % 3 % Eosinophils % 1 % Basophils % 0 % Neutrophils # 35.2 H (1.3-7.7) k/uL Lymphocytes # 0.8 L (1.0-4.8) k/uL Monocytes # 0.9 (0-1.0) k/uL Eosinophils # 0.2 (0-0.7) k/uL Basophils # 0.0 (0-0.2) k/uL Hypochromasia Marked PT (9.0-12.0) sec INR (<1.1) APTT (22.0-30.0) sec Sodium 139 (137-145) mmol/L Potassium 4.0 (3.5-5.1) mmol/L Chloride 104 (98-107) mmol/L Carbon Dioxide 27 (22-30) mmol/L Anion Gap 8 mmol/L BUN 14 (9-20) mg/dL Creatinine 0.68 (0.66-1.25) mg/dL Est GFR (MDRD) Af Amer >60 (>60 ml/min/1.73 sqM) Est GFR (MDRD) Non-Af >60 (>60 ml/min/1.73 sqM) Glucose 104 H (74-99) mg/dL Calcium 7.8 L (8.4-10.2) mg/dL Phosphorus 3.3 (2.5-4.5) mg/dL Magnesium 1.8 (1.6-2.3) mg/dL Total Bilirubin 0.6 (0.2-1.3) mg/dL AST 50 (17-59) U/L ALT 47 (21-72) U/L Alkaline Phosphatase 261 H (38-126) U/L Total Creatine Kinase <20 L (55-170) U/L CK-MB (CK-2) 0.2 (0.0-2.4) ng/mL CK-MB (CK-2) Rel Index 0.0 Troponin I <0.012 (0.000-0.034) ng/mL Total Protein 4.8 L (6.3-8.2) g/dL Albumin 2.0 L (3.5-5.0) g/dL TSH 1.400 (0.465-4.680) mIU/L Free T4 2.49 H (0.78-2.19) ng/dL Free T3 pg/mL 4.1 (2.8-5.3) pg/ml Urine Color Urine Appearance (Clear) Urine pH (5.0-8.0) Ur Specific [place] (1.001-1.035) Urine Protein (Negative) Urine Glucose (UA) (Negative) Urine Ketones (Negative) Urine Blood (Negative) Urine Nitrate (Negative) Urine Bilirubin (Negative) Urine Urobilinogen (<2.0) mg/dL Ur Leukocyte Esterase (Negative) 06/29/16 06/29/16 Range/Units 20:57 22:35 WBC (3.8-10.6) k/uL RBC (4.30-5.90) m/uL Hgb (13.0-17.5) gm/dL Hct (39.0-53.0) % MCV (80.0-100.0) fL MCH (25.0-35.0) pg MCHC (31.0-37.0) g/dL RDW (11.5-15.5) % Plt Count (150-450) k/uL Neutrophils % % Lymphocytes % % Monocytes % % Eosinophils % % Basophils % % Neutrophils # (1.3-7.7) k/uL Lymphocytes # (1.0-4.8) k/uL Monocytes # (0-1.0) k/uL Eosinophils # (0-0.7) k/uL Basophils # (0-0.2) k/uL Hypochromasia PT 14.6 H (9.0-12.0) sec INR 1.5 (<1.1) APTT 28.9 (22.0-30.0) sec Sodium (137-145) mmol/L Potassium (3.5-5.1) mmol/L Chloride (98-107) mmol/L Carbon Dioxide (22-30) mmol/L Anion Gap mmol/L BUN (9-20) mg/dL Creatinine (0.66-1.25) mg/dL Est GFR (MDRD) Af Amer (>60 ml/min/1.73 sqM) Est GFR (MDRD) Non-Af (>60 ml/min/1.73 sqM) Glucose (74-99) mg/dL Calcium (8.4-10.2) mg/dL Phosphorus (2.5-4.5) mg/dL Magnesium (1.6-2.3) mg/dL Total Bilirubin (0.2-1.3) mg/dL AST (17-59) U/L ALT (21-72) U/L Alkaline Phosphatase (38-126) U/L Total Creatine Kinase (55-170) U/L CK-MB (CK-2) (0.0-2.4) ng/mL CK-MB (CK-2) Rel Index Troponin I (0.000-0.034) ng/mL Total Protein (6.3-8.2) g/dL Albumin (3.5-5.0) g/dL TSH (0.465-4.680) mIU/L Free T4 (0.78-2.19) ng/dL Free T3 pg/mL (2.8-5.3) pg/ml Urine Color Yellow Urine Appearance Clear (Clear) Urine pH 6.5 (5.0-8.0) Ur Specific [place] 1.014 (1.001-1.035) Urine Protein Trace H (Negative) Urine Glucose (UA) Negative (Negative) Urine Ketones Negative (Negative) Urine Blood Negative (Negative) Urine Nitrate Negative (Negative) Urine Bilirubin Negative (Negative) Urine Urobilinogen 6.0 (<2.0) mg/dL Ur Leukocyte Esterase Negative (Negative) - Radiology Data Radiology results: report reviewed (Computed tomography scan of the brain shows no acute process.), image reviewed (Chest x-ray shows chronic changes without acute abnormality.) Disposition Clinical Impression: Weakness Disposition: HOME SELF-CARE Condition: Stable Instructions: Weakness (ED) Additional Instructions: Please follow-up with Dr. Polk and Dr. Koehler in the beginning of the week. Return for increased weakness, fever, confusion, worsening symptoms or other concerns. Referrals: Ty Koehler DO [Primary Care Provider] - 1-2 days
[2016-06-29 20:46] LABS: Basophils % (A) 0 %; CH 28.6; CHCM 29.8; Eosinophils # (A) 0.2 k/uL (0-0.7); Eosinophils % (A) 1 %; HCT 27.6 % (39.0-53.0); HDW 2.94; HGB 8.5 gm/dL (13.0-17.5); Hypochromasia Marked; Luc # (Auto) 0.36; Luc % (Auto) 1; Lymphocytes # (A) 0.8 k/uL (1.0-4.8); Lymphocytes % (A) 2 %; MCH 29.5 pg (25.0-35.0); MCHC 30.7 g/dL (31.0-37.0); Mean Platelet Volume 7.5; Monocytes # (A) 0.9 k/uL (0-1.0); Monocytes % (A) 3 %; Neutrophils # (A) 35.2 k/uL (1.3-7.7); Neutrophils % (A) 94 %; RBC 2.88 m/uL (4.30-5.90); WBC (Perox) 37.04
[2016-06-29 20:49] LABS: WBC 37.5 k/uL (3.8-10.6)
[2016-06-29 20:54] LABS: MCV 96.1 fL (80.0-100.0)
[2016-06-29 20:57] LABS: ALT 47 U/L (21-72); AST 50 U/L (17-59); Alkaline Phosphatase 261 U/L (38-126); Anion Gap 8 mmol/L; Blood Urea Nitrogen 14 mg/dL (9-20); Calcium 7.8 mg/dL (8.4-10.2); Carbon Dioxide 27 mmol/L (22-30); Chloride 104 mmol/L (98-107); Glucose 104 mg/dL (74-99); Magnesium 1.8 mg/dL (1.6-2.3); Non-African American GFR(MDRD) >60 (>60 ml/min/1.73 sqM); Phosphorous 3.3 mg/dL (2.5-4.5); Sodium 139 mmol/L (137-145); Total Bilirubin 0.6 mg/dL (0.2-1.3); Total Protein 4.8 g/dL (6.3-8.2)
[2016-06-29 21:10] LABS: Creatine Kinase <20 U/L (55-170)
[2016-06-29 21:13] LABS: INR 1.5 (<1.1); Partial Thromboplastin Time 28.9 sec (22.0-30.0); Prothrombin Time 14.6 sec (9.0-12.0)
[2016-06-29 21:23] LABS: Creatine Kinase MB 0.2 ng/mL (0.0-2.4); Troponin I <0.012 ng/mL (0.000-0.034)
--- NOTE | 2016-06-29 21:28 | XR ---
EXAMINATION TYPE: XR chest 2V DATE OF EXAM: 06/29/2016 9:22 PM COMPARISON: Prior chest x-ray June 24, 2016. HISTORY: Weakness. TECHNIQUE: Frontal and lateral views of the chest are obtained. FINDINGS: There is chronic emphysematous change with small bilateral pleural effusions redemonstrate d. There is associated bibasilar atelectasis seen on lateral view. The cardiac silhouette size remai ns within normal limits with atherosclerotic thoracic aorta. Anterior fusion plate lower cervical spi ne is redemonstrated. IMPRESSION: Chronic emphysematous change with small bilateral pleural effusions and associated bibas ilar atelectasis all redemonstrated without significant change from prior.
--- NOTE | 2016-06-29 21:38 | CT ---
EXAMINATION TYPE: CT brain wo con DATE OF EXAM: 06/29/2016 9:30 PM HISTORY: Weakness. CT DLP: 1012.70 mGycm. Automated Exposure Control for Dose Reduction was Utilized. TECHNIQUE: CT scan of the head is performed without contrast. COMPARISON: CT brain 2 weeks ago. FINDINGS: There is no acute intracranial hemorrhage or midline shift identified. There is diffuse v entricular and sulcal prominence consistent with diffuse age-related cerebral atrophy. There is low- attenuation in the periventricular white matter consistent with chronic small vessel ischemic change. The globes are intact and the visualized sinuses are clear on today's study . IMPRESSION: No acute intracranial hemorrhage or midline shift. There is moderate diffuse age-relate d cerebral atrophy and chronic small vessel ischemic change redemonstrated without significant change from prior study identified
[2016-06-29 22:40] VITALS: BP 117/70; PULSE 113; RESP 16; TEMP 97
[2016-06-29 22:50] LABS: Appearance,Urine Clear (Clear); Bilirubin,Urine Negative (Negative); Glucose,Urine (UA) Negative (Negative); Ketones,Urine Negative (Negative); Leukocyte Esterase,Urine Negative (Negative); Nitrite,Urine Negative (Negative); PH, Urine 6.5 (5.0-8.0); Protein,Urine Trace (Negative); Specific Gravity,Urine 1.014 (1.001-1.035); UA Billing (MACRO vs. MICRO) CHEM
== END 2016-06-30 00:35 | disposition home or self-care (01) ==
LOC: EC 20:08
DX: R53.1 Weakness (principal); R41.82 Altered mental status, unspecified; I95.9 Hypotension, unspecified; R53.83 Other fatigue; K21.9 Gastro-esophageal reflux disease without esophagitis; M19.90 Unspecified osteoarthritis, unspecified site; I10 Essential (primary) hypertension; J44.9 Chronic obstructive pulmonary disease, unspecified; J45.909 Unspecified asthma, uncomplicated; F41.8 Other specified anxiety disorders; Z87.891 Personal history of nicotine dependence; Z79.899 Other long term (current) drug therapy; Z91.040 Latex allergy status; Z91.048 Other nonmedicinal substance allergy status; Z88.8 Allergy status to other drugs, medicaments and biological substances; Z88.6 Allergy status to analgesic agent; Z87.01 Personal history of pneumonia (recurrent); Z85.828 Personal history of other malignant neoplasm of skin; Z85.118 Personal history of other malignant neoplasm of bronchus and lung; Z85.47 Personal history of malignant neoplasm of testis
CPT/HCPCS: 36415; 70450; 71020; 80053; 81003; 82550; 82553; 83735; 84100; 84439; 84443; 84481; 84484; 85025; 85610; 85730; 93005; 96360; 96361; 99285

== ENCOUNTER 2016-07-04 10:38 | Inpatient (IN) | payer MEDICARE ==
[2016-07-04] MEDS ORDERED: IPRATROPIUM 0.5 MG/2.5 ML NEBU INHALATION STA (11:09)
[2016-07-04] MEDS ORDERED: ALBUTEROL NEBULIZED 2.5 MG/3 ML INHALATION STA (11:09)
[2016-07-04 11:26] LABS: ALT 38 U/L (21-72); AST 36 U/L (17-59); Alkaline Phosphatase 233 U/L (38-126); Anion Gap 6 mmol/L; Anisocytosis Slight; Blood Urea Nitrogen 5 mg/dL (9-20); CH 28.4; CHCM 30.5; Calcium 7.2 mg/dL (8.4-10.2); Carbon Dioxide 23 mmol/L (22-30); Chloride 104 mmol/L (98-107); Glucose 98 mg/dL (74-99); HCT 25.9 % (39.0-53.0); HDW 2.89; HGB 7.8 gm/dL (13.0-17.5); Hypochromasia Marked; MCHC 29.9 g/dL (31.0-37.0); Mean Platelet Volume 7.1; Non-African American GFR(MDRD) >60 (>60 ml/min/1.73 sqM); Potassium 4.1 mmol/L (3.5-5.1); RBC 2.77 m/uL (4.30-5.90); RDW 16.1 % (11.5-15.5); Sodium 133 mmol/L (137-145); Total Bilirubin 0.6 mg/dL (0.2-1.3); Total Protein 4.8 g/dL (6.3-8.2); WBC (Perox) 37.82
[2016-07-04 11:29] LABS: MCV 93.5 fL (80.0-100.0)
[2016-07-04 11:31] LABS: WBC 36.7 k/uL (3.8-10.6)
[2016-07-04 11:32] LABS: INR 1.4 (<1.1); Prothrombin Time 13.3 sec (9.0-12.0)
[2016-07-04 11:51] LABS: Creatine Kinase <20 U/L (55-170)
[2016-07-04 12:00] LABS: Add Differential Manual Differential
[2016-07-04 12:01] LABS: Manual Review Performed; Nucleated Red Blood Cells 0 /100 WBC (0-0); Total Cells Counted 100; Toxic Granulation Present
[2016-07-04 12:03] LABS: Creatine Kinase MB <0.2 ng/mL (0.0-2.4); Troponin I <0.012 ng/mL (0.000-0.034)
[2016-07-04] MEDS ORDERED: cefTRIAXone 2,000 MG in SODIUM CHLORIDE 0.9% 100 ML IVPB STA (12:09)
--- NOTE | 2016-07-04 12:14 | XR ---
EXAMINATION TYPE: XR chest 2V DATE OF EXAM: 07/04/2016 11:43 AM COMPARISON: 06/29/2016 HISTORY: Shortness of breath TECHNIQUE: Frontal and lateral views of the chest are obtained. FINDINGS: Scattered senescent parenchymal changes noted. Hyperinflation compatible with COPD. No evidence for infiltrate. No evidence for atelectasis. Heart size is stable. Mediastinal structures are stable and grossly unremarkable. No evidence for hilar prominence. Degenerative changes dorsal spine. IMPRESSION: 1. No evidence for acute pulmonary disease.
[2016-07-04 12:24] LABS: Appearance,Urine Clear (Clear); Bilirubin,Urine Negative (Negative); Glucose,Urine (UA) Negative (Negative); Ketones,Urine Negative (Negative); Leukocyte Esterase,Urine Negative (Negative); Nitrite,Urine Negative (Negative); Protein,Urine Negative (Negative); Specific Gravity,Urine 1.005 (1.001-1.035); UA Billing (MACRO vs. MICRO) CHEM; Urobilinogen,Urine <2.0 mg/dL (<2.0)
[2016-07-04] MEDS ORDERED: NALOXONE 0.4 MG/ML 1 ML VIAL IV PRN (14:37)
--- NOTE | 2016-07-04 14:37 | ED ---
SOB HPI - General Chief Complaint: Shortness of Breath Stated Complaint: SOB/Fever Time Seen by Provider: 07/04/16 10:42 Source: patient, EMS Mode of arrival: EMS - History of Present Illness Initial Comments: Patient has a history of lung cancer, is quite metastatic and is concerned about infection as well as dehydration and denies blood pressure was low was 99/ 63 and patient is complaining about shortness of breath no chest pain and mild fever he was quite diaphoretic noticed that he was soaked in sweat and as a matter of fact he was soaked when he came to the came to the ER review of system is quite vague. He is quite weak quite pale and not very specific about 8 review of of system - Related Data Home Medications Medication Instructions Recorded Confirmed Escitalopram [Lexapro] 20 mg PO DAILY 12/17/15 07/04/16 Cholecalciferol [Vitamin D3] 5,000 unit PO DAILY 03/13/16 07/04/16 Ascorbic Acid [Vitamin C] 500 mg PO DAILY 05/12/16 07/04/16 Multivitamins, Thera [Multivitamin] 1 tab PO DAILY 05/12/16 07/04/16 Vitamin B Complex 1 cap PO DAILY 05/12/16 07/04/16 Ammonium Lactate Lotion 1 applic TOPICAL HS 07/04/16 07/04/16 [Lac-Hydrin 12% Lotion] Bisacodyl [Dulcolax] 10 mg RECTAL DAILY PRN 07/04/16 07/04/16 Cyclobenzaprine [Flexeril] 10 mg PO BID PRN 07/04/16 07/04/16 Diazepam [Valium] 5 mg PO BID PRN 07/04/16 07/04/16 L.acidoph,Paracasei, B.lactis 1 cap PO TID 07/04/16 07/04/16 [Probiotic] Magnesium Hydroxide [Milk of 2,400 mg PO DAILY PRN 07/04/16 07/04/16 Magnesia] Menthol/Zinc Oxide [Calmoseptine 1 applic TOPICAL BID 07/04/16 07/04/16 Ointment] Na Phos,M-B/Na Phos,Di-Ba [Fleet 133 ml RECTAL ONCE PRN 07/04/16 07/04/16 Adult] Nicotine 14Mg/24Hr Patch [Habitrol 1 patch TRANSDERM DAILY 07/04/16 07/04/16 14Mg/24Hr Patch] Previous Rx's Medication Instructions Recorded Folic Acid 1 mg PO DAILY #90 tablet 01/01/16 Budesonide [Pulmicort] 0.5 mg INHALATION RT-BID #60 nebu 05/21/16 Famotidine [Pepcid] 20 mg PO HS #30 tab 05/21/16 Acetaminophen Tab [Tylenol] 650 mg PO Q4H PRN #0 tab 06/02/16 Montelukast [Singulair] 10 mg PO HS #30 tab 06/02/16 Ipratropium-Albuterol Nebulize 3 ml INHALATION RT-QID ampul.neb 06/26/16 [Duoneb 0.5 mg-3 mg/3 ml Soln] Morphine Sulfate ER [Ms Contin 15 mg PO Q8H #21 tab 06/26/16 15Mg] Nystatin 100,000 Unit/ml Susp 500,000 unit PO QID 7 Days 06/26/16 [Mycostatin Oral Susp] Allergies Allergy/AdvReac Type Severity Reaction Status Date / Time adhesive Allergy Rash/Hives Verified 07/04/16 12:22 clonazepam [From Klonopin] Allergy Unknown Verified 07/04/16 12:22 latex Allergy Rash/Hives Verified 07/04/16 12:22 naproxen [From Naprosyn] Allergy Rash/Hives Verified 07/04/16 12:22 ondansetron Allergy Unknown Verified 07/04/16 12:22 prochlorperazine Allergy Unknown Verified 07/04/16 12:22 topiramate Allergy Blisters Verified 07/04/16 12:22 buprenorphine AdvReac Nausea Verified 07/04/16 12:22 myceline Allergy Unknown Uncoded 06/29/16 20:23 Review of Systems ROS Statement: Those systems with pertinent positive or pertinent negative responses have been documented in the HPI. ROS Other: All systems not noted in ROS Statement are negative. 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 removed spur from neck. right ORCHECTOMY with right LYMPH NODES REMOVED and adrenal glands removed. metal clips and david in abdominal area secondary to surgery from cancer, RT KNEE X2 cyst removed ,SKIN CA REMOVED RT SIDE OF FACE 2001. right thumb fracture with surgery. 2004 left tib/fib and ankle fractures with surgery, colonoscopies/benign polypectomy. Past Anesthesia/Blood Transfusion Reactions: No Reported Reaction Additional Past Anesthesia/Blood Transfusion Reaction / Comment(s): Pt states he has received blood in past without reaction. Past Psychological History: Anxiety, Depression Additional Psychological History / Comment(s): Pt resides with his spouse. He uses a cane on occasion. He drives. Denies alcohol use. 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 No experience. No international travel. No current exposures. No recreational drug use or alcohol use Smoking Status: Former smoker Past Alcohol Use History: None Reported Additional Past Alcohol Use History / Comment(s): Pt states he started smoking in 1959. He is less than a ppd smoker at this time. Estimates was approximately 1 pack per day throughout most of life. pt states he quit smoking 12 days ago from 05/23/15 Past Drug Use History: Marijuana - Past Family History Father Family Medical History: Cancer, Thyroid Disorder Additional Family Medical History / Comment(s): Father had skin cancer. He also had heart disease. He at the age of 95 yrs. Mother Family Medical History: Cancer, COPD, Hypertension Additional Family Medical History / Comment(s): Mother had breast cancer. She at the age of 84 yrs. General Exam - General Exam Comments Initial Comments: General: The patient is white tired and sleepy, he does wake up and answer appropriately him a GCS is 15 Skin: Skin is warm and dry and he is very pale Eye: Pupils are equal, round and reactive to light, extra-ocular movements are intact; there is normal conjunctiva bilaterally. Ears, nose, mouth and throat: There are moist mucous membranes and no oral lesions. Neck: The neck is supple, there is no tenderness or JVD. Cardiovascular: There is a regular rate and rhythm. No murmur, rub or gallop is appreciated. Respiratory: To auscultation bilateral, raccoons bilateral with a very poor respiratory effort Gastrointestinal: Soft, non-distended, unstable bowel sounds Back: There is no tenderness to palpation in the midline. There is no obvious deformity. Musculoskeletal: Normal ROM, no tenderness, There is no pedal edema. There is no calf tenderness or swelling. No cords were appreciated. Neurological: CN II-XII intact, Cranial nerves III through XII are intact. There are no obvious motor or sensory deficits. Coordination appears grossly intact. Speech is normal. Psychiatric: Cooperative, seems depressed Course Vital Signs 07/04/16 07/04/16 07/04/16 10:39 10:54 11:50 Temperature 98.3 F Pulse Rate 100 92 Respiratory 16 Rate Blood Pressure 99/63 O2 Sat by Pulse 99 Oximetry 07/04/16 07/04/16 07/04/16 11:57 12:08 13:10 Temperature Pulse Rate 94 92 93 Respiratory 16 16 Rate Blood Pressure 106/57 92/55 O2 Sat by Pulse 100 96 Oximetry EKG is normal sinus rhythm ventricular rate is 97 KS interval is 144 QRS duration is 76 QT/QTc is 382/485, degree of this EKG showed does no ST elevation or ST depression in this EKG Medical Decision Making - Lab Data Result diagrams: 07/04/16 10:55 07/04/16 10:55 Lab Results 07/04/16 07/04/16 07/04/16 Range/Units 10:55 10:55 10:55 WBC 36.7 H* (3.8-10.6) k/uL RBC 2.77 L (4.30-5.90) m/uL Hgb 7.8 L (13.0-17.5) gm/dL Hct 25.9 L (39.0-53.0) % MCV 93.5 D (80.0-100.0) fL MCH 28.0 (25.0-35.0) pg MCHC 29.9 L (31.0-37.0) g/dL RDW 16.1 H (11.5-15.5) % Plt Count 395 (150-450) k/uL Neutrophils % (Manual) 92.0 % Band Neutrophils % 2.0 % Lymphocytes % (Manual) 1.0 % Monocytes % (Manual) 5.0 % Neutrophils # (Manual) 34.5 H (1.3-7.7) k/uL Lymphocytes # (Manual) 0.4 L (1.0-4.8) k/uL Monocytes # (Manual) 1.8 H (0-1.0) k/uL Nucleated RBCs 0 (0-0) /100 WBC Manual Slide Review Performed Toxic Granulation Present Hypochromasia Marked Anisocytosis Slight PT (9.0-12.0) sec INR (<1.1) APTT (22.0-30.0) sec Sodium 133 L (137-145) mmol/L Potassium 4.1 (3.5-5.1) mmol/L Chloride 104 (98-107) mmol/L Carbon Dioxide 23 (22-30) mmol/L Anion Gap 6 mmol/L BUN 5 L (9-20) mg/dL Creatinine 0.58 L (0.66-1.25) mg/dL Est GFR (MDRD) Af Amer >60 (>60 ml/min/1.73 sqM) Est GFR (MDRD) Non-Af >60 (>60 ml/min/1.73 sqM) Glucose 98 (74-99) mg/dL Calcium 7.2 L (8.4-10.2) mg/dL Total Bilirubin 0.6 (0.2-1.3) mg/dL AST 36 (17-59) U/L ALT 38 (21-72) U/L Alkaline Phosphatase 233 H (38-126) U/L Total Creatine Kinase <20 L (55-170) U/L CK-MB (CK-2) <0.2 (0.0-2.4) ng/mL CK-MB (CK-2) Rel Index Troponin I <0.012 (0.000-0.034) ng/mL NT-Pro-B Natriuret Pep pg/mL Total Protein 4.8 L (6.3-8.2) g/dL Albumin 1.9 L (3.5-5.0) g/dL Urine Color Urine Appearance (Clear) Urine pH (5.0-8.0) Ur Specific [place] (1.001-1.035) Urine Protein (Negative) Urine Glucose (UA) (Negative) Urine Ketones (Negative) Urine Blood (Negative) Urine Nitrate (Negative) Urine Bilirubin (Negative) Urine Urobilinogen (<2.0) mg/dL Ur Leukocyte Esterase (Negative) 07/04/16 07/04/16 07/04/16 Range/Units 10:55 10:55 12:16 WBC (3.8-10.6) k/uL RBC (4.30-5.90) m/uL Hgb (13.0-17.5) gm/dL Hct (39.0-53.0) % MCV (80.0-100.0) fL MCH (25.0-35.0) pg MCHC (31.0-37.0) g/dL RDW (11.5-15.5) % Plt Count (150-450) k/uL Neutrophils % (Manual) % Band Neutrophils % % Lymphocytes % (Manual) % Monocytes % (Manual) % Neutrophils # (Manual) (1.3-7.7) k/uL Lymphocytes # (Manual) (1.0-4.8) k/uL Monocytes # (Manual) (0-1.0) k/uL Nucleated RBCs (0-0) /100 WBC Manual Slide Review Toxic Granulation Hypochromasia Anisocytosis PT 13.3 H (9.0-12.0) sec INR 1.4 (<1.1) APTT 29.0 (22.0-30.0) sec Sodium (137-145) mmol/L Potassium (3.5-5.1) mmol/L Chloride (98-107) mmol/L Carbon Dioxide (22-30) mmol/L Anion Gap mmol/L BUN (9-20) mg/dL Creatinine (0.66-1.25) mg/dL Est GFR (MDRD) Af Amer (>60 ml/min/1.73 sqM) Est GFR (MDRD) Non-Af (>60 ml/min/1.73 sqM) Glucose (74-99) mg/dL Calcium (8.4-10.2) mg/dL Total Bilirubin (0.2-1.3) mg/dL AST (17-59) U/L ALT (21-72) U/L Alkaline Phosphatase (38-126) U/L Total Creatine Kinase (55-170) U/L CK-MB (CK-2) (0.0-2.4) ng/mL CK-MB (CK-2) Rel Index Troponin I (0.000-0.034) ng/mL NT-Pro-B Natriuret Pep 1240 pg/mL Total Protein (6.3-8.2) g/dL Albumin (3.5-5.0) g/dL Urine Color Yellow Urine Appearance Clear (Clear) Urine pH 7.0 (5.0-8.0) Ur Specific [place] 1.005 (1.001-1.035) Urine Protein Negative (Negative) Urine Glucose (UA) Negative (Negative) Urine Ketones Negative (Negative) Urine Blood Negative (Negative) Urine Nitrate Negative (Negative) Urine Bilirubin Negative (Negative) Urine Urobilinogen <2.0 (<2.0) mg/dL Ur Leukocyte Esterase Negative (Negative) Disposition Clinical Impression: Sepsis, Leukocytosis, Lung cancer Disposition: ADMITTED IP TO THIS HOSP
[2016-07-04] MEDS ORDERED: NA PHOS,M-B/NA PHOS,DI-BA 133 ML ENEMA RECTAL PRN (14:41)
[2016-07-04] MEDS ORDERED: ACETAMINOPHEN TAB 325 MG TAB PO PRN (14:41)
[2016-07-04] MEDS ORDERED: CYCLOBENZAPRINE 10 MG TAB PO PRN (14:41)
[2016-07-04] MEDS ORDERED: MAGNESIUM HYDROXIDE 2,400 MG/10 ML CUP PO PRN (14:41)
[2016-07-04] MEDS ORDERED: BISACODYL 10 MG SUPP RECTAL PRN (14:41)
[2016-07-04] MEDS ORDERED: PIPERACILLIN-TAZOBACTAM 3.375 GM in DEXTROSE/WATER 1 50ML.BAG IVPB STA (14:43)
[2016-07-04] MEDS: SODIUM CHLORIDE 0.9% 1,000 ML IV SCH ×2 (15:12→20:58)
[2016-07-04] MEDS: IPRATROPIUM-ALBUTEROL 3 ML NEB INHALATION SCH ×2 (15:54→19:45)
[2016-07-04] MEDS: MORPHINE SULFATE ER 15 MG TABLET PO SCH (18:10)
[2016-07-04] MEDS: LACTOBACILLUS ACIDOPH & BULGAR 1 EACH PACKET PO SCH ×3 (18:13→21:06)
[2016-07-04] MEDS: NYSTATIN 100,000 UNIT/ML SUSP 500,000 UNIT/5 ML CUP PO SCH ×2 (18:13→20:57)
[2016-07-04] MEDS: BUDESONIDE 0.5 MG/2 ML NEBU INHALATION SCH (19:45)
[2016-07-04] MEDS: MONTELUKAST 10 MG TAB PO SCH (20:57)
[2016-07-04] MEDS: AMMONIUM LACTATE 12% LOTION 225 GM BTL TOPICAL SCH (20:57)
[2016-07-04] MEDS: MENTHOL-ZINC OXIDE OINT 113 GM TUBE TOPICAL SCH (20:57)
[2016-07-04] MEDS: FAMOTIDINE 20 MG TAB PO SCH (20:57)
[2016-07-05] MEDS ORDERED: SODIUM CHLORIDE 0.9% 1,000 ML IV ONE
[2016-07-05] MEDS: PIPERACILLIN-TAZOBACTAM 3.375 GM in DEXTROSE/WATER 1 50ML.BAG IVPB SCH ×4 (00:29→23:21)
[2016-07-05] MEDS: MORPHINE SULFATE ER 15 MG TABLET PO SCH ×4 (00:30→23:31)
[2016-07-05 07:23] LABS: Basophils % (A) 0 %; CHCM 28.8; Eosinophils # (A) 0.1 k/uL (0-0.7); Eosinophils % (A) 0 %; HDW 2.82; HGB 7.8 gm/dL (13.0-17.5); Hypochromasia Marked; Luc # (Auto) 0.16; Luc % (Auto) 1; Lymphocytes # (A) 0.5 k/uL (1.0-4.8); Lymphocytes % (A) 2 %; MCH 28.3 pg (25.0-35.0); MCV 97.6 fL (80.0-100.0); Macrocytosis Slight; Mean Platelet Volume 7.3; Monocytes # (A) 0.9 k/uL (0-1.0); Monocytes % (A) 3 %; Neutrophils # (A) 29.7 k/uL (1.3-7.7); Neutrophils % (A) 95 %; RBC 2.76 m/uL (4.30-5.90); RDW 15.8 % (11.5-15.5)
[2016-07-05 07:26] LABS: ALT 36 U/L (21-72); AST 32 U/L (17-59); Alkaline Phosphatase 212 U/L (38-126); Anion Gap 8 mmol/L; Blood Urea Nitrogen 5 mg/dL (9-20); Calcium 6.9 mg/dL (8.4-10.2); Carbon Dioxide 23 mmol/L (22-30); Chloride 108 mmol/L (98-107); Glucose 91 mg/dL (74-99); Non-African American GFR(MDRD) >60 (>60 ml/min/1.73 sqM); Sodium 139 mmol/L (137-145); Total Bilirubin 0.4 mg/dL (0.2-1.3); Total Protein 4.5 g/dL (6.3-8.2)
[2016-07-05 07:30] LABS: WBC 31.3 k/uL (3.8-10.6)
[2016-07-05 08:12] LABS: Polychromasia Present; Stomatocytes Present
[2016-07-05] MEDS: ESCITALOPRAM 20 MG TAB PO SCH (08:19)
[2016-07-05] MEDS: NYSTATIN 100,000 UNIT/ML SUSP 500,000 UNIT/5 ML CUP PO SCH ×4 (08:20→21:03)
[2016-07-05] MEDS: LACTOBACILLUS ACIDOPH & BULGAR 1 EACH PACKET PO SCH ×4 (08:20→21:07)
[2016-07-05] MEDS: NICOTINE 14MG/24HR PATCH TRANSDERM SCH (08:20)
[2016-07-05] MEDS: MENTHOL-ZINC OXIDE OINT 113 GM TUBE TOPICAL SCH ×2 (08:20→21:03)
[2016-07-05] MEDS: DIAZEPAM 5 MG TAB PO PRN ×2 (08:35→14:10)
[2016-07-05] MEDS: IPRATROPIUM-ALBUTEROL 3 ML NEB INHALATION SCH ×4 (08:42→20:53)
[2016-07-05] MEDS: BUDESONIDE 0.5 MG/2 ML NEBU INHALATION SCH ×2 (08:42→20:53)
[2016-07-05 09:17] VITALS: BMI 21.3
[2016-07-05] MEDS: SODIUM CHLORIDE 0.9% 1,000 ML IV SCH ×2 (11:29→23:23)
[2016-07-05] MEDS ORDERED: RX INFO: IV CONTRAST WAS GIVEN 1 EACH MISC MISCELLANE PRN (11:44)
--- NOTE | 2016-07-05 11:44 | P.CONS ---
History of Present Illness - Reason for Consult Consult date: 07/05/16 - History of Present Illness Mr. Cutler is a 66-year-old gentleman, initially seen in consult during his visit on 12/21/2015. He had been admitted with severe lower back pain. He was ultimately found to have a destructive sacroiliac metastasis, with biopsy confirming non-small cell cancer (likely adenocarcinoma) of lung origin. A dominant mass was also found in the left lung, on CT scans. Pain control during this previous visit was quite challenging. The patient was seen by radiation oncology and started on palliative radiation which he completed on 01/09/2016. He was then started on chemotherapy with carboplatin and Alimta, and completed 4 cycles in late 03/26. Tolerance of chemotherapy was overall poor, with significant fatigue, decreased appetite, and need for transfusions. The CT scans from early 04/25 however showed progression in the dominant mass in the left lung. The patient was therefore started on second line treatment with Opdivo, and is status post 2 cycles. The patient has chronic pain issues related to musculoskeletal problems especially regarding his back, chronically, for several years even prior to his cancer diagnosis. He had developed right-sided upper back pain, especially around the right shoulder blade, progressive , and associated with the some intermittent shortness of breath, leading to an admission, on 05/12/16. CTA of the chest was negative for any pulmonary embolus at that time. He had MRI of the C-spine and T-spine, showing progression of disease. He was started on radiation. Pain control continue to remain challenging, but improved with increase in MS Contin, addition of NSAID by the pain service, IV Zometa, and steroids. He was discharged on 05/21/16. He was then readmitted with a pneumonia on 05/24/16. He had a fairly prolonged admission, and was then discharged with another readmission on 06/15/16 with weakness, and fall. He again had a somewhat prolonged admission with very slow progress on physical therapy. He was evaluated during that time for inpatient rehab but was not felt to be a candidate for the same because of his significant weakness. He was then discharged to an ECF. He had another ER visit on 06/29/16 with complains of diaphoresis, weakness and dizziness. No evidence of infection was found, and the patient was discharged back after improvement with hydration. He came back to the ER again, complaining of increased weakness compared to his baseline, as well as severe sweats. The patient subjectively felt feverish. In the ER he was noted to have low blood pressure with systolic in the 70-90 range. His obesity was elevated in the 30,000 range, though this is quite chronic for him. Clinically he also appeared dehydrated. He was therefore admitted for further management. He reports persistent severe weakness and ECF, and states that he has not been able to walk. Per the patient, he gets dizzy very easily, and often falls as if "my legs have been kicked out from under me" Review of Systems Constitutional: Reports chronic pain, Reports fever, Reports poor appetite, Reports sweats, Reports weakness, Reports weight loss Eyes: denies blurred vision, denies pain Ears: deny: decreased hearing, ear discharge, earache, tinnitus Ears, nose, mouth and throat: Denies headache, Denies sore throat Cardiovascular: Reports palpitations, Reports shortness of breath Respiratory: Reports cough with sputum (The patient denies any significant change compared to his baseline) Gastrointestinal: Denies abdominal pain, Denies diarrhea, Denies nausea, Denies vomiting Genitourinary: Reports as per HPI Musculoskeletal: Reports as per HPI (Chronic back pain due to prior history of trauma and degenerative disease. 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 removed spur from neck. right ORCHECTOMY with right LYMPH NODES REMOVED, and adrenal glands removed. metal clips and david in abdominal area secondary to surgery from cancer, RT KNEE X2 cyst removed ,SKIN CA REMOVED RT SIDE OF FACE 2001. right thumb fracture with surgery. 2004 left tib/fib and ankle fractures with surgery, colonoscopies/benign polypectomy. Past Anesthesia/Blood Transfusion Reactions: No Reported Reaction Additional Past Anesthesia/Blood Transfusion Reaction / Comm: Pt states he has received blood in past without reaction. Past Psychological History: Anxiety, Depression Additional Psychological History / Comment(s): Denies alcohol use. 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 No experience. No international travel. No current exposures. No recreational drug use or alcohol use Smoking Status: Former smoker Past Alcohol Use History: None Reported Additional Past Alcohol Use History / Comment(s): Pt states he started smoking in 1960. He is less than a ppd smoker at this time. Estimates was approximately 1 pack per day throughout most of life. pt states he quit smoking 12 days ago from 05/23/15 Past Drug Use History: Marijuana - Past Family History Father Family Medical History: Cancer, Thyroid Disorder Additional Family Medical History / Comment(s): Father had skin cancer. He also had heart disease. He at the age of 95 yrs. Mother Family Medical History: Cancer, COPD, Hypertension Additional Family Medical History / Comment(s): Mother had breast cancer. She at the age of 84 yrs. Medications and Allergies Home Medications Medication Instructions Recorded Confirmed Type Escitalopram [Lexapro] 20 mg PO DAILY 12/17/15 07/04/16 History Cholecalciferol [Vitamin D3] 5,000 unit PO DAILY 03/13/16 07/04/16 History Ascorbic Acid [Vitamin C] 500 mg PO DAILY 05/12/16 07/04/16 History Multivitamins, Thera [Multivitamin] 1 tab PO DAILY 05/12/16 07/04/16 History Vitamin B Complex 1 cap PO DAILY 05/12/16 07/04/16 History Ammonium Lactate Lotion 1 applic TOPICAL HS 07/04/16 07/04/16 History [Lac-Hydrin 12% Lotion] Bisacodyl [Dulcolax] 10 mg RECTAL DAILY PRN 07/04/16 07/04/16 History Cyclobenzaprine [Flexeril] 10 mg PO BID PRN 07/04/16 07/04/16 History Diazepam [Valium] 5 mg PO BID PRN 07/04/16 07/04/16 History L.acidoph,Paracasei, B.lactis 1 cap PO TID 07/04/16 07/04/16 History [Probiotic] Magnesium Hydroxide [Milk of 2,400 mg PO DAILY PRN 07/04/16 07/04/16 History Magnesia] Menthol/Zinc Oxide [Calmoseptine 1 applic TOPICAL BID 07/04/16 07/04/16 History Ointment] Na Phos,M-B/Na Phos,Di-Ba [Fleet 133 ml RECTAL ONCE PRN 07/04/16 07/04/16 History Adult] Nicotine 14Mg/24Hr Patch [Habitrol 1 patch TRANSDERM DAILY 07/04/16 07/04/16 History 14Mg/24Hr Patch] Allergies Allergy/AdvReac Type Severity Reaction Status Date / Time adhesive Allergy Rash/Hives Verified 07/04/16 12:22 clonazepam [From Klonopin] Allergy Unknown Verified 07/04/16 12:22 latex Allergy Rash/Hives Verified 07/04/16 12:22 naproxen [From Naprosyn] Allergy Rash/Hives Verified 07/04/16 12:22 ondansetron Allergy Unknown Verified 07/04/16 12:22 prochlorperazine Allergy Unknown Verified 07/04/16 12:22 topiramate Allergy Blisters Verified 07/04/16 12:22 buprenorphine AdvReac Nausea Verified 07/04/16 12:22 myceline Allergy Unknown Uncoded 06/29/16 20:23 Physical Exam Vitals: Vital Signs Temp Pulse Pulse Resp BP BP BP 07/05/16 08:57 112 H 07/05/16 08:42 112 H 07/05/16 08:29 99.5 F 113 H 18 106/59 07/05/16 04:00 97.7 F 103 H 16 110/62 07/05/16 00:30 105/62 07/05/16 00:00 81 16 07/04/16 23:00 97.2 F L 81 16 77/49 07/04/16 20:00 88 07/04/16 19:45 86 07/04/16 18:27 96.9 F L 86 18 100/58 07/04/16 17:35 97.6 F 87 14 98/59 07/04/16 16:46 85 14 91/53 07/04/16 16:03 84 07/04/16 15:56 84 07/04/16 15:39 82 88/53 07/04/16 15:19 97.5 F L 82 16 85/53 Pulse Ox 07/05/16 08:57 07/05/16 08:42 07/05/16 08:29 93 L 07/05/16 04:00 94 L 07/05/16 00:30 07/05/16 00:00 07/04/16 23:00 95 07/04/16 20:00 07/04/16 19:45 07/04/16 18:27 96 07/04/16 17:35 98 07/04/16 16:46 99 07/04/16 16:03 07/04/16 15:56 07/04/16 15:39 07/04/16 15:19 98 Intake and Output 07/04/16 07/05/16 07/05/16 22:59 06:59 14:59 Intake Total 1950 120 Output Total 1340 Balance 610 120 Intake: IV 1950 Piperacillin-Tazobactam 3 50 .375 gm In Dextrose/Water 1 50ml.bag @ 12.5 mls/hr IVPB Q8HR [facility] Rx#: [id number] Sodium Chloride 0.9% 1, 900 000 ml @ 100 mls/hr IV . Q10H [facility] Rx#:[id number] Sodium Chloride 0.9% 1, 1000 000 ml @ 500 mls/hr IV . Q2H [facility] Rx#:[id number] Oral 120 Output: Urine 1340 Other: Voiding Method Urinal Urinal # Voids 1 Weight 69.5 kg 69.5 kg Patient Weight 07/06/16 06:59 Weight 69.5 kg - Constitutional General appearance: no acute distress - EENT Eyes: EOMI, PERRLA ENT: hearing grossly normal, normal oropharynx - Neck Neck: no lymphadenopathy Thyroid: bilateral: normal size - Respiratory Respiratory: bilateral: CTA - Cardiovascular Rhythm: regular Heart sounds: normal: S1, S2 - Gastrointestinal General gastrointestinal: normal bowel sounds, soft - Integumentary Integumentary: normal - Neurologic Neurologic: CNII-XII intact - Musculoskeletal Musculoskeletal: generalized weakness, strength equal bilaterally - Psychiatric Psychiatric: A&O x's 3 Results CBC & Chem 7: 07/05/16 06:10 07/05/16 06:10 Labs: Abnormal Lab Results - Last 24 Hours (Table) 07/05/16 07/05/16 Range/Units 06:10 06:10 WBC 31.3 H* (3.8-10.6) k/uL RBC 2.76 L (4.30-5.90) m/uL Hgb 7.8 L (13.0-17.5) gm/dL Hct 27.0 L (39.0-53.0) % MCHC 29.0 L (31.0-37.0) g/dL RDW 15.8 H (11.5-15.5) % Neutrophils # 29.7 H (1.3-7.7) k/uL Lymphocytes # 0.5 L (1.0-4.8) k/uL Chloride 108 H (98-107) mmol/L BUN 5 L (9-20) mg/dL Creatinine 0.53 L (0.66-1.25) mg/dL Calcium 6.9 L (8.4-10.2) mg/dL Alkaline Phosphatase 212 H (38-126) U/L Total Protein 4.5 L (6.3-8.2) g/dL Albumin 1.8 L (3.5-5.0) g/dL Chest x-ray: report reviewed CT Scan - head: report reviewed MRI - head: report reviewed Assessment and Plan (1) Sepsis Narrative/Plan: This is suspected, based on his history of subjective fevers, severe diaphoresis as well as hypotension. He has not had a fever since admission. Blood pressure has improved with hydration. Pulse rate still remains somewhat elevated. Chest x-ray and urinalysis were overall negative. The patient is currently being covered by [facility], which is appropriate to cultures are finalized. It is possible that this constellation of symptoms could be related to tumor effect and possible steroid insufficiency. I will check a cortisol level. In the meantime continue treatment for possible sepsis, per the admitting service and other consultants Status: Acute (2) Lung cancer Narrative/Plan: Overall, the patient's prognosis is felt to be poor. He has stage IV, progressive disease. He had started on Opdivo. He has only had 2 cycles, which is probably too early to expect any benefit from the medication. However the patient's performance status has remained very poor, and he has had multiple admissions to the hospital. Despite recent rehab stay, performance status is not improved. During his previous admission, comfort care, if the patient did not improve with rehab was discussed with him and his . Based on his lack of progress, prognosis going forward, does appear to be very guarded. I will repeat CT of the chest abdomen and pelvis to see if there has been any further progression Status: Acute (3) Weakness Narrative/Plan: This is multifactorial. As noted, there has not been much improvement with ongoing rehab. He has been complaining of persistent dizziness and falls. Records were reviewed. He had had an MRI of the brain on and a CT of the brain without contrast on 06/29/16 both of which were negative for any evidence of metastasis. The symptom complex has been fairly unchanged since then. Status: Acute
[2016-07-05] MEDS: B COMPLEX-VIT C-VIT E-ZINC 1 EACH TAB PO SCH (12:07)
[2016-07-05] MEDS: MULTIVITAMINS, THERA 1 EACH TAB PO SCH (12:07)
[2016-07-05] MEDS: ASCORBIC ACID 500 MG TAB PO SCH (12:07)
[2016-07-05] MEDS: CHOLECALCIFEROL 1,000 UNIT TAB PO SCH (12:07)
[2016-07-05] MEDS: FOLIC ACID 1 MG TAB PO SCH (12:07)
[2016-07-05] MEDS: IOHEXOL 350 MG/ML 25 ML BOTTLE (ORAL USE) PO PRN ×2 (12:14→13:14)
--- NOTE | 2016-07-05 14:58 | CT ---
EXAMINATION TYPE: CT ChestAbdPelvis w con DATE OF EXAM: 07/05/2016 1:59 PM COMPARISON: CT chest 05/12/[address] 04/15/2016 HISTORY: 66-year-old male with lung CA, mets TECHNIQUE: Contiguous axial scanning of the chest, abdomen, and pelvis performed with IV Contrast, pa tient injected with 100 ml mL of Omnipaque 300. Delayed images through the kidneys were obtained. Cor onal/sagittal reconstructions performed. CT DLP: 849.3 mGycm Automated exposure control for dose reduction was used. FINDINGS: CHEST: The heart is normal size without pericardial effusion. Coronary vessel calcifications are present in remarkable for coronary artery disease. Similar ectasia of the ascending aorta at 3.7 cm. There is mi ld atherosclerotic arch calcification with conventional arch vessel branching anatomy. No mediastinal lymphadenopathy. Left hilar lymphadenopathy measuring up to 1.5 cm versus 1.3 cm on 05/12/2016. The lobulated left lower lobe mass is redemonstrated. This measures up to 5.6 x 3.4 cm having increased in size from 4.0 x 2. 9 cm. Some septal lines are seen within the upper lungs. There is redemonstrated mild diffuse bronchial wal l thickening and mild to moderate centrilobular emphysema compatible with COPD. There is medial small to moderate right and small left pleural effusions with adjacent atelectasis. The lesion at the left fourth costochondral junction now measures 3.1 cm thick versus 2.7 cm on 017. ABDOMEN: Subcentimeter hypodense lesions are redemonstrated scattered throughout the liver and show no interva l change. The largest is compatible with a cyst in the inferior right hepatic lobe measuring 2.9 cm. Hypodense lesion within the anterior spleen measures 2 cm and is not significantly changed. Tiny ante rior splenule is noted. However, a peritoneal nodule in the left subphrenic region measuring 9 mm. Left adrenal gland nodularity and measures up to 1.8 cm thick versus 1.6 cm on 04/15/2016 and is suspi cious for metastatic disease. Portal venous system is patent. No biliary ductal dilatation. There is edematous change within the mesenteric fat and anasarca-type change throughout the subcutane ous fat. Portacaval lymph node measures 1.2 cm, limits of normal, increased in size. There are retroperitoneal lymph nodes such as in the para-aortic region and aortocaval region measuring up to 1.7 cm, new from prior. The soft tissue metastasis to the omentum on the left side of the abdomen now measures up to 4.1 cm v ersus 2.9 cm, previously. Additional metastatic omental deposits are present on the left measuring up to 2 cm. No dilated small bowel, free fluid, or free air. Numerous surgical clips within the retroperitoneum with moderate prostatic calcifications throughout the abdominal aorta and iliac arteries. Pelvis: Bladder is urine distended. Small amount of pelvic free fluid is noted. Prostate gland is prominent a t 4.0 cm wide. Rectum appears normal. Peritoneal deposit anterior left hemipelvis axial image 114 measures 2.3 cm with adjacent 1.9 cm daina toneal deposit. Bones: Degenerative changes of the hips. Redemonstrated lytic lesion posterior superior right acetabulum, ax ial image 111. Heterogeneous sclerosis and lytic destruction of the medial right iliac bone is redemo nstrated but shows no significant interval change. There may be some increased sclerosis. Patchy areas of lucency within the left iliac bone suspicious for osseous metastatic disease, unchang ed. Degenerative changes mid to lower lumbar spine. ACDF hardware. Previously mentioned left costochondra l junction lesion. IMPRESSION: 1. CORRELATE WITH PATIENT'S FLUID STATUS THERE IS NEW ANASARCA-TYPE CHANGE WITH MILD INTERSTITIAL EDEMA IN THE UPPER LUNGS AND SMALL TO MODERATE RIGHT AND SMALL LEFT PLEURAL EFFUSIONS. SMALL AMOUNT O F PELVIC FREE FLUID. 2. DISEASE PROGRESSION. THE PATIENT'S LEFT LOWER LOBE MASS HAS INCREASED IN SIZE NOW MEASURING 5.6 CM . THERE HAS ALSO BEEN INTERVAL INCREASE IN SIZE IN THE LEFT HILAR LYMPH NODE AND METASTATIC LESION TO THE LEFT COSTOCHONDRAL JUNCTION. THERE IS NEW RETROPERITONEAL LYMPHADENOPATHY, INCREASED THICKENING OF LEFT ADRENAL GLAND NODULARITY, INCREASE IN SIZE OF THE PREVIOUS LEFT OMENTAL DEPOSIT (4.1 CM VERSU S 2.9 CM, PREVIOUSLY) AND NEW LEFT OMENTAL AND LEFT PELVIC PERITONEAL METASTATIC DEPOSITS. 3. STABLE MIXED LYTIC AND SCLEROTIC METASTATIC DISEASE INVOLVING THE MEDIAL RIGHT ILIAC BONE AND SUBT LE LYTIC AREAS WITHIN THE RIGHT ACETABULUM AND LEFT ILIAC BONE.
--- NOTE | 2016-07-05 17:28 | HP ---
DATE OF ADMISSION: ADDENDUM: Please add in assessment: ASSESSMENT: 1. Chronic obstructive pulmonary disease without any acute exacerbation. 2. Severe ( ) malnutrition, appears to be moderate. 3. Hypertension. 4. Osteoarthritis. 5. Sleep apnea. For the above mentioned ( ) and as of now there is no clear-cut source of infection ( ) continue on empiric antibiotic Zosyn as there is improvement in leukocytosis at this time. Patient's prognosis is extremely poor.
--- NOTE | 2016-07-05 17:47 | HP ---
DATE OF ADMISSION: Patient follows with Dr. Ty Koehler as an outpatient. A 66-year-old gentleman who came in after he had an episode of chemotherapy. Although, patient did not have any significant fever here in the hospital, he apparently has temperature of 100.7 while in the retirement. Patient has non-small cell lung cancer, mostly adenocarcinoma. Patient has had multiple admission recently. Patient is on palliative chemotherapy with OPPIBO. Previous CAT scan did show progression. The patient denied any diarrhea at this point of time. Patient denied any nausea or vomiting. Patient denied any cough. Chest x-ray did not show any pneumonic process or ( ) or any dysuria. Urinalysis is significant for ( ) photophobia, neck rigidity, negative ( ) sign. Patient has elevated WBC count of around 37 ( ) [id number]. Source of infection is not clear. Patient was empirically started on Zosyn, because of the fevers and ( ) cancer, although the patient does not have any neutropenia. Patient denied any flu-like symptoms. Patient is slightly tachycardic because of the pain. Patient even on the past admissions had elevated WBC count as high as 40,000. Patient was complaining of severe sweating as well and unclear history of chills. Patient was recently treated for pneumonia during his previous hospitalization. Patient was recently discharged from the hospital on June 15. REVIEW OF SYSTEMS: CONSTITUTIONAL: As described in HPI. Patient is a poor appetite because of the cancer and cachexia. HEENT: No recent visual problems or hearing problems. Denied any sore throat. CARDIOVASCULAR: No chest pain, orthopnea, PND, no palpitations, no syncope. PULMONARY: No shortness of breath, no cough, no hemoptysis. GASTROINTESTINAL: No diarrhea, no nausea, no vomiting, no abdominal pain. Normoactive bowel sounds. NEUROLOGICAL: No headaches, no weakness, no numbness. HEMATOLOGICAL: Denies any bleeding or petechiae. GENITOURINARY: Denies any burning micturition, frequency, or urgency. MUSCULOSKELETAL/RHEUMATOLOGICAL: Denies any joint pain, swelling, or any muscle pain. ENDOCRINE: Denies any polyuria or polydipsia. The rest of the 14 point review of systems is negative. PAST MEDICAL HISTORY: Significant for cancer, chronic obstructive pulmonary disease, gastroesophageal reflux disease, hypertension, osteoarthritis, sleep apnea, multiple recent admissions, orthopedic surgery in the past. Patient had orchiectomy in the past with lymph nodes removal. Anxiety, depression. SOCIAL HISTORY: Former smoker of 1 pack per day smoking, quit smoking May 2015. Occasional use of marijuana. FAMILY HISTORY: Father had skin cancer and thyroid cancer. Mother had chronic obstructive pulmonary disease, hypertension, and breast cancer. Home medications include: Lexapro, cholecalciferol, ascorbic acid, multivitamins, Vitamin B complex, ( ), cyclobenzaprine, magnesium oxide menthol, nicotine transdermal patch. ALLERGIES: ALLERGIC TO ADHESIVE TAPES, TEMAZEPAM, LATEX, NAPROXEN, ONDANSETRON, COMPAZINE, TOPAMAX, ( ), MYSOLINE. These are all allergies. PHYSICAL EXAMINATION: Temperature 99.5, 24-hour T-max is 99.5, pulse of 112, respiratory rate of 13, blood pressure 106/59, saturating at 93% on room air. GENERAL: The patient is alert and oriented x3, not in any acute distress. Well developed, well nourished. HEENT: Pupils are round and equally reacting to light. EOMI. No scleral icterus. No conjunctival pallor. Normocephalic, atraumatic. No pharyngeal erythema. No thyromegaly. CARDIOVASCULAR: S1 and S2 present. Patient is tachycardiac with sinus tachycardia. No JVD. No murmurs, rubs, or gallops. PULMONARY: Chest is clear to auscultation, no wheezing or crackles. ABDOMEN: Soft, nontender, nondistended, normoactive bowel sounds. No palpable organomegaly. MUSCULOSKELETAL: No joint swelling or deformity. EXTREMITIES: No cyanosis, clubbing, or pedal edema. NEUROLOGICAL: Gross neurological examination did not reveal any focal deficits. SKIN: No rashes. LABORATORY DATA: CBC and CMP are abnormal for elevated WBC count of 31,300, hemoglobin 7.8, chloride of 108. The rest of the chest x-ray essentially within normal limits. Patient is awaiting a CT scan of the head and MRI of the head was reviewed. Peck CTs were ordered for Oncology. Awaiting the results of those. ASSESSMENT AND PLAN: 1. Sepsis, source is unclear at this point of time. Patient is on broad-spectrum antibiotics in the form of Zosyn. This will be continued. Awaiting blood cultures. 2. leukocytosis: pending cultures. Probably related to the cancer itself. 3. Lung cancer on palliative chemotherapy. Please refer to Dr. Salazar's dictation for further details. 4. Chronic obstructive pulmonary disease without any acute exacerbation. 5 malnutrition, appears to be moderate. 6. Hypertension. 7. Osteoarthritis. 8. Sleep apnea. For the above mentioned ( ) and as of now there is no clear-cut source of infection ( ) continue on empiric antibiotic Zosyn as there is improvement in leukocytosis at this time. Patient's prognosis is extremely poor. MTDD
[2016-07-05] MEDS: FAMOTIDINE 20 MG TAB PO SCH (21:03)
[2016-07-05] MEDS: AMMONIUM LACTATE 12% LOTION 225 GM BTL TOPICAL SCH (21:03)
[2016-07-05] MEDS: MONTELUKAST 10 MG TAB PO SCH (21:03)
[2016-07-06 07:50] LABS: Anisocytosis Slight; CH 28.7; CHCM 30.4; HCT 26.2 % (39.0-53.0); HDW 2.75; Hypochromasia Moderate; MCH 28.9 pg (25.0-35.0); MCHC 30.5 g/dL (31.0-37.0); MCV 94.7 fL (80.0-100.0); Mean Platelet Volume 7.9; RBC 2.76 m/uL (4.30-5.90); RDW 16.3 % (11.5-15.5)
[2016-07-06 07:58] LABS: Anion Gap 7 mmol/L; Blood Urea Nitrogen 6 mg/dL (9-20); Calcium 7.2 mg/dL (8.4-10.2); Carbon Dioxide 22 mmol/L (22-30); Chloride 104 mmol/L (98-107); Glucose 75 mg/dL (74-99); Non-African American GFR(MDRD) >60 (>60 ml/min/1.73 sqM); Potassium 4.1 mmol/L (3.5-5.1); Sodium 133 mmol/L (137-145)
[2016-07-06] MEDS: SODIUM CHLORIDE 0.9% 1,000 ML IV SCH (08:31)
[2016-07-06] MEDS: MORPHINE SULFATE ER 15 MG TABLET PO SCH ×3 (08:35→23:41)
[2016-07-06] MEDS: PIPERACILLIN-TAZOBACTAM 3.375 GM in DEXTROSE/WATER 1 50ML.BAG IVPB SCH ×3 (08:36→23:39)
[2016-07-06] MEDS: ESCITALOPRAM 20 MG TAB PO SCH (08:37)
[2016-07-06] MEDS: LACTOBACILLUS ACIDOPH & BULGAR 1 EACH PACKET PO SCH ×3 (08:37→21:08)
[2016-07-06] MEDS: IPRATROPIUM-ALBUTEROL 3 ML NEB INHALATION SCH ×4 (09:10→19:05)
[2016-07-06] MEDS: BUDESONIDE 0.5 MG/2 ML NEBU INHALATION SCH ×2 (09:10→19:05)
[2016-07-06] MEDS: MENTHOL-ZINC OXIDE OINT 113 GM TUBE TOPICAL SCH ×2 (09:49→21:08)
[2016-07-06] MEDS: NYSTATIN 100,000 UNIT/ML SUSP 500,000 UNIT/5 ML CUP PO SCH ×4 (09:49→21:08)
[2016-07-06] MEDS: NICOTINE 14MG/24HR PATCH TRANSDERM SCH (09:49)
--- NOTE | 2016-07-06 11:27 | PN ---
Patient is a 66-year-old came in with complaints of fever and patient does have leukocytosis although no source of infection was identified and patient is on broad-spectrum antibiotics in the form of Zosyn at this point of time. Awaiting cultures. Patient had CT of the chest, abdomen and pelvis which showed progression of his lung cancer. Discussion needs to be done regarding hospice. In this patient, that will be left to Dr. Koehler and oncology. Patient otherwise fairly stable. REVIEW OF SYSTEMS: CARDIOVASCULAR: No chest pain, no orthopnea, no PND, no palpitations. PULMONARY: Denied any shortness of breath. No cough or hemoptysis. GASTROINTESTINAL: No diarrhea, nausea or vomiting. No abdominal pain. Normoactive bowel sounds. NEUROLOGIC: No headaches, no weakness, no numbness. Medications were reviewed. PHYSICAL EXAMINATION: Temperature 98.2, pulse of 116, respiratory rate of 20, blood pressure is 122/60, saturating at 96% on 3 O2 by nasal cannula. GENERAL: The patient has generalized tiredness and thin built gentleman. HEENT: Pupils are round and equally reacting to light. EOMI. No scleral icterus. No conjunctival pallor. Normocephalic, atraumatic. No pharyngeal erythema. No thyromegaly. CARDIOVASCULAR: S1 and S2 present. No murmurs, rubs, or gallops. PULMONARY: Chest is clear to auscultation, no wheezing or crackles. ABDOMEN: Soft, nontender, nondistended, normoactive bowel sounds. No palpable organomegaly. MUSCULOSKELETAL: No joint swelling or deformity. EXTREMITIES: No cyanosis, clubbing, or pedal edema. NEUROLOGICAL: Gross neurological examination did not reveal any focal deficits. SKIN: No rashes. LABORATORY DATA: Leukocytosis stable. Sodium is 133. ASSESSMENT AND PLAN: 1. Sepsis unclear etiology. There is suspicion of developing pulmonary edema because of which I discontinued his IV fluids and patient is also becoming hyponatremic, that it can be component of syndrome of inappropriate antidiuretic hormone because it appears to be euvolemic hypernatremia, there appears to be component of syndrome of inappropriate antidiuretic hormone as well from his lung cancer. 2. Leukocytosis, probably from cancer itself even if the fever can be from the cancer itself. If no source of infection is identified, maybe we can discontinue his antibiotics. 3. Discussion regarding comfort care and hospice needs to be done, that will be left to the physician, Dr. Koehler who is going to take care of the patient tomorrow and also to oncology services. 4. Lung cancer for which patient is on palliative chemotherapy with ( ), please refer to Dr. Salazar's dictation for that. 5. Chronic obstructive pulmonary disease without any acute exacerbation. 6. Moderate malnutrition. 7. Hypertension. 8. Osteoarthritis. 9. Sleep apnea. 10. Tachycardia, probably due to systemic inflammatory response.
[2016-07-06] MEDS: CHOLECALCIFEROL 1,000 UNIT TAB PO SCH (13:24)
[2016-07-06] MEDS: B COMPLEX-VIT C-VIT E-ZINC 1 EACH TAB PO SCH (13:24)
[2016-07-06] MEDS: MULTIVITAMINS, THERA 1 EACH TAB PO SCH (13:25)
[2016-07-06] MEDS: ASCORBIC ACID 500 MG TAB PO SCH (13:25)
[2016-07-06] MEDS: FOLIC ACID 1 MG TAB PO SCH (13:25)
[2016-07-06] MEDS: AMMONIUM LACTATE 12% LOTION 225 GM BTL TOPICAL SCH (21:08)
[2016-07-06] MEDS: MONTELUKAST 10 MG TAB PO SCH (21:08)
[2016-07-06] MEDS: FAMOTIDINE 20 MG TAB PO SCH (21:08)
[2016-07-07] MEDS: PIPERACILLIN-TAZOBACTAM 3.375 GM in DEXTROSE/WATER 1 50ML.BAG IVPB SCH ×3 (06:58→23:45)
[2016-07-07] MEDS: IPRATROPIUM-ALBUTEROL 3 ML NEB INHALATION SCH ×4 (06:58→20:21)
[2016-07-07] MEDS: BUDESONIDE 0.5 MG/2 ML NEBU INHALATION SCH ×2 (06:58→20:21)
[2016-07-07 07:24] LABS: Anisocytosis Slight; CH 28.8; HCT 24.2 % (39.0-53.0); HDW 2.79; HGB 7.3 gm/dL (13.0-17.5); Hypochromasia Marked; MCH 29.1 pg (25.0-35.0); MCHC 30.3 g/dL (31.0-37.0); MCV 96.2 fL (80.0-100.0); Mean Platelet Volume 7.8; RBC 2.52 m/uL (4.30-5.90); RDW 16.1 % (11.5-15.5)
[2016-07-07 07:36] LABS: WBC 26.2 k/uL (3.8-10.6)
[2016-07-07 07:49] LABS: Anion Gap 4 mmol/L; Blood Urea Nitrogen 6 mg/dL (9-20); Calcium 7.9 mg/dL (8.4-10.2); Carbon Dioxide 28 mmol/L (22-30); Chloride 105 mmol/L (98-107); Glucose 88 mg/dL (74-99); Non-African American GFR(MDRD) >60 (>60 ml/min/1.73 sqM); Sodium 137 mmol/L (137-145)
[2016-07-07] MEDS: MORPHINE SULFATE ER 15 MG TABLET PO SCH ×3 (07:49→23:44)
[2016-07-07] MEDS: NICOTINE 14MG/24HR PATCH TRANSDERM SCH ×2 (07:51→07:58)
[2016-07-07] MEDS: NYSTATIN 100,000 UNIT/ML SUSP 500,000 UNIT/5 ML CUP PO SCH ×4 (07:51→21:35)
[2016-07-07] MEDS: LACTOBACILLUS ACIDOPH & BULGAR 1 EACH PACKET PO SCH ×3 (07:52→21:35)
[2016-07-07] MEDS: ESCITALOPRAM 20 MG TAB PO SCH (07:52)
[2016-07-07] MEDS: MENTHOL-ZINC OXIDE OINT 113 GM TUBE TOPICAL SCH ×2 (07:58→21:34)
[2016-07-07] MEDS: MULTIVITAMINS, THERA 1 EACH TAB PO SCH (12:20)
[2016-07-07] MEDS: ASCORBIC ACID 500 MG TAB PO SCH (12:20)
[2016-07-07] MEDS: B COMPLEX-VIT C-VIT E-ZINC 1 EACH TAB PO SCH (12:20)
[2016-07-07] MEDS: FOLIC ACID 1 MG TAB PO SCH (12:20)
[2016-07-07] MEDS: CHOLECALCIFEROL 1,000 UNIT TAB PO SCH (12:20)
--- NOTE | 2016-07-07 12:37 | P.PN ---
Subjective Principal diagnosis: Lung cancer with metastasis Patient is a 66-year-old male with medical history significant for lung cancer with metastasis admitted with profuse diaphoresis, shortness of breath, hypotension, and leukocytosis suspicious for sepsis. Patient remains on IV Zosyn for empiric coverage. Blood cultures pending. Leukocytosis has improved from yesterday. Afebrile. Patient states he feels slightly better today than yesterday. Denies chills, nausea, vomiting, increased shortness of breath, chest pain, or abdominal pain. Denies diarrhea or constipation. Patient is urinating without difficulty. Patient tolerating diet. Objective - Vital Signs Vital signs: Vital Signs Temp 97.8 F 07/06/16 23:00 Pulse 100 07/07/16 11:36 Resp 16 07/07/16 08:00 BP 107/62 07/07/16 07:00 Pulse Ox 96 07/07/16 07:00 Intake & Output 07/06/16 07/07/16 07/07/16 18:59 06:59 18:59 Intake Total 795 220 Output Total 960 600 Balance -165 -380 Weight 69.5 kg 69.5 kg Intake: IV 675 100 Piperacillin-Tazobactam 3 50 100 .375 gm In Dextrose/Water 1 50ml.bag @ 12.5 mls/hr IVPB Q8HR [facility] Rx#: [id number] Sodium Chloride 0.9% 1, 625 000 ml @ 100 mls/hr IV . Q10H [facility] Rx#:[id number] Oral 120 120 Output: Urine 960 600 Other: Voiding Method Urinal Urinal Urinal Diaper Diaper Diaper Incontinent Incontinent Incontinent # Voids 1 1 - Exam GENERAL: Pt awake and alert, lying in bed, thin, in no acute distress. HEAD: Atraumatic, normocephalic. EYES: Pupils equal and round. Sclera anicteric, conjunctiva are normal. ENT: Oropharynx clear without exudates. Moist mucous membranes. NECK:Supple without lymphadenopathy or JVD. LUNGS: Breath sounds clear to auscultation bilaterally. No wheezes, rales, or rhonchi. HEART: Heart S1, S2, no S3 or S4. Regular rate and rhythm. No murmurs, rubs or gallops. ABDOMEN: Soft, nontender, nondistended, normoactive bowel sounds. No guarding, no rebound. No masses or organomegaly appreciated. EXTREMITIES: Palpable peripheral pulses. No edema. No calf tenderness. NEUROLOGICAL: Pt oriented x 3. No focal deficits. Strength and sensation grossly intact. PSYCH: Normal mood, normal affect. SKIN: Warm, dry, intact. - Labs CBC & Chem 7: 07/07/16 07:10 07/07/16 07:10 Labs: Abnormal Lab Results - Last 24 Hours (Table) 07/07/16 07/07/16 Range/Units 07:10 07:10 WBC 26.2 H* (3.8-10.6) k/uL RBC 2.52 L (4.30-5.90) m/uL Hgb 7.3 L (13.0-17.5) gm/dL Hct 24.2 L (39.0-53.0) % MCHC 30.3 L (31.0-37.0) g/dL RDW 16.1 H (11.5-15.5) % BUN 6 L (9-20) mg/dL Creatinine 0.52 L (0.66-1.25) mg/dL Calcium 7.9 L (8.4-10.2) mg/dL Assessment and Plan Plan: Impression and plan: 1. Sepsis, unclear etiology. Blood cultures pending. Continue broad-spectrum IV antibiotics. 2. Leukocytosis, improving, suspect related to cancer and possible infection. 3. Anemia suspected secondary to chronic illness and chemotherapy induced. 4. Stage IV non-small cell lung cancer with metastasis to multiple bone sites. 5. Chronic obstructive pulmonary disease without any acute exacerbation. 6. Depression. 7. Medical debility and generalized weakness with moderate to severe protein calorie malnutrition, multifactorial. Continue physical therapy. Continue fall precautions. 8. Osteoarthritis. Continue to monitor patient. Continue current medications. Continue GI and DVT prophylaxis. Continue to follow with oncology service. Repeat CBC and BMP in a.m. The above impression and plan have been discussed and directed by Dr. Koehler. Anna RAMIREZ acting as scribe for Dr. Koehler.
[2016-07-07] MEDS: AMMONIUM LACTATE 12% LOTION 225 GM BTL TOPICAL SCH (21:35)
[2016-07-07] MEDS: FAMOTIDINE 20 MG TAB PO SCH (21:35)
[2016-07-07] MEDS: MONTELUKAST 10 MG TAB PO SCH (21:35)
[2016-07-08 07:13] LABS: Basophils # (A) 0.1 k/uL (0-0.2); Basophils % (A) 0 %; CH 28.1; CHCM 29.2; Eosinophils # (A) 0.3 k/uL (0-0.7); Eosinophils % (A) 1 %; HCT 26.4 % (39.0-53.0); HDW 2.74; HGB 7.8 gm/dL (13.0-17.5); Hypochromasia Marked; Luc # (Auto) 0.25; Luc % (Auto) 1; Lymphocytes # (A) 0.7 k/uL (1.0-4.8); Lymphocytes % (A) 3 %; MCH 28.3 pg (25.0-35.0); MCHC 29.5 g/dL (31.0-37.0); MCV 96.2 fL (80.0-100.0); Mean Platelet Volume 7.4; Monocytes # (A) 0.7 k/uL (0-1.0); Monocytes % (A) 3 %; Neutrophils # (A) 21.9 k/uL (1.3-7.7); Neutrophils % (A) 92 %; RBC 2.75 m/uL (4.30-5.90); RDW 15.7 % (11.5-15.5); WBC 23.9 k/uL (3.8-10.6); WBC (Perox) 25.03
[2016-07-08 07:33] LABS: Anion Gap 5 mmol/L; Blood Urea Nitrogen 10 mg/dL (9-20); Calcium 8.3 mg/dL (8.4-10.2); Carbon Dioxide 28 mmol/L (22-30); Chloride 102 mmol/L (98-107); Glucose 91 mg/dL (74-99); Non-African American GFR(MDRD) >60 (>60 ml/min/1.73 sqM); Potassium 4.1 mmol/L (3.5-5.1); Sodium 135 mmol/L (137-145)
[2016-07-08] MEDS: LACTOBACILLUS ACIDOPH & BULGAR 1 EACH PACKET PO SCH ×3 (08:55→23:01)
[2016-07-08] MEDS: PIPERACILLIN-TAZOBACTAM 3.375 GM in DEXTROSE/WATER 1 50ML.BAG IVPB SCH ×2 (08:56→17:33)
[2016-07-08] MEDS: MORPHINE SULFATE ER 15 MG TABLET PO SCH ×3 (08:56→23:05)
[2016-07-08] MEDS: ESCITALOPRAM 20 MG TAB PO SCH (08:57)
[2016-07-08] MEDS: MENTHOL-ZINC OXIDE OINT 113 GM TUBE TOPICAL SCH ×2 (08:57→23:02)
[2016-07-08] MEDS: NYSTATIN 100,000 UNIT/ML SUSP 500,000 UNIT/5 ML CUP PO SCH ×4 (08:58→23:02)
[2016-07-08] MEDS: NICOTINE 14MG/24HR PATCH TRANSDERM SCH (08:58)
[2016-07-08] MEDS: IPRATROPIUM-ALBUTEROL 3 ML NEB INHALATION SCH ×4 (09:54→21:31)
[2016-07-08] MEDS: BUDESONIDE 0.5 MG/2 ML NEBU INHALATION SCH ×2 (09:54→21:31)
[2016-07-08] MEDS: MULTIVITAMINS, THERA 1 EACH TAB PO SCH (12:57)
[2016-07-08] MEDS: B COMPLEX-VIT C-VIT E-ZINC 1 EACH TAB PO SCH (12:57)
[2016-07-08] MEDS: CHOLECALCIFEROL 1,000 UNIT TAB PO SCH (12:57)
[2016-07-08] MEDS: ASCORBIC ACID 500 MG TAB PO SCH (12:57)
[2016-07-08] MEDS: FOLIC ACID 1 MG TAB PO SCH (12:58)
--- NOTE | 2016-07-08 14:31 | P.PN ---
Subjective Principal diagnosis: Lung cancer with metastasis Patient is a 66-year-old male with medical history significant for lung cancer with metastasis admitted with profuse diaphoresis, shortness of breath, hypotension, and leukocytosis suspicious for sepsis. Patient remains on IV Zosyn for empiric coverage. Blood cultures pending. Leukocytosis has improved from yesterday. Afebrile. Patient sitting on the side of the bed saying he doesn't feel good today. When asked about specific symptoms, patient is very vague. Patient is slightly tachycardic with heart rate in the low 100s. Plan is for oncology to discuss possible hospice care with and patient tomorrow. Objective - Vital Signs Vital signs: Vital Signs Temp 97.8 F 07/08/16 07:00 Pulse 104 H 07/08/16 13:41 Resp 18 07/08/16 07:00 BP 97/51 07/08/16 07:00 Pulse Ox 97 07/08/16 07:00 Intake & Output 07/07/16 07/08/16 07/08/16 18:59 06:59 18:59 Intake Total 290 1180 Output Total 600 Balance -310 1180 Weight 69.5 kg 69.5 kg Intake: IV 50 Piperacillin-Tazobactam 3 50 .375 gm In Dextrose/Water 1 50ml.bag @ 12.5 mls/hr IVPB Q8HR [facility] Rx#: [id number] Oral 240 1180 Output: Urine 600 Other: Voiding Method Urinal Toilet Toilet Diaper Incontinent # Voids 3 3 1 - Exam GENERAL: Pt awake and alert, sitting on side of bed, in no acute distress. HEAD: Atraumatic, normocephalic. EYES: Pupils equal and round. Sclera anicteric, conjunctiva are normal. ENT: Oropharynx clear without exudates. Moist mucous membranes. NECK:Supple without lymphadenopathy or JVD. LUNGS: Breath sounds clear to auscultation bilaterally. No wheezes, rales, or rhonchi. HEART: Heart S1, S2, no S3 or S4. Regular rate and rhythm. No murmurs, rubs or gallops. ABDOMEN: Soft, nontender, nondistended, normoactive bowel sounds. No guarding, no rebound. No masses or organomegaly appreciated. EXTREMITIES: Palpable peripheral pulses. No edema. No calf tenderness. NEUROLOGICAL: Pt oriented x 3. No focal deficits. Strength and sensation grossly intact. PSYCH: Anxious. Depressed. SKIN: Warm, dry, intact. - Labs CBC & Chem 7: 07/08/16 06:58 07/08/16 06:58 Labs: Abnormal Lab Results - Last 24 Hours (Table) 07/08/16 07/08/16 Range/Units 06:58 06:58 WBC 23.9 H (3.8-10.6) k/uL RBC 2.75 L (4.30-5.90) m/uL Hgb 7.8 L (13.0-17.5) gm/dL Hct 26.4 L (39.0-53.0) % MCHC 29.5 L (31.0-37.0) g/dL RDW 15.7 H (11.5-15.5) % Neutrophils # 21.9 H (1.3-7.7) k/uL Lymphocytes # 0.7 L (1.0-4.8) k/uL Sodium 135 L (137-145) mmol/L Creatinine 0.51 L (0.66-1.25) mg/dL Calcium 8.3 L (8.4-10.2) mg/dL Assessment and Plan Plan: Impression and plan: 1. Sepsis, unclear etiology. Blood cultures pending. Continue broad-spectrum IV antibiotics. 2. Leukocytosis, improving, suspect related to cancer and possible infection. 3. Anemia suspected secondary to chronic illness and chemotherapy induced, improved. 4. Stage IV non-small cell lung cancer with metastasis to multiple bone sites. 5. Chronic obstructive pulmonary disease without any acute exacerbation. 6. Depression. 7. Medical debility and generalized weakness with moderate to severe protein calorie malnutrition, multifactorial. Continue physical therapy. Continue fall precautions. 8. Osteoarthritis. Continue to monitor patient. Continue current medications. Continue GI and DVT prophylaxis. Continue to follow with oncology service. Family meeting scheduled tomorrow. Repeat CBC and BMP in a.m. The above impression and plan have been discussed and directed by Dr. Koehler. Anna ROBLES-C acting as scribe for Dr. Koehler.
[2016-07-08] MEDS: DIAZEPAM 5 MG TAB PO PRN (20:33)
[2016-07-08] MEDS: ACETAMINOPHEN TAB 325 MG TAB PO PRN (22:06)
[2016-07-08] MEDS: MONTELUKAST 10 MG TAB PO SCH (23:01)
[2016-07-08] MEDS: FAMOTIDINE 20 MG TAB PO SCH (23:01)
[2016-07-08] MEDS: AMMONIUM LACTATE 12% LOTION 225 GM BTL TOPICAL SCH (23:02)
[2016-07-09] MEDS: LORazepam 2 MG/ML SYRINGE IV PRN ×3 (00:44→21:42)
[2016-07-09] MEDS: PIPERACILLIN-TAZOBACTAM 3.375 GM in DEXTROSE/WATER 1 50ML.BAG IVPB SCH ×3 (00:44→18:37)
[2016-07-09] MEDS: BUDESONIDE 0.5 MG/2 ML NEBU INHALATION SCH ×2 (09:23→20:26)
[2016-07-09] MEDS: IPRATROPIUM-ALBUTEROL 3 ML NEB INHALATION SCH ×4 (09:26→20:26)
[2016-07-09] MEDS: NICOTINE 14MG/24HR PATCH TRANSDERM SCH (10:09)
[2016-07-09] MEDS: LACTOBACILLUS ACIDOPH & BULGAR 1 EACH PACKET PO SCH ×3 (10:09→21:32)
[2016-07-09] MEDS: NYSTATIN 100,000 UNIT/ML SUSP 500,000 UNIT/5 ML CUP PO SCH ×4 (10:11→21:32)
[2016-07-09] MEDS: ESCITALOPRAM 20 MG TAB PO SCH (10:11)
[2016-07-09] MEDS: MORPHINE SULFATE ER 15 MG TABLET PO SCH ×2 (10:12→16:34)
[2016-07-09] MEDS: MENTHOL-ZINC OXIDE OINT 113 GM TUBE TOPICAL SCH ×2 (10:12→21:15)
--- NOTE | 2016-07-09 12:51 | P.PN ---
Subjective Principal diagnosis: Lung cancer with metastasis Patient is a 66-year-old male with medical history significant for lung cancer with metastasis admitted with profuse diaphoresis, shortness of breath, hypotension, and leukocytosis suspicious for sepsis. Patient remains on IV Zosyn for empiric coverage. Preliminary blood cultures with positive cocci in clusters. Infectious disease service consulted. Afebrile. Patient remains tachycardic with heart rate in no 100s. According to , patient ate most of his breakfast. Patient was up ambulating in room with physical therapy. Did speak with oncology service who addressed possible hospice with again this morning. understands that patient's overall prognosis is poor but is still not ready for hospice. wishes to get patient to rehab and then home. Objective - Vital Signs Vital signs: Vital Signs Temp 98.7 F 07/09/16 08:07 Pulse 122 H 07/09/16 09:47 Resp 20 07/09/16 08:07 BP 116/58 07/09/16 08:07 Pulse Ox 92 L 07/09/16 08:07 Intake & Output 07/08/16 07/09/16 07/09/16 18:59 06:59 18:59 Intake Total 50 640 Balance 50 640 Weight 69.5 kg Intake: IV 50 50 Piperacillin-Tazobactam 3 50 50 .375 gm In Dextrose/Water 1 50ml.bag @ 12.5 mls/hr IVPB Q8HR [facility] Rx#: [id number] Oral 590 Other: Voiding Method Toilet Toilet Toilet Bedside Commode Bedside Commode Urinal Urinal # Voids 1 2 # Bowel Movements 1 - Exam GENERAL: Pt lying in bed sleeping response to verbal stimuli,, in no acute distress. HEAD: Atraumatic, normocephalic. EYES: Pupils equal and round. Sclera anicteric, conjunctiva are normal. ENT: Oropharynx clear without exudates. Moist mucous membranes. NECK:Supple without lymphadenopathy or JVD. LUNGS: Breath sounds clear to auscultation bilaterally. No wheezes, rales, or rhonchi. HEART: Heart S1, S2, no S3 or S4. Regular rate and rhythm. No murmurs, rubs or gallops. ABDOMEN: Soft, nontender, nondistended, normoactive bowel sounds. No guarding, no rebound. No masses or organomegaly appreciated. EXTREMITIES: Palpable peripheral pulses. No edema. No calf tenderness. NEUROLOGICAL: Pt oriented x 3. No focal deficits. Strength and sensation grossly intact. PSYCH: Calm SKIN: Warm, dry, intact. - Labs CBC & Chem 7: 07/08/16 06:58 07/08/16 06:58 Labs: Microbiology - Last 24 Hours (Table) 07/07/16 12:23 Blood Culture Gram Stain - Preliminary Blood 07/07/16 12:23 Blood Culture - Preliminary Blood 07/07/16 12:51 Blood Culture - Preliminary Blood No Growth after 24 hours Assessment and Plan Plan: Impression and plan: 1. Sepsis, unclear etiology. Preliminary blood cultures 2 with gram-positive cocci in clusters. We'll consult Dr. Latham from infectious disease service. Continue broad-spectrum IV antibiotics. 2. Leukocytosis, improving, suspect related to cancer and possible infection. 3. Anemia suspected secondary to chronic illness and chemotherapy induced, improved. 4. Stage IV non-small cell lung cancer with metastasis to multiple bone sites. 5. Chronic obstructive pulmonary disease without any acute exacerbation. 6. Depression. 7. Medical debility and generalized weakness with moderate to severe protein calorie malnutrition, multifactorial. Continue physical therapy. Continue fall precautions. 8. Osteoarthritis. Continue to monitor patient. Continue current medications. Continue GI and DVT prophylaxis. Continue to follow with oncology service. Repeat CBC and BMP in a.m. Discharge to rehab when patient medically stable. The above impression and plan have been discussed and directed by Dr. Koehler. Anna RAMIREZ acting as scribe for Dr. Koehler.
[2016-07-09] MEDS ORDERED: IV VANCOMYCIN PER PHARMACY 1 EACH MISC MISCELLANE PRN (13:04)
[2016-07-09] MEDS: CHOLECALCIFEROL 1,000 UNIT TAB PO SCH (13:12)
[2016-07-09] MEDS: ASCORBIC ACID 500 MG TAB PO SCH (13:12)
[2016-07-09] MEDS: MULTIVITAMINS, THERA 1 EACH TAB PO SCH (13:12)
[2016-07-09] MEDS: B COMPLEX-VIT C-VIT E-ZINC 1 EACH TAB PO SCH (13:12)
[2016-07-09] MEDS: FOLIC ACID 1 MG TAB PO SCH (13:13)
[2016-07-09] MEDS ORDERED: VANCOMYCIN 1,250 MG in SODIUM CHLORIDE 0.9% 250 ML IVPB ONE (14:00)
[2016-07-09] MEDS: ACETAMINOPHEN TAB 325 MG TAB PO PRN (14:08)
--- NOTE | 2016-07-09 16:05 | P.PN ---
Subjective Principal diagnosis: fever Family meeting this AM with pt and . Pt was visualized walking with assistive device and 2 person assist, he is on O2, he was able to sit up at the bedside and lay down independently. He ate some breakfast, he states low back pain. Objective - Vital Signs Vital signs: Vital Signs Temp 98.7 F 07/09/16 08:07 Pulse 101 H 07/09/16 14:07 Resp 18 07/09/16 14:07 BP 108/64 07/09/16 14:07 Pulse Ox 96 07/09/16 14:07 Intake & Output 07/08/16 07/09/16 07/09/16 18:59 06:59 18:59 Intake Total 50 640 Balance 50 640 Weight 69.5 kg Intake: IV 50 50 Piperacillin-Tazobactam 3 50 50 .375 gm In Dextrose/Water 1 50ml.bag @ 12.5 mls/hr IVPB Q8HR [facility] Rx#: [id number] Oral 590 Other: Voiding Method Toilet Toilet Toilet Bedside Commode Bedside Commode Urinal Urinal # Voids 1 2 # Bowel Movements 1 1 - Labs CBC & Chem 7: 07/08/16 06:58 07/08/16 06:58 Labs: Microbiology - Last 24 Hours (Table) 07/07/16 12:51 Blood Culture - Preliminary Blood No Growth after 48 hours 07/07/16 12:23 Blood Culture Gram Stain - Preliminary Blood 07/07/16 12:23 Blood Culture - Preliminary Blood Assessment and Plan (1) Lung cancer metastatic to bone Narrative/Plan: Imaging revels soft tissue mets in the abdomen. We discussed disease progression noted on CT scan. Peculiar that immunotherapy treatment is not providing disease control due to the significant increase in size of known mets and new mets identified on images and that continuing this line of therapy is not appropriate, agreed and felt that pt would not proceed with another treatment any ways. Pt wants to go home, wants to "honor his wishes". We had a candid discussion, concern is for safety of pt and . I strongly recommended rehab and that is the paln. Id did discuss case with [facility] for IM. IF pt is able to regain enough function to go home after rehab only then would I recommend him returning to home and then I would also recommend home care, maybe home PT based on pt functional status. We discussed what treatment options remain for metastatic lung cancer, conventionally chemotherapy is still an option but pt is not in any shape to even consider that at this time. wants to try holistic medicine and nutrition. I let her know that while pt is on rehab she can let facility know that she wants to have a specific diet but then she would be responsible for providing that, any meds or treatments would also have to be cleared by the facility, she verbalized understanding. All questions answered to the best of my ability. Status: Chronic
[2016-07-09] MEDS ORDERED: VANCOMYCIN 1,250 MG in SODIUM CHLORIDE 0.9% 250 ML IVPB SCH (21:00)
[2016-07-09] MEDS: AMMONIUM LACTATE 12% LOTION 225 GM BTL TOPICAL SCH (21:14)
[2016-07-09] MEDS: FAMOTIDINE 20 MG TAB PO SCH (21:15)
[2016-07-09] MEDS: MONTELUKAST 10 MG TAB PO SCH (21:15)
[2016-07-09] MEDS: DIAZEPAM 5 MG TAB PO PRN (21:35)
[2016-07-09] MEDS: VANCOMYCIN 1,250 MG in SODIUM CHLORIDE 0.9% 250 ML IVPB SCH (22:38)
[2016-07-10] MEDS: PIPERACILLIN-TAZOBACTAM 3.375 GM in DEXTROSE/WATER 1 50ML.BAG IVPB SCH ×3 (01:10→17:45)
[2016-07-10] MEDS: MORPHINE SULFATE ER 15 MG TABLET PO SCH ×4 (01:11→23:11)
[2016-07-10] MEDS: LORazepam 2 MG/ML SYRINGE IV PRN (02:50)
[2016-07-10] MEDS: VANCOMYCIN 1,250 MG in SODIUM CHLORIDE 0.9% 250 ML IVPB SCH ×3 (06:11→23:02)
[2016-07-10] MEDS: BUDESONIDE 0.5 MG/2 ML NEBU INHALATION SCH ×2 (07:43→21:27)
[2016-07-10] MEDS: IPRATROPIUM-ALBUTEROL 3 ML NEB INHALATION SCH ×4 (07:43→21:28)
--- NOTE | 2016-07-10 08:31 | CONS ---
DATE OF CONSULTATION: 07/09/2016 REASON FOR CONSULTATION: Positive blood culture. HISTORY OF PRESENT ILLNESS: The patient is a 66-year-old male who has been diagnosed with metastatic lung cancer with metastasis to the bone with recent multiple admissions to this facility with the chief complaints of lethargy, weakness, hypertension, and concern for possible infection or dehydration. The patient subsequently has been evaluated by the ER physician and admitted to the hospital. Has been evaluated by Oncology where the patient did have a CT of the chest, abdomen and pelvis that did show overall increase in the size of his pulmonary tumor in addition to lymphadenopathy and lytic and sclerotic metastatic disease involving the medial right iliac bone with lytic areas in the right acetabulum and left iliac bone. Patient did have elevated white count on admission of 31.3. The patient did have blood cultures obtained on the though he did not have any fever during this admission and is being treated with Zosyn. The blood cultures are now coming back positive with gram-positive cocci. Hence, I was asked to see the patient for examination. At the time of my evaluation, the patient remains to be afebrile. The patient remains to be lethargic though he did open his eyes when called by name. When asked for any further questions, the patient remains to be nonverbal and did not answer any questions. No nausea or vomiting has been documented or any significant diarrhea. Overall, his treatment is to be limited as he did not answer the questions and no family member was available at the bedside. The patient though does not have any Mediports or central lines . REVIEW OF SYSTEMS: Could not be reliably obtained and positive points has been mentioned in the HPI. PAST MEDICAL HISTORY: Significant for metastatic lung cancer, COPD, gastroesophageal reflux disease, hypertension, osteoarthritis, sleep apnea, pneumonia, testicular cancer, PAST SURGICAL HISTORY: Significant for back surgery, basal cell skin cancer removed, surgical removal of the testicular cancer, cervical fusion. SOCIAL HISTORY: Positive for smoking in the past and marijuana use. No other drug use. FAMILY HISTORY: Father with history of skin cancer and thyroid disorder. Mother with history of COPD and hypertension. Allergies include ADHESIVE TAPE, CLONAZEPAM, LATEX, NAPROXEN, ZOFRAN, TOPAMAX, PROCHLORPERAZINE. Medications currently include the patient is on Tylenol, DuoNeb, vitamin C, Dulcolax, Pulmicort, vitamin D3, Flexeril, Valium, Lexapro, Pepcid, folic acid, Lac-Hydrin, Lactinex, Ativan, milk of magnesia, Singulair, Theragran, Narcan, piperacillin tazobactam. On examination, blood pressure is 97/58 with a pulse of 93, temperature 97.8. He is 98% on 3 L nasal cannula. General description is a middle-age male lying in bed in no distress. No tachypnea or accessory muscle of respiration use. HEENT examination shows pallor. No scleral icterus. Oral mucous membrane dry. NECK: Trachea central. No thyromegaly. LUNGS: Unlabored breathing with decreased breath sounds at the bases. No wheeze. HEART: S1, S2. Regular rate and rhythm. ABDOMEN: Soft, no tenderness. No guarding or rigidity. EXTREMITIES: No edema of feet. SKIN EXAMINATION: No rash or mass palpable. Patient remains to be lethargic, but responds to his name. Orientation could not be determined. LABS: Hemoglobin is 7.8, with white count of 23.9 with a BUN of 10, creatinine 0.51. Blood culture with gram-positive cocci. DIAGNOSTIC IMPRESSION AND PLAN: 1. Patient with positive blood culture with Gram-positive cocci in a patient who does have metastatic lung with metastasis to the bone admitted to the hospital with weakness in a patient who did not have any fever during this admission with a CT of abdomen and pelvis and chest did show overall progression of his metastatic lung cancer, but there was no evidence or mention of any pneumonia or an abscess. With his positive culture if turns out to be coagulase negative staph it will be more likely a skin contamination and will be disregarded and no further workup will be requested. 2. Patient with elevated white count, more likely multofactorial and in part related to his underlying metastatic lung cancer. PLAN: 1. Blood culture has been ordered to make sure no evidence of any persistent bacteremia. 2. Vancomycin will be added to Zosyn while waiting for the final ID of this pathogen. However as mentioned earlier, if it turns out to be Coagulase negative staph no further workup will be warranted and vancomycin will be discontinued at that time. 3. Will follow up on the clinical condition as well as cultures to further adjust the medication if needed. Thank you for this consultation. We will follow this patient along with you. AMY
[2016-07-10 09:10] LABS: Anisocytosis Slight; Basophils # (A) 0.1 k/uL (0-0.2); Basophils % (A) 0 %; CH 28.2; CHCM 29.9; Eosinophils # (A) 0.3 k/uL (0-0.7); Eosinophils % (A) 1 %; HCT 25.2 % (39.0-53.0); HDW 2.78; HGB 7.6 gm/dL (13.0-17.5); Hypochromasia Marked; Luc # (Auto) 0.32; Luc % (Auto) 1; Lymphocytes % (A) 4 %; MCH 28.4 pg (25.0-35.0); MCV 94.5 fL (80.0-100.0); Mean Platelet Volume 7.2; Monocytes # (A) 0.8 k/uL (0-1.0); Monocytes % (A) 3 %; Neutrophils # (A) 25.9 k/uL (1.3-7.7); Neutrophils % (A) 91 %; RBC 2.67 m/uL (4.30-5.90); WBC (Perox) 30.05
[2016-07-10 09:22] LABS: Anion Gap 8 mmol/L; Blood Urea Nitrogen 10 mg/dL (9-20); Calcium 8.5 mg/dL (8.4-10.2); Carbon Dioxide 30 mmol/L (22-30); Chloride 102 mmol/L (98-107); Glucose 91 mg/dL (74-99); Non-African American GFR(MDRD) >60 (>60 ml/min/1.73 sqM); Potassium 3.7 mmol/L (3.5-5.1); Sodium 140 mmol/L (137-145)
[2016-07-10 09:34] LABS: WBC 28.3 k/uL (3.8-10.6)
[2016-07-10] MEDS: ESCITALOPRAM 20 MG TAB PO SCH (09:52)
[2016-07-10] MEDS: NYSTATIN 100,000 UNIT/ML SUSP 500,000 UNIT/5 ML CUP PO SCH ×4 (09:53→20:40)
[2016-07-10] MEDS: LACTOBACILLUS ACIDOPH & BULGAR 1 EACH PACKET PO SCH ×3 (09:53→20:40)
[2016-07-10] MEDS: NICOTINE 14MG/24HR PATCH TRANSDERM SCH (09:53)
[2016-07-10] MEDS: MENTHOL-ZINC OXIDE OINT 113 GM TUBE TOPICAL SCH ×2 (09:54→20:40)
--- NOTE | 2016-07-10 13:21 | P.PN ---
Subjective Principal diagnosis: Lung cancer with metastasis Patient is a 66-year-old male with medical history significant for lung cancer with metastasis admitted with profuse diaphoresis, shortness of breath, hypotension, and leukocytosis suspicious for sepsis. Patient remains on IV Zosyn for empiric coverage. Repeat preliminary blood cultures with positive cocci in clusters. Infectious disease service consulted. Afebrile. Patient remains tachycardic with heart rate in no 100s. This morning, patient is standing on the side of the bed quite confused and needs redirection from nursing staff. 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 Discharge planning is currently in progress for patient to be discharged to home with hospice tomorrow per 's request. Objective - Vital Signs Vital signs: Vital Signs Temp 97.6 F 07/10/16 08:20 Pulse 101 H 07/10/16 08:20 Resp 18 07/10/16 08:20 BP 110/68 07/10/16 08:20 Pulse Ox 93 L 07/10/16 08:20 Intake & Output 07/09/16 07/10/16 07/10/16 18:59 06:59 18:59 Intake Total 50 590 Balance 50 590 Intake: IV 50 Piperacillin-Tazobactam 3 50 .375 gm In Dextrose/Water 1 50ml.bag @ 12.5 mls/hr IVPB Q8HR [facility] Rx#: [id number] Oral 590 Other: Voiding Method Toilet Toilet Toilet Bedside Commode Bedside Commode Bedside Commode Urinal Urinal Urinal # Voids 3 # Bowel Movements 1 1 1 - Exam GENERAL: Pt awake, confused, in no acute distress. HEAD: Atraumatic, normocephalic. EYES: Pupils equal and round. Sclera anicteric, conjunctiva are normal. ENT: Oropharynx clear without exudates. Moist mucous membranes. NECK:Supple without lymphadenopathy or JVD. LUNGS: Breath sounds clear to auscultation bilaterally. No wheezes, rales, or rhonchi. HEART: Heart S1, S2, no S3 or S4. Regular rate and rhythm. No murmurs, rubs or gallops. ABDOMEN: Soft, nontender, nondistended, normoactive bowel sounds. No guarding, no rebound. No masses or organomegaly appreciated. EXTREMITIES: Palpable peripheral pulses. No edema. No calf tenderness. NEUROLOGICAL: Pt oriented x 2. No focal deficits. Strength and sensation grossly intact. PSYCH: Calm SKIN: Warm, dry, intact. - Labs CBC & Chem 7: 07/10/16 08:31 07/10/16 08:31 Labs: Abnormal Lab Results - Last 24 Hours (Table) 07/10/16 07/10/16 Range/Units 08:31 08:31 WBC 28.3 H* (3.8-10.6) k/uL RBC 2.67 L (4.30-5.90) m/uL Hgb 7.6 L (13.0-17.5) gm/dL Hct 25.2 L (39.0-53.0) % MCHC 30.0 L (31.0-37.0) g/dL RDW 16.0 H (11.5-15.5) % Neutrophils # 25.9 H (1.3-7.7) k/uL Creatinine 0.56 L (0.66-1.25) mg/dL Microbiology - Last 24 Hours (Table) 07/09/16 15:55 Blood Culture Gram Stain - Preliminary Blood 07/09/16 15:55 Blood Culture - Preliminary Blood 07/07/16 12:23 Blood Culture Gram Stain - Preliminary Blood Blood Culture - Preliminary Coagulase Negative Staph 07/07/16 12:51 Blood Culture - Preliminary Blood No Growth after 48 hours Assessment and Plan Plan: Impression and plan: 1. Sepsis, unclear etiology. Preliminary blood cultures 2 with gram-positive cocci in clusters. We'll consult Dr. Latham from infectious disease service. Continue broad-spectrum IV antibiotics. 2. Leukocytosis suspect related to cancer and infectious process. 3. Anemia suspected secondary to chronic illness and chemotherapy induced. 4. Stage IV non-small cell lung cancer with metastasis to multiple bone sites. 5. Chronic obstructive pulmonary disease without any acute exacerbation. 6. Depression. 7. Medical debility and generalized weakness with moderate to severe protein calorie malnutrition, multifactorial. Continue physical therapy. Continue fall precautions. 8. Osteoarthritis. Continue to monitor patient. Continue current medications. Continue GI and DVT prophylaxis. Continue to follow with oncology service. Discharge plan in place for patient to return to home with hospice tomorrow. The above impression and plan have been discussed and directed by Dr. Koehler. Anna RAMIREZ acting as scribe for Dr. Koehler.
--- NOTE | 2016-07-10 17:11 | PN ---
DATE OF SERVICE: 07/10/2016 Reason for follow up is positive blood culture. INTERVAL HISTORY: The patient is afebrile. He seems to be sleepy when seen on rounds early this afternoon with sitter at the bedside. No significant nausea, vomiting or respiratory distress has been noticed or any diarrhea. On examination, blood pressure is 110/68 with a pulse of 101, temperature 97.6. He is 93% on 2-L. General description is a middle-age male lying in bed in no distress. RESPIRATORY SYSTEM: Unlabored breathing with decreased breath sounds at the base. HEART: S1, S2 with regular rate and rhythm. ABDOMEN: Soft, no tenderness. LABS: Hemoglobin 7.6, white count 8.3. Blood culture initially with a Coag-negative staph. Repeat also positive. Diagnostic impression and PLAN: Patient with positive blood culture with coagulase negative Staphylococcus, more likely skin contamination. The patient does have a metastatic lung cancer. Patient did have progression of his disease and is being considered for hospice. Will recommend discontinuation of the antibiotics and no further work-up for the same. Plan was discussed with the nurse practitioner for the primary team. AMY
[2016-07-10] MEDS: ASCORBIC ACID 500 MG TAB PO SCH (17:43)
[2016-07-10] MEDS: CHOLECALCIFEROL 1,000 UNIT TAB PO SCH (17:43)
[2016-07-10] MEDS: MULTIVITAMINS, THERA 1 EACH TAB PO SCH (17:43)
[2016-07-10] MEDS: B COMPLEX-VIT C-VIT E-ZINC 1 EACH TAB PO SCH (17:43)
[2016-07-10] MEDS: FOLIC ACID 1 MG TAB PO SCH (17:43)
[2016-07-10] MEDS: MONTELUKAST 10 MG TAB PO SCH (20:40)
[2016-07-10] MEDS: AMMONIUM LACTATE 12% LOTION 225 GM BTL TOPICAL SCH (20:40)
[2016-07-10] MEDS: FAMOTIDINE 20 MG TAB PO SCH (20:40)
[2016-07-11] MEDS: PIPERACILLIN-TAZOBACTAM 3.375 GM in DEXTROSE/WATER 1 50ML.BAG IVPB SCH ×3 (01:24→15:50)
[2016-07-11] MEDS ORDERED: VANCOMYCIN TROUGH DUE 1 EACH MISC MISCELLANE ONE (05:00)
[2016-07-11] MEDS: VANCOMYCIN 1,250 MG in SODIUM CHLORIDE 0.9% 250 ML IVPB SCH ×2 (05:28→14:44)
[2016-07-11 09:23] VITALS: RESP 20
[2016-07-11] MEDS: LACTOBACILLUS ACIDOPH & BULGAR 1 EACH PACKET PO SCH ×3 (09:34→15:50)
[2016-07-11] MEDS: NICOTINE 14MG/24HR PATCH TRANSDERM SCH (09:34)
[2016-07-11] MEDS: ESCITALOPRAM 20 MG TAB PO SCH (09:34)
[2016-07-11] MEDS: MORPHINE SULFATE ER 15 MG TABLET PO SCH ×3 (09:35→18:30)
[2016-07-11] MEDS: MENTHOL-ZINC OXIDE OINT 113 GM TUBE TOPICAL SCH (09:35)
[2016-07-11] MEDS: NYSTATIN 100,000 UNIT/ML SUSP 500,000 UNIT/5 ML CUP PO SCH ×3 (09:35→15:51)
[2016-07-11] MEDS: IPRATROPIUM-ALBUTEROL 3 ML NEB INHALATION SCH ×4 (10:05→19:42)
[2016-07-11] MEDS: BUDESONIDE 0.5 MG/2 ML NEBU INHALATION SCH ×2 (10:05→19:42)
--- NOTE | 2016-07-11 12:03 | P.DS ---
Providers Date of admission: 07/04/16 14:37 Expected date of discharge: 07/11/16 Attending physician: Ty Koehler Consults: 07/09/16 09:42 Consult Physician Urgent Consulting Provider: Tamika Latham Consult Reason/Comments: positive blood cultures Do you want consulting provider notified?: Yes Primary care physician: Ty Koehler [place] [facility] Course: Patient is a 66-year-old male with medical history significant for lung cancer with metastasis admitted with profuse diaphoresis, shortness of breath, hypotension, and leukocytosis suspicious for sepsis. Patient was initiated on IV Zosyn for empiric coverage. Infectious disease consulted along with oncology service. Blood cultures with evidence of skin contamination and IV antibiotics were discontinued. Patient underwent a CT scan of the chest abdomen and pelvis with evidence of progressive metastasis. Per family request , consult was requested for hospice. Patient will be discharged home in stable condition with hospice in place. in agreement. Discharge diagnoses: 1. Sepsis, unclear etiology. 2. Leukocytosis suspect related to cancer. 3. Anemia suspected secondary to chronic illness and chemotherapy induced. 4. Stage IV non-small cell lung cancer with metastasis to multiple bone sites. 5. Chronic obstructive pulmonary disease without any acute exacerbation. 6. Depression. 7. Medical debility and generalized weakness with moderate to severe protein calorie malnutrition, multifactorial. 8. Osteoarthritis. The above impression and plan have been discussed and directed by Dr. Koehler. Anna RAMIREZ acting as scribe for Dr. Koehler. Pertinent Studies: Chest x-ray; EKG; chest abdomen pelvis CT Patient Condition at Discharge: Stable Plan - Discharge Summary New Discharge Prescriptions: Ammonium Lactate Lotion [Lac-Hydrin 12% Lotion] 1 applic TOPICAL HS #1 bottle Atropine Ophth Soln 1% 5Ml [Isopto Atropine 1% 5Ml] 2 drops SL Q4H PRN #1 bottle PRN Reason: Secretions Diazepam [Valium] 5 mg PO BID PRN #14 tab PRN Reason: Muscle Spasm LORazepam ORAL CONC [Ativan Intensol] 1 - 2 mg PO Q3H PRN #30 ml PRN Reason: Anxiety Menthol/Zinc Oxide [Calmoseptine Ointment] 1 applic TOPICAL BID #71 oint...g. Morphine Sulfate ER [Ms Contin] 15 mg PO Q8H #21 tab Discharge Medication List Escitalopram [Lexapro] 20 mg PO DAILY 12/17/15 [History] Folic Acid 1 mg PO DAILY #90 tablet 01/01/16 [Rx] Cholecalciferol [Vitamin D3] 5,000 unit PO DAILY 03/13/16 [History] Ascorbic Acid [Vitamin C] 500 mg PO DAILY 05/12/16 [History] Multivitamins, Thera [Multivitamin] 1 tab PO DAILY 05/12/16 [History] Vitamin B Complex 1 cap PO DAILY 05/12/16 [History] Budesonide [Pulmicort] 0.5 mg INHALATION RT-BID #60 nebu 05/21/16 [Rx] Montelukast [Singulair] 10 mg PO HS #30 tab 06/02/16 [Rx] Ipratropium-Albuterol Nebulize [Duoneb 0.5 mg-3 mg/3 ml Soln] 3 ml INHALATION RT -QID ampul.neb 06/26/16 [Rx] L.acidoph,Paracasei, B.lactis [Probiotic] 1 cap PO TID 07/04/16 [History] Ammonium Lactate Lotion [Lac-Hydrin 12% Lotion] 1 applic TOPICAL HS #1 bottle [Rx] Atropine Ophth Soln 1% 5Ml [Isopto Atropine 1% 5Ml] 2 drops SL Q4H PRN #1 bottle 07/10/16 [Rx] Cyclobenzaprine [Flexeril] 10 mg PO BID PRN #14 tab 07/10/16 [Rx] Diazepam [Valium] 5 mg PO BID PRN #14 tab 07/10/16 [Rx] LORazepam ORAL CONC [Ativan Intensol] 1 - 2 mg PO Q3H PRN #30 ml 07/10/16 [Rx] Menthol/Zinc Oxide [Calmoseptine Ointment] 1 applic TOPICAL BID #71 oint...g. [Rx] Morphine Sulfate ER [Ms Contin] 15 mg PO Q8H #21 tab 07/10/16 [Rx] Follow up Appointment(s)/Referral(s): Ty Koehler DO [Primary Care Provider] - 1-2 days Discharge Disposition: HOME WITH HOSPICE
[2016-07-11] MEDS: FOLIC ACID 1 MG TAB PO SCH (13:41)
[2016-07-11] MEDS: CHOLECALCIFEROL 1,000 UNIT TAB PO SCH (13:41)
[2016-07-11] MEDS: B COMPLEX-VIT C-VIT E-ZINC 1 EACH TAB PO SCH (13:41)
[2016-07-11] MEDS: ASCORBIC ACID 500 MG TAB PO SCH (13:41)
[2016-07-11] MEDS: MULTIVITAMINS, THERA 1 EACH TAB PO SCH (13:41)
--- NOTE | 2016-07-11 17:17 | PN ---
DATE OF SERVICE: 07/11/2016 REASON FOR FOLLOWUP: Bacteremia. INTERVAL HISTORY: The patient is afebrile. The sitter mentioned that the patient did eat well and has been sleeping mostly. No nausea or vomiting has been noticed or any respiratory distress or diarrhea. On examination, blood pressure is 158/75 with a pulse of 108, temperature 98.1. He is 98% on 2 L nasal cannula. General description is a middle-aged male lying in bed in no distress. RESPIRATORY SYSTEM: Unlabored breathing. Decreased breath sounds at the base. HEART: S1, S2. Regular rate and rhythm. ABDOMEN: Soft. No tenderness. LABS: No new labs have been obtained today. Blood cultures coming back positive for coagulase-negative staphylococcus. DIAGNOSTIC IMPRESSION AND PLAN: Patient with positive blood culture with coagulase-negative staphylococcus, more likely a skin contamination, especially with no clinical disease to go along with it. However, the family is leaning more toward hospice-related care. No need for further workup at this point in view of his condition. Continue supportive care. AMY
[2016-07-11 19:11] VITALS: BP 104/50; PULSE 94; TEMP 98.3
== END 2016-07-11 19:52 | disposition hospice, home (50) | DRG 871 ==
LOC: EC 10:38 → 5MS5E 14:37 → 5ONC 17:01 → 6SEL 17:33 → 5ONC 07-05 11:38
PROVIDERS: ADMIT Family Medicine; ATTEND Family Medicine
DX: A41.9 Sepsis, unspecified organism (principal); E43 Unspecified severe protein-calorie malnutrition; C79.51 Secondary malignant neoplasm of bone; E22.2 Syndrome of inappropriate secretion of antidiuretic hormone; C34.90 Malignant neoplasm of unspecified part of unspecified bronchus or lung; D64.81 Anemia due to antineoplastic chemotherapy; E86.0 Dehydration; J44.9 Chronic obstructive pulmonary disease, unspecified; Z51.5 Encounter for palliative care; T45.1X5A Adverse effect of antineoplastic and immunosuppressive drugs, initial encounter; F17.200 Nicotine dependence, unspecified, uncomplicated; F12.90 Cannabis use, unspecified, uncomplicated; G89.29 Other chronic pain; I10 Essential (primary) hypertension; F32.9 Major depressive disorder, single episode, unspecified; G47.33 Obstructive sleep apnea (adult) (pediatric); K21.9 Gastro-esophageal reflux disease without esophagitis; M19.90 Unspecified osteoarthritis, unspecified site; F41.9 Anxiety disorder, unspecified; J45.909 Unspecified asthma, uncomplicated; Z85.47 Personal history of malignant neoplasm of testis; Z85.828 Personal history of other malignant neoplasm of skin; Z79.891 Long term (current) use of opiate analgesic; Z79.51 Long term (current) use of inhaled steroids; Z79.899 Other long term (current) drug therapy; Z82.5 Family history of asthma and other chronic lower respiratory diseases
CPT/HCPCS: 36415; 71020; 71260; 74177; 80048; 80053; 80202; 81003; 82533; 82550; 82553; 83880; 84484; 85025; 85027; 85610; 85730; 87040; 87077; 87186; 93005; 94640; 94760; 96365; 96366; 96367; 99285